=== PATIENT | male | born 1960 | race Caucasian/White ===

== ENCOUNTER 2023-11-14 13:41 | Emergency (ER) | payer OTHER, SELFPAY ==
[2023-11-14 13:45] VITALS: BP 178/88; PULSE 80; TEMP 36.8; O2SAT 97; BMI 38.7
--- NOTE | 2023-11-14 13:52 | CT_ITS ---
[address] [address] Patient Name: MIKEL CALDERON MRN: [id number] date: 1960 Sex: M Assigned Patient Location: ER Current Patient Location: Accession/Order Number: [id number] Exam Date: 11/14/2023 14:35 Report Date: 11/14/2023 15:04 At the request of: JACQUES JOHNSON Procedure: CT abdomen pelvis w con EXAMINATION: CT abdomen pelvis w con HISTORY: Abdominal pain , nausea and COMPARISON: No relevant comparison available. TECHNIQUE: Axial, Coronal, and Sagittal images were obtained without and/or with IV contrast as indicated by examination type. Dose reduction techniques were achieved by using automated exposure control and/or adjustment of mA and/or kV according to patient size and/or use of iterative reconstruction technique. FINDINGS: LUNG BASES: No visible pulmonary or pleural disease. LIVER: No enlargement, atrophy, suspicious density, or significant focal lesion. BILIARY: No dilatation or calcification. PANCREAS: No lesion, fluid collection, or abnormal duct dilatation. SPLEEN: No enlargement or focal lesion. ADRENALS: No mass or enlargement. KIDNEYS: Moderate right hydronephrosis secondary to an obstructing 9 x 7 x 5 mm stone within the mid ureter. Left kidney contains 2 nonobstructing stones, largest is 10 mm. BOWEL/MESENTERY: No visible mass, obstruction, or bowel wall thickening. AORTA/VASCULAR: No aneurysm or dissection. RETROPERITONEUM: No mass or adenopathy. LYMPH NODES: No adenopathy. URINARY BLADDER: No visible focal wall thickening, lesion, or calculus. PELVIC ORGANS: No visible mass. Pelvic organs appropriate for patient age. ABDOMINAL WALL: No mass or hernia. BONES: No bony lesion or fracture. OTHER: Negative. CT/CT abdomen pelvis w con IMPRESSION: 1. Moderate right hydronephrosis secondary to an obstructing 9 x 7 x 5 mm stone within the mid ureter. 2. Nonobstructing left nephrolithiasis. Electronically authenticated by: KATI CASTRO Date: 11/14/2023 15:04
--- NOTE | 2023-11-14 13:57 | ED.GENADUL1 ---
HPI HPI - General Adult General Chief complaint: Abdominal Pain Stated complaint: ABDOMINAL PAIN Time Seen by Provider: 11/14/23 13:42 Source: patient Mode of arrival: walk-in Limitations: no limitations History of Present Illness HPI narrative: Patient is a 63-year-old male who presents to the emergency department for the evaluation of right lower quadrant abdominal pain. Patient states 30 minutes ago he had a sudden onset of sharp right lower quadrant pain. He felt nauseous but has had no vomiting, he states he tried to make himself throw up but was unsuccessful. He has had no fevers. He had a hamburger and water 45 minutes prior to arrival. He denies any previous abdominal surgeries. He has had no urinary complaints or diarrhea. No medications taken prior to arrival. No flank or back pain. No other upper respiratory symptoms. Related Data Home Medications ?Medication ?Instructions ?Recorded ?Confirmed metformin 500 mg tablet 500 mg PO BID 11/14/23 11/14/23 Previous Rx's ?Medication ?Instructions ?Recorded cephalexin 500 mg capsule 500 mg PO Q8H 7 days #21 caps 11/14/23 ondansetron 4 mg disintegrating 4 mg PO Q6H PRN nausea and 11/14/23 tablet vomiting #12 tabs oxycodone-acetaminophen 5 mg-325 1 tab PO Q6H PRN pain 3 days #15 11/14/23 mg tablet (Percocet) tabs Allergies Allergy/AdvReac Type Severity Reaction Status Date / Time No Known Drug Allergies Allergy Verified 11/14/23 13:45 Opioid HPI Opioid Management Most Recent Opioid Data: Last Pain Scale 3 11/14/23 15:09 Last ED Pain Assessment 11/14/23 15:05 Last MAR Pain Assessment 11/14/23 14:16 Review of Systems ROS Constitutional Denies: fever or chills Ears, nose, mouth, and throat Denies: throat pain or nasal congestion Cardiovascular Denies: chest pain Respiratory Denies: shortness of breath or cough Gastrointestinal Reports: abdominal pain and nausea; Denies: vomiting or diarrhea Musculoskeletal Denies: back pain Integumentary/Breast Denies: rash Neurological Denies: headache Endocrine Denies: excessive urination Hematologic/Lymphatic Denies: easy bruising or easy bleeding Exam Narrative Exam Narrative: Gen.: Awake, alert, in no distress Head: Normocephalic, atraumatic ENT: Moist mucous membranes Respiratory: No respiratory distress Gastrointestinal: Abdomen is soft, nondistended and Tenderness to palpation in the right lower quadrant with no McBurney's point tenderness, no guarding or rebound Extremities: Moves extremities equally Psych: Normal mood and affect Neuro: No focal neuro deficit Skin: Warm, dry, intact Constitutional Vital Signs, click to edit/add: Last Vital Signs Temp 98.2 F 11/14/23 13:45 Pulse 85 11/14/23 15:04 Resp 16 11/14/23 15:04 BP 148/78 H 11/14/23 15:04 Pulse Ox 93 L 11/14/23 15:04 O2 Del Method Room Air 11/14/23 15:04 Course Vital Signs Vital signs: Vital Signs Temperature 98.2 F 11/14/23 13:45 Pulse Rate 80 11/14/23 13:45 Respiratory Rate 20 11/14/23 13:45 Blood Pressure 178/88 H 11/14/23 13:45 Pulse Oximetry 97 11/14/23 13:45 Oxygen Delivery Method Room Air 11/14/23 13:45 Temperature 98.2 F 11/14/23 13:45 Pulse Rate 85 11/14/23 15:04 Respiratory Rate 16 11/14/23 15:04 Blood Pressure 148/78 H 11/14/23 15:04 Pulse Oximetry 93 L 11/14/23 15:04 Oxygen Delivery Method Room Air 11/14/23 15:04 Medical Decision Making MDM Narrative Medical decision making narrative: Patient treated with IV fluids, Toradol, Zofran, Levsin. He is sitting comfortably on reevaluation by attending physician. He was able to walk to [place] with no difficulty. Lab studies show normal white blood cell count, normal creatinine of 1.2. Lactic acid is mildly elevated and lipase is also mildly elevated but not high enough to qualify for acute pancreatitis and CT shows a 9 x 7 x 5 mm stone At the right mid ureter. We do not have urology coverage at this facility for at least 2 days. Patient is diabetic with a large stone and hydro-. He is resting comfortably. Discussed with attending physician, patient should seek care at a tertiary care facility whether transfer directly from the ER or close follow-up. Patient is comfortable with any outside urology follow-up. Discussed with Dr. Leung For [facility]. He will see the patient tomorrow morning in the office, he has OR time so if a procedure is indicated the patient can be taken to the OR tomorrow. Patient will be n.p.o. after midnight. I stressed to the patient multiple times that he needs to not eat or drink anything after midnight. If he needs to take a pain pill he can take it with a tiny sip of water. He verbalized understanding. He is on no other home medications other than metformin and this will need to be held due to IV contrast from the CT. Follow-up tomorrow in the office at 9 AM, return to the ER if symptoms change or worsen. EKG requested for pre-op clearance Medical Records Medical records reviewed: Yes I reviewed the patient's medical records Lab Data Lab results reviewed: Yes I reviewed the patient's lab results Labs: Lab Results 11/14/23 Range/Units 14:00 WBC 7.2 (4.0-11.0) 10^3/uL RBC 4.65 L (4.70-6.10) 10^6/uL Hgb 14.7 (14.0-18.0) g/dL Hct 42.1 (42.0-54.0) % MCV 90.5 (80.0-94.0) fL MCH 31.6 (25.9-34.0) pg MCHC 34.9 (29.9-35.2) g/dL RDW 12.1 (11.0-15.0) % Plt Count 156 (150-450) 10^3/uL MPV 10.9 (9.5-13.5) fL Neut % (Auto) 57.4 (43.0-75.0) % Lymph % (Auto) 31.0 (20.5-60.0) % [place] % (Auto) 8.5 (1.7-12.0) % Eos % (Auto) 2.4 (0.9-7.0) % Baso % (Auto) 0.4 (0.2-2.0) % Neut # (Auto) 4.1 (1.4-6.5) 10^3/uL Lymph # (Auto) 2.2 (1.2-3.8) 10^3/uL [place] # (Auto) 0.6 (0.3-0.8) 10^3/uL Eos # (Auto) 0.2 (0.0-0.7) 10^3/uL Baso # (Auto) 0.0 (0.0-0.1) 10^3/uL Abs Immat Gran (auto) 0.02 (0.00-0.03) 10^3/uL Imm/Tot Granulo (auto) 0.3 (0.0-0.5) % Sodium 140 (136-145) mmol/L Potassium 4.0 (3.5-5.1) mmol/L Chloride 102 (98-107) mmol/L Carbon Dioxide 27.4 (21.0-32.0) mmol/L Anion Gap 14.6 BUN 15.0 (7.0-18.0) mg/dL Creatinine 1.21 (0.70-1.30) mg/dL Est GFR ( Amer) >60 (>=60) Est GFR (Non-Af Amer) >60 (>=60) BUN/Creatinine Ratio 12.4 Glucose 106 (74-106) mg/dL Lactate 2.3 H* (0.4-2.0) mmol/L Calcium 9.7 (8.5-10.1) mg/dL Total Bilirubin 0.5 (0.2-1.0) mg/dL AST 31 (15-37) U/L ALT 50 (16-63) U/L Alkaline Phosphatase 73 (46-116) U/L Total Protein 7.5 (6.4-8.2) g/dL Albumin 4.3 (3.4-5.0) g/dL Globulin 3.2 g/dL Albumin/Globulin Ratio 1.3 Lipase 159.0 H (16.0-77.0) U/L Imaging Data CT scan - abdomen: Attestation: I have reviewed the pertinent imaging results. Radiologist's impression: ITS Impressions Abdomen/Pelvis CT 11/14/23 13:52 IMPRESSION: 1. Moderate right hydronephrosis secondary to an obstructing 9 x 7 x 5 mm stone within the mid ureter. 2. Nonobstructing left nephrolithiasis. Electronically authenticated by: KATI CASTRO Date: 11/14/2023 15:04 Discharge Plan Discharge Stand Alone Forms: Portal Instructions Chief Complaint: Abdominal Pain Clinical Impression: Abdominal pain, Kidney stone on right side Patient Disposition: Home, Self-Care Time of Disposition Decision: 15:36 Condition: Good Prescriptions / Home Meds: New oxycodone-acetaminophen [Percocet] 5-325 mg tablet 1 tab PO Q6H PRN (Reason: pain) 3 Days Qty: 15 0RF Rx Instructions: DX: N20.0 cephalexin 500 mg capsule 500 mg PO Q8H 7 Days Qty: 21 0RF ondansetron 4 mg tablet,disintegrating 4 mg PO Q6H PRN (Reason: nausea and vomiting) Qty: 12 0RF No Action metformin 500 mg tablet 500 mg PO BID Print Language: Hungarian Instructions: Kidney Stones (ED) Additional Instructions: Please do not eat or drink anything after midnight tonight Please follow up tomorrow (Tuesday11/15/23) at 8:45am for your 9am appointment with [facility], please bring your discharge packet with all of your labs and information with CD of your images for the urology staff [facility] ? [facility] [address] [place] [address] [address] [place], [place] [address] tel:[phone] Referrals: Fish Nolasco MD [Primary Care Provider] - 1 week
[2023-11-14 14:11] LABS: Basophils Percent Auto 0.4 % (0.2-2.0); Eosinophils Absolute Auto 0.2 10^3/uL (0.0-0.7); Eosinophils Percent Auto 2.4 % (0.9-7.0); Hematocrit 42.1 % (42.0-54.0); Hemoglobin 14.7 g/dL (14.0-18.0); Immature Granulocytes Abs Auto 0.02 10^3/uL (0.00-0.03); Immature Granulocytes Pct Auto 0.3 % (0.0-0.5); Lymphocytes Absolute Auto 2.2 10^3/uL (1.2-3.8); Mean Corpuscular HGB Conc 34.9 g/dL (29.9-35.2); Mean Corpuscular Hemoglobin 31.6 pg (25.9-34.0); Mean Corpuscular Volume 90.5 fL (80.0-94.0); Mean Platelet Volume 10.9 fL (9.5-13.5); Monocytes Absolute Auto 0.6 10^3/uL (0.3-0.8); Monocytes Percent Auto 8.5 % (1.7-12.0); Neutrophils Absolute Auto 4.1 10^3/uL (1.4-6.5); Neutrophils Percent Auto 57.4 % (43.0-75.0); Platelet Count 156 10^3/uL (150-450); Red Blood Count 4.65 10^6/uL (4.70-6.10); Red Cell Distribution Width 12.1 % (11.0-15.0); White Blood Count 7.2 10^3/uL (4.0-11.0)
[2023-11-14] MEDS: KETOROLAC TROMETHAMINE 30 MG/ML VIAL 15 MG IVP (14:16)
[2023-11-14] MEDS: 0.9 % SODIUM CHLORIDE 1,000 ML 999 ML IV (14:17)
[2023-11-14] MEDS: HYOSCYAMINE SULFATE 0.125 MG TAB.SUBL SL (14:17)
[2023-11-14] MEDS: ONDANSETRON PF 4 MG/2 ML VIAL IV (14:21)
[2023-11-14 14:27] LABS: Alanine Aminotransferase 50 U/L (16-63); Albumin Globulin Ratio 1.3; Albumin Level 4.3 g/dL (3.4-5.0); Alkaline Phosphatase 73 U/L (46-116); Anion Gap 14.6; Aspartate Amino Transferase 31 U/L (15-37); BUN Creatinine Ratio 12.4; Bilirubin Total 0.5 mg/dL (0.2-1.0); Calcium 9.7 mg/dL (8.5-10.1); Carbon Dioxide 27.4 mmol/L (21.0-32.0); Chloride 102 mmol/L (98-107); Estimated GFR (African America >60 (>=60); Estimated GFR (Non-African Ame >60 (>=60); Globulin 3.2 g/dL; Glucose 106 mg/dL (74-106); Sodium 140 mmol/L (136-145); Total Protein 7.5 g/dL (6.4-8.2)
[2023-11-14 14:43] LABS: Lactate/Lactic Acid 2.3 mmol/L (0.4-2.0)
[2023-11-14 15:04] VITALS: BP 148/78; PULSE 85; O2SAT 93
--- NOTE | 2023-11-14 15:32 | ECG_ITS ---
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
[2023-11-14 16:36] LABS: Bilirubin Urine NEGATIVE (NEGATIVE); Blood Urine SMALL (NEGATIVE); Clarity Urine CLEAR (CLEAR); Color Urine DK. YELLOW (YELLOW); Glucose Urine UA NEGATIVE (NEGATIVE); Ketones Urine NEGATIVE (NEGATIVE); Leukocyte Esterase Urine NEGATIVE (NEGATIVE); Nitrite Urine NEGATIVE (NEGATIVE); Protein Urine NEGATIVE (NEG/TRACE); Urine Microscopic Indicated YES; Urobilinogen Urine 0.2 EU/dL (0.2-1.0)
[2023-11-14 16:43] LABS: Bacteria Urine NONE SEEN #/HPF (NONE SEEN); Cast Seen? NONE SEEN #/LPF (NONE SEEN); Crystals Seen? None Seen #/HPF (None Seen); Mucus Urine NONE SEEN (NONE SEEN); RBC Urine 0-2 #/HPF (0-2); Squamous Epithelial Cell Urine NONE SEEN #/LPF (NONE/RARE); WBC Urine NONE SEEN #/HPF (NONE SEEN)
== END 2023-11-14 16:10 | disposition home or self-care (01) ==
PROVIDERS: Physician Assistant; Emergency Provider Emergency Medicine; PCP Family Medicine
DX: R10.9 Unspecified abdominal pain (principal); N20.0 Calculus of kidney; Z79.84 Long term (current) use of oral hypoglycemic drugs
CPT/HCPCS: 36415; 74177; 80053; 81001; 83605; 83690; 85025; 93005; 96374; 96375; 99285; Q9967

== ENCOUNTER 2023-11-16 13:50 | Outpatient (REF) | payer OTHER, SELFPAY | END 2023-11-16 13:51 | disposition home or self-care (01) | LOC: LAB 13:50 | PROVIDERS: PCP Family Medicine; Visit Provider Surgery | DX: L98.9 Disorder of the skin and subcutaneous tissue, unspecified (principal); C44.41 Basal cell carcinoma of skin of scalp and neck | CPT/HCPCS: 88305 ==

== ENCOUNTER 2024-02-15 07:19 | Outpatient (OUT) | payer OTHER, SELFPAY ==
--- OUTSIDE RECORDS SUMMARY | 2024-02-15 07:23 | XMS_ITS | CCD ---
Author Organization [facility] Care Team Providers Care Analytical Clerk Name Role Phone FELIX, JAZMIN S Unavailable Unavailable FELIX JAZMIN S Unavailable Unavailable JOSE, BRO S Unavailable Unavailable HOBridgette DIALLO M Unavailable Unavailable ALBERT, REGI S Unavailable Unavailable AL-NSOUR, MOHAMMAD A Unavailable Unavailable FLANAGAN, SHAILI Unavailable Unavailable ADAPPA, MARY Unavailable Unavailable CHINEDU, GARY K Unavailable Unavailable CHINEDU, GARY K Unavailable Unavailable ADAPPA, MARY Unavailable Unavailable RAHEEM DIALLO M Unavailable Unavailable ALBERT, REGI S Unavailable Unavailable AL-NSOUR, MOHAMMAD A Unavailable Unavailable FLANAGAN, SHAILI Unavailable Unavailable MITCHEL NOLASCOLAS M Unavailable Unavailable Diallo Nolasco Primary Care Physician NILBlaise ., DR CARPIO Attending Unavailable NILL ., DR CARPIO Admitting Unavailable HOY ., DR LANDRUM Primary Care Unavailable HOY ., DR LANDRUM Consulting Unavailable HOY ., DR LANDRUM Attending Unavailable HOY ., DR LANDRUM Admitting Unavailable HOY ., DR LANDRUM Primary Care Unavailable MIGNON WILLETT Attending Unavailable MIGNON WILLETT Admitting Unavailable MIGNON WILLETT Consulting Unavailable DR DIALLO GRAHAM Primary Care Unavailable NILL ., DR CARPIO Admitting Unavailable NILL ., DR CARPIO Consulting Unavailable NILBlaise ., DR CARPIO Attending Unavailable RAHEEM Velasco, DR LANDRUM Primary Care Unavailable MD Shirin Conn Attending Provider MD Gary Varela Attending Provider [phone] Shirin Conn Admitting Unavailable Shirin Conn Attending Unavailable Gary Varela Admitting Unavailable Gary Varela Attending Unavailable MARKUS FARAH Referring Unavailable DIALLO NOLASCO Primary Care Unavailable MARKUS FARAH Referring Unavailable DIALLO NOLASCO Primary Care Unavailable SALVADOR AVILA Admitting Unavailable SALVADOR AVILA Attending Unavailable DIALLO NOLASCO Primary Care Unavailable MIGNON WILLETT Attending Unavailable MIGNON WILLETT Attending Unavailable Shirin CONN Attending Unavailable Diallo Nolasco Referring Unavailable Shirin CONN Attending Unavailable Allergies Allergy Classification Reported Allergen(s) Allergy Type Date of Onset Reaction(s) Facility (1 source) No Known Medication Allergies; Translations: [No Known Medication Allergies] Propensity to adverse reactions (disorder) [facility] Repository Medications Current Medications Medication Drug Class(es) Dates Sig (Normalized) Sig (Original) 3 ML semaglutide 2.68 MG/ML Pen Injector [Ozempic] (3 sources) Start: 09-13-2023 Ozempic 8 mg/3 mL (2 mg dose) subcutaneous solution Refills(s) 0 Start Date: 09/13/23 Status: Ordered aspirin 81 mg oral capsule (4 sources) Platelet Aggregation Inhibitor, Nonsteroidal Anti-inflammatory Drug Start: 09-01-2021 take 1 capsule by mouth once daily aspirin 81 mg oral capsule 81 mg = 1 cap(s), Oral, Daily, Refills(s) 0 Start Date: 09/01/21 Status: Ordered metFORMIN hydrochloride 500 mg oral tablet (6 sources) Biguanide Start: 11-08-2019 take 1 tablet by mouth twice daily metformin 500 mg oral tablet 500 mg = 1 tab(s), Oral, BID, Refills(s) 0 Start Date: 11/08/19 Status: Ordered Multi Vitamins oral tablet (6 sources) Start: 07-13-2022 take 1 tablet by mouth once daily Multi Vitamins oral tablet 1 tab(s), Oral, Daily, Refill(s) 0 Start Date: 07/13/22 Status: Ordered tadalafil (6 sources) Phosphodiesterase 5 Inhibitor Start: 09-13-2023 tadalafil 20 mg Tab See Instructions, Do not exceed 20mg within 48 hours. PRN for sexual intercourse., # 30 tab(s), Refills(s) 5, Pharmacy: [id number], 177, cm, 09/13/23 8:23:00 EST, Height/Length Dosing, 118, kg, 09/13/23 8:23:00 EST, Weight Dosing Start Date: 09/13/23 Status: Ordered Start: 09-08-2022 take 1 tablet by rick th every hour tadalafil 20 mg Tab See Instructions, Take 1 tab by mouth 1 hour prior to sexual activity., # 30 tab(s), Refills(s) 5, Pharmacy: [facility], 177, cm, 09/08/22 10:19:00 EST, Height/Length Dosing, 118, kg, 09/08/22 10:19:00 EST, Weight Dosing Start Date: 09/08/22 Status: Ordered Start: 03-23-2022 tadalafil 20 m g Tab 20 mg = 1 tab(s), Oral, As Directed, # 30 tab(s), Refills(s) 5, Pharmacy: [facility], 177, cm, 09/01/21 8:35:00 EST, Height/Length Dosing, 123.2, kg, 09/01/21 8:35:00 EST, Weight Dosing Start Date: 03/23/22 Status: Ordered Problems Problem Classification Problem Date Documented Da te Episodic/Chronic Acute cerebrovascular disease (4 sources) Nontraumatic subdural hemorrhage, unspecified; Translations: [Hematoma of subdural space of neuraxis] Onset: 7 06-29-2023 Chronic Allergic reactions (6 sources) Eczema 08-19-2021 Episodic Attention-deficit, conduct, and disruptive behavior disorders (6 sources) Attention deficit hyperactivity disorder 08-19-2021 Chronic Calculus of urinary tract (14 sources) History of calculus of kidney; Translations: [Personal history of urinary calculi] Onset: 3 04-30-2019 Episodic Coagulation and hemorrhagic disorders (3 sources) Heparin induced thrombocytopenia (HIT); Translations: [Thrombocytopenia, unspecified] Onset: 7 Chronic Conditions associated with dizziness or vertigo (6 sources) Benign paroxysmal positional vertigo 08-19-2021 Episodic Diabetes mellitus without complication (7 sources) Diabetes mellitus; Translations: [Type 2 diabetes mellitus without complications] Onset: 3 08-28-2019 Chronic Essential hypertension (6 sources) Diastolic hypertension 08-19-2021 Chronic Genitourinary symptoms and ill-defined conditions (7 sources) Nocturia; Translations: [Nocturia] Onset: 3 12-20-2019 Episodic Hyperplasia of prostate (13 sources) Benign prostatic hypertrophy with outflow obstruction; Translations: [Benign prostatic hyperplasia with lower urinary tract symptoms] Onset: 3 02-21-2020 Chronic Malaise and fatigue (1 source) Other fatigue; Translations: [OTHER FATIGUE] Onset: 2 Episodic Neoplasms of unspecified nature or uncertain behavior (8 sources) Neoplasm of uncertain behavior of skin of back; Translations: [Neoplasm of uncertain behavior of skin] Onset: 4 08-25-2021 Episodic Other and ill-defined heart disease (6 sources) Cardiomegaly 08-19-2021 Chronic Other circulatory disease (6 sources) History of subdural hematoma 08-19-2021 Episodic Other connective tissue disease (6 sources) Diastasis recti 08-19-2021 Episodic Other ear and sense organ disorders (6 sources) Hearing loss 08-19-2021 Chronic Other male genital disorders (6 sources) Impotence 02-21-2020 Chronic Other male genital disorders (2 sources) Male erectile dysfunction, unspecified; Translations: [Erectile dysfunction] Onset: 3 Chronic Other non-epithelial cancer of skin (20 sources) Basal cell carcinoma of back; Translations: [Basal cell carcinoma of lower extremity] Onset: 3 09-22-2021 Episodic Other nutritional; endocrine; and metabolic disorders (4 sources) Body mass index 40+ - severely obese 07-13-2022 Chronic Other nutritional; endocrine; and metabolic disorders (4 sources) Obesity 07-01-2022 Chronic Other nutritional; endocrine; and metabolic disorders (1 source) Obesity, unspecified; Translations: [OBESITY UNSPECIFIED] Onset: 3 Chronic Other nutritional; endocrine; and metabolic disorders (1 source) Body mass index (BMI) 40.0-44.9, adult; Translations: [BODY MASS INDEX BMI 40.0-44.9 ADULT] Onset: 3 Chronic Other nutritional; endocrine; and metabolic disorders (2 sources) Body mass index 30+ - obesity 11-16-2023 Chronic Other nutritional; endocrine; and metabolic disorders (2 sources) Obesity caused by energy imbalance 11-16-2023 Chronic Other screening for suspected conditions (not mental disorders or infectious disease) (8 sources) Ultrasonography of abdomen abnormal; Translations: [Encounter for screening for malignant neoplasm of prostate] Onset: 2 09-18-2019 Episodic Other skin disorders (1 source) Hypertrophic condition of skin; Translations: [Other hypertrophic disorders of the skin] Onset: 2 Episodic Other skin disorders (6 sources) Epidermoid cyst of skin 08-28-2019 Episodic Other skin disorders (6 sources) Skin tag 07-13-2022 Episodic Other skin disorders (6 sources) Trichilemmal cyst; Translations: [Pilar cyst] Onset: 3 Episodic Other skin disorders (3 sources) Other hypertrophic disorders of the skin; Translations: [OTHER HYPERTROPHIC DISORDERS SKIN] Onset: 3 Episodic Other skin disorders (1 source) Pilar cyst; Translations: [PILAR CYST] Onset: 3 Episodic Other upper respiratory disease (6 sources) Seasonal allergic rhinitis 08-19-2021 Chronic Moriah-; endo-; and myocarditis; cardiomyopathy (except that caused by tuberculosis or sexually transmitted disease) (12 sources) Cardiomyopathy; Translations: [Myocarditis] 08-19-2021 Chronic Phlebitis; thrombophlebitis and thromboembolism (7 sources) H/O: Deep vein thrombosis; Translations: [Personal history of other venous thrombosis and embolism] Onset: 3 08-19-2021 Episodic Residual codes; unclassified (6 sources) Obstructive sleep apnea syndrome 08-19-2021 Chronic Residual codes; unclassified (1 source) Obstructive sleep apnea (adult) (pediatric); Translations: [OBSTRUCTIVE SLEEP APNEA] Onset: 3 Chronic Unclassified (3 sources) Patient encounter status 09-13-2023 Results Test Name Value Interpretation Reference Range Facil ity Consultation Noteon 01-01-20 Consultation Note [id number]#1.00TIFF Normal [facility] Pathology Noteon 01-01-2024 Pathology Note [id number]#1.00TIFF Normal [facility] XR ABDOMEN (KUB) (SINGLE AP VIEW)on 12-28-2023 XR ABDOMEN (KUB) (SINGLE AP VIEW) EXAMINATION: ONE SUPINE XRAY VIEW(S) OF THE ABDOMEN 12/26/2023 1:22 pm COMPARISON: March 27, 2017 HISTORY: ORDERING SYSTEM PROVIDED HISTORY: Ureteral stone FINDINGS: Bowel gas pattern nonobstructed. Renal shadows partially obscured by bowel gas and fecal debris. 3 mm left nephrolithiasis. No definite right renal or ureteral stones. No acute osseous abnormality. IMPRESSION: Left nephrolithiasis. Interpreted by: Wali Horan DO Signed by: Wali Horan DO 12/28/23 Final result Normal [facility] 12-14-2023 L Specimen: [id number] Received: 12/15/23 Status: UYEN Hsu Num: [id number] Spec Type: Surgical Subm Dr: Gary Varela MD Tissues: A Skin-Other than Cyst, tag, debridement or plastic repair (SCALP) Procedures: HE/7, Gross/Micro L4 Age/ Patient Sex Location Account Attending Physician Mikel Samuels 63/M [place] [id number] Gray Varela MD SPEC NUM: [id number] RECD: 12/15/23 STATUS: UYEN HSU NUM: [id number] ASA: 12/14/[address]: Gary Varela MD ENTERED: 12/15/[address]: SPEC TYPE: Surgical DEPT: S ORDERED: HE/7, Gross/Micro L4 ORDERED: HE/7, Gross/Micro L4 Pathological Diagnosis Skin, scalp, reexcision: -Basal cell carcinoma of the large nodular to slightly infiltrative types (at least 1 cm tumor size) -The tumor thickness is up to 4 mm -No evidence of lymphovascular or perineural invasion -All margins are negative for malignancy Clinical Information Nonhealing lesion, reexcision biopsy. C44.41 Basal cell carcinoma. Gross Description Received in formalin labeled with the patient's name, date of and scalp is an oriented ovoid excision of monzon skin measuring 2.3 x 2.2 x 0.5 cm in depth. The specimen has been tagged with a staple by the surgeon designating the 12 o'clock position. The surface contains a 1.0 x 0.9 x 0.2 cm crusted and dome-shaped lesion coming to within 0.6 cm of 12:00 0.7 cm of 3:00 0.4 cm of 6:00 and 0.2 cm of 9:00. The specimen is inked as follows: 12-3 is orange, 3-6 is green, 6-9-12 is red and the deep margin is black. The specimen is serially sectioned from 12:00 to 6:00 revealing a 0.1 cm maximum depth of invasion. The specimen is sequentially submitted in A1-A6 as follows: A1: 9:00 tip Specimen: [id number] Received: 12/15/23 Status: UYEN Hsu Num: [id number] Spec Type: Surgical Subm Dr: Gary Varela MD Tissues: A Skin-Other than Cyst, tag, debridement or plastic repair (SCALP) Procedures: KELLY, Sukhwinder/Dorinda L4 Patient: Mikel Samuels [id number] (Continued) Specimen: [id number] Received: 12/15/23 (Continued) Gross Description (Continued) Signed (signature on file) Leonel Mendoza MD 12/20/23 1015 Specimen: [id number] Received: 12/15/23 Status: UYEN Aracelis Num: [id number] Spec Type: Surgical Subm Dr: Gary Varela MD Tissues: A Skin-Other than Cyst, tag, debridement or plastic repair (SCALP) Procedures: Sukhwinder Torrez/Micro L4 Patient: SamuelsMikel [id number] (Continued) Specimen: [id number] Received: 12/15/23 (Continued) Gross Description (Continued) A2: 3:00 tip A3-A6: 12:00 to 6:00 region CPT Codes 48697 Specimen: [id number] Received: 12/15/23 Status: UYEN Aracelis Num: [id number] Spec Type: Surgical Subm Dr: Gary Varela MD Tissues: A Skin-Other than Cyst, tag, debridement or plastic repair (SCALP) Procedures: Sukhwinder MENDOZA/Dorinda L4 Patient: Mikel Samuels [id number] (Continued) Signed (signature on file) Leonel Mendoza MD 12/20/23 1015 Normal [facility] Pathology Noteon 11-30-2023 Pathology Note [id number]#1.00TIFF Normal [facility] Ambulatory Visit Summaryon 0 11-23-2023 Ambulatory Visit Summary MIKEL SAMUELS :1960 Visit Date:11/23/2023 Ambulatory Visit Instructions Your Care Team Attending Physician - BETSY MORAN, Shirin Sanchez Primary Care Physician - Raheem MORAN, Diallo This Is Your Medications List metformin (metformin 500 mg oral tablet) multivitamin (Multi Vitamins oral tablet) semaglutide (Ozempic 8 mg/3 mL (2 mg dose) subcutaneous solution) tadalafil (tadalafil 20 mg Tab) Procedures Performed Incisional biopsy (11/22/2023), Bunionectomy (08/18/2020), Excision of malignant neoplasm (09/04/2019), Craniotomy (07/18/2016), Lithotripsy (07/18/2006), Cardiac catheterization (07/18/2004), Arthroplasty of knee, Colonoscopy, Cystoscopy, Excisional biopsy, Hernia repair, History of knee surgery, Insertion of gastrostomy tube, Lithotripsy, Neck procedure, Procedure on brain, Procedure on shoulder, Removal of gastrostomy tube, Rotator cuff repair, Vasectomy. What to do next Scheduled Follow-Up Appointments Tuesday. 2024 8:20 AM EST With: MIGNON WILLETT PA-C Where: [facility] General Surgery Office/Clini c Noteon 11-23-2023 General Surgery Office/Clinic Note Chief Complaint follow up in office incisional biopsy HPI Staff 8 day post in-office incisional biopsy scalp lesion. History of Present Illness 8 days s/p excisional biopsy changing lesion mid parietal scalp; no bleeding or pain; pathology pending. Review of Systems ROS - Provider Constitutional: no fever, no sweats, no weight loss. Eyes: no glasses, no blurred vision, no visual loss. ENMT: no dentures, no hoarseness, no swallowing difficulties, no hearing loss, no ear infection(s), no nose bleeds. Cardiovascular: normal blood pressure, no chest pain, regular heartbeat, no heart murmur. Respiratory: no shortness of breath, no cough, no asthma, no wheezing. Gastrointestinal: no nausea, no vomiting, no diarrhea, no constipation, no blood in stool, no change in bowel habits, no abdominal pain, no hepatitis. Genitourinary: no kidney stones, no urine infection, no dysuria. Musculoskeletal: no pain, no weakness. Skin: no changing moles, no rash, no skin lumps. Neurologic: no seizures, no epilepsy, no headache. Psychiatric: no emotional or psychiatric problem. Heme/Lymph: no bleeding problems, no anemia, no blood clots, no transfusions. Allergy/Immunologic: no swollen lymph nodes/glands, no IV drug abuse. Other: Additional ROS info: Except as noted in the above Review of Systems and in the History of Present Illness, all other systems have been reviewed and are negative or noncontributory. Physical Exam skin: biopsy site healing well, small scab, no hematoma or bleeding, no drainage. Assessment/Plan 1. Neoplasm of uncertain behavior of scalp (D48.5: Neoplasm of uncertain behavior of skin) sutures removed, doing well; will call patient with pathology results. Follow-up No qualifying data available Problem List/Past Medical History Ongoing Abnormal US (ultrasound) of abdomen ADHD Basal cell carcinoma of back Basal cell carcinoma of left lower leg Benign paroxysmal positional vertigo BMI 37.0-37.9, adult BPH with urinary obstruction Cardiomegaly Cardiomyopathy Diabetes Diastasis recti Diastolic hypertension Eczema Epidermal cyst Fibroepithelial polyp Hearing loss History of DVT (deep vein thrombosis) History of kidney stones History of subdural hematoma Impotence Myocarditis Neoplasm of uncertain behavior of scalp Neoplasm of uncertain behavior of skin of back Nocturia Obesity due to excess calories FREDDY (obstructive sleep apnea) Personal history of skin cancer Pilar cyst Prostate cancer screening Seasonal allergic rhinitis Historical No qualifying data Procedure/Surgical History Incisional biopsy (11/22/2023), Bunionectomy (08/18/2020), Excision of malignant neoplasm (09/04/2019), Craniotomy (07/18/2016), Lithotripsy (07/18/2006), Cardiac catheterization (07/18/2004), Arthroplasty of knee, Colonoscopy, Cystoscopy, Excisional biopsy, Hernia repair, History of knee surgery, Insertion of gastrostomy tube, Lithotripsy, Neck procedure, Procedure on brain, Procedure on shoulder, Removal of gastrostomy tube, Rotator cuff repair, Vasectomy. Medications metformin 500 mg oral tablet, 500 mg= 1 tab(s), Oral, BID Multi Vitamins oral tablet, 1 tab(s), Oral, Daily Ozempic 8 mg/3 mL (2 mg dose) subcutaneous solution tadalafil 20 mg Tab, See Instructions, 5 refills Allergies No Known Allergies No Known Medication Allergies Social History Alcohol Current, 1-2 times per month, 04/30/2019 Substance Abuse - Denies Substance Abuse, 08/25/2021 Tobacco Never (less than 100 in lifetime) Tobacco Use:. Never Smokeless Tobacco Use:. Household tobacco concerns: No. Yes, 11/16/2023 Family History Cardiac arrest: Father. Diverticulitis: Mother. Immunizations Vaccine Date Status Comments influenza virus vaccine, inactivated - Not Given Patient Refuses influenza virus vaccine, inactivated - Not Given Patient Refuses SARS-CoV-2 (COVID-19) mRNA BNT-162b2 vax 10/16/2020 Recorded SARS-CoV-2 (COVID-19) mRNA BNT-162b2 vax 09/25/2020 Recorded influenza virus vaccine, inactivated 07/08/2020 Recorded influenza virus vaccine, live, trivalent - Not Given Patient Refuses pneumococcal 13-valent vaccine 04/2005 Recorded Normal [facility] Comment on above: Result Comment: Elec tronically Signed By: BETSY MORAN, Shirin Sanchez\.br\Date and Time Signed: 11/23/23 15:20 EDT Ambulatory Visit Summaryon 0 11-16-2023 Ambulatory Visit Summary MIKEL SAMUELS :1960 Visit Date:11/16/2023 Ambulatory Visit Instructions Your Care Team Attending Physician - Shirin CONN MD Primary Care Physician - Diallo Nolasco MD Referring Physician - Diallo Nolasco MD This Is Your Medications List Contact prescribing physician if questions or concerns metformin (metformin 500 mg oral tablet) multivitamin (Multi Vitamins oral tablet) semaglutide (Ozempic 8 mg/3 mL (2 mg dose) subcutaneous solution) tadalafil (tadalafil 20 mg Tab) Procedures Performed Bunionectomy (08/18/2020), Excision of malignant neoplasm (09/04/2019), Craniotomy (07/18/2016), Lithotripsy (07/18/2006), Cardiac catheterization (07/18/2004), Arthroplasty of knee, Colonoscopy, Cystoscopy, Excisional biopsy, Hernia repair, History of knee surgery, Insertion of gastrostomy tube, Lithotripsy, Neck procedure, Procedure on brain, Procedure on shoulder, Removal of gastrostomy tube, Rotator cuff repair, Vasectomy. Discharge Vitals Heart Rate (Peripheral) 76 Respiratory Rate 16 Blood Pressure 138/90 Height 177 cm Height 70 in Weight 118 kg Weight 259.6 lb BMI 37.66 What to do next Scheduled Follow-Up Appointments Tuesday 3:00 PM EDT With: BETSY MORAN, Shirin Sanchez Where: [facility] Normal [address] [place] [address] [place] [address]- \.br\ Medications\.br\ What How Much When Instructions\.br \ Unchanged metformin (metformin 500 mg oral tablet) 1 Tablets By Mouth 2 times a day Contact prescribing physician if questions or concerns \.br\ Unchanged multivitamin (Multi Vitamins oral tablet) 1 Tablets By Mouth Every day Contact prescribing physician if questions or concerns \.br\ Unchanged semaglutide (Ozempic 8 mg/ 3 mL (2 mg dose) subcutaneous solution) Contact prescribing physician if questions or concerns \.br\ Unchanged tadalafil (tadalafil 20 mg Tab) See instructions Do not exceed 20mg within 48 hours. PRN for sexual intercourse. Contact prescribing physician if questions or concerns \.br\ Allergies\.br\ No Known Allergies\.br\ No Known Medication Allergies\.br\ Problems\.br\ Ongoing - Any problem that you are currently receiving treatment for.\.br\ Abnormal US (ultrasound) of abdomen\.br\ ADHD\.br\ Basal cell carcinoma of back\.br\ Basal cell carcinoma of left lower leg\.br\ Benign paroxysmal positional vertigo\.br\ BMI 37.0-37.9, adult\.br\ BPH with urinary obstruction\.br\ Cardiomegaly\.br \ Cardiomyopathy\. br\ Diabetes\.br\ Diastasis recti\.br\ Diastolic hypertension\.br \ Eczema\.br\ Epidermal cyst\.br\ Fibroepithelial polyp\.br\ Hearing loss\.br\ History of DVT (deep vein thrombosis)\.br\ History of kidney stones\.br\ History of subdural hematoma\.br\ Impotence\.br\ Myocarditis\.br\ Neoplasm of uncertain behavior of skin of back\.br\ Nocturia\.br\ Obesity due to excess calories\.br\ FREDDY (obstructive sleep apnea)\.br\ Personal history of skin cancer\.br\ Pilar cyst\.br\ Prostate cancer screening\.br\ Seasonal allergic rhinitis\.br\ Patient Survey\.br\ You may receive a survey via text or e-mail asking about your office visit. Please share your experience with us by completing your survey. We appreciate your feedback and thank you for choosing us for your care.\.br\ \.br\ [facility] Kiran 11-16-2023 L Specimen: [id number] Received: 11/17/23 Status: UYEN Littleq Num: [id number] Spec Type: Surgical Subm Dr: Shirin Conn MD FACS Tissues: A Skin-Other than Cyst, tag, debridement or plastic repair (POSTERIOR SCALP) Procedures: HE, Gross/Micro L4 Age/ Patient Sex Location Account Attending Physician Mikel Samuels 63/M [place] [id number] Shirin Conn MD FACS SPEC NUM: [id number] RECD: 11/17/23 STATUS: UYEN HSU NUM: [id number] ASA: 11/16/[address]: Shirin Conn MD FACS ENTERED: 11/17/[address] [facility] [address]: Fransico Charlton SPEC TYPE: Surgical DEPT: MELL [place]UM[place] ORDERED: HE, Gross/Micro L4 ORDERED: HE, Gross/Micro L4 Pathological Diagnosis Skin of posterior scalp, incisional biopsy: ? Basal cell carcinoma (nodular and infiltrative patterns) extending to multiple specimen margins. Gross Description Received in formalin, labeled with the patient's name, date of and posterior scalp is a 0.6 x 0.2 x 0.1 cm scaly pale-monzon fragment of skin. The fragment is inked green along its presumed resection margin, left intact and submitted entirely in A1. Clinical history: 6-week history of changing skin lesion TW CPT Codes 17166 Specimen: [id number] Received: 11/17/23 Status: UYEN Hsu Num: [id number] Spec Type: Surgical Subm Dr: Shirin Conn MD FACS Tissues: A Skin-Other than Cyst, tag, debridement or plastic repair (POSTERIOR SCALP) Procedures: Sukhwinder ANDERSON/Dorinda L4 Patient: SamuelsMikel [id number] (Continued) Signed (signature on file) Leonel Mendoza MD 11/28/23 1212 Normal [facility] FLUORO FOR SURGICAL PROCEDUR ESon 11-15-2023 FLUORO FOR SURGICAL PROCEDURES Radiology exam is complete. No Radiologist dictation. Please follow up with ordering provider. Final result Normal [facility] Physician Referralon 024 Physician Referral [id number]#[id number] Normal [facility] Physician Referralon 024 Physician Referral [id number]#1.00TIFF Normal [facility] Lab Reportson 09-15-2023 Lab Reports [id number]#[id number] Normal [facility] Screenson 09-15-2023 Screens [id number] Normal [facility] Screens [id number] Normal [facility] Patient Educationon 09-13-19 24 Patient Education Urology Benign Prostatic Hyperplasia Benign prostatic hyperplasia (BPH) is an enlarged prostate gland that is caused by the normal aging process. The prostate may get bigger as a man gets older. The condition is not caused by cancer. The prostate is a walnut-sized gland that is involved in the production of semen. It is located in front of the rectum and below the bladder. The bladder stores urine. The urethra carries stored urine out of the body. An enlarged prostate can press on the urethra. This can make it harder to pass urine. The buildup of urine in the bladder can cause infection. Back pressure and infection may progress to bladder damage and kidney (renal) failure. What are the causes? This condition is part of the normal aging process. However, not all men develop problems from this condition. If the prostate enlarges away from the urethra, urine flow will not be blocked. If it enlarges toward the urethra and compresses it, there will be problems passing urine. What increases the risk? This condition is more likely to develop in men older than 50 years. What are the signs or symptoms? Symptoms of this condition include: ? Getting up often during the night to urinate. ? Needing to urinate frequently during the day. ? Difficulty starting urine flow. ? Decrease in size and strength of your urine stream. ? Leaking (dribbling) after urinating. ? Inability to pass urine. This needs immediate treatment. ? Inability to completely empty your bladder. ? Pain when you pass urine. This is more common if there is also an infection. ? Urinary tract infection (UTI). How is this diagnosed? This condition is diagnosed based on your medical history, a physical exam, and your symptoms. Tests will also be done, such as: ? A post-void bladder scan. This measures any amount of urine that may remain in your bladder after you finish urinating. ? A digital rectal exam. In a rectal exam, your health care provider checks your prostate by putting a lubricated, gloved finger into your rectum to feel the back of your prostate gland. This exam detects the size of your gland and any abnormal lumps or growths. ? An exam of your urine (urinalysis). ? A prostate specific antigen (PSA) screening. This is a blood test used to screen for prostate cancer. ? An ultrasound. This test uses sound waves to electronically produce a picture of your prostate gland. Your health care provider may refer you to a specialist in kidney and prostate diseases (urologist). How is this treated? Once symptoms begin, your health care provider will monitor your condition (active surveillance or watchful waiting). Treatment for this condition will depend on the severity of your condition. Treatment may include: ? Observation and yearly exams. This may be the only treatment needed if your condition and symptoms are mild. ? Medicines to relieve your symptoms, including: ? Medicines to shrink the prostate. ? Medicines to relax the muscle of the prostate. ? Surgery in severe cases. Surgery may include: ? Prostatectomy. In this procedure, the prostate tissue is removed completely through an open incision or with a laparoscope or robotics. ? Transurethral resection of the prostate (TURP). In this procedure, a tool is inserted through the opening at the tip of the penis (urethra). It is used to cut away tissue of the inner core of the prostate. The pieces are removed through the same opening of the penis. This removes the blockage. ? Transurethral incision (TUIP). In this procedure, small cuts are made in the prostate. This lessens the prostate's pressure on the urethra. ? Transurethral microwave thermotherapy (TUMT). This procedure uses microwaves to create heat. The heat destroys and removes a small amount of prostate tissue. ? Transurethral needle ablation (TUNA). This procedure uses radio frequencies to destroy and remove a small amount of prostate tissue. ? Interstitial laser coagulation (ILC). This procedure uses a laser to destroy and remove a small amount of prostate tissue. ? Transurethral electrovaporization (TUVP). This procedure uses electrodes to destroy and remove a small amount of prostate tissue. ? Prostatic urethral lift. This procedure inserts an implant to push the lobes of the prostate away from the urethra. Follow these instructions at home: ? Take ythe-hix-hxumukg and prescription medicines only as told by your health care provider. ? Monitor your symptoms for any changes. Contact your health care provider with any changes. ? Avoid drinking large amounts of liquid before going to bed or out in public. ? Avoid or reduce how much caffeine or alcohol you drink. ? Give yourself time when you urinate. ? Keep all follow-up visits. This is important. Contact a health care provider if: ? You have unexplained back pain. ? Your symptoms do not get better with treatment. ? You develop side effects from the medicine (more content not included)... Normal [facility] Urology Office/Clinic Noteon 09-13-2023 Urology Office/Clinic Note Chief Complaint 1yr PSA HPI Staff Previous DLS pt 1yr DX: BPH, Hx of Kidney Stones & Impotence *Tadalafil 20 mg PRN PSA 07/14/23- 0.32 Denies pain/burning and visible blood in urine. Getting up 2x/night. Denies flank pain. History of Present Illness staff HPI reviewed and agree. Review of Systems PHQ Score Initial Depression Screen Score: 0 SCORE no fever, chills, malaise, myalgia. no rash/lesions. no chest pain, palpitations, or SOB. no abdominal pain, nausea, vomiting. no unilateral calf swelling, redness, pain Physical Exam Vitals & Measurements HR: 68(Peripheral) RR: 16 BP: 135/89 HT: 70 in HT: 177 cm WT: 118 kg WT: 259.6 lb BMI: 37.66 General: nontoxic, NAD Mouth: moist mucosa Lungs: normal respiratory effort Cardio: regular rate, good distal perfusion Abdomen: nondistended, no suprapubic distention or tenderness, no CVA tenderness Neurologic: Grossly normal Skin: No rashes or suspicious lesions Assessment/Plan Prior DLS pt 1. Impotence (N52.9: Male erectile dysfunction, unspecified) ELENA 21 (24) Taking Cialis 20mg prn. Denies SEs. Working well. Wishes to continue with no changes to dose or medication. Refill sent to [facility] in [place]. Ordered: E&M of Est. Patient Moderate 30-39 Min 01858 2. BPH with urinary obstruction (N40.1: Benign prostatic hyperplasia with lower urinary tract symptoms) IPSS 0, however placed a question stiven near the sleeping portion. Nocturia 2x - says this is intentional - see #2. UA today negative. Not taking any BPH meds. No indication for treatment at this time. Continue to monitor. Ordered: E&M of Est. Patient Moderate 30-39 Min 31061 PSA Total Urnls Dip Stick Auto w/o Microscopy POC 25022 3. History of kidney stones (Z87.442: Personal history of urinary calculi) Last stone episode was over 15 years ago. States he was told by a urologist at [facility] that he should drink leading up to bed, but do not void prior to going to bed. Pt shares he has not had a kidney stone since. No recent imaging. Pt does not wish to get any monitoring imaging at this time. Ordered: E&M of Est. Patient Moderate 30-39 Min 60331 4. Prostate cancer screening (Z12.5: Encounter for screening for malignant neoplasm of prostate) PSA: 08/28/21 - 0.5 09/06/22 - 0.35 07/14/23 - 0.32 PSA remains low and stable. Orders: tadalafil, See Instructions, Do not exceed 20mg within 48 hours. PRN for sexual intercourse., # 30 tab(s), Refills(s) 5, Pharmacy: [id number], 177, cm, 09/13/23 8:23:00 EST, Height/Length Dosing, 118, kg, 09/13/23 8:23:00 EST, Weight Dosing Follow-up With When Contact Information BRENNON CARRILLO, MIGNON Mcdonald, URL [address] [place] [address] Additional Instructions: 1 year with PSA Patient Education Benign Prostatic Hyperplasia Documentation recorded by the ike Dixon accurately reflects the services(s) I performed and decisions made by me. Authenticated by Mignon Willett PA-C on 09/13/2023 08:54:38. ILexy, personally scribed for Mignon Willett PA-C on 09/13/2023 08:47:46. . 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 Medications aspirin 81 mg oral capsule, 81 mg= 1 cap(s), Oral, Daily metformin 500 mg oral tablet, 500 mg= 1 tab(s), Oral, BID Multi Vitamins oral tablet, 1 tab(s), Oral, Daily Ozempic 8 mg/3 mL (2 mg dose) subcutaneous solution tadalafil 20 mg Tab, See Instructions, 5 refills Allergies No Known Allergies No Known Medication Allergies Social History Alcohol Current, 1-2 times per month, 04/30/2019 Substance Abuse - Denies Substance Abuse, 08/25/2021 Tobacco Never (less than 100 in lifetime) Tobacco Use:. Never Smokeless Tobacco Use:. Household tobacco concerns: No. Yes, 09/13/2023 Family History Cardiac arrest (more content not included)... Normal [facility] Comment on above: Result Comment: Elec tronically Signed By: BRENNON CARRILLO, MIGNON Moyerbr\Date and Time Signed: 09/13/23 08:54 EST\.br\Electronically Co-Signed By: Lexy Dixon\.br\Date and Time Co-Signed: 09/13/23 08:48 EST CBC AUTO DIFFon 06-18-2022 BASO # 0.0 103/ul Normal 0.0-0.1 [facility] Comment on above: Performed By: #### C BC #### [facility] [address] [place] [address] Dr. Mita Mendoza Basophils/100 WBC (Bld) 0.4 % Normal 0.2-2.0 [facility] Comment on above: Performed By: #### C BC #### [facility] [address] [place] [address] Dr. Mita Mendoza EO # 0.2 103/ul Normal 0.0-0.7 [facility] Comment on above: Performed By: #### C BC #### [facility] [address] [place] [address] Dr. Mita Mendoza Eosinophils/100 WBC (Bld) 3.9 % Normal 0.9-7.0 [facility] Comment on above: Performed By: #### C BC #### [facility] [address] [place] [address] Dr. Mita Mendoza Erythrocyte distribution width (RBC) [Ratio] 12.5 % Normal 11.0-15.0 [facility] Comment on above: Performed By: #### C BC #### [facility] [address] [place] [address] Dr. Mita Mendoza Hematocrit (Bld) [Volume fraction] 43.5 % Normal 42.0-54.0 [facility] Comment on above: Performed By: #### C BC #### [facility] [address] [place] [address] Dr. Mita Mendoza Hemoglobin (Bld) [Mass/Vol] 15.1 g/dL Normal 14.0-18.0 [facility] Comment on above: Performed By: #### C BC #### [facility] [address] [place] [address] Dr. Mita Mendoza IG # 0.01 10e3/ul Normal 0.00-0.03 [facility] Comment on above: Performed By: #### C BC #### [facility] [address] [place] [address] Dr. Mita Mendoza IG % 0.2 % Normal 0.0-0.5 [facility] Comment on above: Performed By: #### C BC #### [facility] [address] [place] [address] Dr. Mita Mendoza LYMPH # 1.5 103/ul Normal 1.2-3.8 [facility] Comment on above: Performed By: #### C BC #### [facility] [address] [place] [address] Dr. Mita Mendoza Lymphocytes/100 WBC (Bld) 27.0 % Normal 20.5-60.0 [facility] Comment on above: Performed By: #### C BC #### [facility] [address] [place] [address] Dr. Mita Mendoza MANUAL DIFF REQ NO Normal [facility] Comment on above: Performed By: #### C BC #### [facility] [address] [place] [address] Dr. Mita Mendoza MCH (RBC) [Entitic mass] 30.8 pg Normal 25.9-34.0 [facility] Comment on above: Performed By: #### C BC #### [facility] [address] [place] [address] Dr. Mita Mendoza MCHC (RBC) [Mass/Vol] 34.7 g/dL Normal 29.9-35.2 [facility] Comment on above: Performed By: #### C BC #### [facility] [address] [place] [address] Dr. Mita Mendoza MCV (RBC) [Entitic vol] 88.6 fL Normal 80.0-94.0 [facility] Comment on above: Performed By: #### C BC #### [facility] [address] [place] [address] Dr. Mita Mendoza MONO # 0.6 103/ul Normal 0.3-0.8 [facility] Comment on above: Performed By: #### C BC #### [facility] [address] [address] [address] Mita Mendoza Monocytes/100 WBC (Bld) 11.2 % Normal 1.7-12.0 [facility] Comment on above: Performed By: #### C BC #### [facility] [address] [place] [address] Dr. Mita Mendoza NEUT # 3.2 103/ul Normal 1.4-6.5 [facility] Comment on above: Performed By: #### C BC #### [facility] [address] [place] [address] Dr. Mita Mendoza Neutrophils/100 WBC (Bld) 57.3 % Normal 43.0-75.0 [facility] Comment on above: Performed By: #### C BC #### [facility] [address] [place] [address] Dr. Mita Mendoza Platelet mean volume (Bld) [Entitic vol] 11.1 fL Normal 9.5-13.5 [facility] Comment on above: Performed By: #### C BC #### [facility] [address] [place] [address] Dr. Mita Mendoza PLT 149 103/ul Critically low 150-450 [facility] Comment on above: Performed By: #### C BC #### [facility] [address] [place] [address] Dr. Mita Mendoza RBC 4.91 106/ul Normal 4.70-6.10 [facility] Comment on above: Performed By: #### C BC #### [facility] [address] [place] [address] Dr. Mita Mendoza WBC 5.6 103/ul Normal 4.0-11.0 [facility] Comment on above: Performed By: #### C BC #### [facility] [address] [place] [address] Dr. Mita Mendoza FREE T3on 06-18-2022 FREE T3 2.94 pg/mlL Normal 2.18-3.98 [facility] Comment on above: Performed By: #### F T3, CMP, TSH, T4, LIPID #### [facility] [address] [place] [address] Dr. Mita Mendoza GLYCOHEMOGLOBIN A1Con 2021 ADA RECOMMENDATION SEE BELOW Normal [facility] Comment on above: Result Comment: ADA RECOMMENDED LIMIT 4.0 - 6.0 ADA THERAPEUTIC TARGET < 7.0 ACTION SUGGESTED > 7.0 Performed By: #### A 1C #### [facility] [address] [place] [address] Dr. Mita Mendoza Glucose [Mass/Vol] 117 mg/dL Normal [facility] Comment on above: Performed By: #### A 1C #### [facility] [address] [place] [address] Dr. Mita Mendoza HbA1c (Bld) [Mass fraction] 5.7 % Normal 4.5-6.2 [facility] Comment on above: Performed By: #### A 1C #### [facility] [address] [place] [address] Dr. Mita Mendoza LIPID PROFILEon 06-18-2022 CHOL-HDL RATIO NORM SEE BELOW Normal [facility] Comment on above: Result Comment: 3.3 - 4.4 LOW RISK 4.4 - 7.1 AVERAGE RISK 7.1 - 11.0 MODERATE RISK >11.0 HIGH RISK Performed By: #### F T3, CMP, TSH, T4, LIPID #### [facility] [address] [place] [address] Dr. Mita Mendoza Cholesterol [Mass/Vol] 196 mg/dL Normal <=200 [facility] Comment on above: Performed By: #### F T3, CMP, TSH, T4, LIPID #### [facility] [address] [place] [address] Dr. Mita Mendoza Cholesterol in HDL [Mass/Vol] 54 mg/dL Normal 40-60 [facility] Comment on above: Performed By: #### F T3, CMP, TSH, T4, LIPID #### [facility] [address] [place] [address] Dr. Mita Mendoza Cholesterol in LDL [Mass/Vol] 121.0 mg/dL Normal [facility] Comment on above: Performed By: #### F T3, CMP, TSH, T4, LIPID #### [facility] [address] [address] [address] Mita Mendoza Cholesterol.total/ Cholesterol in HDL [Mass ratio] 3.6 {ratio} Normal [facility] Comment on above: Performed By: #### F T3, CMP, TSH, T4, LIPID #### [facility] [address] [address] [address] Mita Mendoza HDL NORMAL > or = 60 mg/dl - LO W CARDIOVASCULAR RISK <40 mg/dl - HIGH CARDIOVASCULAR RISK Normal [facility] Comment on above: Performed By: #### F T3, CMP, TSH, T4, LIPID #### [facility] [address] [address] [address] Mita Mendoza LDL CALC NORMAL SEE BELOW Normal [facility] Comment on above: Result Comment: <100 mg/dl OPTIMAL 100 - 129 mg/dl NEAR OR ABOVE OPTIMAL 130 - 159 mg/dl BORDERLINE HIGH 160 - 189 mg/dl HIGH >190 mg/dl VERY HIGH Performed By: #### F T3, CMP, TSH, T4, LIPID #### [facility] [address] [address] [address] Mita Mendoza Triglyceride [Mass/Vol] 105 mg/dL Normal <=150 [facility] Comment on above: Performed By: #### F T3, CMP, TSH, T4, LIPID #### [facility] [address] [address] [address] Mita Mendoza VLDL CALC 21.0 mg/dL Normal [facility] Comment on above: Performed By: #### F T3, CMP, TSH, T4, LIPID #### [facility] [address] [address] [address] Mita Mendoza PROF 14(COMP METB)on 022 Albumin [Mass/Vol] 4.2 g/dL Normal 3.4-5.0 [facility] Comment on above: Performed By: #### F T3, CMP, TSH, T4, LIPID #### [facility] [address] [address] [address] Mita Mendoza Albumin/Globulin [Mass ratio] 1.3 {ratio} Normal [facility] Comment on above: Performed By: #### F T3, CMP, TSH, T4, LIPID #### [facility] [address] [place] [address] Dr. Mita Mendoza ALP [Catalytic activity/Vol] 70 U/L Normal 46-116 [facility] Comment on above: Performed By: #### F T3, CMP, TSH, T4, LIPID #### [facility] [address] [place] [address] Dr. Mita Mendoza ALT [Catalytic activity/Vol] 39 U/L Normal 16-63 [facility] Comment on above: Performed By: #### F T3, CMP, TSH, T4, LIPID #### [facility] [address] [place] [address] Dr. Mita Mendoza Anion gap [Moles/Vol] 10.4 mmol/L Normal [facility] Comment on above: Performed By: #### F T3, CMP, TSH, T4, LIPID #### [facility] [address] [place] [address] Dr. Mita Mendoza AST [Catalytic activity/Vol] 23 U/L Normal 15-37 [facility] Comment on above: Performed By: #### F T3, CMP, TSH, T4, LIPID #### [facility] [address] [place] [address] Dr. Mita Mendoza Bilirubin [Mass/Vol] 0.7 mg/dL Normal 0.2-1.0 [facility] Comment on above: Performed By: #### F T3, CMP, TSH, T4, LIPID #### [facility] [address] [place] [address] Dr. Mita Mendoza Calcium [Mass/Vol] 9.3 mg/dL Normal 8.5-10.1 [facility] Comment on above: Performed By: #### F T3, CMP, TSH, T4, LIPID #### [facility] [address] [place] [address] Dr. Mita Mendoza Chloride [Moles/Vol] 104 mmol/L Normal 98-107 [facility] Comment on above: Performed By: #### F T3, CMP, TSH, T4, LIPID #### [facility] [address] [address] [address] Mita Mendoza CO2 [Moles/Vol] 33.1 mmol/L Critically high 21.0-32.0 [facility] Comment on above: Performed By: #### F T3, CMP, TSH, T4, LIPID #### [facility] [address] [place] [address] Dr. Mita Mendoza Creatinine [Mass/Vol] 0.96 mg/dL Normal 0.70-1.30 [facility] Comment on above: Performed By: #### F T3, CMP, TSH, T4, LIPID #### [facility] [address] [place] [address] Dr. Mita Mendoza EGFR-AF NIGERIAN >60 Normal >=60 [facility] Comment on above: Performed By: #### F T3, CMP, TSH, T4, LIPID #### [facility] [address] [place] [address] Dr. Mita Mendoza EGFR-NON AF NIGERIAN >60 Normal >=60 [facility] Comment on above: Performed By: #### F T3, CMP, TSH, T4, LIPID #### [facility] [address] [place] [address] Dr. Mita Mendoza Globulin (S) [Mass/Vol] 3.2 g/dL Normal [facility] Comment on above: Performed By: #### F T3, CMP, TSH, T4, LIPID #### [facility] [address] [place] [address] Dr. Mita Mendoza Glucose [Mass/Vol] 119 mg/dL Critically high 74-106 [facility] Comment on above: Performed By: #### F T3, CMP, TSH, T4, LIPID #### [facility] [address] [place] [address] Dr. Mita Mendoza Potassium [Moles/Vol] 4.5 mmol/L Normal 3.5-5.1 [facility] Comment on above: Performed By: #### F T3, CMP, TSH, T4, LIPID #### [facility] [address] [place] [address] Dr. Mita Mendoza Protein [Mass/Vol] 7.4 g/dL Normal 6.4-8.2 [facility] Comment on above: Performed By: #### F T3, CMP, TSH, T4, LIPID #### [facility] [address] [place] [address] Dr. Mita Mendoza Sodium [Moles/Vol] 143 mmol/L Normal 136-145 [facility] Comment on above: Performed By: #### F T3, CMP, TSH, T4, LIPID #### [facility] [address] [place] [address] Dr. Mita Mendoza Urea nitrogen [Mass/Vol] 10.0 mg/dL Normal 7.0-18.0 [facility] Comment on above: Performed By: #### F T3, CMP, TSH, T4, LIPID #### [facility] [address] [place] [address] Dr. Mita Mendoza Urea nitrogen/Creatinin e [Mass ratio] 10.4 mg/mg Normal [facility] Comment on above: Performed By: #### F T3, CMP, TSH, T4, LIPID #### [facility] [address] [place] [address] Dr. Mita Mendoza T4on 06-18-2022 T4 [Mass/Vol] 7.60 ug/dL Normal 4.50-12.10 [facility] Comment on above: Performed By: #### F T3, CMP, TSH, T4, LIPID #### [facility] [address] [place] [address] Dr. Mita Mendoza TSHon 06-18-2022 TSH 2.714 uIU/mL Normal 0.358-3.740 [facility] Comment on above: Performed By: #### F T3, CMP, TSH, T4, LIPID #### [facility] [address] [place] [address] Dr. Mita Mendoza PROGRESSon 02-25-2020 PROGRESS HNO ID: [id number] Author: Interface Note Service: ? Author Type: ? Type: Progress Notes Filed: 02/25/2020 10:56 AM Note Text: The surgical encounter documentation contains information performed by a different Dunia Faulkner than is indicated by the provider record. Clinical care was provided and documented by the correct provider. Normal [facility] APTTon 05-25-2018 aPTT Coag time (Bld) 23.1 s Normal 21.3-31.3 [facility] CBC with Diffon 05-25-2018 Abs. Basophil 0.00 k/uL Normal 0.0-0.2 [facility] [facility] Abs.Neutrophil (Seg) 3.80 k/uL Normal 1.8-7.7 [facility] Basophils/100 WBC Auto (Bld) 0 % Normal 0-2 [facility] Eosinophils Auto #/vol (Bld) 0.20 10*3/uL Normal 0.0-0.4 [facility] Eosinophils/100 WBC Auto (Bld) 3 % Normal 1-4 [facility] Erythrocyte distribution width Auto Ratio (RBC) 13.1 % Normal 12.5-15.4 [facility] Hematocrit Auto Volume Fraction (Bld) 46.5 % Normal 41-53 [facility] Hemoglobin mass conc (Bld) 15.7 g/dL Normal 13.5-17.5 [facility] Lymphocytes Auto #/vol (Bld) 2.40 10*3/uL Normal 1.0-4.8 [facility] Lymphocytes/100 WBC Auto (Bld) 34 % Normal 24-44 [facility] MCH Auto Entitic mass (RBC) 30.7 pg Normal 26-34 [facility] MCHC Auto mass conc (RBC) 33.8 g/dL Normal 31-37 [facility] MCV Auto Entitic volume (RBC) 90.7 fL Normal 80-100 [facility] Monocytes Auto #/vol (Bld) 0.70 10*3/uL Normal 0.1-1.2 [facility] Monocytes/100 WBC Auto (Bld) 9 % Normal 2-11 [facility] Neutrophil (Seg) 54 % Normal 36-66 [facility] Platelet mean volume Auto Entitic volume (Bld) 9.3 fL Normal 6.0-12.0 [facility] Platelets Auto #/vol (Bld) 168 10*3/uL Normal 140-450 [facility] RBC Auto #/vol (Bld) 5.12 10*6/uL Normal 4.5-5.9 [facility] WBC Auto #/vol (Bld) 7.1 10*3/uL Normal 3.5-11.0 [facility] Abs.Imm.Granulocyt e NOT REPORTED Normal 0.00-0.30 [facility] Auto Diff Performed NOT REPORTED Normal [facility] Immature granulocytes #/vol (Bld) NOT REPORTED Normal 0 [facility] NRBC Automated NOT REPORTED Normal [facility] Platelets Auto #/vol (Bld) NOT REPORTED Normal [facility] RBC morphology finding Nom (Bld) NOT REPORTED Normal [facility] WBC Morphology NOT REPORTED Normal [facility] PTon 05-25-2018 INR Coag RelTime (PPP) 1.0 {INR} Normal [facility] Comment on above: Result Comment: Ther apeutic Range: Moderate Anticoagulant Intensity: INR = 2.0-3.0 High Anticoagulant Intensity: INR = 2.5-3.5 Prothrombin time (PT) Coag time (PPP) 9.9 s Normal 9.4-12.6 [facility] APTTon 04-26-2017 aPTT 25.6 s Normal 23.0-31.0 [facility] Comment on above: Result Comment: IV H eparin Therapy Range: 64.3-87.8Performed at [facility] [address] [place] [address] Performed By: #### C BC ####[facility] [place] [address] CBCon 04-26-2017 Erythrocyte distribution width Auto Ratio (RBC) 14.8 % Normal 11.5-14.9 [facility] Comment on above: Performed By: #### C BC, BMP ####[facility] [facility] [place] [address] Erythrocytes (RBC) 3.99 10*6/uL Low 4.5-5.9 [facility] Comment on above: Performed By: #### C BC, BMP ####[facility] [place] [address].[place] [address] Hematocrit (HCT) 35.8 % Low 41-53 [facility] Comment on above: Performed By: #### C BC, BMP ####[facility] [place] [address] Hemoglobin mass conc (Bld) 11.7 g/dL Low 13.5-17.5 [facility] Comment on above: Performed By: #### C BC, BMP ####[facility] [place] [address] MCH 29.2 pg Normal 26-34 [facility] Comment on above: Performed By: #### C BC, BMP ####[facility] [place] [address] MCHC mass conc (RBC) 32.6 g/dL Normal 31-37 [facility] Comment on above: Performed By: #### C BC, BMP ####[facility] [place] [address] MCV 89.6 fL Normal 80-100 [facility] Comment on above: Performed By: #### C BC, BMP ####[address] [address] Platelet mean volume (PMV) 8.5 fL Normal 6.0-12.0 [facility] Comment on above: Result Comment: Perf ormed at [facility] [address] [place] [address] Performed By: #### C BC, BMP ####[facility] [facility] [place] [address] Platelets 170 10*3/uL Normal 150-450 [facility] Comment on above: Performed By: #### C BC, BMP ####[facility] [place] [address]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 Start: 08-17-2022 End: 08-17-2022 Patient encounter procedure Shirin CONN [facility] Start: 08-04-2022 End: 08-04-[address] SHIRIN CONN . Facility: Start: 07-31-[address] SHIRIN NILL . Facil ity:[facility] Start: 07-13-2022 End: 07-13-2022 Patient encounter procedure Shirin CONN [facility] Start: 06-24-2022 Encounter for genera l adult medical examination without abnormal findings DR DIALLO NOLASCO . [facility] Start: 06-18-2022 End: 06-19-[address] DIALLO NOLASCO . Facility:[facility] Start: 06-18-2022 End: 06-19-2022 Encounter for general adult medical examination without abnormal findings DR DIALLO NOLASCO . Facility:[facility] Start: 05-25-2018 End: 05-26-2018 [facility] Start: 04-22-2017 End: 04-26-2017 Ambulatory GARY Yan CHINEDU [facility] Start: 04-13-2017 End: 04-22-2017 Evaluation and management of inpatient JAZMIN FELIX [facility] Procedures Date Procedure Procedure Detail Performing Clinician Start: 11-22-2023 Incisional biopsy Isauro CONN Comment on above: scalp Start: 09-06-[address] JORGE CONN . Comment on above: Performed By: #### P SAD #### [facility] [address] [place] [address] Dr. Mita Mendoza Start: 06-18-[address] JORGE CONN . Comment on above: Performed By: #### P SASC #### [facility] [address] [place] [address] Dr. Mita Mendoza Start: 08-18-2020 Excision of bunion Esvin CONN Start: 09-04-2019 Excision of malignan t neoplasm Shirin CONN Start: 05-25-2018 PTT SHAILI LESLIE AI Start: 05-25-2018 Blood count complete auto&auto difrntl wbc SHAILI FLANAGAN Start: 05-25-2018 Prothrombin time SHAILI FLANAGAN Start: 05-25-2018 Thromboplastin time partial plasma/whole blood IMANI FLANAGAN Start: 04-26-2017 INCENTIVE SPIROMETRY RT JAZMINROOSEVELT FELIX Start: 04-26-2017 INCENTIVE SPIROMETRY RT JAZMIN ELVIRA Start: 04-26-2017 DISCHARGE PATIENT LAURA FELIX Start: 04-26-2017 POCT GLUCOSE JAZMIN Ward Start: 04-26-2017 INCENTIVE SPIROMETRY RT JAZMIN FELIX Start: 04-26-2017 POC GLUCOSE FINGERSBARBARAK JAZMIN FELIX Start: 04-26-2017 INCENTIVE SPIROMETRY RT JAZMIN ELVIRA Start: 04-26-2017 POCT GLUCOSE JAZMIN SMITH Ward Start: 04-26-2017 INCENTIVE SPIROMETRY RT JAZMIN ELVIRA Start: 04-26-2017 INITIATE OXYGEN THER APY PROTOCOL JAZMIN FELIX Start: 04-26-2017 TRACH PLUGGING JAZMNI HULLEd Start: 04-26-2017 POC GLUCOSE FINGERSBARBARAYuriy BRYANTJAZMINROOSEVELT FELIX Start: 04-26-2017 APTT JAZMIN SMITH H Start: 04-26-2017 CBC JAZMINROOSEVELT Ward Start: 04-26-2017 PROTIME-INR JAZMIN SMITH Ed Start: 04-26-2017 INCENTIVE SPIROMETRY RT JAZMIN ELVIRA Start: 04-26-2017 POCT GLUCOSE JAZMIN Ward Start: 04-26-2017 INCENTIVE SPIROMETRY RT JAZMINROOSEVELT FELIX Start: 04-26-2017 INCENTIVE SPIROMETRY RT JAZMINROOSEVELT FELIX Start: 04-26-2017 INCENTIVE SPIROMETRY RT JAZMIN FELIX Start: 04-26-2017 INCENTIVE SPIROMETRY RT JAZMIN FELIX Start: 04-25-2017 POC GLUCOSE FINGERSRADHA FELIX Start: 04-25-2017 POCT GLUCOSE JAZMIN SMITH H Start: 04-25-2017 INCENTIVE SPIROMETRY RT JAZMIN FELIX Start: 04-25-2017 APTT JAZMINBridgette Ward Start: 04-25-2017 INCENTIVE SPIROMETRY RT JAZMIN ELVIRA Start: 04-25-2017 INCENTIVE SPIROMETRY RT JAZMINROOSEVELT FELIX Start: 04-25-2017 INCENTIVE SPIROMETRY RT JAZMINROOSEVELT FELIX Start: 04-25-2017 POCT GLUCOSE JAZMIN Ward Start: 04-25-2017 INCENTIVE SPIROMETRY RT JAZMIN ELVIRA Start: 04-25-2017 POC GLUCOSE FINGERSBARBARAYuriy WU ELVIRA Start: 04-25-2017 INCENTIVE SPIROMETRY RT JAZMIN FELIX Start: 04-25-2017 POCT GLUCOSE JAZMIN SMITH Ed Start: 04-25-2017 INCENTIVE SPIROMETRY RT JAZMIN FELIX Start: 04-25-2017 INITIATE OXYGEN THER APY PROTOCOL JAZMIN FELIX Start: 04-25-2017 TRACH PLUGGING JAZMIN S JANIA Start: 04-25-2017 APTT JAZMIN SMITH H Start: 04-25-2017 BASIC METABOLIC PANEL S JAYNE FELIX Start: 04-25-2017 CBC JAZMIN Ward Start: 04-25-2017 PROTIME-INR JAZMINROOSEVELT MTZ H Start: 04-25-2017 POC GLUCOSE FINGERSTICK JAZMIN FELIX Start: 04-25-2017 INCENTIVE SPIROMETRY RT JAZMIN FELIX Start: 04-25-2017 POCT GLUCOSE JAZMIN Ward Start: 04-25-2017 INCENTIVE SPIROMETRY RT JAZMIN FELIX Start: 04-25-2017 INCENTIVE SPIROMETRY RT JAZMIN FELIX Start: 04-25-2017 INCENTIVE SPIROMETRY RT JAZMIN FLEIX Start: 04-25-2017 APTT JAZMIN Ward Start: 04-25-2017 INCENTIVE SPIROMETRY RT JAZMIN FELIX Start: 04-24-2017 POCT GLUCOSE JAZMIN Ward Start: 04-24-2017 INCENTIVE SPIROMETRY RT JAZMIN FELIX Start: 04-24-2017 APTT JAZMIN Ward Start: 04-24-2017 INCENTIVE SPIROMETRY RT JAZMIN FELIX Start: 04-24-2017 INCENTIVE SPIROMETRY RT JAZMIN FELIX Start: 04-24-2017 INCENTIVE SPIROMETRY RT JAZMIN FELIX Start: 04-24-2017 APTT JAZMIN Ward Start: 04-24-2017 POCT GLUCOSE JAZMIN MTZ H Start: 04-24-2017 INCENTIVE SPIROMETRY RT JAZMIN FELIX Start: 04-24-2017 INCENTIVE SPIROMETRY RT JAZMIN FELIX Start: 04-24-2017 APTT JAZMIN MTZ H Start: 04-24-2017 CBC JAZMIN Ward Start: 04-24-2017 POCT GLUCOSE JAZMIN MTZ H Start: 04-24-2017 INCENTIVE SPIROMETRY RT JAZMIN FELIX Start: 04-24-2017 INITIATE OXYGEN THER APY PROTOCOL JAZMIN FELIX Start: 04-24-2017 TRACH PLUGGING JAZMIN S JANIA Start: 04-24-2017 POC GLUCOSE FINGERSRADHA BRYANTJAY FELIX Start: 04-24-2017 INCENTIVE SPIROMETRY RT JAZMIN FELIX Start: 04-24-2017 APTT JAZMIN MTZ H Start: 04-24-2017 PROTIME-INR JAZMIN MTZ H Start: 04-24-2017 POCT GLUCOSE JAZMINBridgette Ward Start: 04-24-2017 INCENTIVE SPIROMETRY RT JAZMIN FELIX Start: 04-24-2017 INCENTIVE SPIROMETRY RT JAZMIN FELIX Start: 04-24-2017 INCENTIVE SPIROMETRY RT JAZMIN FELIX Start: 04-24-2017 INCENTIVE SPIROMETRY RT JAZMIN ELVIRA Start: 04-23-2017 POC GLUCOSE FINGERSBARBARAK JAZMIN FELIX Start: 04-23-2017 POCT GLUCOSE JAZMINBridgette Ward Start: 04-23-2017 INCENTIVE SPIROMETRY RT JAZMINROOSEVELT FELIX Start: 04-23-2017 INCENTIVE SPIROMETRY RT JAZMIN FELIX Start: 04-23-2017 PROTIME-INR JAZMINROOSEVELT MTZ Ed Start: 04-23-2017 POC GLUCOSE FINGERSTICK JAZMIN FELIX Start: 04-23-2017 IP CONSULT TO HEM/ONC S JAYNE FELIX Start: 04-23-2017 IP CONSULT TO PULMONOLOGY JAZMIN FELIX Start: 04-23-2017 INCENTIVE SPIROMETRY RT JAZMIN FELIX Start: 04-23-2017 PHARMACY TO DOSE WARFARIN JAZMIN FELIX Start: 04-23-2017 INCENTIVE SPIROMETRY RT JAZMIN FELIX Start: 04-23-2017 POCT GLUCOSE JAZMINBridgette Ward Start: 04-23-2017 INCENTIVE SPIROMETRY RT JAZMIN ELVIRA Start: 04-23-2017 POC GLUCOSE FINGERSTICK JAZMIN FELIX Start: 04-23-2017 INCENTIVE SPIROMETRY RT JAZMINROOSEVELT FELIX Start: 04-23-2017 PATIENT STATUS (DIRECT) JAZMIN FELIX Start: 04-23-2017 POCT GLUCOSE JAZMINBridgette Ward Start: 04-23-2017 INCENTIVE SPIROMETRY RT JAZMIN FELIX Start: 04-23-2017 INITIATE OXYGEN THER APY PROTOCOL JAZMIN FELIX Start: 04-23-2017 TRACH PLUGGING JAZMIN Calderon HAH Start: 04-23-2017 POC GLUCOSE FINGERSTICK JAZMIN FELIX Start: 04-23-2017 ALT JAZMIN MTZ H Start: 04-23-2017 AST JAZMIN SMITH H Start: 04-23-2017 BASIC METABOLIC PANEL S JAYNE FELIX Start: 04-23-2017 CBC JAZMIN MTZ H Start: 04-23-2017 INCENTIVE SPIROMETRY RT JAZMIN FELIX Start: 04-23-2017 POCT GLUCOSE JAZMIN MTZ Ed Start: 04-23-2017 INCENTIVE SPIROMETRY RT JAZMIN FELIX Start: 04-23-2017 INCENTIVE SPIROMETRY RT JAZMIN FELIX Start: 04-23-2017 APTT JAZMIN Ward Start: 04-23-2017 INCENTIVE SPIROMETRY RT JAZMIN FELIX Start: 04-23-2017 INCENTIVE SPIROMETRY RT JAZMIN FELIX Start: 04-22-2017 APTT JAZMIN Ward Start: 04-22-2017 POCT GLUCOSE JAZMIN Ward Start: 04-22-2017 ASPIRATION PRECAUTIONS JAZMIN FELIX Start: 04-22-2017 BLADDER SCAN JAZMIN Ward Start: 04-22-2017 CONTACT ISOLATION LAURA FELIX Start: 04-22-2017 DIET GENERAL JAZMIN Ward Start: 04-22-2017 ELEVATE HOB JAZMIN Ward Start: 04-22-2017 FULL CODE JAZMIN Ward Start: 04-22-2017 INCENTIVE SPIROMETRY RT JAZMIN FELIX Start: 04-22-2017 IP CONSULT TO OTOLARYNGOLOGY JAZMIN FELIX Start: 04-22-2017 IP CONSULT TO SOCIAL WORK JAZMIN FELIX Start: 04-22-2017 MEASURE WEIGHT JAZMIN Calderon DELLAEd Start: 04-22-2017 MISCELLANEOUS NURSIN G CARE ORDER (SPECIFY) JAZMIN FELIX Start: 04-22-2017 NOTIFY PHYSICIAN (SPECIFY) JAZMIN FELIX Start: 04-22-2017 PATIENT MAY SHOWER NATHEN FELIX Start: 04-22-2017 PLACE INTERMITTENT P NEUMATIC COMPRESSION DEVICE JAZMIN FELIX Start: 04-22-2017 REMOVE AND REPLACE T ED HOSE DAILY JAZMIN FELIX Start: 04-22-2017 TELEHEALTH NURSE EVAL AND TREAT NATHEN FELIX Start: 04-22-2017 TRACH CARE JAZMIN MTZ Ed Start: 04-22-2017 TRACH PLUGGING JAZMIN DYKES Start: 04-22-2017 TUBE MAINTENANCE JAZMIN FELIX Start: 04-22-2017 ELEVATE HEELS OFF OF BED JAZMIN FELIX Start: 04-22-2017 ENCOURAGE DEEP BREAT ROSIE AND COUGHING JAZMIN FELIX Start: 04-22-2017 FALL PRECAUTIONS JAZMIN FELIX Start: 04-22-2017 HEAD OF BED 60 DEGRE ES OR LESS JAZMIN FELIX Start: 04-22-2017 INITIATE OXYGEN THER APY PROTOCOL JAZMIN FELIX Start: 04-22-2017 NURSING COMMUNICATION S JAYNE FELIX Start: 04-22-2017 TURN PATIENT JAZMIN Ward Start: 04-22-2017 VITAL SIGNS JAZMINROOSEVELT MTZ H Start: 04-22-2017 ALT JAZMIN MTZ H Start: 04-22-2017 AST JAZMIN MTZ H Start: 04-22-2017 BASIC METABOLIC PANEL S JAYNE ELVIRA Start: 04-22-2017 CBC JAZMIN MTZ H Start: 04-22-2017 INCENTIVE SPIROMETRY RT JAZMINROOSEVELT FELIX Start: 04-22-2017 APTT JAZMIN SMITH H Start: 04-22-2017 APTT JAZMINROOSEVELT MTZ H Start: 04-22-2017 INCENTIVE SPIROMETRY RT JAZMIN FELIX Start: 04-22-2017 PULSE OXIMETRY, CONTINUOUS JAZMIN FELIX Start: 04-22-2017 TRACH COLLAR OXYGEN ANNETTE FELIX Start: 04-22-2017 POC GLUCOSE FINGERSTICK JAZMIN FELIX Start: 04-22-2017 IP CONSULT TO OTOLARYNGOLOGY JAZMIN FELIX Start: 04-22-2017 INCENTIVE SPIROMETRY RT JAZMIN FELIX Start: 04-22-2017 APTT JAZMIN MTZ H Start: 04-22-2017 Dup-scan xtr veins c omplete bilateral study JAZMIN FELIX Start: 04-22-2017 POCT GLUCOSE JAZMIN MTZ H Start: 04-22-2017 INCENTIVE SPIROMETRY RT JAZMIN FELIX Start: 04-22-2017 PULSE OXIMETRY, CONTINUOUS JAZMIN FELIX Start: 04-22-2017 TRACH COLLAR OXYGEN ANNETTE FELIX Start: 04-22-2017 POC GLUCOSE FINGERSTICK JAZMIN FELIX Start: 04-22-2017 INCENTIVE SPIROMETRY RT JAZMIN FELIX Start: 04-22-2017 APTT JAZMINROOSEVELT MTZ H Start: 04-22-2017 POCT GLUCOSE JAZMIN MTZ H Start: 04-22-2017 INCENTIVE SPIROMETRY RT JAZMIN FELIX Start: 04-22-2017 INITIATE OXYGEN THER APY PROTOCOL JAZMIN FELIX Start: 04-22-2017 PULSE OXIMETRY, CONTINUOUS JAZMIN FELIX Start: 04-22-2017 SPEAKING VALVE JAZMIN S JANIA Start: 04-22-2017 TRACH COLLAR OXYGEN ANNETTE FELIX Start: 04-22-2017 TRACH PLUGGING JAZMIN S HAH Start: 04-22-2017 APTT JAZMINROOSEVELT MTZ H Start: 04-22-2017 CBC JAZMINROOSEVELT MTZ H Start: 04-22-2017 POC GLUCOSE FINGERSTICK JAZMIN FELIX Start: 04-22-2017 INCENTIVE SPIROMETRY RT JAZMIN FELIX Start: 04-22-2017 POCT GLUCOSE JAZMIN Ward Start: 04-22-2017 INCENTIVE SPIROMETRY RT JAZMIN FELIX Start: 04-22-2017 PULSE OXIMETRY, CONTINUOUS JAZMIN FELIX Start: 04-22-2017 TRACH COLLAR OXYGEN ANNETTE FELIX Start: 04-22-2017 INCENTIVE SPIROMETRY RT JAZMIN FELIX Start: 04-22-2017 APTT JAZMIN MTZ H Start: 04-22-2017 INCENTIVE SPIROMETRY RT JAZMIN FELIX Start: 04-22-2017 PULSE OXIMETRY, CONTINUOUS JAZMIN FELIX Start: 04-22-2017 TRACH COLLAR OXYGEN ANNETTE FELIX Start: 04-22-2017 APTT JAZMIN MTZ H Start: 04-22-2017 INCENTIVE SPIROMETRY RT JAZMIN FELIX Start: 04-21-2017 POC GLUCOSE FINGERSTICK JAZMIN FELIX Start: 04-21-2017 POCT GLUCOSE JAZMIN Ward Start: 04-21-2017 INCENTIVE SPIROMETRY RT JAZMIN FELIX Start: 04-21-2017 PULSE OXIMETRY, CONTINUOUS JAZMIN FELIX Start: 04-21-2017 TRACH COLLAR OXYGEN ANNETTE FELIX Start: 04-21-2017 APTT JAZMIN Ward Start: 04-21-2017 INCENTIVE SPIROMETRY RT JAZMIN FELIX Start: 04-21-2017 INCENTIVE SPIROMETRY RT JAZMIN FELIX Start: 04-21-2017 PULSE OXIMETRY, CONTINUOUS JAZMIN FELIX Start: 04-21-2017 TRACH COLLAR OXYGEN ANNETTE FELIX Start: 04-21-2017 MISCELLANEOUS NURSIN G CARE ORDER (SPECIFY) JAZMIN FELIX Start: 04-21-2017 Dup-scan xtr veins c omplete bilateral study JAZMIN FELIX Start: 04-21-2017 APTT JAZMIN Ward Start: 04-21-2017 HEPATIC FUNCTION PANEL JAZMIN FELIX Start: 04-21-2017 SEROTONIN REL ASSAY ANNETTE FELIX Start: 04-21-2017 INCENTIVE SPIROMETRY RT JAZMIN FELIX Start: 04-21-2017 IP CONSULT TO HEM/ONC S JAYNE FELIX Start: 04-21-2017 POCT GLUCOSE JAZMIN Ward Start: 04-21-2017 INCENTIVE SPIROMETRY RT JAZMIN FELIX Start: 04-21-2017 PULSE OXIMETRY, CONTINUOUS JAZMIN FELIX Start: 04-21-2017 TRACH COLLAR OXYGEN ANNETTE FELIX Start: 04-21-2017 POC GLUCOSE FINGERSTICK JAZMIN FELIX Start: 04-21-2017 INCENTIVE SPIROMETRY RT JAZMIN FELIX Start: 04-21-2017 POCT GLUCOSE JAZMIN Ward Start: 04-21-2017 INCENTIVE SPIROMETRY RT JAZMIN FELIX Start: 04-21-2017 INITIATE OXYGEN THER APY PROTOCOL JAZMIN FELIX Start: 04-21-2017 PULSE OXIMETRY, CONTINUOUS JAZMIN FELIX Start: 04-21-2017 SPEAKING VALVE JAZMIN Calderon [facility] Start: 04-21-2017 TRACH COLLAR OXYGEN ANNETTE FELIX Start: 04-21-2017 TRACH PLUGGING JAZMIN S HA Start: 04-21-2017 BASIC METABOLIC PANEL S BRISSABridgette FELIX Start: 04-21-2017 CBC JAZMIN Ward Start: 04-21-2017 POC GLUCOSE FINGERSTICK JAZMIN FELIX Start: 04-21-2017 INCENTIVE SPIROMETRY RT JAZMIN FELIX Start: 04-21-2017 POCT GLUCOSE JAZMIN Ward Start: 04-21-2017 INCENTIVE SPIROMETRY RT JAZMIN FELIX Start: 04-21-2017 PULSE OXIMETRY, JESÚS FELIX Start: 04-21-2017 TRACH COLLAR OXYGEN ANNETTE FELIX Start: 04-21-2017 INCENTIVE SPIROMETRY RT JAZMIN FELIX Start: 04-21-2017 INCENTIVE SPIROMETRY RT JAZMIN FELIX Start: 04-21-2017 PULSE OXIMETRY, CONTINUOUS JAZMIN FELIX Start: 04-21-2017 TRACH COLLAR OXYGEN ANNETTE FELIX Start: 04-21-2017 INCENTIVE SPIROMETRY RT JAZMIN FELIX Start: 04-20-2017 POCT GLUCOSE JAZMIN Ward Start: 04-20-2017 INCENTIVE SPIROMETRY RT JAZMIN FELIX Start: 04-20-2017 PULSE OXIMETRY, JESÚS FELIX Start: 04-20-2017 TRACH COLLAR OXYGEN ANNETTE FELIX Start: 04-20-2017 POC GLUCOSE FINGERSTICK JAZMIN FELIX Start: 04-20-2017 INCENTIVE SPIROMETRY RT JAZMIN FELIX Start: 04-20-2017 TRACH CARE JAZMIN Ward Start: 04-20-2017 DIET GENERAL JAZMIN Ward Start: 04-20-2017 POC GLUCOSE FINGERSTICK JAZMIN FELIX Start: 04-20-2017 INCENTIVE SPIROMETRY RT JAZMIN FELIX Start: 04-20-2017 PULSE OXIMETRY, JESÚS FELIX Start: 04-20-2017 TRACH COLLAR OXYGEN ANNETTE FELIX Start: 04-20-2017 Swallowing funcj w/cineradiograpy/vidradiog JAZMIN FELIX Start: 04-20-2017 INCENTIVE SPIROMETRY RT JAZMIN FELIX Start: 04-20-2017 HEPARIN-INDUCED PLAT ELET ANTIBODY JAZMIN FELIX Start: 04-20-2017 POCT GLUCOSE JAZMIN Ward Start: 04-20-2017 INCENTIVE SPIROMETRY RT JAZMIN FELIX Start: 04-20-2017 PULSE OXIMETRY, CONTINUOUS JAZMIN FELIX Start: 04-20-2017 TRACH COLLAR OXYGEN ANNETTE FELIX Start: 04-20-2017 NURSING COMMUNICATION S JAYNE FELIX Start: 04-20-2017 DISCHARGE PATIENT LAURA FELIX Start: 04-20-2017 INCENTIVE SPIROMETRY RT JAZMIN FELIX Start: 04-20-2017 POCT GLUCOSE JAZMIN Ward Start: 04-20-2017 INCENTIVE SPIROMETRY RT JAZMIN FELIX Start: 04-20-2017 INITIATE OXYGEN THER APY PROTOCOL JAZMIN FELIX Start: 04-20-2017 PULSE OXIMETRY, CONTINUOUS JAZMIN FELIX Start: 04-20-2017 SPEAKING VALVE JAZMIN S JANIA Start: 04-20-2017 TRACH COLLAR OXYGEN ANNETTE FELIX Start: 04-20-2017 TRACH PLUGGING JAZMIN S HAH Start: 04-20-2017 POC GLUCOSE FINGERSTICK JAZMIN FELIX Start: 04-20-2017 INCENTIVE SPIROMETRY RT JAZMIN FELIX Start: 04-20-2017 POCT GLUCOSE JAZMIN Ward Start: 04-20-2017 INCENTIVE SPIROMETRY RT JAZMIN FELIX Start: 04-20-2017 PULSE OXIMETRY, CONTINUOUS JAZMIN FELIX Start: 04-20-2017 TRACH COLLAR OXYGEN ANNETTE FELIX Start: 04-20-2017 INCENTIVE SPIROMETRY RT JAZMIN FELIX Start: 04-20-2017 INCENTIVE SPIROMETRY RT JAZMIN FELIX Start: 04-20-2017 PULSE OXIMETRY, CONTINUOUS JAZMIN FELIX Start: 04-20-2017 TRACH COLLAR OXYGEN ANNETTE FELIX Start: 04-20-2017 INCENTIVE SPIROMETRY RT JAZMIN FELIX Start: 04-19-2017 POCT GLUCOSE JAZMIN Ward Start: 04-19-2017 INCENTIVE SPIROMETRY RT JAZMIN FELIX Start: 04-19-2017 PULSE OXIMETRY, CONTINUOUS JAZMIN FELIX Start: 04-19-2017 TRACH COLLAR OXYGEN ANNETTE FELIX Start: 04-19-2017 INCENTIVE SPIROMETRY RT JAZMIN FELIX Start: 04-19-2017 INCENTIVE SPIROMETRY RT JAZMIN FELIX Start: 04-19-2017 PULSE OXIMETRY, CONTINUOUS JAZMIN FELIX Start: 04-19-2017 TRACH COLLAR OXYGEN ANNETTE FELIX Start: 04-19-2017 TUBE MAINTENANCE JAZMIN FELIX Start: 04-19-2017 INCENTIVE SPIROMETRY RT JAZMIN FELIX Start: 04-19-2017 POCT GLUCOSE JAZMIN MTZ H Start: 04-19-2017 INCENTIVE SPIROMETRY RT JAZMIN FELIX Start: 04-19-2017 PULSE OXIMETRY, CONTINUOUS JAZMIN FELIX Start: 04-19-2017 TRACH COLLAR OXYGEN ANNETTE FELIX Start: 04-19-2017 Ct head/brain w/o co ntrast material JAZMIN FELIX Start: 04-19-2017 INCENTIVE SPIROMETRY RT JAZMIN FELIX Start: 04-19-2017 POCT GLUCOSE JAZMIN Ward Start: 04-19-2017 INCENTIVE SPIROMETRY RT JAZMIN FELIX Start: 04-19-2017 INITIATE OXYGEN THER APY PROTOCOL JAZMIN FELIX Start: 04-19-2017 PULSE OXIMETRY, CONTINUOUS JAZMIN FELIX Start: 04-19-2017 SPEAKING VALVE JAZMIN DYKES Start: 04-19-2017 TRACH COLLAR OXYGEN ANNETTE FELIX Start: 04-19-2017 TRACH PLUGGING JAZMIN S HAH Start: 04-19-2017 CBC JAZMIN MTZ H Start: 04-19-2017 INCENTIVE SPIROMETRY RT JAZMIN FELIX Start: 04-19-2017 POC GLUCOSE FINGERSTICK JAZMIN FELIX Start: 04-19-2017 POCT GLUCOSE JAZMIN MTZ H Start: 04-19-2017 INCENTIVE SPIROMETRY RT JAZMIN FELIX Start: 04-19-2017 PULSE OXIMETRY, JESÚS FELIX Start: 04-19-2017 TRACH COLLAR OXYGEN ANNETTE FELIX Start: 04-19-2017 INCENTIVE SPIROMETRY RT JAZMIN FELIX Start: 04-19-2017 INCENTIVE SPIROMETRY RT JAZMIN FELIX Start: 04-19-2017 PULSE OXIMETRY, CONTINUOUS JAZMIN FELIX Start: 04-19-2017 TRACH COLLAR OXYGEN ANNETTE FELIX Start: 04-19-2017 INCENTIVE SPIROMETRY RT JAZMIN FELIX Start: 04-18-2017 POC GLUCOSE FINGERSTICK JAZMIN FELIX Start: 04-18-2017 POCT GLUCOSE JAZMIN MTZ H Start: 04-18-2017 INCENTIVE SPIROMETRY RT JAZMIN FELIX Start: 04-18-2017 PULSE OXIMETRY, CONTINUOUS JAZMIN FELIX Start: 04-18-2017 TRACH COLLAR OXYGEN ANNETTE FELIX Start: 04-18-2017 INCENTIVE SPIROMETRY RT JAZMIN FELIX Start: 04-18-2017 POC GLUCOSE FINGERSTICK JAZMIN FELIX Start: 04-18-2017 INCENTIVE SPIROMETRY RT JAZMIN FELIX Start: 04-18-2017 PULSE OXIMETRY, CONTINUOUS JAZMIN FELIX Start: 04-18-2017 TRACH COLLAR OXYGEN ANNETTE FELIX Start: 04-18-2017 INCENTIVE SPIROMETRY RT JAZMIN FELIX Start: 04-18-2017 POCT GLUCOSE JAZMIN Ward Start: 04-18-2017 INCENTIVE SPIROMETRY RT JAZMIN FELIX Start: 04-18-2017 PULSE OXIMETRY, CONTINUOUS JAZMIN FELIX Start: 04-18-2017 TRACH COLLAR OXYGEN ANNETTE FELIX Start: 04-18-2017 NURSING COMMUNICATION S JAYNE FELIX Start: 04-18-2017 POC GLUCOSE FINGERSTICK JAZMIN FELIX Start: 04-18-2017 INCENTIVE SPIROMETRY RT JAZMIN FELIX Start: 04-18-2017 POCT GLUCOSE JAZMIN Ward Start: 04-18-2017 INCENTIVE SPIROMETRY RT JAZMIN FELIX Start: 04-18-2017 INITIATE OXYGEN THER APY PROTOCOL JAZMIN FELIX Start: 04-18-2017 PULSE OXIMETRY, CONTINUOUS JAZMIN FELIX Start: 04-18-2017 SPEAKING VALVE JAZMIN S JANIA Start: 04-18-2017 TRACH COLLAR OXYGEN ANNETTE FELIX Start: 04-18-2017 TRACH PLUGGING JAZMIN S JANIA Start: 04-18-2017 POC GLUCOSE FINGERSTICK JAZMIN FELIX Start: 04-18-2017 BASIC METABOLIC PANEL Yumiko JAYNE FELIX Start: 04-18-2017 CBC JAZMIN Ward Start: 04-18-2017 INCENTIVE SPIROMETRY RT JAZMIN FELIX Start: 04-18-2017 POCT GLUCOSE JAZMIN Ward Start: 04-18-2017 INCENTIVE SPIROMETRY RT JAZMIN FELIX Start: 04-18-2017 PULSE OXIMETRY, CONTINUOUS JAZMIN FELIX Start: 04-18-2017 TRACH COLLAR OXYGEN ANNETTE FELIX Start: 04-18-2017 INCENTIVE SPIROMETRY RT JAZMIN FELIX Start: 04-18-2017 INCENTIVE SPIROMETRY RT JAZMIN FELIX Start: 04-18-2017 PULSE OXIMETRY, JESÚS FELIX Start: 04-18-2017 TRACH COLLAR OXYGEN ANNETTE FELIX Start: 04-18-2017 INCENTIVE SPIROMETRY RT JAZMIN FELIX Start: 04-17-2017 POC GLUCOSE FINGERSTICK JAZMIN FELIX Start: 04-17-2017 POCT GLUCOSE JAZMIN Ward Start: 04-17-2017 INCENTIVE SPIROMETRY RT JAZMIN FELIX Start: 04-17-2017 PULSE OXIMETRY, JESÚS FELIX Start: 04-17-2017 TRACH COLLAR OXYGEN ANNETTE FELIX Start: 04-17-2017 INCENTIVE SPIROMETRY RT JAZMIN FELIX Start: 04-17-2017 INCENTIVE SPIROMETRY RT JAZMIN FELIX Start: 04-17-2017 PULSE OXIMETRY, JESÚS FELIX Start: 04-17-2017 TRACH COLLAR OXYGEN ANNETTE FELIX Start: 04-17-2017 POC GLUCOSE FINGERSTICK JAZMIN FELIX Start: 04-17-2017 INCENTIVE SPIROMETRY RT JAZMIN FELIX Start: 04-17-2017 POCT GLUCOSE JAZMIN Ward Start: 04-17-2017 INCENTIVE SPIROMETRY RT JAZMIN FELIX Start: 04-17-2017 PULSE OXIMETRY, JESÚS FELIX Start: 04-17-2017 TRACH COLLAR OXYGEN ANNETTE FELIX Start: 04-17-2017 NURSING COMMUNICATION S JAYNE FELIX Start: 04-17-2017 POC GLUCOSE FINGERSTICK JAZMIN FELIX Start: 04-17-2017 INCENTIVE SPIROMETRY RT JAZMIN FELIX Start: 04-17-2017 POCT GLUCOSE JAZMIN Ward Start: 04-17-2017 INCENTIVE SPIROMETRY RT JAZMIN FELIX Start: 04-17-2017 INITIATE OXYGEN THER APY PROTOCOL JAZMIN FELIX Start: 04-17-2017 PULSE OXIMETRY, JESÚS FELIX Start: 04-17-2017 SPEAKING VALVE JAZMIN S JANIA Start: 04-17-2017 TRACH COLLAR OXYGEN ANNETTE FELIX Start: 04-17-2017 TRACH PLUGGING JAZMIN S JANIA Start: 04-17-2017 POC GLUCOSE FINGERSTICK JAZMIN FELIX Start: 04-17-2017 INCENTIVE SPIROMETRY RT JAZMIN FELIX Start: 04-17-2017 POCT GLUCOSE JAZMIN Ward Start: 04-17-2017 INCENTIVE SPIROMETRY RT JAZMIN FELIX Start: 04-17-2017 TRACH COLLAR OXYGEN ANNETTE FELIX Start: 04-17-2017 PULSE OXIMETRY, JESÚS FELIX Start: 04-17-2017 INCENTIVE SPIROMETRY RT JAZMIN FLEIX Start: 04-17-2017 INCENTIVE SPIROMETRY RT JAZMIN FELIX Start: 04-17-2017 PULSE OXIMETRY, CONTINUOUS JAZMIN FELIX Start: 04-17-2017 TRACH COLLAR OXYGEN BRYANT ROOSEVELT FELIX Start: 04-17-2017 INCENTIVE SPIROMETRY RT JAZMIN FELIX Start: 04-16-2017 POC GLUCOSE FINGERSTICK JAZMNI FELIX Start: 04-16-2017 POCT GLUCOSE JAZMIN Ward Start: 04-16-2017 INCENTIVE SPIROMETRY RT JAZMIN FELIX Start: 04-16-2017 PULSE OXIMETRYJESÚS Start: 04-16-2017 TRACH COLLAR OXYGEN ANNETTE FELIX Start: 04-16-2017 INCENTIVE SPIROMETRY RT JAZMIN FELIX Start: 04-16-2017 POC GLUCOSE FINGERSBARBARAK JAZMIN FELIX Start: 04-16-2017 INCENTIVE SPIROMETRY RT JAZMIN FELIX Start: 04-16-2017 PULSE OXIMETRY, CONTINUOUS JAZMIN FELIX Start: 04-16-2017 TRACH COLLAR OXYGEN ANNETTE FELIX Start: 04-16-2017 INCENTIVE SPIROMETRY RT JAZMIN FELIX Start: 04-16-2017 POCT GLUCOSE JAZMIN Ward Start: 04-16-2017 INCENTIVE SPIROMETRY RT JAZMIN FELIX Start: 04-16-2017 PULSE OXIMETRY, JESÚS FELIX Start: 04-16-2017 TRACH COLLAR OXYGEN ANNETTE FELIX Start: 04-16-2017 POC GLUCOSE FINGERSTICK JAZMIN FELIX Start: 04-16-2017 INCENTIVE SPIROMETRY RT JAZMIN FELIX Start: 04-16-2017 POCT GLUCOSE JAZMIN Ward Start: 04-16-2017 INCENTIVE SPIROMETRY RT JAZMIN FELIX Start: 04-16-2017 INITIATE OXYGEN THER APY PROTOCOL JAZMIN FELIX Start: 04-16-2017 PULSE OXIMETRY, JESÚS FELIX Start: 04-16-2017 SPEAKING VALVE JAZMIN S JANIA Start: 04-16-2017 TRACH COLLAR OXYGEN ANNETTE FELIX Start: 04-16-2017 TRACH PLUGGING JAZMIN S JANIA Start: 04-16-2017 POC GLUCOSE FINGERSBARBARAK JAZMIN FELIX Start: 04-16-2017 INCENTIVE SPIROMETRY RT JAZMIN FELIX Start: 04-16-2017 POCT GLUCOSE JAZMIN Ward Start: 04-16-2017 INCENTIVE SPIROMETRY RT JAZMIN FELIX Start: 04-16-2017 PULSE OXIMETRY, JESÚS FELIX Start: 04-16-2017 TRACH COLLAR OXYGEN ANNETTE FELIX Start: 04-16-2017 INCENTIVE SPIROMETRY RT JAZMIN FELIX Start: 04-16-2017 INCENTIVE SPIROMETRY RT JAZMIN FELIX Start: 04-16-2017 PULSE OXIMETRY, CONTINUOUS JAZMIN FELIX Start: 04-16-2017 TRACH COLLAR OXYGEN ANNETTE FELIX Start: 04-16-2017 INCENTIVE SPIROMETRY RT JAZMIN FELIX Start: 04-15-2017 POC GLUCOSE FINGERSTICK JAZMIN FELIX Start: 04-15-2017 POCT GLUCOSE JAZMIN MTZ H Start: 04-15-2017 INCENTIVE SPIROMETRY RT JAZMIN FELIX Start: 04-15-2017 PULSE OXIMETRY, JESÚS FELIX Start: 04-15-2017 TRACH COLLAR OXYGEN ANNETTE FELIX Start: 04-15-2017 INCENTIVE SPIROMETRY RT JAZMIN FELIX Start: 04-15-2017 INCENTIVE SPIROMETRY RT JAZMIN FELIX Start: 04-15-2017 PULSE OXIMETRY, CONTINUOUS JAZMIN FELIX Start: 04-15-2017 TRACH COLLAR OXYGEN ANNETTE FELIX Start: 04-15-2017 INCENTIVE SPIROMETRY RT JAZMIN FELIX Start: 04-15-2017 POCT GLUCOSE JAZMIN Ward Start: 04-15-2017 INCENTIVE SPIROMETRY RT JAZMIN FELIX Start: 04-15-2017 PULSE OXIMETRY, JESÚS FELIX Start: 04-15-2017 TRACH COLLAR OXYGEN ANNETTE FELIX Start: 04-15-2017 POC GLUCOSE FINGERSTICK JAZMIN FELIX Start: 04-15-2017 INCENTIVE SPIROMETRY RT JAZMIN FELIX Start: 04-15-2017 POCT GLUCOSE JAZMIN Ward Start: 04-15-2017 INCENTIVE SPIROMETRY RT JAZMIN FELIX Start: 04-15-2017 INITIATE OXYGEN THER APY PROTOCOL JAZMIN FELIX Start: 04-15-2017 PULSE OXIMETRY, JESÚS FELIX Start: 04-15-2017 SPEAKING VALVE JAZMIN S HAEd Start: 04-15-2017 TRACH COLLAR OXYGEN ANNETTE FELIX Start: 04-15-2017 TRACH PLUGGING JAZMIN S HAEd Start: 04-15-2017 POC GLUCOSE FINGERSTICK JAZMIN FELIX Start: 04-15-2017 INCENTIVE SPIROMETRY RT JAZMIN FELIX Start: 04-15-2017 POCT GLUCOSE JAZMIN Ward Start: 04-15-2017 INCENTIVE SPIROMETRY RT JAZMIN FELIX Start: 04-15-2017 PULSE OXIMETRY, JESÚS FELIX Start: 04-15-2017 TRACH COLLAR OXYGEN ANNETTE FELIX Start: 04-15-2017 INCENTIVE SPIROMETRY RT JAZMIN FELIX Start: 04-15-2017 INCENTIVE SPIROMETRY RT JAZMIN FELIX Start: 04-15-2017 PULSE OXIMETRY, JESÚS FELIX Start: 04-15-2017 TRACH COLLAR OXYGEN ANNETTE FELIX Start: 04-15-2017 INCENTIVE SPIROMETRY RT JAZMIN FELIX Start: 04-14-2017 POCT GLUCOSE JAZMIN Ward Start: 04-14-2017 INCENTIVE SPIROMETRY RT JAZMIN FELIX Start: 04-14-2017 PULSE OXIMETRY, JESÚS FELIX Start: 04-14-2017 TRACH COLLAR OXYGEN ANNETTE FELIX Start: 04-14-2017 POC GLUCOSE FINGERSTICK JAZMIN FELIX Start: 04-14-2017 INCENTIVE SPIROMETRY RT JAZMIN FELIX Start: 04-14-2017 BLADDER SCAN JAZMIN Ward Start: 04-14-2017 ASPIRATION PRECAUTIONS JAZMIN FELIX Start: 04-14-2017 FALL PRECAUTIONS JAZMIN FELIX Start: 04-14-2017 IP CONSULT TO PULMONOLOGY JAZMIN FELIX Start: 04-14-2017 POC GLUCOSE FINGERSTICK JAZMIN FELIX Start: 04-14-2017 INCENTIVE SPIROMETRY RT JAZMIN FELIX Start: 04-14-2017 PULSE OXIMETRY, JESÚS FELIX Start: 04-14-2017 TRACH COLLAR OXYGEN ANNETTE FELIX Start: 04-14-2017 INCENTIVE SPIROMETRY RT JAZMIN FELIX Start: 04-14-2017 POCT GLUCOSE JAZMIN Ward Start: 04-14-2017 INCENTIVE SPIROMETRY RT JAZMIN FELIX Start: 04-14-2017 PULSE OXIMETRY, JESÚS FELIX Start: 04-14-2017 TRACH COLLAR OXYGEN ANNETTE FELIX Start: 04-14-2017 POC GLUCOSE FINGERSTICK JAZMIN FELIX Start: 04-14-2017 INCENTIVE SPIROMETRY RT JAZMIN FELIX Start: 04-14-2017 POCT GLUCOSE JAZMIN Wadr Start: 04-14-2017 INCENTIVE SPIROMETRY RT JAZMIN FELIX Start: 04-14-2017 INITIATE OXYGEN THER APY PROTOCOL JAZMIN FELIX Start: 04-14-2017 PULSE OXIMETRY, CONTINUOUS JAZMIN FELIX Start: 04-14-2017 SPEAKING VALVE JAZMIN S JANIA Start: 04-14-2017 TRACH COLLAR OXYGEN ANNETTE FELIX Start: 04-14-2017 TRACH PLUGGING JAZMIN S HAH Start: 04-14-2017 POC GLUCOSE FINGERSTICK JAZMIN FELIX Start: 04-14-2017 BASIC METABOLIC PANEL S JAYNE FELIX Start: 04-14-2017 CBC JAZMIN MTZ H Start: 04-14-2017 INCENTIVE SPIROMETRY RT JAZMIN FELIX Start: 04-14-2017 POCT GLUCOSE JAZMIN Ward Start: 04-14-2017 INCENTIVE SPIROMETRY RT JAZMIN FELIX Start: 04-14-2017 PULSE OXIMETRY, CONTINUOUS JAZMIN FELIX Start: 04-14-2017 TRACH COLLAR OXYGEN ANNETTE FELIX Start: 04-14-2017 INCENTIVE SPIROMETRY RT JAZMIN FELIX Start: 04-14-2017 INCENTIVE SPIROMETRY RT JAZMIN FELIX Start: 04-14-2017 PULSE OXIMETRY, CONTINUOUS JAZMIN FELIX Start: 04-14-2017 TRACH COLLAR OXYGEN ANNETTE FELIX Start: 04-14-2017 INCENTIVE SPIROMETRY RT JAZMIN FELIX Start: 04-13-2017 POC GLUCOSE FINGERSTICK JAZMIN FELIX Start: 04-13-2017 POCT GLUCOSE JAZMIN Ward Start: 04-13-2017 INCENTIVE SPIROMETRY RT JAZMIN FELIX Start: 04-13-2017 PULSE OXIMETRY, CONTINUOUS JAZMIN FELIX Start: 04-13-2017 TRACH COLLAR OXYGEN ANNETTE FELIX Start: 04-13-2017 INCENTIVE SPIROMETRY RT JAZMIN FELIX Start: 04-13-2017 POC GLUCOSE FINGERSTICK JAZMIN FELIX Start: 04-13-2017 INCENTIVE SPIROMETRY RT JAZMIN FELIX Start: 04-13-2017 PULSE OXIMETRY, CONTINUOUS JAZMIN FELIX Start: 04-13-2017 TRACH COLLAR OXYGEN ANNETTE FELIX Start: 04-13-2017 HEAD OF BED 60 DEGRE ES OR LESS JAZMIN FELIX Start: 04-13-2017 ELEVATE HEELS OFF OF BED JAZMIN FELIX Start: 04-13-2017 NURSING COMMUNICATION S JAYNE FELIX Start: 04-13-2017 TURN PATIENT JAZMIN Ward Start: 04-13-2017 FOLLOW UP JAZMIN Ward Start: 04-13-2017 PATIENT MAY SHOWER NATHEN FELIX Start: 04-13-2017 IP CONSULT TO DIETITIAN JAZMIN FELIX Start: 04-13-2017 IP CONSULT TO RECREA TION THERAPY JAZMIN FELIX Start: 04-13-2017 IP CONSULT TO SOCIAL WORK JAZMIN FELIX Start: 04-13-2017 OT EVAL AND TREAT LAURA FELIX Start: 04-13-2017 PLACE INTERMITTENT P NEUMATIC COMPRESSION DEVICE JAZMIN FELIX Start: 04-13-2017 PT EVAL AND TREAT LAURA FELIX Start: 04-13-2017 REASON FOR NO CHEMIC AL VTE PROPHYLAXIS JAZMIN FELIX Start: 04-13-2017 TELEHEALTH NURSE EVAL AND TREAT NATHEN FELIX Start: 04-13-2017 ENCOURAGE DEEP BREAT ROSIE AND COUGHING JAZMIN FELIX Start: 04-13-2017 IP CONSULT TO THRESHING OPERATOR AL MEDICINE JAZMIN FELIX Start: 04-13-2017 FALL PRECAUTIONS JAZMIN FELIX Start: 04-13-2017 FULL CODE JAZMIN Ward Start: 04-13-2017 INCENTIVE SPIROMETRY RT JAZMIN FELIX Start: 04-13-2017 MEASURE WEIGHT JAZMIN Yumiko DYKES Start: 04-13-2017 NOTIFY PHYSICIAN (SPECIFY) JAZMIN FELIX Start: 04-13-2017 PATIENT STATUS (DIRECT) JAZMNI FELIX Start: 04-13-2017 REMOVE AND REPLACE T ED HOSE DAILY JAZMIN FELIX Start: 04-13-2017 POCT GLUCOSE JAZMIN Ward Start: 04-13-2017 SPEAKING VALVE JAZMIN DYKES Start: 04-13-2017 TRACH CARE JAZMIN Ward Start: 04-13-2017 TRACH COLLAR OXYGEN ANNETTE FELIX Start: 04-13-2017 TRACH PLUGGING JAZMIN DYKES Start: 04-13-2017 TUBE MAINTENANCE JAZMIN FELIX Start: 04-13-2017 CHANGE TRACHEOSTOMY ANNETTE FELIX Start: 04-13-2017 CONTACT ISOLATION LAURA FELIX Start: 04-13-2017 ELEVATE HEELS OFF OF BED JAZMIN FELIX Start: 04-13-2017 ELEVATE HOB JAZMIN Ward Start: 04-13-2017 HEAD OF BED 60 DEGRE ES OR LESS JAZMIN FELIX Start: 04-13-2017 HEIGHT AND WEIGHT LAURA FELIX Start: 04-13-2017 INITIATE OXYGEN THER APY PROTOCOL JAZMIN FELIX Start: 04-13-2017 NURSING COMMUNICATION S JAYNE FELIX Start: 04-13-2017 PULSE OXIMETRY, CONTINUOUS JAZMIN FELIX Start: 04-13-2017 TURN PATIENT JAZMIN Ward Start: 04-13-2017 VITAL SIGNS JAZMIN Ward Start: 07-18-2016 Craniotomy Shirin PEREZ Start: 07-18-2006 Lithotripsy Shirin PEREZ Start: 07-18-2004 Cardiac catheterization Shirin CONN Arthroplasty of knee Shirin NILL Arthroplasty of knee Shirin NILL Colonoscopy Shirin NILL Cystoscopy Shirin NILL Comment on above: w/ multiple litho/ s tone extractions- Excisional biopsy Shirin NI LL Comment on above: back Hernia repair Shirin NILL History of operative procedure on knee Shirin NILL Insertion of gastros ruddy tube Shirin NILL Lithotripsy Shirin NILL Procedure on brain Shirin N ILL Procedure on neck Shirin NI LL Procedure on shoulder Michae l NILL Removal of gastrostomy tube Shirin NILL Repair of musculoten dinous cuff of shoulder Shirin NILL Vasectomy Shirin NILL Plan of Treatment Date Care Activity Detail Author Start: 09-18-2024 ambulatory Ambulatory Facility:[facility] (Former[facility]) Immunizations Immunization Date Immunization Notes Care Provider Fa [facility] 10-16-2020 SARS-CoV-2 (COVID-19 ) mRNA BNT-162b2 vax Shirin NILL [facility] [place] [facility] 09-25-2020 SARS-CoV-2 (COVID-19 ) mRNA BNT-162b2 vax Shirin NILL [facility] [place] 07-08-2020 influenza virus vaccine, unspecified formulation MIGNON WILLETT [facility] 04-17-2005 pneumococcal conjuga te vaccine, 13 valent Shirin NILL [facility] [place] NEGATED: Highlighted row has not occurred!07-13-2022 influenza virus vaccine, unspecified formulation Shirin CONN [facility] [place] NEGATED: Highlighted row has not occurred!08-25-2021 influenza virus vaccine, unspecified formulation Shirin CONN [facility] [place] NEGATED: Highlighted row has not occurred!08-28-2019 influenza virus vaccine, live, attenuated, for intranasal use Shirin CONN [facility]aid Giacomo Payers Date Payer Category Payer Self-pay [id number] 2016 Unknown [id number] 1960 Unknown [id number] 1962 Unknown [id number] 2.16.840.1.285675.3.579.2.593 1962 Unknown [id number] 2.16.840.1.933871.3.579.2.593 1962 Unknown [id number] 2.16.840.1.718035.3.579.2.593 1962 Unknown [id number] 2.16.840.1.665149.3.579.2.593 1962 Unknown [id number] 2.16.840.1.986431.3.579.2.173 1962 Unknown [id number] 2.16.840.1.927185.3.579.2.173 1962 Unknown [id number] 2.16.840.1.529281.3.579.2.173 1962 Unknown [id number] 2.16.840.1.725356.3.579.2.727 1962 Unknown [id number] 2.16.840.1.162919.3.579.2.727 1962 Unknown [id number] 2.16.840.1.122562.3.579.2.727 1962 Unknown [id number] 2.16.840.1.997756.3.579.2.727 1959 Unknown [id number] Private Health Insurance [employer] [id number] Unknown [facility] [id number] Unknown [id number] 2.16.840.1.790822.3.579.2.531 Unknown [id number] 2.16.840.1.789661.3.579.2.531 Social History Date Type Detail Facility Start: 07-13-2022 End: 11-16-2023 Tobacco smoking status Never smoked tobacco (finding) [facility] [place] Tobacco smoking status Never [facility] [place] Sex Assigned At Male [facility] Start: 1960 Sex Assigned At Male [place] Functional Status Date Assessment Result Facility 11-16-2023 Functional Status N/A [facility] [place] 09-13-2023 Functional Status N/A [facility] 09-08-2022 Functional Status N/A [facility] 07-13-2022 Functional Status N/A [facility] Clinical Notes 08-04-2022 to 11-19-2023 Note Date & Type Note Facility 11-19-2023 Note Chief Complaint consultation for skin lesion HPI Staff 63 year old male presents on consultation from Clotilde Nolasco for posterior scalp lesion. 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 Reports lesion has significantly increased in size since first noted. Reports minimal soreness. Denies bleeding or drainage. History of Present Illness 63 yo male with h/o TBI, DMII, DVT, ADHD, FREDDY referred for enlarging scalp lesion; noticed by [facility]ers 6 weeks ago, no bleeding or pain, increasing in size; h/o basal cell carcinomas; no asa or NSAID use. no tobacco use. Review of Systems PHQ Score Initial Depression Screen Score: 0 SCORE ROS - Provider Constitutional: no fever, no sweats, no weight loss. Eyes: no glasses, no blurred vision, no visual loss. ENMT: no dentures, no hoarseness, no swallowing difficulties, no hearing loss, no ear infection(s), no nose bleeds. Cardiovascular: normal blood pressure, no chest pain, regular heartbeat, no heart murmur. Respiratory: no shortness of breath, no cough, no asthma, no wheezing. Gastrointestinal: no nausea, no vomiting, no diarrhea, no constipation, no blood in stool, no change in bowel habits, no abdominal pain, no hepatitis. Genitourinary: no kidney stones, no urine infection, no dysuria. Musculoskeletal: no pain, no weakness. Skin: no changing moles, no rash, no skin lumps. Neurologic: no seizures, no epilepsy, no headache. Psychiatric: no emotional or psychiatric problem. Heme/Lymph: no bleeding problems, no anemia, no blood clots, no transfusions. Allergy/Immunologic: no swollen lymph nodes/glands, no IV drug abuse. Other: Additional ROS info: Except as noted in the above Review of Systems and in the History of Present Illness, all other systems have been reviewed and are negative or noncontributory. Physical Exam Vitals & Measurements HR: 76(Peripheral) RR: 16 BP: 138/90 HT: 70 in HT: 177 cm WT: 118 kg WT: 259.6 lb BMI: 37.66 HEENT: normal conjunctiva, sclera clear, no scleral icterus, EOM intact, PERRLA, oral mucosa moist without lesions. Neck: trachea midline, no mass, symmetric, no thyromegaly or nodules, no adenopathy Respiratory: lungs CTA, respirations non labored. Cardiovascular: regular rate and rhythm, no murmur, no pedal edema or varicosities. Musculoskeletal: normal gait, digits and nails without infection, nodes, cyanosis, clubbing. Skin: no rashes, no lesions, no ulcers, central parietal scalp with 2 cm raised, smooth, red nodule, no ulceration or bleeding Psychiatric/Neuro: oriented to time, place, person, judgement normal, affect appropriate for age, insight intact, no focal deficits. Tests: review of old records completed , Discussed surgical options, risks, and possible complications with patient. Assessment/Plan 1. Neoplasm of uncertain behavior of scalp (D48.5: Neoplasm of uncertain behavior of skin) small incisional biopsy of lesion obtained under local anesthesia for tissue diagnosis; informed consent obtained. closed with interrupted 4-0 nylon sutures; tolerated well, minimal bleeding; keep incision clean and dry; follow up next week for suture removal and pathology results; call sooner if problems/questions. Follow-up No qualifying data available Problem List/Past Medical History Ongoing Abnormal US (ultrasound) of abdomen ADHD Basal cell carcinoma of back Basal cell carcinoma of left lower leg Benign paroxysmal positional vertigo BMI 37.0-37.9, adult BPH with urinary obstruction Cardiomegaly Cardiomyopathy Diabetes Diastasis recti Diastolic hypertension Eczema Epidermal cyst Fibroepithelial polyp Hearing loss History of DVT (deep vein thrombosis) History of kidney stones History of subdural hematoma Impotence Myocarditis Neoplasm of uncertain behavior of scalp Neoplasm of uncertain behavior of skin of back Nocturia Obesity due to excess calories FREDDY (obstructive sleep apnea) Personal history of skin cancer Pilar cyst Prostate cancer screening Seasonal allergic rhinitis Historical No qualifying data Procedure/Surgical History Bunionectomy (08/18/2020), Excision of malignant neoplasm (09/04/2019), Craniotomy (07/18/2016), Lithotripsy (07/18/2006), Cardiac catheterization (07/18/2004), Arthroplasty of knee, Colonoscopy, Cystoscopy, Excisional biopsy, Hernia repair, History of knee surgery, Insertion of gastrostomy tube, Lithotripsy, Neck procedure, Procedure on brain, Procedure on shoulder, Removal of gastrostomy tube, Rotator cuff repair, Vasectomy. Medications metformin 500 mg oral tablet, 500 mg= 1 tab(s), Oral, BID Multi Vitamins oral tablet, 1 tab(s), Oral, Daily Ozempic 8 mg/3 mL (2 mg dose) subcutaneous solution tadalafil 20 mg Tab, See Instructions, 5 refills Allergies No Known Allergies No Known Medication Allergies Social History Alcohol Current, 1-2 times per month, 04/30/2019 Substance Abuse - Denies Substance Abuse, 08/25/2021 Tobacco Never (more content not included)... [facility] Comment on above: Result Comment: Elec tronically Signed By: BETSY MORAN, Shirin [place]en[place]\Date and Time Signed: 11/19/23 09:58 EDT 02-27-2024 Hospital Discharge instructions Patient Education 09/13/2023 08:40:59 Benign Prostatic Hyperplasia Benign Prostatic Hyperplasia Benign prostatic hyperplasia (BPH) is an enlarged prostate gland that is caused by the normal aging process. The prostate may get bigger as a man gets older. The condition is not caused by cancer. The prostate is a walnut-sized gland that is involved in the production of semen. It is located in front of the rectum and below the bladder. The bladder stores urine. The urethra carries stored urine out of the body. An enlarged prostate can press on the urethra. This can make it harder to pass urine. The buildup of urine in the bladder can cause infection. Back pressure and infection may progress to bladder damage and kidney (renal) failure. What are the causes? This condition is part of the normal aging process. However, not all men develop problems from this condition. If the prostate enlarges away from the urethra, urine flow will not be blocked. If it enlarges toward the urethra and compresses it, there will be problems passing urine. What increases the risk? This condition is more likely to develop in men older than 50 years. What are the signs or symptoms? Symptoms of this condition include: Getting up often during the night to urinate. Needing to urinate frequently during the day. Difficulty starting urine flow. Decrease in size and strength of your urine stream. Leaking (dribbling) after urinating. Inability to pass urine. This needs immediate treatment. Inability to completely empty your bladder. Pain when you pass urine. This is more common if there is also an infection. Urinary tract infection (UTI). How is this diagnosed? This condition is diagnosed based on your medical history, a physical exam, and your symptoms. Tests will also be done, such as: A post-void bladder scan. This measures any amount of urine that may remain in your bladder after you finish urinating. A digital rectal exam. In a rectal exam, your health care provider checks your prostate by putting a lubricated, gloved finger into your rectum to feel the back of your prostate gland. This exam detects the size of your gland and any abnormal lumps or growths. An exam of your urine (urinalysis). A prostate specific antigen (PSA) screening. This is a blood test used to screen for prostate cancer. An ultrasound. This test uses sound waves to electronically produce a picture of your prostate gland. Your health care provider may refer you to a specialist in kidney and prostate diseases (urologist). How is this treated? Once symptoms begin, your health care provider will monitor your condition (active surveillance or watchful waiting). Treatment for this condition will depend on the severity of your condition. Treatment may include: Observation and yearly exams. This may be the only treatment needed if your condition and symptoms are mild. Medicines to relieve your symptoms, including: ?Medicines to shrink the prostate. ?Medicines to relax the muscle of the prostate. Surgery in severe cases. Surgery may include: ?Prostatectomy. In this procedure, the prostate tissue is removed completely through an open incision or with a laparoscope or robotics. ?Transurethral resection of the prostate (TURP). In this procedure, a tool is inserted through the opening at the tip of the penis (urethra). It is used to cut away tissue of the inner core of the prostate. The pieces are removed through the same opening of the penis. This removes the blockage. ?Transurethral incision (TUIP). In this procedure, small cuts are made in the prostate. This lessens the prostate's pressure on the urethra. ?Transurethral microwave thermotherapy (TUMT). This procedure uses microwaves to create heat. The heat destroys and removes a small amount of prostate tissue. ?Transurethral needle ablation (TUNA). This procedure uses radio frequencies to destroy and remove a small amount of prostate tissue. ?Interstitial laser coagulation (ILC). This procedure uses a laser to destroy and remove a small amount of prostate tissue. ?Transurethral electrovaporization (TUVP). This procedure uses electrodes to destroy and remove a small amount of prostate tissue. ?Prostatic urethral lift. This procedure inserts an implant to push the lobes of the prostate away from the urethra. Follow these instructions at home: Take duax-tzy-huovmsg and prescription medicines only as told by your health care provider. Monitor your symptoms for any changes. Contact your health care provider with any changes. Avoid drinking large amounts of liquid before going to bed or out in public. Avoid or reduce how much caffeine or alcohol you drink. Give yourself time when you urinate. Keep all follow-up visits. This is important. Contact a health care provider if: You have unexplained back pain. Your symptoms do not get better with treatment. You develop side effects from the medicine you are taking. Your urine becomes very dark or has a bad smell. Your lower abdomen becomes distended and you have trouble passing urine. Get help right away if: You have a fever or chills. You suddenly cannot urinate. You feel light-headed or very dizzy, or you faint. There are large amounts of blood or clots in your urine. Your urinary problems become hard to manage. You develop moderate to severe low back or flank pain. The flank is the side of your body between the ribs and the hip. These symptoms may be an emergency. Get help right away. Call 911. Do not wait to see if the symptoms will go away. Do not drive yourself to the hospital. Summary Benign prostatic hyperplasia (BPH) is an enlarged prostate that is caused by the normal aging process. It is not caused by cancer. An enlarged prostate can press on the urethra. This can make it hard to pass urine. This condition is more likely to develop in men older than 50 years. Get help right away if you suddenly cannot urinate. This information is not intended to replace advice given to you by your health care provider. Make sure you discuss any questions you have with your health care provider. Document Revised: 01/20/2022 Document Reviewed: 01/20/2022 [employer] Patient Education 2022 [employer]. Follow Up Care 09/08/2022 10:50:32 With:MIGNON WILLETT PA-C, URL Address: [address] [place] [address] [place] [address] When: Unknown [facility] 09-08-2022 Hospital Discharge instructions Patient Education 09/08/2022 10:25:19 Benign Prostatic Hyperplasia Benign Prostatic Hyperplasia Benign prostatic hyperplasia (BPH) is an enlarged prostate gland that is caused by the normal aging process and not by cancer. The prostate is a walnut-sized gland that is involved in the production of semen. It is located in front of the rectum and below the bladder. The bladder stores urine and the urethra is the tube that carries the urine out of the body. The prostate may get bigger as a man gets older. An enlarged prostate can press on the urethra. This can make it harder to pass urine. The build-up of urine in the bladder can cause infection. Back pressure and infection may progress to bladder damage and kidney (renal) failure. What are the causes? This condition is part of a normal aging process. However, not all men develop problems from this condition. If the prostate enlarges away from the urethra, urine flow will not be blocked. If it enlarges toward the urethra and compresses it, there will be problems passing urine. What increases the risk? This condition is more likely to develop in men over the age of 50 years. What are the signs or symptoms? Symptoms of this condition include: Getting up often during the night to urinate. Needing to urinate frequently during the day. Difficulty starting urine flow. Decrease in size and strength of your urine stream. Leaking (dribbling) after urinating. Inability to pass urine. This needs immediate treatment. Inability to completely empty your bladder. Pain when you pass urine. This is more common if there is also an infection. Urinary tract infection (UTI). How is this diagnosed? This condition is diagnosed based on your medical history, a physical exam, and your symptoms. Tests will also be done, such as: A post-void bladder scan. This measures any amount of urine that may remain in your bladder after you finish urinating. A digital rectal exam. In a rectal exam, your health care provider checks your prostate by putting a lubricated, gloved finger into your rectum to feel the back of your prostate gland. This exam detects the size of your gland and any abnormal lumps or growths. An exam of your urine (urinalysis). A prostate specific antigen (PSA) screening. This is a blood test used to screen for prostate cancer. An ultrasound. This test uses sound waves to electronically produce a picture of your prostate gland. Your health care provider may refer you to a specialist in kidney and prostate diseases (urologist). How is this treated? Once symptoms begin, your health care provider will monitor your condition (active surveillance or watchful waiting). Treatment for this condition will depend on the severity of your condition. Treatment may include: Observation and yearly exams. This may be the only treatment needed if your condition and symptoms are mild. Medicines to relieve your symptoms, including: ?Medicines to shrink the prostate. ?Medicines to relax the muscle of the prostate. Surgery in severe cases. Surgery may include: ?Prostatectomy. In this procedure, the prostate tissue is removed completely through an open incision or with a laparoscope or robotics. ?Transurethral resection of the prostate (TURP). In this procedure, a tool is inserted through the opening at the tip of the penis (urethra). It is used to cut away tissue of the inner core of the prostate. The pieces are removed through the same opening of the penis. This removes the blockage. ?Transurethral incision (TUIP). In this procedure, small cuts are made in the prostate. This lessens the prostate's pressure on the urethra. ?Transurethral microwave thermotherapy (TUMT). This procedure uses microwaves to create heat. The heat destroys and removes a small amount of prostate tissue. ?Transurethral needle ablation (TUNA). This procedure uses radio frequencies to destroy and remove a small amount of prostate tissue. ?Interstitial laser coagulation (ILC). This procedure uses a laser to destroy and remove a small amount of prostate tissue. ?Transurethral electrovaporization (TUVP). This procedure uses electrodes to destroy and remove a small amount of prostate tissue. ?Prostatic urethral lift. This procedure inserts an implant to push the lobes of the prostate away from the urethra. Follow these instructions at home: Take qxgq-mer-gczqwqn and prescription medicines only as told by your health care provider. Monitor your symptoms for any changes. Contact your health care provider with any changes. Avoid drinking large amounts of liquid before going to bed or out in public. Avoid or reduce how much caffeine or alcohol you drink. Give yourself time when you urinate. Keep all follow-up visits as told by your health care provider. This is important. Contact a health care provider if: You have unexplained back pain. Your symptoms do not get better with treatment. You develop side effects from the medicine you are taking. Your urine becomes very dark or has a bad smell. Your lower abdomen becomes distended and you have trouble passing your urine. Get help right away if: You have a fever or chills. You suddenly cannot urinate. You feel lightheaded, or very dizzy, or you faint. There are large amounts of blood or clots in the urine. Your urinary problems become hard to manage. You develop moderate to severe low back or flank pain. The flank is the side of your body between the ribs and the hip. These symptoms may represent a serious problem that is an emergency. Do not wait to see if the symptoms will go away. Get medical help right away. Call your local emergency services (911 in the [place] Do not drive yourself to the hospital. Summary Benign prostatic hyperplasia (BPH) is an enlarged prostate that is caused by the normal aging process and not by cancer. An enlarged prostate can press on the urethra. This can make it hard to pass urine. This condition is part of a normal aging process and is more likely to develop in men over the age of 50 years. Get help right away if you suddenly cannot urinate. This information is not intended to replace advice given to you by your health care provider. Make sure you discuss any questions you have with your health care provider. Document Released: 07/04/2006 Document Revised: 05/29/2019 Document Reviewed: 08/08/2017 [employer] Patient Education 2020 [employer]. 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 POSTOPERATIVE DIAGNOSIS: Enlarging irritated fibroepithelial polyp right upper medial thigh. PROCEDURE: Excisional biopsy of right thigh fibroepithelial polyp. SURGEON: Shirin Conn M.D. ANESTHESIA: Local with 0.5% Marcaine plain. ESTIMATED BLOOD LOSS: Less than 3 mL. INDICATIONS AND CONSENT: Patient is a 62-year-old male with a history of enlarging, irritated fibroepithelial polyp of the right upper medial thigh. Indications, risks, benefits, alternatives of proceeding with excisional biopsy under local anesthesia were explained extensively to the patient, including the risks of bleeding, infection, scarring, pain, recurrence or need for further surgery. All of his questions were answered. Informed consent was obtained. PROCEDURE: Patient brought to the operating room and placed in the right lateral decubitus position. The area was prepped and draped in the usual sterile fashion. It was anesthetized with 0.5% Marcaine plain. It was then excised in elliptical fashion down to subcutaneous fat. The specimen was sent off to pathology. Hemostasis was achieved with handheld cautery. Subcutaneous tissues were re-approximated with interrupted 4-0 Monocryl suture. The skin was then closed with a running 4-0 subcuticular Monocryl sutures and skin glue. Sterile pressure dressing was applied. Sponge and needle counts were correct x2 per nursing personnel. Patient tolerated procedure well, was discharged home in good condition, is to follow up in 7-10 days for wound check. Total length of the excision was 2.5 cm. CC: Diallo Nolasco M.D. [facility] Evaluation + Plan note Future Appointments Appointment Date:09/07/2022 08:00:00 AM Scheduled Provider:Levi Samuels Jr., MD Location:[facility] Appointment Type:URO Office Visit [facility] Evaluation + Plan note Future Appointments Appointment Date:09/13/2023 08:30:00 AM Scheduled Provider:MIGNON WILLETT PA-C Location:[facility] Appointment Type:URO Office Visit Diagnostic Tests PendingPSA Total 09/08/22 [facility] Evaluation + Plan note Future Appointments Appointment Date:09/18/2024 08:20:00 AM Scheduled Provider:MIGNON WILLETT PA-C Location:[facility] Appointment Type:URO Office Visit Diagnostic Tests PendingPSA Total 05/18/24 [facility] Evaluation + Plan note Future Appointments Appointment Date:11/23/2023 03:00:00 PM Scheduled Provider:Shirin CONN MD Location:[facility] Appointment Type:GS Established 15 Appointment Date:09/18/2024 08:20:00 AM Scheduled Provider:MIGNON WILLETT PA-C Location:[facility] Appointment Type:URO Office Visit [facility] Evaluation + Plan note Future Appointments Appointment Date:09/18/2024 08:20:00 AM Scheduled Provider:MIGNON WILLETT PA-C Location:[facility] [place] Appointment Type:URO Office Visit [facility] Evaluation note No assessment inform ation available [facility] Work Phone: Hospital course Narrative No data available for this section [facility] [place] [facility] Discharge instructions No data available for this section [facility] [place] note No data available for this section [facility] [place] Summary Purpose Family History No Family History Records FoundNo Family History Records FoundNo Family History Records FoundNo Family History Records Found No data available for this section No data available for this section No data available for this section No Family History Records FoundNo Family History Records FoundNo Family History Records Found Advance Directives No Advanced Directives Records Found Advance Directive Response Recorded Date/ Time Advance Directives No March 2:56pm Additional Source Comments (unrecognized sect ion and content) No Status Records FoundNo Status Records FoundNo Status Records FoundNo Status Records FoundNo Status Records FoundNo Status Records FoundNo Status Records Found INFORMATION SOURCE (unrecogn ized section and content) DATE CREATED AUTHOR 01/10/2018 [facility] DATE CREATED AUTHOR AUTHOR'S ORGANIZ ATION 06/25/2018 [facility] DATE CREATED AUTHOR AUTHOR'S ORGANIZ ATION 02/25/2020 [facility] DATE CREATED AUTHOR AUTHOR'S ORGANIZ ATION 09/10/2022 [facility] DATE CREATED AUTHOR AUTHOR'S ORGANIZ ATION 12/28/2023 [facility] DATE CREATED AUTHOR AUTHOR'S ORGANIZ ATION 12/30/2023 [facility] DATE CREATED AUTHOR AUTHOR'S ORGANIZ ATION 01/01/2024 [facility] Patient Care team informatio n (unrecognized section and content) Team Status: Inactive Member Role Status Dates Shirin Conn MD [facility] Attending Provider Active Start: November 16, 2023 End: November 16, 2023 Team Status: Inactive Member Role Status Dates Gary Varela MD Attending Provider Active Start: December 14, 2023 End: December 14, 2023 Goals (unrecognized section and content) Goals may be documented in a n alternate section FOR RECORDS PERTAINING TO PATIENTS WHO ARE OR HAVE BEEN ENROLLED IN A CHEMICAL DEPENDENCY/SUBSTANCEABUSE PROGRAM, SOME INFORMATION MAY BE OMITTED. This clinical summary was aggregated from multiple sources. Caution should be exercised in using it in the provision of clinical care. This summary normalizes information from multiple sources, and as a consequence, information in this document may materially change the coding, format and clinical context of patient data. In addition, data may be omitted in some cases. CLINICAL DECISIONS SHOULD BE BASED ON THE PRIMARY CLINICAL RECORDS. [facility] [employer] [facility]. provides no warranty or guarantee of the accuracy or completeness of information in this document.
--- NOTE | 2024-02-15 07:36 | MR_ITS ---
The [address] [address] Patient Name: MIKEL CALDERON MRN: [id number] date: 1960 Sex: M Assigned Patient Location: MRI Current Patient Location: MRI Accession/Order Number: [id number] Exam Date: 02/15/2024 07:40 Report Date: 02/15/2024 08:57 At the request of: DIALLO MACIEL Procedure: MR head/brain wo con MR head/brain wo con, 02/15/2024 7:40 AM EDT INDICATION: Migraine G43.909 COMPARISON: There is no appropriate prior study for comparison. TECHNIQUE: Multiplanar, multisequential MRI images of brain were obtained without injection of contrast. FINDINGS: The cerebral sulci as well as ventricular system are appropriate for age. There is no restricted diffusion. 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 There is no intracranial mass, mass effect, midline shift, intra or extra-axial fluid collection or large hemorrhage. Postoperative changes in the right temporal parietal lobes are noted. Normal flow-void in the intracranial vessels is noted. The visualized portions of orbits, mastoid air cells as well as paranasal sinuses are unremarkable. MR/MR head/brain wo con IMPRESSION: No acute intracranial process is noted. No definite radiological finding to explain patient's symptoms. Electronically authenticated by: GIRISH BANDA Date: 02/15/2024 08:57
== END 2024-02-15 07:20 | disposition home or self-care (01) ==
LOC: MRI 07:20
PROVIDERS: PCP Family Medicine; Visit Provider Family Medicine
DX: G43.909 Migraine, unspecified, not intractable, without status migrainosus (principal)
CPT/HCPCS: 70551

== ENCOUNTER 2024-08-02 09:29 | Outpatient (OUT) | payer OTHER, SELFPAY ==
--- NOTE | 2024-08-02 09:32 | US_ITS ---
The [address] [address] Patient Name: MIKEL CALDERON MRN: [id number] date: 1960 Sex: M Assigned Patient Location: [facility] Current Patient Location: OR Accession/Order Number: [id number] Exam Date: 08/02/2024 09:35 Report Date: 08/02/2024 10:24 At the request of: DIALLO MACIEL Procedure: US right upper quadrant EXAM: US right upper quadrant HISTORY: . Right Upper Quadrant Abdominal Pain . COMPARISON: None. TECHNIQUE: Person scale and color imaging was performed FINDINGS: The head and body of the pancreas appears normal. The tail was obscured due to overlying bowel gas. The liver measures 19 cm. There is diffuse increased echogenicity of liver consistent with fatty infiltration of liver. Color-flow is noted. The gallbladder appears normal with no stones or sludge identified. Common bile duct measures 6 mm. Right kidney measures 11.1 x 6.4 x 5.8 cm. Color-flow is noted. No solid renal cortical masses or hydronephrosis is noted. US/US right upper quadrant IMPRESSION: 1. The liver is prominent in size. There is increased echogenicity of liver consistent with fatty infiltration of the liver. 2. The head and body of pancreas appears normal. The tail was obscured due to overlying bowel gas. 3. The remainder the right upper quadrant is unremarkable. Electronically authenticated by: SALENA RAJAN Date: 08/02/2024 10:24
--- OUTSIDE RECORDS SUMMARY | 2024-08-02 09:51 | XMS_ITS | CCD ---
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 electrodesiccation Outcome: patient tolerated procedure well with no complications Post-procedure details: wound care instructions given Post-procedure details comment: Post-procedure instructions were given verbally and in writing. The office will be contacted if the lesion fails to resolve despite treatment, or if a side effect develops such as abnormal crusting, scabbing, reddness, discharge, or tenderness. 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 Site was marked. Photo was taken and shown to patient, patient verified this is the correct site. Procedure prep: Patient was prepped and draped in usual sterile fashion Prep type: Chlorhexidine Anesthesia: the lesion was anesthetized in a standard fashion Anesthetic: 1% lidocaine w/ epinephrine 1-100,000 buffered w/ 8.4% NaHCO3 Curettage performed in three different directions: Yes Electrodesiccation performed over the curetted area: Yes Curettage cycles: 3 Lesion length (cm): 1.2 Lesion width (cm): 1 Margin per side (cm): 0 Final wound size (cm): 1.2 Hemostasis achieved with: electrodesiccation Outcome: patient tolerated procedure well with no complications Post-procedure details: wound care instructions given Post-procedure details comment: Post-procedure instructions were given verbally and in writing. The office will be contacted if the lesion fails to resolve despite treatment, or if a side effect develops such as abnormal crusting, scabbing, reddness, discharge, or tenderness. Additional details: Amount of lidocaine used: 2.0 cc Previous accession number: [id number] [facility] Basic Metabolic Profon 02-24 Anion gap [Moles/Vol] 9 mmol/L Normal 9-17 [facility] Comment on above: Performed By: #### C MARCEL, BMP #### [facility] [address] [place] [address] Seo Analyst: Abelardo Gunter MD BUN/CRE Ratio 14 Normal 9-20 [facility] Comment on above: Performed By: #### C DP, BMP #### [facility] [address] [place] [address] Seo Analyst: Abelardo Gunter MD Calcium [Mass/Vol] 9.4 mg/dL Normal 8.6-10.4 [facility] Comment on above: Performed By: #### C DP, BMP #### [facility] [address] [place] [address] Seo Analyst: Abelardo Gunter MD Chloride [Moles/Vol] 102 mmol/L Normal 98-107 [facility] Comment on above: Performed By: #### C DP, BMP #### [facility] [address] [place] [address] Seo Analyst: Abelardo Gunter MD CO2 [Moles/Vol] 28 mmol/L Normal 20-31 [facility] Comment on above: Performed By: #### C DP, BMP #### [facility] [address] [place] [address] Seo Analyst: Abelardo Gunter MD Creatinine [Mass/Vol] 1.0 mg/dL Normal 0.7-1.2 [facility] Comment on above: Performed By: #### C DP, BMP #### [facility] [address] [place] [address] Seo Analyst: Abelardo Gunter MD GFR/1.73 sq M.predicted among non-blacks MDRD (S/P/Bld) [Vol rate/Area] 86 mL/min/{1.73_m2} Normal >60 [facility] Comment on above: Result Comment: These results are not intended for use in patients <18 years of age. eGFR results are calculated without a race factor using the 2020 CKD-EPI equation. Careful clinical correlation is recommended, particularly when comparing to results calculated using previous equations. The CKD-EPI equation is less accurate in patients with extremes of muscle mass, extra-renal metabolism of creatine, excessive creatine ingestion, or following therapy that affects renal tubular secretion. Performed By: #### C DP, BMP #### [facility] [address] [place] [address] Seo Analyst: Abelardo Gunter MD Glucose [Mass/Vol] 106 mg/dL High 70-99 [facility] Comment on above: Performed By: #### C DP, BMP #### [facility] [address] [place] [address] Seo Analyst: Abelardo Gunter MD Potassium [Moles/Vol] 4.4 mmol/L Normal 3.7-5.3 [facility] Comment on above: Performed By: #### C DP, BMP #### [facility] [address] [place], [place] [address] Seo Analyst: Abelardo Gunter MD Sodium [Moles/Vol] 139 mmol/L Normal 135-144 [facility] Comment on above: Performed By: #### C DP, BMP #### [facility] [address] [place], [facility] Seo Analyst: Abelardo Gunter MD Urea nitrogen [Mass/Vol] 14 mg/dL Normal 8-23 [facility] Comment on above: Performed By: #### C DP, BMP #### [address] [place] [address] Seo Analyst: Abelardo Gunter MD CBC with Diffon 02-25-2024 Abs. Basophil 0.03 k/uL Normal 0.00-0.20 [facility] Comment on above: Performed By: #### C DP, BMP #### [address] [place], [facility] Seo Analyst: Abelardo Gunter MD Abs.Imm.Granulocyt e 0.03 k/uL Normal 0.00-0.30 [facility] Comment on above: Performed By: #### C DP, BMP #### [address] [place], [place] [address] Seo Analyst: Abelardo Gunter MD Abs.Neutrophil (Seg) 3.96 k/uL Normal 1.50-8.10 [facility] Comment on above: Performed By: #### C DP, BMP #### [address] [place], [place] [id number] Seo Analyst: Abelardo Gunter MD Basophils/100 WBC (Bld) 0 % Normal 0-2 [facility] Comment on above: Performed By: #### C DP, BMP #### [address] [place], [place] [address] Seo Analyst: Abelardo Gunter MD Eosinophils (Bld) [#/Vol] 0.17 10*3/uL Normal 0.00-0.44 [facility] Comment on above: Performed By: #### C DP, BMP #### [facility] [address] [place] [address] Seo Analyst: Abelardo Gunter MD Eosinophils/100 WBC (Bld) 3 % Normal 1-4 [facility] Comment on above: Performed By: #### C DP, BMP #### [facility] [address] [place] [address] Seo Analyst: Abelardo Gunter MD Erythrocyte distribution width (RBC) [Ratio] 12.5 % Normal 11.8-14.4 [facility] Comment on above: Performed By: #### C DP, BMP #### [address] [place] [address] Seo Analyst: Abelardo Gunter MD Hematocrit (Bld) [Volume fraction] 43.1 % Normal 40.7-50.3 [facility] Comment on above: Performed By: #### C DP, BMP #### [address] [place], [facility] Seo Analyst: Abelardo Gunter MD Hemoglobin (Bld) [Mass/Vol] 15.1 g/dL Normal 13.0-17.0 [facility] Comment on above: Performed By: #### C DP, BMP #### [address] [place], [facility] Seo Analyst: Abelardo Gunter MD Immature granulocytes/100 WBC (Bld) 0 % Normal 0 [facility] Comment on above: Performed By: #### C DP, BMP #### [facility] [address] [place] [address] Seo Analyst: Abelardo Gunter MD Lymphocytes (Bld) [#/Vol] 1.96 10*3/uL Normal 1.10-3.70 [facility] Comment on above: Performed By: #### C DP, BMP #### [address] [place], [place] [address] Seo Analyst: Abelardo Gunter MD Lymphocytes/100 WBC (Bld) 29 % Normal 24-43 [facility] Comment on above: Performed By: #### C DP, BMP #### [address] [place], [place] [address] Seo Analyst: Abelardo Gunter MD MCH (RBC) [Entitic mass] 32.2 pg Normal 25.2-33.5 [facility] Comment on above: Performed By: #### C DP, BMP #### [address] [place], [place] [address] Seo Analyst: Abelardo Gunter MD MCHC (RBC) [Mass/Vol] 35.0 g/dL High 28.4-34.8 [facility] Comment on above: Performed By: #### C DP, BMP #### [address] [place], [place] [address] Seo Analyst: Abelardo Gunter MD MCV (RBC) [Entitic vol] 91.9 fL Normal 82.6-102.9 [facility] Comment on above: Performed By: #### C DP, BMP #### [address] [place], [place] [address] Seo Analyst: Abelardo Gunter MD Monocytes (Bld) [#/Vol] 0.63 10*3/uL Normal 0.10-1.20 [facility] Comment on above: Performed By: #### C DP, BMP #### [address] [place] [address] Seo Analyst: Abelardo Gunter MD Monocytes/100 WBC (Bld) 9 % Normal 3-12 [facility] Comment on above: Performed By: #### C DP, BMP #### [facility] [address] [place], [place] [address] Seo Analyst: Abelardo Gunter MD Neutrophil (Seg) 59 % Normal 36-65 [facility] Comment on above: Performed By: #### C DP, BMP #### [facility] [address] [place], [place] [address] Seo Analyst: Abelardo Gunter MD NRBC Automated 0.0 per 100 WBC Normal 0.0 [facility] Comment on above: Performed By: #### C DP, BMP #### [facility] [address] [place], [place] [address] Seo Analyst: Abelardo Gunter MD Platelet mean volume (Bld) [Entitic vol] 11.0 fL Normal 8.1-13.5 [facility] Comment on above: Performed By: #### C DP, BMP #### [address] [place], [place] [address] Seo Analyst: Abelardo Gunter MD Platelets (Bld) [#/Vol] 164 10*3/uL Normal 138-453 [facility] Comment on above: Performed By: #### C DP, BMP #### [address] [place], [place] [address] Seo Analyst: Abelardo Gunter MD RBC (Bld) [#/Vol] 4.69 10*6/uL Normal 4.21-5.77 [facility] Comment on above: Performed By: #### C DP, BMP #### [facility] [address] [place] [address] Seo Analyst: Abelardo Gunter MD WBC (Bld) [#/Vol] 6.8 10*3/uL Normal 3.5-11.3 [facility] Comment on above: Performed By: #### C DP, BMP #### [facility] [address] [place] [address] Seo Analyst: Abelardo Gunter MD Consultation Noteon 01-01-20 Consultation Note [id number]#1.00TIFF Normal [facility] Pathology Noteon 01-01-2024 Pathology Note [id number]#1.00TIFF Normal [facility] XR ABDOMEN (KUB) (SINGLE AP VIEW)on 12-28-2023 [...] Wali Horan DO 12/28/23 Final result Normal [facility] Kiran 12-14-2023 L Specimen: [id number] Received: 12/15/23 Status: UYEN Hernandes Num: [id number] Spec Type: Surgical Subm Dr: Gary Varela MD Tissues: A Skin-Other than Cyst, tag, debridement or plastic repair (SCALP) Procedures: HE/7, Gross/Micro L4 Age/ Patient Sex Location Account Attending Physician Mikel Samuels 63/M [place] [id number] Gary Varela MD SPEC NUM: [id number] RECD: 12/15/23 STATUS: UYEN HERNANDES NUM: [id number] ASA: 12/14/[address]: Gary Varela MD ENTERED: 12/15/[address] [facility] [address]: SPEC TYPE: Surgical DEPT: S ORDERED: [...] A1-A6 as follows: A1: 9:00 tip Specimen: [id number] Received: 12/15/23 Status: UYEN Hernandes Num: [id number] Spec Type: Surgical Subm Dr: Gary Varela MD Tissues: A Skin-Other than Cyst, tag, debridement or plastic repair (SCALP) Procedures: JUSTIN/Lore, Gross/Micro L4 Patient: ArvindMikel [id number] (Continued) Specimen: [id number] Received: 12/15/23 (Continued) Gross Description (Continued) Signed (signature on file) Leonel Mendoza MD 12/20/23 1015 Specimen: [id number] Received: 12/15/23 Status: UYEN Hernandes Num: [id number] Spec Type: Surgical Subm Dr: Gary Varela MD Tissues: A Skin-Other than Cyst, tag, debridement or plastic repair (SCALP) Procedures: Sukhwinder MENDOZA/Dorinda Boggs Patient: SamuelsMikel [id number] (Continued) Specimen: [id number] Received: 12/15/23 (Continued) Gross Description (Continued) A2: 3:00 tip A3-A6: 12:00 to 6:00 region CPT Codes 07225 Specimen: [id number] Received: 12/15/23 Status: UYEN Hernandes Num: [id number] Spec Type: Surgical Subm Dr: Gary Varela MD Tissues: A Skin-Other than Cyst, tag, debridement or plastic repair (SCALP) Procedures: Sukhwinder MENDOZA/Dorinda L4 Patient: Mikel Samuels [id number] (Continued) Signed (signature on file) Leonel Mendoza MD 12/20/23 1015 Normal [facility] Pathology Noteon 11-30-2023 Pathology Note [id number]#1.00TIFF Normal [facility] Ambulatory Visit Summaryon 0 11-23-2023 Ambulatory Visit Summary MIKEL SAMUELS :1960 Visit Date:11/23/2023 Ambulatory Visit Instructions Your Care Team Attending Physician - BETSY MORAN, Shirin Sanchez Primary Care Physician - Raheem MORAN, Fish This Is Your Medications List metformin (metformin [...] to do next Scheduled Follow-Up Appointments Tuesday 8:20 AM EST With: MIGNON MCCANN PA-C Where: [facility] General Surgery Office/Clini c Noteon 11-23-2023 General [...] Refuses pneumococcal 13-valent vaccine 04/2005 Recorded Normal [facility] Comment on above: Result Comment: Elec tronically Signed By: Shirin MEYER MD\.br\Date and Time Signed: 11/23/23 15:20 EDT Ambulatory Visit Summaryon 0 11-16-2023 Ambulatory Visit Summary MIKEL SAMUELS :1960 Visit Date:11/16/2023 Ambulatory Visit Instructions Your Care Team Attending Physician - Shirin MEYER MD Primary Care Physician - Fish Maciel MD Referring Physician - Fish Maciel MD This Is Your Medications List Contact [...] EDT With: BETSY MORAN, Shirin Sanchez Where: [facility] [place] Normal [address] [place] [address]- \.br\ Medications\.br\ What How Much When Instructions\.br [...] for choosing us for your care.\.br\ \.br\ [facility] Kiran 11-16-2023 L Specimen: [id number] Received: 11/17/23 Status: UYEN Hernandes Num: [id number] Spec Type: Surgical Subm Dr: Shirin Meyer MD FACS Tissues: A Skin-Other than Cyst, tag, debridement or plastic repair (POSTERIOR SCALP) Procedures: HE, Gross/Micro L4 Age/ Patient Sex Location Account Attending Physician Mikel Samuels 63/M [place] [id number] Shirin Meyer MD FACS SPEC NUM: [id number] RECD: 11/17/23 STATUS: [facility] NUM: [id number] ASA: 11/16/[address]: Shirin Meyer MD FACS ENTERED: 11/17/[address]: Fransico Wiley SPEC TYPE: Surgical DEPT: [place] [place] ORDERED: [...] of changing skin lesion TW CPT Codes 25340 Specimen: [id number] Received: 11/17/23 Status: UYEN Hernandes Num: [id number] Spec Type: Surgical Subm Dr: Shirin Meyer MD FACS Tissues: A Skin-Other than Cyst, tag, debridement or plastic repair (POSTERIOR SCALP) Procedures: Sukhwinder ANDERSON/Dorinda L4 Patient: Mikel Samuels [id number] (Continued) Signed (signature on file) Leonel Mendoza MD 11/28/23 1212 Normal [facility] FLUORO FOR SURGICAL PROCEDUR ESon 11-15-2023 FLUORO FOR SURGICAL PROCEDURES Radiology exam is complete. No Radiologist dictation. Please follow up with ordering provider. Final result Normal [facility] Physician Referralon 024 Physician Referral [id number]#1.00TIFF Normal [facility] Physician Referralon 024 Physician Referral [id number]#1.00TIFF Normal [facility] Lab Reportson 09-15-2023 Lab Reports [id number]#1.00TIFF Normal [facility] Screenson 09-15-2023 Screens [id number]#1.00TIFF Normal [facility] Screens [id number]#1.00TIFF Normal [facility] Patient Educationon 09-13-19 Patient Education Urology Benign Prostatic Hyperplasia Benign [...] Follow these instructions at home: ? Take tftu-rjd-fytgzgs and prescription medicines only as told by [...] the medicine (more content not included)... Normal [facility] Urology Office/Clinic Noteon 09-13-2023 Urology Office/Clinic Note [...] to dose or medication. Refill sent to [facility] in [place]. Ordered: E&M of Est. Patient Moderate 30-39 Min 51824 2. BPH with urinary obstruction (N40.1: Benign prostatic hyperplasia with lower urinary tract symptoms) IPSS 0, however placed a question stiven near the sleeping portion. Nocturia 2x - says this is intentional - see #2. UA today negative. Not taking any BPH meds. No indication for treatment at this time. Continue to monitor. Ordered: E&M of Est. Patient Moderate 30-39 Min 18508 PSA Total Urnls Dip Stick Auto w/o Microscopy POC 99045 3. History of kidney stones (Z87.442: Personal history of urinary calculi) Last stone episode was over 15 years ago. States he was told by a urologist at [facility] that he should drink leading up to bed, but do not void prior to going to bed. Pt shares he has not had a kidney stone since. No recent imaging. Pt does not wish to get any monitoring imaging at this time. Ordered: E&M of Est. Patient Moderate 30-39 Min 75308 4. Prostate cancer screening (Z12.5: Encounter for screening for malignant neoplasm of prostate) PSA: 08/28/21 - 0.5 09/06/22 - 0.35 07/14/23 - 0.32 PSA remains low and stable. Orders: tadalafil, See Instructions, Do not exceed 20mg within 48 hours. PRN for sexual intercourse., # 30 tab(s), Refills(s) 5, Pharmacy: [id number], 177, cm, 09/13/23 8:23:00 EST, Height/Length Dosing, 118, kg, 09/13/23 8:23:00 EST, Weight Dosing Follow-up With When Contact Information BRENNON CARRILLO, MIGNON Mcdonald, URL [address] [place] [address] Additional Instructions: 1 year with PSA Patient Education Benign Prostatic Hyperplasia Documentation recorded by the scribkenneth Dixon accurately reflects the services(s) I performed and decisions made by me. Authenticated by Mignon Mccann PA-C on 09/13/2023 08:54:38. I, Lexy Dixon, personally scribed for Mignon Mccann PA-C on 09/13/2023 08:47:46. . Problem List/Past [...] Cardiac arrest (more content not included)... Normal [facility] Comment on above: Result Comment: Elec tronically Signed By: MIGNON MCCANN PA-C\.br\Date and Time Signed: 09/13/23 08:54 EST\.br\Electronically Co-Signed By: Lexy Dixon\.br\Date and Time Co-Signed: 09/13/23 08:48 EST CBC AUTO DIFFon 06-18-2022 BASO # 0.0 103/ul Normal 0.0-0.1 [facility] Comment on above: Performed By: #### C BC #### [facility] [address] [place] [address] Dr. Mita Mendoza Basophils/100 WBC (Bld) 0.4 % Normal 0.2-2.0 [facility] Comment on above: Performed By: #### C BC #### [facility] [address] [place] [address] Dr. Mita Mendoza EO # 0.2 103/ul Normal 0.0-0.7 [facility] Comment on above: Performed By: #### C BC #### [facility] [address] [place] [address] Dr. Mita Mendoza Eosinophils/100 WBC (Bld) 3.9 % Normal 0.9-7.0 [facility] Comment on above: Performed By: #### C BC #### [facility] [address] [place] [address] Dr. Mita Mendoza Erythrocyte distribution width (RBC) [Ratio] 12.5 % Normal 11.0-15.0 [facility] Comment on above: Performed By: #### C BC #### [facility] [address] [place] [address] Dr. Mita Mendoza Hematocrit (Bld) [Volume fraction] 43.5 % Normal 42.0-54.0 [facility] Comment on above: Performed By: #### C BC #### [facility] [address] [place] [address] Dr. Mita Mendoza Hemoglobin (Bld) [Mass/Vol] 15.1 g/dL Normal 14.0-18.0 [facility] Comment on above: Performed By: #### C BC #### [facility] [address] [place] [address] Dr. Mita Mendoza IG # 0.01 10e3/ul Normal 0.00-0.03 [facility] Comment on above: Performed By: #### C BC #### [facility] [address] [place] [address] Dr. Mita Mendoza IG % 0.2 % Normal 0.0-0.5 [facility] Comment on above: Performed By: #### C BC #### [facility] [address] [place] [address] Dr. Mita Mendoza LYMPH # 1.5 103/ul Normal 1.2-3.8 [facility] Comment on above: Performed By: #### C BC #### [facility] [address] [place] [address] Dr. Mita Mendoza Lymphocytes/100 WBC (Bld) 27.0 % Normal 20.5-60.0 [facility] Comment on above: Performed By: #### C BC #### [facility] [address] [place] [address] Dr. Mita Mendoza MANUAL DIFF REQ NO Normal [facility] Comment on above: Performed By: #### C BC #### [facility] [address] [place] [address] Dr. Mita Mendoza MCH (RBC) [Entitic mass] 30.8 pg Normal 25.9-34.0 [facility] Comment on above: Performed By: #### C BC #### [facility] [address] [place] [address] Dr. Mita Mendoza MCHC (RBC) [Mass/Vol] 34.7 g/dL Normal 29.9-35.2 [facility] Comment on above: Performed By: #### C BC #### [facility] [address] [address] [address] Mita Mendoza MCV (RBC) [Entitic vol] 88.6 fL Normal 80.0-94.0 [facility] Comment on above: Performed By: #### C BC #### [facility] [address] [address] [address] Mita Mendoza MONO # 0.6 103/ul Normal 0.3-0.8 [facility] Comment on above: Performed By: #### C BC #### [facility] [address] [address] [address] Mita Mendoza Monocytes/100 WBC (Bld) 11.2 % Normal 1.7-12.0 [facility] Comment on above: Performed By: #### C BC #### [facility] [address] [place] [address] Dr. Mita Mendoza NEUT # 3.2 103/ul Normal 1.4-6.5 [facility] Comment on above: Performed By: #### C BC #### [facility] [address] [place] [address] Dr. Mita Mendoza Neutrophils/100 WBC (Bld) 57.3 % Normal 43.0-75.0 [facility] Comment on above: Performed By: #### C BC #### [facility] Laboratory [address] [address] [address] Mita Mendoza Platelet mean volume (Bld) [Entitic vol] 11.1 fL Normal 9.5-13.5 [facility] Comment on above: Performed By: #### C BC #### [facility] Laboratory [address] [address] [address] Mita Mendoza PLT 149 103/ul Critically low 150-450 [facility] Comment on above: Performed By: #### C BC #### [facility] Laboratory [address] [address] [address] Mita Mendoza RBC 4.91 106/ul Normal 4.70-6.10 [facility] Comment on above: Performed By: #### C BC #### [facility] Laboratory [address] [place] [address] Dr. Mita Mendoza WBC 5.6 103/ul Normal 4.0-11.0 [facility] Comment on above: Performed By: #### C BC #### [facility] Laboratory [address] [place] [address] Dr. Mita Mendoza FREE T3on 06-18-2022 FREE T3 2.94 pg/mlL Normal 2.18-3.98 [facility] Comment on above: Performed By: #### F T3, CMP, TSH, T4, LIPID #### [facility] Laboratory [address] [place] [address] Dr. Mita Mendoza GLYCOHEMOGLOBIN A1Con 2021 ADA RECOMMENDATION SEE BELOW Normal [facility] Comment on above: Result Comment: ADA RECOMMENDED LIMIT 4.0 - 6.0 ADA THERAPEUTIC TARGET < 7.0 ACTION SUGGESTED > 7.0 Performed By: #### A 1C #### [facility] Laboratory [address] [place] [address] Dr. Mita Mendoza Glucose [Mass/Vol] 117 mg/dL Normal [facility] Comment on above: Performed By: #### A 1C #### [facility] Laboratory [address] [place] [address] Dr. Mita Mendoza HbA1c (Bld) [Mass fraction] 5.7 % Normal 4.5-6.2 [facility] Comment on above: Performed By: #### A 1C #### [facility] Laboratory [address] [place] [address] Dr. Mita Mendoza LIPID PROFILEon 06-18-2022 CHOL-HDL RATIO NORM SEE BELOW Normal [facility] Comment on above: Result Comment: 3.3 - 4.4 LOW RISK 4.4 - 7.1 AVERAGE RISK 7.1 - 11.0 MODERATE RISK >11.0 HIGH RISK Performed By: #### F T3, CMP, TSH, T4, LIPID #### [facility] Laboratory [address] [place] [address] Dr. Mita Mendoza Cholesterol [Mass/Vol] 196 mg/dL Normal <=200 [facility] Comment on above: Performed By: #### F T3, CMP, TSH, T4, LIPID #### [facility] Laboratory [address] [address] [address] Mita Mendoza Cholesterol in HDL [Mass/Vol] 54 mg/dL Normal 40-60 [facility] Comment on above: Performed By: #### F T3, CMP, TSH, T4, LIPID #### [facility] Laboratory [address] [address] [address] Mita Mendoza Cholesterol in LDL [Mass/Vol] 121.0 mg/dL Normal [facility] Comment on above: Performed By: #### F T3, CMP, TSH, T4, LIPID #### [facility] Laboratory [address] [address] [address] Mita Mendoza Cholesterol.total/ Cholesterol in HDL [Mass ratio] 3.6 {ratio} Normal [facility] Comment on above: Performed By: #### F T3, CMP, TSH, T4, LIPID #### [facility] Laboratory [address] [address] [address] Mita Mendoza HDL NORMAL > or = 60 mg/dl - LO W CARDIOVASCULAR RISK <40 mg/dl - HIGH CARDIOVASCULAR RISK Normal [facility] Comment on above: Performed By: #### F T3, CMP, TSH, T4, LIPID #### [facility] Laboratory [address] [address] [address] Mita Mendoza LDL CALC NORMAL SEE BELOW Normal [facility] Comment on above: Result Comment: <100 mg/dl OPTIMAL 100 - 129 mg/dl NEAR OR ABOVE OPTIMAL 130 - 159 mg/dl BORDERLINE HIGH 160 - 189 mg/dl HIGH >190 mg/dl VERY HIGH Performed By: #### F T3, CMP, TSH, T4, LIPID #### [facility] Laboratory [address] [address] [address] Mita Mendoza Triglyceride [Mass/Vol] 105 mg/dL Normal <=150 [facility] Comment on above: Performed By: #### F T3, CMP, TSH, T4, LIPID #### [facility] Laboratory [address] [address] [address] Mita Mendoza VLDL CALC 21.0 mg/dL Normal [facility] Comment on above: Performed By: #### F T3, CMP, TSH, T4, LIPID #### [facility] Laboratory [address] [place] [address] Dr. Mita Mendoza PROF 14(COMP METB)on 022 Albumin [Mass/Vol] 4.2 g/dL Normal 3.4-5.0 [facility] Comment on above: Performed By: #### F T3, CMP, TSH, T4, LIPID #### [facility] [address] [place] [address] Dr. Mita Mendoza Albumin/Globulin [Mass ratio] 1.3 {ratio} Normal [facility] Comment on above: Performed By: #### F T3, CMP, TSH, T4, LIPID #### [facility] Laboratory [address] [place] [address] Dr. Mita Mendoza ALP [Catalytic activity/Vol] 70 U/L Normal 46-116 [facility] Comment on above: Performed By: #### F T3, CMP, TSH, T4, LIPID #### [facility] Laboratory [address] [place] [address] Dr. Mita Mendoza ALT [Catalytic activity/Vol] 39 U/L Normal 16-63 [facility] Comment on above: Performed By: #### F T3, CMP, TSH, T4, LIPID #### [facility] Laboratory [address] [place] [address] Dr. Mita Mendoza Anion gap [Moles/Vol] 10.4 mmol/L Normal [facility] Comment on above: Performed By: #### F T3, CMP, TSH, T4, LIPID #### [facility] Laboratory [address] [place] [address] Dr. Mita Mendoza AST [Catalytic activity/Vol] 23 U/L Normal 15-37 [facility] Comment on above: Performed By: #### F T3, CMP, TSH, T4, LIPID #### [facility] [address] [place] [address] Dr. Mita Mendoza Bilirubin [Mass/Vol] 0.7 mg/dL Normal 0.2-1.0 [facility] Comment on above: Performed By: #### F T3, CMP, TSH, T4, LIPID #### [facility] Laboratory [address] [address] [address] Mita Mendoza Calcium [Mass/Vol] 9.3 mg/dL Normal 8.5-10.1 [facility] Comment on above: Performed By: #### F T3, CMP, TSH, T4, LIPID #### [facility] Laboratory [address] [place] [address] Dr. Mita Mendoza Chloride [Moles/Vol] 104 mmol/L Normal 98-107 [facility] Comment on above: Performed By: #### F T3, CMP, TSH, T4, LIPID #### [facility] Laboratory [address] [place] [address] Dr. Mita Mendoza CO2 [Moles/Vol] 33.1 mmol/L Critically high 21.0-32.0 [facility] Comment on above: Performed By: #### F T3, CMP, TSH, T4, LIPID #### [facility] Laboratory [address] [place] [address] Dr. Mita Mendoza Creatinine [Mass/Vol] 0.96 mg/dL Normal 0.70-1.30 [facility] Comment on above: Performed By: #### F T3, CMP, TSH, T4, LIPID #### [facility] [address] [place] [address] Dr. Mita Mendoza EGFR-AF SRI LANKAN >60 Normal >=60 [facility] Comment on above: Performed By: #### F T3, CMP, TSH, T4, LIPID #### [facility] Laboratory [address] [place] [address] Dr. Mita Mendoza EGFR-NON AF SRI LANKAN >60 Normal >=60 [facility] Comment on above: Performed By: #### F T3, CMP, TSH, T4, LIPID #### [facility] [address] [place] [address] Dr. Mita Mendoza Globulin (S) [Mass/Vol] 3.2 g/dL Normal [facility] Comment on above: Performed By: #### F T3, CMP, TSH, T4, LIPID #### [facility] Laboratory [address] [place] [address] Dr. Mita Mendoza Glucose [Mass/Vol] 119 mg/dL Critically high 74-106 T [facility] Comment on above: Performed By: #### F T3, CMP, TSH, T4, LIPID #### [facility] Laboratory [address] [place] [address] Dr. Mita Mendoza Potassium [Moles/Vol] 4.5 mmol/L Normal 3.5-5.1 [facility] Comment on above: Performed By: #### F T3, CMP, TSH, T4, LIPID #### [facility] Laboratory [address] [place] [address] Dr. Mita Mendoza Protein [Mass/Vol] 7.4 g/dL Normal 6.4-8.2 [facility] Comment on above: Performed By: #### F T3, CMP, TSH, T4, LIPID #### [facility] Laboratory [address] [place] [address] Dr. Mita Mendoza Sodium [Moles/Vol] 143 mmol/L Normal 136-145 [facility] Comment on above: Performed By: #### F T3, CMP, TSH, T4, LIPID #### [facility] Laboratory [address] [place] [address] Dr. Mita Mendoza Urea nitrogen [Mass/Vol] 10.0 mg/dL Normal 7.0-18.0 [facility] Comment on above: Performed By: #### F T3, CMP, TSH, T4, LIPID #### [facility] Laboratory [address] [place] [address] Dr. Mita Mendoza Urea nitrogen/Creatinin e [Mass ratio] 10.4 mg/mg Normal [facility] Comment on above: Performed By: #### F T3, CMP, TSH, T4, LIPID #### [facility] Laboratory [address] [place] [address] Dr. Mita Mendoza T4on 06-18-2022 T4 [Mass/Vol] 7.60 ug/dL Normal 4.50-12.10 [facility] Comment on above: Performed By: #### F T3, CMP, TSH, T4, LIPID #### [facility] Laboratory [address] [place] [address] Dr. Mita Mendoza TSHon 06-18-2022 TSH 2.714 uIU/mL Normal 0.358-3.740 [facility] Comment on above: Performed By: #### F T3, CMP, TSH, T4, LIPID #### [facility] [address], [place] [address] Dr. Mita Mendoza PROGRESSon 02-25-2020 PROGRESS HNO ID: [id number] Author: Interface Note Service: ? Author Type: ? Type: Progress Notes Filed: 02/25/2020 10:56 AM Note Text: The surgical encounter documentation contains information performed by a different Dunia Faulkner than is indicated by the provider record. Clinical care was provided and documented by the correct provider. Normal [facility] APTTon 05-25-2018 aPTT Coag time (Bld) 23.1 s Normal 21.3-31.3 [facility] CBC with Diffon 05-25-2018 Abs. Basophil 0.00 k/uL Normal 0.0-0.2 [facility] Abs.Neutrophil (Seg) 3.80 k/uL Normal 1.8-7.7 [facility] Basophils/100 WBC Auto (Bld) 0 % Normal 0-2 [facility] Eosinophils Auto #/vol (Bld) 0.20 10*3/uL Normal 0.0-0.4 [facility] Eosinophils/100 WBC Auto (Bld) 3 % Normal 1-4 [facility] Erythrocyte distribution width Auto Ratio (RBC) 13.1 % Normal 12.5-15.4 [facility] Hematocrit Auto Volume Fraction (Bld) 46.5 % Normal 41-53 [facility] Hemoglobin mass conc (Bld) 15.7 g/dL Normal 13.5-17.5 [facility] Lymphocytes Auto #/vol (Bld) 2.40 10*3/uL Normal 1.0-4.8 [facility] Lymphocytes/100 WBC Auto (Bld) 34 % Normal 24-44 [facility] MCH Auto Entitic mass (RBC) 30.7 pg Normal 26-34 [facility] MCHC Auto mass conc (RBC) 33.8 g/dL Normal 31-37 [facility] MCV Auto Entitic volume (RBC) 90.7 fL Normal 80-100 [facility] Monocytes Auto #/vol (Bld) 0.70 10*3/uL Normal 0.1-1.2 [facility] Monocytes/100 WBC Auto (Bld) 9 % Normal 2-11 [facility] Neutrophil (Seg) 54 % Normal 36-66 [facility] Platelet mean volume Auto Entitic volume (Bld) 9.3 fL Normal 6.0-12.0 [facility] Platelets Auto #/vol (Bld) 168 10*3/uL Normal 140-450 [facility] RBC Auto #/vol (Bld) 5.12 10*6/uL Normal 4.5-5.9 [facility] WBC Auto #/vol (Bld) 7.1 10*3/uL Normal 3.5-11.0 [facility] Abs.Imm.Granulocyt e NOT REPORTED Normal 0.00-0.30 [facility] Auto Diff Performed NOT REPORTED Normal [facility] Immature granulocytes #/vol (Bld) NOT REPORTED Normal 0 [facility] NRBC Automated NOT REPORTED Normal [facility] Platelets Auto #/vol (Bld) NOT REPORTED Normal [facility] RBC morphology finding Nom (Bld) NOT REPORTED Normal [facility] WBC Morphology NOT REPORTED Normal [facility] PTon 05-25-2018 INR Coag RelTime (PPP) 1.0 {INR} Normal [facility] Comment on above: Result Comment: Ther apeutic Range: Moderate Anticoagulant Intensity: INR = 2.0-3.0 High Anticoagulant Intensity: INR = 2.5-3.5 Prothrombin time (PT) Coag time (PPP) 9.9 s Normal 9.4-12.6 [facility] APTTon 04-26-2017 aPTT 25.6 s Normal 23.0-31.0 [facility] Comment on above: Result Comment: IV H eparin Therapy Range: 64.3-87.8Performed at [facility] [address] [place] [address] Performed By: #### C BC ####[address] [address] CBCon 04-26-2017 Erythrocyte distribution width Auto Ratio (RBC) 14.8 % Normal 11.5-14.9 [facility] Comment on above: Performed By: #### C BC, BMP ####[address] [address] Erythrocytes (RBC) 3.99 10*6/uL Low 4.5-5.9 [facility] Comment on above: Performed By: #### C BC, BMP ####[address] [address] Hematocrit (HCT) 35.8 % Low 41-53 [facility] Comment on above: Performed By: #### C BC, BMP ####[address] [address] Hemoglobin mass conc (Bld) 11.7 g/dL Low 13.5-17.5 [facility] Comment on above: Performed By: #### C BC, BMP ####[address] [address] MCH 29.2 pg Normal 26-34 [facility] Comment on above: Performed By: #### C BC, BMP ####[address] [address] MCHC mass conc (RBC) 32.6 g/dL Normal 31-37 [facility] Comment on above: Performed By: #### C BC, BMP ####[address] [address] MCV 89.6 fL Normal 80-100 [facility] Comment on above: Performed By: #### C BC, BMP ####[facility] [facility] [place] [address] Platelet mean volume (PMV) 8.5 fL Normal 6.0-12.0 [facility] Comment on above: Result Comment: Perf ormed at [facility] [address] [facility] [place] [address] Performed By: #### C BC, BMP ####[facility] [place] [address].[place] [address] Platelets 170 10*3/uL Normal 150-450 [facility] Comment on above: Performed By: #### C BC, BMP ####[facility] [facility] [place] [address] WBC (Leukocytes) 6.0 10*3/uL Normal 3.5-11.0 [facility] Comment on above: Performed By: #### C BC, BMP ####[facility] [facility] [place] [address] PTon 04-26-2017 INR Coag RelTime (PPP) 1.1 {INR} Normal [facility] Comment on above: Result Comment: Non- therapeutic Range: INR = 0.9- 1.2Therapeutic Range: Moderate Anticoagulant Intensity: INR = 2.0-3.0 High Anticoagulant Intensity: INR = 2.5-3.5Performed at [facility] [address] [facility] [place] [address] Performed By: #### C BC ####[facility] [facility] [place] [address] Prothrombin time (PT) Coag time (PPP) 12.0 s Normal 9.7-12.0 [facility] Comment on above: Performed By: #### C BC ####[facility] [facility] [place] [address] APTTon 04-25-2017 aPTT 46.0 s High 23.0-31.0 [facility] Comment on above: Result Comment: IV H eparin Therapy Range: 64.3-87.8Performed at [address] [address] Performed By: #### C BC, BMP ####[address] [address] aPTT 59.6 s High 23.0-31.0 [facility] Comment on above: Result Comment: IV H eparin Therapy Range: 64.3-87.8Performed at [address] [address] Performed By: #### C BC, BMP ####[address] [place] [address] aPTT 65.3 s High 23.0-31.0 [facility] Comment on above: Result Comment: IV H eparin Therapy Range: 64.3-87.8Performed at [address] [address] Performed By: #### C BC, BMP ####[address] [address] Basic Metabolic Profon 04-25 (cont.) Normal [facility] Comment on above: Result Comment: Aver age GFR for 50-59 years old: 93 mL/min/1.73sq mChronic Kidney Disease: <60 mL/min/1.73sq mKidney failure: <15 mL/min/1.73sq meGFR calculated using average adult body mass. Additional eGFR calculator available at:[email or web address] at [address] [place] [address] Performed By: #### C BC, BMP ####[facility] [place] [address] Anion gap 13 mmol/L Normal 9-17 [facility] Comment on above: Performed By: #### C BC, BMP ####[facility] [place] [address] Calcium 8.9 mg/dL Normal 8.6-10.4 [facility] Comment on above: Performed By: #### C BC, BMP ####[address] [address] Chloride 103 mmol/L Normal 98-107 [facility] Comment on above: Performed By: #### C BC, BMP ####[address] [address] CO2 23 mmol/L Normal 20-31 [facility] Comment on above: Performed By: #### C BC, BMP ####[address] [address] Creatinine 0.76 mg/dL Normal 0.70-1.20 [facility] Comment on above: Performed By: #### C BC, BMP ####[address] [address] eGFR (non-black) mL/min/{1.73_m2} Normal >60 [facility] Comment on above: Performed By: #### C BC, BMP ####[address] [address] Glucose mass conc 135 mg/dL High 70-99 [facility] Comment on above: Performed By: #### C BC, BMP ####[address] [address] Potassium molar conc 4.0 mmol/L Normal 3.7-5.3 [facility] Comment on above: Performed By: #### C BC, BMP ####[facility] [place] [address] Sodium 139 mmol/L Normal 135-144 [facility] Comment on above: Performed By: #### C BC, BMP ####[facility] [place] [address] Urea nitrogen 6 mg/dL Normal 6-20 [facility] Comment on above: Performed By: #### C BC, BMP ####[facility] [place] [address] BUN/CRE Ratio NOT REPORTED Normal 9-20 [facility] Comment on above: Performed By: #### C DELGADO, BMP ####[facility] [place] [address] Staging: NOT REPORTED Normal [facility] Comment on above: Performed By: #### C BC, BMP ####[address] [address] CBCon 04-25-2017 Erythrocyte distribution width Auto Ratio (RBC) 14.3 % Normal 11.5-14.9 [facility] Comment on above: Performed By: #### C BC, BMP ####[address] [address] Erythrocytes (RBC) 3.77 10*6/uL Low 4.5-5.9 [facility] Comment on above: Performed By: #### C BC, BMP ####[facility] [place] [address] Hematocrit (HCT) 33.6 % Low 41-53 [facility] Comment on above: Performed By: #### C BC, BMP ####[facility] [place] [address] Hemoglobin mass conc (Bld) 11.1 g/dL Low 13.5-17.5 [facility] Comment on above: Performed By: #### C BC, BMP ####[facility] [place] [address] MCH 29.3 pg Normal 26-34 [facility] Comment on above: Performed By: #### C BC, BMP ####[facility] [place] [address] MCHC mass conc (RBC) 32.9 g/dL Normal 31-37 [facility] Comment on above: Performed By: #### C BC, BMP ####[address] [address] MCV 89.1 fL Normal 80-100 [facility] Comment on above: Performed By: #### C BC, BMP ####[facility] [place] [address] Platelet mean volume (PMV) 8.3 fL Normal 6.0-12.0 [facility] Comment on above: Result Comment: Perf ormed at [facility] [address] [place] [address] Performed By: #### C BC, BMP ####[facility] [place] [address] Platelets 160 10*3/uL Normal 150-450 [facility] Comment on above: Performed By: #### C BC, BMP ####[facility] [place] [address] WBC (Leukocytes) 5.7 10*3/uL Normal 3.5-11.0 [facility] Comment on above: Performed By: #### C DELGADO, BMP ####[facility] [facility] [place] [address] PTon 04-25-2017 INR Coag RelTime (PPP) 3.8 {INR} Normal [facility] Comment on above: Result Comment: Non- therapeutic Range: INR = 0.9- 1.2Therapeutic Range: Moderate Anticoagulant Intensity: INR = 2.0-3.0 High Anticoagulant Intensity: INR = 2.5-3.5Performed at [facility] [address] [place] [address] Performed By: #### C DELGADO, BMP ####[address] [address] Prothrombin time (PT) Coag time (PPP) 44.7 s High 9.7-12.0 [facility] Comment on above: Performed By: #### C DELGADO, BMP ####[address] [place] [address] Serotonin Rel Assayon 2016 DESTIN Heparin Plt Ab Negative Normal Negative [facility] Comment on above: Performed By: #### C DELGADO, BMP ####[address] [place] [address] DESTIN Porc High Dose 0 % Normal [facility] Comment on above: Performed By: #### C DELGADO, BMP ####[address] [address] DESTIN Porc Interp See Note Normal [facility] Comment on above: Result Comment: (NOT E)This [...] Additionalinformation regarding diagnosis of HIT is available [employer].INTERPRETIVE INFORMATION: DESTIN, Unfractionated HeparinTest developed and characteristics determined by [facility]. See Compliance Statement B: [employer]/CSPerformed by [facility],[address] [place] [address],[place] [address] rcg.[employer], Robert Euceda MD, Lab. DirectorPerformed at [address] [address] Performed By: #### C BC, BMP ####[address] [address] DESTIN Porc Low Dose 0 % Normal [facility] Comment on above: Performed By: #### C BC, BMP ####[address] [address] APTTon 04-24-2017 aPTT 54.1 s High 23.0-31.0 [facility] Comment on above: Result Comment: IV H eparin Therapy Range: 64.3-87.8Performed at [address] [address] Performed By: #### C BC, BMP ####[address] [address] aPTT 57.9 s High 23.0-31.0 [facility] Comment on above: Result Comment: IV H eparin Therapy Range: 64.3-87.8Performed at [address] [address] Performed By: #### C BC, BMP ####[address] [address] aPTT 50.6 s High 23.0-31.0 [facility] Comment on above: Result Comment: IV H eparin Therapy Range: 64.3-87.8Performed at [facility] [address] [place] [address] Performed By: #### C BC, BMP ####[facility] [place] [address] aPTT 54.9 s High 23.0-31.0 [facility] Comment on above: Result Comment: IV H eparin Therapy Range: 64.3-87.8Performed at [facility] [address] [place] [address] Performed By: #### C BC, BMP ####[address] [address] CBCon 04-24-2017 Erythrocyte distribution width Auto Ratio (RBC) 14.7 % Normal 11.5-14.9 [facility] Comment on above: Performed By: #### C BC, BMP ####[facility] [place] [address] Erythrocytes (RBC) 3.89 10*6/uL Low 4.5-5.9 [facility] Comment on above: Performed By: #### C BC, BMP ####[facility] [place] [address] Hematocrit (HCT) 34.7 % Low 41-53 [facility] Comment on above: Performed By: #### C BC, BMP ####[address] [address] Hemoglobin mass conc (Bld) 11.4 g/dL Low 13.5-17.5 [facility] Comment on above: Performed By: #### C BC, BMP ####[address] [address] MCH 29.3 pg Normal 26-34 [facility] Comment on above: Performed By: #### C BC, BMP ####[facility] [place] [address] MCHC mass conc (RBC) 32.9 g/dL Normal 31-37 [facility] Comment on above: Performed By: #### C BC, BMP ####[facility] [place] [address] MCV 89.2 fL Normal 80-100 [facility] Comment on above: Performed By: #### C BC, BMP ####[facility] [place] [address] Platelet mean volume (PMV) 8.8 fL Normal 6.0-12.0 [facility] Comment on above: Result Comment: Perf ormed at [facility] [address] [place] [address] Performed By: #### C BC, BMP ####[facility] [place] [address] Platelets 168 10*3/uL Normal 150-450 [facility] Comment on above: Performed By: #### C BC, BMP ####[facility] [place] [address] WBC (Leukocytes) 6.7 10*3/uL Normal 3.5-11.0 [facility] Comment on above: Performed By: #### C BC, BMP ####[facility] [place] [address] PTon 04-24-2017 INR Coag RelTime (PPP) 2.5 {INR} Normal [facility] Comment on above: Result Comment: Non- therapeutic Range: INR = 0.9- 1.2Therapeutic Range: Moderate Anticoagulant Intensity: INR = 2.0-3.0 High Anticoagulant Intensity: INR = 2.5-3.5Performed at [facility] [address] [place] [address] Performed By: #### C BC, BMP ####[facility] [place] [address] Prothrombin time (PT) Coag time (PPP) 28.9 s High 9.7-12.0 [facility] Comment on above: Performed By: #### C BC, BMP ####[facility] [place] [address] Alka 04-23-2017 Alanine aminotransferase (ALT) 64 U/L High 5-41 [facility] Comment on above: Result Comment: Perf ormed at [place] [address] [place] [address] Performed By: #### C BC, ALT, AST, BMP ####[facility] [place] [address] APTTon 04-23-2017 aPTT 61.5 s High 23.0-31.0 [facility] Comment on above: Result Comment: IV H eparin Therapy Range: 64.3-87.8Performed at [address] [place] [address] Performed By: #### C BC, BMP ####[facility] [place] [address] aPTT 54.1 s High 23.0-31.0 [facility] Comment on above: Result Comment: IV H eparin Therapy Range: 64.3-87.8Performed at [place] [address] [place] [address] Performed By: #### C BC, BMP ####[place] [address] [facility] [address] aPTT 29.0 s Normal 23.0-31.0 [facility] Comment on above: Result Comment: IV H eparin Therapy Range: 64.3-87.8Specimen ClottedDISREGARD RESULTS. SPECIMEN CLOTTED.Performed at [facility] [address] [place] [address] Performed By: #### P TT ####[facility] [place] [address] aPTT 54.8 s High 23.0-31.0 [facility] Comment on above: Result Comment: IV H eparin Therapy Range: 64.3-87.8Performed at [facility] [address] [facility] [place] [address] Performed By: #### C BC, BMP ####[facility] [place] [address] aPTT 55.3 s High 23.0-31.0 [facility] Comment on above: Result Comment: IV H eparin Therapy Range: 64.3-87.8Performed at [facility] [address] [facility] [place] [address] Performed By: #### P TT ####[facility] [place] [address] aPTT 57.5 s High 23.0-31.0 [facility] Comment on above: Result Comment: IV H eparin Therapy Range: 64.3-87.8Performed at [facility] [address] [facility] [place] [address] Performed By: #### P TT ####[facility] [place] [address] Taz 04-23-2017 Aspartate aminotransferase (AST) 22 U/L Normal <40 [facility] Comment on above: Result Comment: Perf ormed at [facility] [address] [facility] [place] [address] Performed By: #### C BC, ALT, AST, BMP ####[facility] [place] [address] Basic Metabolic Profon 04-23 (cont.) Normal [facility] Comment on above: Result Comment: Aver age GFR for 50-59 years old: 93 mL/min/1.73sq mChronic Kidney Disease: <60 mL/min/1.73sq mKidney failure: <15 mL/min/1.73sq meGFR calculated using average adult body mass. Additional eGFR calculator available at:http://www.[employer]/multiple_crcl_2012.htmPerformed at [facility] [address] [facility] [place] [address] Performed By: #### C BC, ALT, AST, BMP ####[facility] [place] [address].[place] [address] Anion gap 14 mmol/L Normal 9-17 [facility] Comment on above: Performed By: #### C BC, ALT, AST, BMP ####[facility] [facility] [place] [address] Calcium 8.8 mg/dL Normal 8.6-10.4 [facility] Comment on above: Performed By: #### C BC, ALT, AST, BMP ####[facility] [facility] [place] [address] Chloride 101 mmol/L Normal 98-107 [facility] Comment on above: Performed By: #### C BC, ALT, AST, BMP ####[address] [place] [address] CO2 25 mmol/L Normal 20-31 [facility] Comment on above: Performed By: #### C BC, ALT, AST, BMP ####[facility] [facility] [place] [address] Creatinine 0.73 mg/dL Normal 0.70-1.20 [facility] Comment on above: Performed By: #### C BC, ALT, AST, BMP ####[facility] [place] [address] eGFR (non-black) mL/min/{1.73_m2} Normal >60 [facility] Comment on above: Performed By: #### C BC, ALT, AST, BMP ####[address] [address] Glucose mass conc 143 mg/dL High 70-99 [facility] Comment on above: Performed By: #### C BC, ALT, AST, BMP ####[facility] [place] [address] Potassium molar conc 4.3 mmol/L Normal 3.7-5.3 [facility] Comment on above: Performed By: #### C BC, ALT, AST, BMP ####[facility] [place] [address] Sodium 140 mmol/L Normal 135-144 [facility] Comment on above: Performed By: #### C BC, ALT, AST, BMP ####[facility] [place] [address] Urea nitrogen 5 mg/dL Low 6-20 [facility] Comment on above: Performed By: #### C BC, ALT, AST, BMP ####[address] [address] BUN/CRE Ratio NOT REPORTED Normal 9-20 [facility] Comment on above: Performed By: #### C BC, ALT, AST, BMP ####[facility] [place] [address].[place] [address] Staging: NOT REPORTED Normal [facility] Comment on above: Performed By: #### C BC, ALT, AST, BMP ####[address] [address] CBCon 04-23-2017 Erythrocyte distribution width Auto Ratio (RBC) 14.5 % Normal 11.5-14.9 [facility] Comment on above: Performed By: #### C BC, ALT, AST, BMP ####[address] [address] Erythrocytes (RBC) 3.65 10*6/uL Low 4.5-5.9 [facility] Comment on above: Performed By: #### C BC, ALT, AST, BMP ####[address] [address] Hematocrit (HCT) 32.4 % Low 41-53 [facility] Comment on above: Performed By: #### C BC, ALT, AST, BMP ####[address] [address] Hemoglobin mass conc (Bld) 10.6 g/dL Low 13.5-17.5 [facility] Comment on above: Performed By: #### C BC, ALT, AST, BMP ####[address] [address] MCH 29.1 pg Normal 26-34 [facility] Comment on above: Performed By: #### C BC, ALT, AST, BMP ####[address] [address] MCHC mass conc (RBC) 32.9 g/dL Normal 31-37 [facility] Comment on above: Performed By: #### C BC, ALT, AST, BMP ####[address] [address] MCV 88.6 fL Normal 80-100 [facility] Comment on above: Performed By: #### C BC, ALT, AST, BMP ####[address] [address] Platelet mean volume (PMV) 8.1 fL Normal 6.0-12.0 [facility] Comment on above: Result Comment: Perf ormed at [address] [address] Performed By: #### C BC, ALT, AST, BMP ####[address] [address] Platelets 160 10*3/uL Normal 150-450 [facility] Comment on above: Performed By: #### C BC, ALT, AST, BMP ####[address] [address] WBC (Leukocytes) 6.9 10*3/uL Normal 3.5-11.0 [facility] Comment on above: Performed By: #### C BC, ALT, AST, BMP ####[address] [address] CONSULTATIONon 04-23-[address] [address] CONSULTATIONPATIENT NAME: MIKEL SAMUELS : 1960MED REC NO: [id number] ROOM: 2058ACCOUNT NO: [id number] ADMISSION DATE:04/22/2017PROVIDER: Lala MitchellCONSULT DATE: 04/23/2017BED: #1.HISTORY [...] questions regarding the above.LALA NICOLASMAND: 04/23/2017 11:16:27 GC/V_OPSKU_TJob#: [id number] Doc#: [id number] Normal [facility] OPERATIVE REPORTon OPERATIVE REPORT [place] [id number] OPERATIVE REPORTPATIENT NAME: MIKEL SAMUELS : 1960MED REC NO: [id number] ROOM: [address] [place], [place] [address]OUNT NO: [id number] ADMISSION DATE:04/22/2017PROVIDER: Lala OlivaATE OF PROCEDURE: 04/23/2017BED: [...] remains in his hospital blood in stablecondition.LALA NICOLASMAND: 04/23/2017 11:20:29 MILAD/Tino_[id number]_TJob#: [id number] Doc#: [id number] Normal [facility] PTon 04-23-2017 INR Coag RelTime (PPP) 2.5 {INR} Normal [facility] Comment on above: Result Comment: Non- therapeutic Range: INR = 0.9- 1.2Therapeutic Range: Moderate Anticoagulant Intensity: INR = 2.0-3.0 High Anticoagulant Intensity: INR = 2.5-3.5Performed at [facility] [address] [place], [place] [id number] ([phone] Performed By: #### C BC, BMP ####[facility] [place] [address] Prothrombin time (PT) Coag time (PPP) 28.5 s High 9.7-12.0 [facility] Comment on above: Performed By: #### C BC, BMP ####[address] [place] [address] APTTon 04-22-2017 aPTT 55.5 s High 23.0-31.0 [facility] Comment on above: Result Comment: IV H eparin Therapy Range: 64.3-87.8Performed at [facility] [address] [facility] [address] Performed By: #### P TT ####[facility] [place] [address].[facility] [place] [address] aPTT 55.7 s High 23.0-31.0 [facility] Comment on above: Result Comment: IV H eparin Therapy Range: 64.3-87.8Performed at [address] [place] [address] Performed By: #### P TT ####[facility] [place] [address] aPTT 48.8 s High 23.0-31.0 [facility] Comment on above: Result Comment: IV H eparin Therapy Range: 64.3-87.8Performed at [facility] [address] [place] [address] Performed By: #### P TT ####[facility] [place] [address] aPTT 48.9 s High 23.0-31.0 [facility] Comment on above: Result Comment: IV H eparin Therapy Range: 64.3-87.8Performed at [facility] [address] [place] [address] [place] [address] Performed By: #### C BC, BMP ####[facility] [place] [address] aPTT 51.0 s High 23.0-31.0 [facility] Comment on above: Result Comment: IV H eparin Therapy Range: 64.3-87.8Performed at [facility] [address] [facility] [place] [address] Performed By: #### C BC, BMP ####[facility] [place] [address] aPTT 41.8 s High 23.0-31.0 [facility] Comment on above: Result Comment: IV H eparin Therapy Range: 64.3-87.8Performed at [facility] [address] [facility] [place] [address] Performed By: #### C BC, BMP ####[facility] [place] [address] aPTT 47.1 s High 23.0-31.0 [facility] Comment on above: Result Comment: IV H eparin Therapy Range: 64.3-87.8Performed at [facility] [address] [place] [place] [address] Performed By: #### C BC, BMP ####[facility] [place] [address] aPTT 48.0 s High 23.0-31.0 [facility] Comment on above: Result Comment: IV H eparin Therapy Range: 64.3-87.8Performed at [facility] [address] [place] [address] Performed By: #### C BC, BMP ####[facility] [place] [address] CBCon 04-22-2017 Erythrocyte distribution width Auto Ratio (RBC) 14.5 % Normal 11.5-14.9 [facility] Comment on above: Performed By: #### C BC, BMP ####[facility] [place] [address] Erythrocytes (RBC) 3.63 10*6/uL Low 4.5-5.9 [facility] Comment on above: Performed By: #### C BC, BMP ####[address] [address] Hematocrit (HCT) 32.2 % Low 41-53 [facility] Comment on above: Performed By: #### C BC, BMP ####[address] [address] Hemoglobin mass conc (Bld) 10.7 g/dL Low 13.5-17.5 [facility] Comment on above: Performed By: #### C BC, BMP ####[address] [address] MCH 29.5 pg Normal 26-34 [facility] Comment on above: Performed By: #### C BC, BMP ####[address] [address] MCHC mass conc (RBC) 33.2 g/dL Normal 31-37 [facility] Comment on above: Performed By: #### C BC, BMP ####[address] [address] MCV 88.7 fL Normal 80-100 [facility] Comment on above: Performed By: #### C BC, BMP ####[address] [address] Platelet mean volume (PMV) 8.5 fL Normal 6.0-12.0 [facility] Comment on above: Result Comment: Perf ormed at [facility] [address] [place] [address] Performed By: #### C BC, BMP ####[address] [address] Platelets 158 10*3/uL Normal 150-450 [facility] Comment on above: Performed By: #### C BC, BMP ####[address] [address] WBC (Leukocytes) 7.1 10*3/uL Normal 3.5-11.0 [facility] Comment on above: Performed By: #### C BC, BMP ####[address] [address] APTTon 04-21-2017 aPTT 44.6 s High 23.0-31.0 [facility] Comment on above: Result Comment: IV H eparin Therapy Range: 64.3-87.8Performed at [address] [address] Performed By: #### C BC, BMP ####[address] [address] aPTT 24.9 s Normal 23.0-31.0 [facility] Comment on above: Result Comment: IV H eparin Therapy Range: 64.3-87.8Performed at [address] [address] Performed By: #### C BC, BMP ####[address] [address] Basic Metabolic Profon 04-21 (cont.) Normal [facility] Comment on above: Result Comment: Aver age GFR for 50-59 years old: 93 mL/min/1.73sq mChronic Kidney Disease: <60 mL/min/1.73sq mKidney failure: <15 mL/min/1.73sq meGFR calculated using average adult body mass. Additional eGFR calculator available at:http://www.[employer]/multiple_crcl_2012.htmPerformed at [address] [address] Performed By: #### C BC, BMP ####[facility] [place] [address] Anion gap 15 mmol/L Normal 9-17 [facility] Comment on above: Performed By: #### C BC, BMP ####[facility] [place] [address] Calcium 9.0 mg/dL Normal 8.6-10.4 [facility] Comment on above: Performed By: #### C BC, BMP ####[address] [address] Chloride 97 mmol/L Low 98-107 [facility] Comment on above: Performed By: #### C BC, BMP ####[address] [address] CO2 25 mmol/L Normal 20-31 [facility] Comment on above: Performed By: #### C BC, BMP ####[address] [address] Creatinine 0.71 mg/dL Normal 0.70-1.20 [facility] Comment on above: Performed By: #### C BC, BMP ####[address] [address] eGFR (non-black) mL/min/{1.73_m2} Normal >60 [facility] Comment on above: Performed By: #### C BC, BMP ####[address] [address] Glucose mass conc 152 mg/dL High 70-99 [facility] Comment on above: Performed By: #### C BC, BMP ####[address] [address] Potassium molar conc 3.6 mmol/L Low 3.7-5.3 [facility] Comment on above: Performed By: #### C BC, BMP ####[facility] [place] [address] Sodium 137 mmol/L Normal 135-144 [facility] Comment on above: Performed By: #### C BC, BMP ####[facility] [place], [place] [address]k[place] [address] Urea nitrogen 7 mg/dL Normal 6-20 [facility] Comment on above: Performed By: #### C DELGADO, BMP ####[facility] [place], [place] [address] [address] BUN/CRE Ratio NOT REPORTED Normal 9-20 [facility] Comment on above: Performed By: #### C BC, BMP ####[facility] [place] [address] Staging: NOT REPORTED Normal [facility] Comment on above: Performed By: #### C DELGADO, BMP ####[facility] [place] [address] CBCon 04-21-2017 Erythrocyte distribution width Auto Ratio (RBC) 14.3 % Normal 11.5-14.9 [facility] Comment on above: Performed By: #### C BC, BMP ####[address] [address] Erythrocytes (RBC) 3.76 10*6/uL Low 4.5-5.9 [facility] Comment on above: Performed By: #### C BC, BMP ####[facility] [place] [address] Hematocrit (HCT) 32.9 % Low 41-53 [facility] Comment on above: Performed By: #### C BC, BMP ####[facility] [place] [address] Hemoglobin mass conc (Bld) 11.2 g/dL Low 13.5-17.5 [facility] Comment on above: Performed By: #### C BC, BMP ####[facility] [place] [address] MCH 29.7 pg Normal 26-34 [facility] Comment on above: Performed By: #### C BC, BMP ####[facility] [place] [address] MCHC mass conc (RBC) 33.9 g/dL Normal 31-37 [facility] Comment on above: Performed By: #### C BC, BMP ####[facility] [place] [address] MCV 87.6 fL Normal 80-100 [facility] Comment on above: Performed By: #### C BC, BMP ####[facility] [place] [address] Platelet mean volume (PMV) 8.8 fL Normal 6.0-12.0 [facility] Comment on above: Result Comment: Perf ormed at [facility] [address] [place] [address] Performed By: #### C BC, BMP ####[facility] [place] [address] Platelets 164 10*3/uL Normal 150-450 [facility] Comment on above: Performed By: #### C BC, BMP ####[facility] [place] [address] WBC (Leukocytes) 6.8 10*3/uL Normal 3.5-11.0 [facility] Comment on above: Performed By: #### C BC, BMP ####[facility] [facility] [place] [address] Heparin Platelet Abon 2016 Heparin Platelet Ab 1.393 O.D. High 0.000-0.400 [facility] Comment on above: Result Comment: O.D. Interpretation: <=0.400 Negative > 0.400 PositivePerformed at [place] [id number] [place] [address] Performed By: #### C BC, BMP ####[facility] [place] [address] Liver Profileon 04-21-2017 Alanine aminotransferase (ALT) 106 U/L High 5-41 [facility] Comment on above: Performed By: #### C BC, BMP ####[address] [place] [address] Albumin 3.8 g/dL Normal 3.5-5.2 [facility] Comment on above: Performed By: #### C BC, BMP ####[facility] [place] [address] Alkaline Phos 155 U/L High 40-129 [facility] Comment on above: Performed By: #### C BC, BMP ####[facility] [facility] [place] [address] Aspartate aminotransferase (AST) 35 U/L Normal <40 [facility] Comment on above: Performed By: #### C BC, BMP ####[facility] [facility] [place] [address] Bilirubin (direct) 0.15 mg/dL Normal <0.31 [facility] Comment on above: Performed By: #### C BC, BMP ####[facility] [facility] [place] [address] Bilirubin Ql (U) 0.43 mg/dL Normal 0.3-1.2 [facility] Comment on above: Performed By: #### C BC, BMP ####[address] [address] Bilirubin, Indirect 0.28 mg/dL Normal 0.00-1.00 [facility] Comment on above: Performed By: #### C BC, BMP ####[address] [address] Protein 7.0 g/dL Normal 6.4-8.3 [facility] Comment on above: Result Comment: Perf ormed at [facility] [address] [place] [address] Performed By: #### C DELGADO, BMP ####[address] [address] Albumin/Globulin Ratio NOT REPORTED Normal 1.0-2.5 [facility] Comment on above: Performed By: #### C DELGADO, BMP ####[address] [address] Globulin NOT REPORTED Normal 1.5-3.8 [facility] Comment on above: Performed By: #### C DELGADO, BMP ####[address] [address] Serotonin Rel Assayon 2016 Heparin Type Porcine Heparin Normal [facility] Comment on above: Performed By: #### C DELGADO, BMP ####[address] [address] [place] MODIFIED BARIUM SWALLOW W VIDEOon 04-20-2017 [...] findingsand recommendations.Interpret ed by:AMITA Del Angeligned by:Yvon Ricks MD04/20/17Final result Normal [facility] CBCon 04-19-2017 Erythrocyte distribution width Auto Ratio (RBC) 13.8 % Normal 11.5-14.9 [facility] Comment on above: Performed By: #### C BC ####[place] [address] [facility] [place] [address] Erythrocytes (RBC) 3.74 10*6/uL Low 4.5-5.9 [facility] Comment on above: Performed By: #### C BC ####[facility] [facility] [place] [address] Hematocrit (HCT) 33.0 % Low 41-53 [facility] Comment on above: Performed By: #### C BC ####[address] [place] [address] Hemoglobin mass conc (Bld) 11.0 g/dL Low 13.5-17.5 [facility] Comment on above: Performed By: #### C BC ####[facility] [facility] [place] [address] MCH 29.3 pg Normal 26-34 [facility] Comment on above: Performed By: #### C BC ####[facility] [place] [address] MCHC mass conc (RBC) 33.3 g/dL Normal 31-37 [facility] Comment on above: Performed By: #### C BC ####[facility] [place] [address] MCV 88.0 fL Normal 80-100 [facility] Comment on above: Performed By: #### C BC ####[facility] [place] [address] Platelet mean volume (PMV) 9.1 fL Normal 6.0-12.0 [facility] Comment on above: Result Comment: Perf ormed at [facility] [address] [place] [address] Performed By: #### C BC ####[address] [address] Platelets 182 10*3/uL Normal 150-450 [facility] Comment on above: Performed By: #### C BC ####[address] [address] WBC (Leukocytes) 6.3 10*3/uL Normal 3.5-11.0 [facility] Comment on above: Performed By: #### C BC ####[address] [address] [address] HEAD WO CONTRASTon 2016 CT HEAD [...] by:AMITA Chappelligned by:Edison Scott MD04/19/17Final result Normal [facility] Basic Metabolic Profon 04-18 (cont.) Normal [facility] Comment on above: Result Comment: Aver age GFR for 50-59 years old: 93 mL/min/1.73sq mChronic Kidney Disease: <60 mL/min/1.73sq mKidney failure: <15 mL/min/1.73sq meGFR calculated using average adult body mass. Additional eGFR calculator available at:http://www.[employer]/multiple_crcl_2012.htmPerformed at [facility] [address] [place] [address] Performed By: #### C BC, BMP ####[facility] [place] [address] Anion gap 14 mmol/L Normal 9-17 [facility] Comment on above: Performed By: #### C BC, BMP ####[facility] [facility] [place] [address] Calcium 9.2 mg/dL Normal 8.6-10.4 [facility] Comment on above: Performed By: #### C BC, BMP ####[facility] [place] [address].[place] [address] Chloride 97 mmol/L Low 98-107 [facility] Comment on above: Performed By: #### C BC, BMP ####[facility] [facility] [place] [address] CO2 26 mmol/L Normal 20-31 [facility] Comment on above: Performed By: #### C BC, BMP ####[facility] [facility] [place] [address] Creatinine 0.76 mg/dL Normal 0.70-1.20 [facility] Comment on above: Performed By: #### C BC, BMP ####[facility] [facility] [place] [address] eGFR (non-black) mL/min/{1.73_m2} Normal >60 [facility] Comment on above: Performed By: #### C BC, BMP ####[facility] [facility] [place] [address] Glucose mass conc 119 mg/dL High 70-99 [facility] Comment on above: Performed By: #### C BC, BMP ####[facility] [place] [address] Potassium molar conc 4.2 mmol/L Normal 3.7-5.3 [facility] Comment on above: Performed By: #### C BC, BMP ####[facility] [place] [address] Sodium 137 mmol/L Normal 135-144 [facility] Comment on above: Performed By: #### C BC, BMP ####[address] [address] Urea nitrogen 8 mg/dL Normal 6-20 [facility] Comment on above: Performed By: #### C BC, BMP ####[address] [address] BUN/CRE Ratio NOT REPORTED Normal 9-20 [facility] Comment on above: Performed By: #### C BC, BMP ####[address] [address] Staging: NOT REPORTED Normal [facility] Comment on above: Performed By: #### C BC, BMP ####[address] [address] CBCon 04-18-2017 Erythrocyte distribution width Auto Ratio (RBC) 13.8 % Normal 11.5-14.9 [facility] Comment on above: Performed By: #### C BC, BMP ####[address] [address] Erythrocytes (RBC) 3.59 10*6/uL Low 4.5-5.9 [facility] Comment on above: Performed By: #### C BC, BMP ####[address] [place] [address] Hematocrit (HCT) 31.8 % Low 41-53 [facility] Comment on above: Performed By: #### C BC, BMP ####[address] [address] Hemoglobin mass conc (Bld) 10.6 g/dL Low 13.5-17.5 [facility] Comment on above: Performed By: #### C BC, BMP ####[address] [address] MCH 29.6 pg Normal 26-34 [facility] Comment on above: Performed By: #### C BC, BMP ####[address] [address] MCHC mass conc (RBC) 33.3 g/dL Normal 31-37 [facility] Comment on above: Performed By: #### C BC, BMP ####[facility] [place] [address] MCV 88.8 fL Normal 80-100 [facility] Comment on above: Performed By: #### C BC, BMP ####[address] [address] Platelet mean volume (PMV) 9.4 fL Normal 6.0-12.0 [facility] Comment on above: Result Comment: Perf ormed at [facility] [address] [place] [address] Performed By: #### C BC, BMP ####[address] [address] Platelets 172 10*3/uL Normal 150-450 [facility] Comment on above: Performed By: #### C BC, BMP ####[address] [place] [address] WBC (Leukocytes) 6.8 10*3/uL Normal 3.5-11.0 [facility] Comment on above: Performed By: #### C BC, BMP ####[facility] [place] [address] CONSULTATIONon 04-15-2017 CONSULTATION [facility] [address] [place] [address] CONSULTATIONPATIENT NAME: MIKEL SAMUELS : 1960[facility] [id number] ROOM: [address] [place] [address] NO: [id number] ADMISSION DATE:04/13/2017PROVIDER: Regi JeronimoprincessCONSULT DATE: 04/15/2017CHIEF COMPLAINT: Respiratory failure, history of [...] then hopefully down the road decannulate it.REGI ALBERTD: 04/15/2017 12:35:15 EFREN/[id number]#: [id number] Doc#: [id number] Normal [facility] Basic Metabolic Profon 04-14 (cont.) Normal [facility] Comment on above: Result Comment: Aver age GFR for 50-59 years old: 93 mL/min/1.73sq mChronic Kidney Disease: <60 mL/min/1.73sq mKidney failure: <15 mL/min/1.73sq meGFR calculated using average adult body mass. Additional eGFR calculator available at:[email or web address] at [facility] [address] [place] [address] Performed By: #### C BC, BMP ####[address] [address] Anion gap 13 mmol/L Normal 9-17 [facility] Comment on above: Performed By: #### C DELGADO, BMP ####[address] [address] Calcium 9.2 mg/dL Normal 8.6-10.4 [facility] Comment on above: Performed By: #### C BC, BMP ####[address] [address] Chloride 96 mmol/L Low 98-107 [facility] Comment on above: Performed By: #### C BC, BMP ####[address] [address] CO2 27 mmol/L Normal 20-31 [facility] Comment on above: Performed By: #### C BC, BMP ####[address] [address] Creatinine 0.86 mg/dL Normal 0.70-1.20 [facility] Comment on above: Performed By: #### C BC, BMP ####[address] [address] eGFR (non-black) mL/min/{1.73_m2} Normal >60 [facility] Comment on above: Performed By: #### C BC, BMP ####[place] [address] [place] [address] Glucose mass conc 148 mg/dL High 70-99 [facility] Comment on above: Performed By: #### C BC, BMP ####[facility] [place] [address] Potassium molar conc 4.5 mmol/L Normal 3.7-5.3 [facility] Comment on above: Performed By: #### C BC, BMP ####[facility] [facility] [place] [address] Sodium 136 mmol/L Normal 135-144 [facility] Comment on above: Performed By: #### C BC, BMP ####[facility] [facility] [place] [address] Urea nitrogen 9 mg/dL Normal 6-20 [facility] Comment on above: Performed By: #### C BC, BMP ####[facility] [facility] [place] [address] BUN/CRE Ratio NOT REPORTED Normal -20 [facility] Comment on above: Performed By: #### C BC, BMP ####[facility] [facility] [place] [address] Staging: NOT REPORTED Normal [facility] Comment on above: Performed By: #### C BC, BMP ####[facility] [place] [address] CBCon 04-14-2017 Erythrocyte distribution width Auto Ratio (RBC) 13.3 % Normal 11.5-14.9 [facility] Comment on above: Performed By: #### C BC, BMP ####[facility] [place] [address] Erythrocytes (RBC) 3.82 10*6/uL Low 4.5-5.9 [facility] Comment on above: Performed By: #### C BC, BMP ####[facility] [place] [address] Hematocrit (HCT) 34.1 % Low 41-53 [facility] Comment on above: Performed By: #### C BC, BMP ####[address] [address] Hemoglobin mass conc (Bld) 11.6 g/dL Low 13.5-17.5 [facility] Comment on above: Performed By: #### C BC, BMP ####[address] [address] MCH 30.4 pg Normal 26-34 [facility] Comment on above: Performed By: #### C BC, BMP ####[address] [address] MCHC mass conc (RBC) 34.0 g/dL Normal 31-37 [facility] Comment on above: Performed By: #### C BC, BMP ####[address] [address] MCV 89.4 fL Normal 80-100 [facility] Comment on above: Performed By: #### C BC, BMP ####[address] [address] Platelet mean volume (PMV) 8.1 fL Normal 6.0-12.0 [facility] Comment on above: Result Comment: Perf ormed at [facility] [address] [place] [address] Performed By: #### C BC, BMP ####[address] [address] Platelets 234 10*3/uL Normal 150-450 [facility] Comment on above: Performed By: #### C BC, BMP ####[facility] [facility] [place] [address] WBC (Leukocytes) 8.7 10*3/uL Normal 3.5-11.0 [facility] Comment on above: Performed By: #### C BC, BMP ####[facility] [facility] [place] [address] Vital Signs Date Time Vital Sign Value Performing Clinician [facility] 11-16-2023 15:14-0400 Blood Pressure Location Shirin NILL [facility] 11-16-2023 15:14-0400 Diastolic blood pressure 90 mm[Hg] Shirin NILL [facility] 11-16-2023 15:14-0400 Heart rate 76 /min Shirin NILL [facility] 11-16-2023 15:14-0400 Respiratory rate 16 /min Shirin NILL [facility] 11-16-2023 15:14-0400 Systolic blood pressure 138 mm[Hg] Shirin NILL [facility] 09-13-2023 08:22-0500 Blood Pressure Location MIGNON MCKEONRY [facility] 09-13-2023 08:22-0500 Diastolic blood pressure 89 mm[Hg] MIGNON BRENNON [facility] 09-13-2023 08:22-0500 Heart rate 68 /min MIGNON BRENNON [facility] 09-13-2023 08:22-0500 Respiratory rate 16 /min MIGNON BRENNON [facility] 09-13-2023 08:22-0500 Systolic blood pressure 135 mm[Hg] MIGNON BRENNON [facility] 09-08-2022 10:11-0500 Blood Pressure Location MIGNON BRENNON [facility] 09-08-2022 10:11-0500 Diastolic blood pressure 77 mm[Hg] MIGNON BRENNON [facility] 09-08-2022 10:11-0500 Heart rate 80 /min MIGNON BRENNON [facility] 09-08-2022 10:11-0500 Respiratory rate 16 /min MIGNON BRENNON [facility] 09-08-2022 10:11-0500 Systolic blood pressure 133 mm[Hg] MIGNON BRENNON [facility] 07-13-2022 15:40-0500 Blood Pressure Location Shirin NILL [facility] 07-13-2022 15:40-0500 Diastolic blood pressure 84 mm[Hg] Shirin NILL [facility] 07-13-2022 15:40-0500 Heart rate 80 /min Shirin NILL [facility] 07-13-2022 15:40-0500 Respiratory rate 16 /min Shirin NILL [facility] [place] 07-13-2022 15:40-0500 Systolic blood pressure 128 mm[Hg] Shirin NILL [facility] [place] Encounters Encounter Date Encounter Type Care Provider Facility Start: 07-02-2024 End: 07-02-2024 Patient encounter procedure Santiago Phan MD Work Phone: [facility] Comment on above: Neoplasm of unspecif ied behavior of bone, soft tissue, and skin (Primary Dx); Other specified erythematous conditions; Common wart; Actinic keratosis Start: 07-02-2024 End: 07-02-2024 ambulatory SANTIAGO PHAN Not Available Start: 07-02-2024 End: 07-02-2024 Bamboo flowsheet Santiago Phan MD Work Phone: [facility] Start: 07-02-2024 End: 07-02-2024 Bamboo flowsheet Santiago Phan MD Work Phone: [facility] Start: 05-31-2024 End: 05-31-2024 [facility] Start: 05-31-2024 End: 05-31-2024 Subsequent hospital visit by physician Fish Maciel MD Work Phone: [facility] Comment on above: Renal calculus Start: 05-21-2024 End: 05-23-2024 ambulatory [facility] Start: 05-21-2024 End: 05-23-2024 Subsequent hospital visit by physician Michael Seay Dr Room 2 [facility] Comment on above: Renal calculus Start: 03-13-2024 End: 03-13-2024 ambulatory [facility] Start: 03-08-2024 End: 03-10-2024 ambulatory [facility] Start: 03-07-2024 End: 03-07-2024 Patient encounter procedure Santiago Phan MD Work Phone: [facility] Comment on above: Basal cell carcinoma (BCC) of skin of right upper extremity including shoulder (Primary Dx); Basal cell carcinoma (BCC) of skin of left upper extremity including shoulder Start: 03-07-2024 End: 03-07-2024 ambulatory SANTIAGO PHAN Not Available Start: 02-25-2024 End: 02-25-2024 [facility]ulatory [facility] Start: 02-15-2024 End: 02-15-2024 ambulatory SANTIAGO A PETITTI Not Available Start: 01-24-2024 End: 01-24-2024 ambulatory SANTIAGO A PETITTI Not Available Start: 12-26-2023 End: 12-28-2023 ambulatory MARKUS [facility] Start: 12-14-2023 End: 12-14-2023 ambulatory Gary [facility] Work Phone: Start: 12-14-2023 End: 12-14-2023 Departed Referred MD Shirin Meyer Work Phone: [facility] [place] Work Phone: Start: 11-23-2023 End: 11-23-2023 ambulatory [facility] Start: 11-23-2023 End: 11-23-2023 Patient encounter procedure Shirin MEYER [facility] Start: 11-16-2023 End: 11-16-2023 Patient encounter procedure Shirin MEYER [facility] Start: 11-16-2023 End: 11-16-2023 ambulatory Shirin Meyer [facility] Work Phone: Start: 11-16-2023 End: 11-16-2023 Departed Referred MD Shirin Meyer Work Phone: [facility] [place] [facility] Start: 11-15-2023 End: 11-15-2023 ambulatory FISH [facility] Start: 09-13-2023 End: 09-13-2023 ambulatory LORENA MCCANN Facility: [place] Start: 09-13-2023 End: 09-13-2023 Patient encounter procedure MIGNON MCCANN [facility] Start: 09-08-2022 End: 09-08-2022 Patient encounter procedure MIGNON MCCANN [facility] Start: 09-06-2022 End: 09-07-2022 ambulatory MIGNON MCCANN Facility:[facility] Start: 08-17-2022 End: 08-17-2022 Patient encounter procedure Shirin MEYER [facility] [place] Start: 08-04-2022 End: 08-04-[address] SHIRIN MEYER . Facility:[facility] Start: 07-31-[address] SHIRIN MEYER . Facil ity:[facility] Start: 07-13-2022 End: 07-13-2022 Patient encounter procedure Shirin MEYER [facility] [place] Start: 06-24-2022 Encounter for genera l adult medical examination without abnormal findings DR FISH MACIEL . [facility] Start: 06-18-2022 End: 06-19-[address] FIHS MACIEL . Facility:[facility] Start: 06-18-2022 End: 06-19-2022 Encounter for general adult medical examination without abnormal findings DR FISH MACIEL . Facility:[facility] Start: 05-25-2018 End: 05-26-2018 Patient encounter procedure IMANI FLANAGAN [facility] Start: 04-22-2017 End: 04-26-2017 Ambulatory GARY CHE [facility] Start: 04-13-2017 End: 04-22-2017 Evaluation and management of inpatient JAZMIN FELIX [facility] Procedures Date Procedure Procedure Detail Performing Clinician Start: 07-02-2024 End: 07-02-2024 CRYOTHERAPY SKIN LESION Santiago Phan MD Work Phone: Start: 07-02-2024 End: 07-02-2024 SKIN / NAIL BIOPSY Santiago Phan MD Work Phone: Start: 05-31-2024 Comprehensive metabo lic panel Markus Farah [employer] Work Phone: Start: 03-07-2024 End: 03-07-2024 DESTRUCTION OF LESION Santiago Phan MD Work Phone: Start: 11-22-2023 Incisional biopsy Isauro bansal BETSY Comment on above: scalp Start: 09-06-[address] JORGE MEYER . Comment on above: Performed By: #### P SAD #### [facility] [address] [place] [address] Dr. Mita Mendoza Start: 06-18-[address] JORGE MEYER . Comment on above: Performed By: #### P SASC #### [facility] [address] [place] [address] Dr. Mita Mendoza Start: 08-18-2020 Excision of bunion Esvin peter BETSY Start: 09-04-2019 Excision of malignan t neoplasm Shirin BETSY Start: 05-25-2018 PTT SHAILI LESLIE AI Start: 05-25-2018 Blood count complete auto&auto dif[facility]ntl w[facility] Start: 05-25-2018 Prothrombin time SHAILI FLANAGAN Start: 05-25-2018 Thromboplastin time partial plasma/whole blood [facility] Start: 04-26-2017 INCENTIVE SPIROMETRY RT JAZMIN ELVIRA Start: 04-26-2017 INCENTIVE SPIROMETRY RT JAZMINROOSEVELT FELIX Start: 04-26-2017 DISCHARGE PATIENT LAURA FELIX Start: 04-26-2017 POCT GLUCOSE JAZMIN [facility] Start: 04-26-2017 INCENTIVE SPIROMETRY RT JAZMIN FELIX Start: 04-26-2017 POC GLUCOSE FINGERSTICK JAZMIN FELIX Start: 04-26-2017 INCENTIVE SPIROMETRY RT JAZMIN FELIX Start: 04-26-2017 POCT GLUCOSE JAZMIN SHA H Start: 04-26-2017 INCENTIVE SPIROMETRY RT JAZMIN FELIX Start: 04-26-2017 INITIATE OXYGEN THER APY PROTOCOL JAZMIN FELIX Start: 04-26-2017 TRACH PLUGGING JAZMIN S HAH Start: 04-26-2017 POC GLUCOSE FINGERSBARBARAK JAZMIN FELIX Start: 04-26-2017 APTT JAZMIN MTZ H Start: 04-26-2017 CBC JAZMIN MTZ H Start: 04-26-2017 PROTIME-INR JAZMIN MTZ H Start: 04-26-2017 INCENTIVE SPIROMETRY RT JAZMIN FELIX Start: 04-26-2017 POCT GLUCOSE JAZMIN SHA Ed Start: 04-26-2017 INCENTIVE SPIROMETRY RT JAZMINROOSEVELT FELIX Start: 04-26-2017 INCENTIVE SPIROMETRY RT JAZMIN FELIX Start: 04-26-2017 INCENTIVE SPIROMETRY RT JAZMIN FLEIX Start: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 Post-procedure instructions: Instructions were given orally and in writing. The office will be contacted if the lesion fails to resolve despite treatment, or if a side effect develops such as abnormal crusting, scabbing, redness or tenderness Cryotherapy, skin lesion - Left Lower Leg - Anterior Next Visit: pending biopsy results, as scheduled for skin check documented in this encounter [facility] 03-07-2024 History of Present illness Narrative Images from the original note were not included. Subjective Mikel Samuels is a 63 y.o. male who presents for the following: Follow-up. Location: right shoulder posterior, left upper arm anterior Date of biopsy: 01/24/2024 Diagnosis: Superficial basal cell carcinoma All pertinent medical history, medications, and allergies were reviewed. General Exam: alert , oriented to person, place, and time , normal affect, well appearing Unaccompanied A focused exam completed based on patient reported problems, see below: 1. Basal cell carcinoma (BCC) of skin of right upper extremity including shoulder Right Shoulder - Posterior Clearmont macule at biopsy site Destr of lesion Complexity: simple Destruction method: electrodesiccation and curettage Informed consent: discussed and consent obtained Informed consent comment: The risks of the procedure were discussed, including, but not limited to risks of scarring, darker or buffing and sueding machine operator pigmentary changes, recurrence, infection, and incomplete removal Timeout: patient name, date of , surgical site, and procedure verified Timeout comment: Patient and provider identified site. Site was marked. Photo was taken and shown to patient, patient verified this is the correct site. Procedure prep: Patient was prepped and draped in usual sterile fashion Prep type: Chlorhexidine Anesthesia: the lesion was anesthetized in a standard fashion Anesthetic: 1% lidocaine w/ epinephrine 1-100,000 buffered w/ 8.4% NaHCO3 Curettage performed in three different directions: Yes Electrodesiccation performed over the curetted area: Yes Curettage cycles: 3 Lesion length (cm): 1.2 Lesion width (cm): 1 Margin per side (cm): 0 Final wound size (cm): 1.2 Hemostasis achieved with: electrodesiccation Outcome: patient tolerated procedure well with no complications Post-procedure details: wound care instructions given Post-procedure details comment: Post-procedure instructions were given verbally and in writing. The office will be contacted if the lesion fails to resolve despite treatment, or if a side effect develops such as abnormal crusting, scabbing, reddness, discharge, or tenderness. Additional details: Amount of lidocaine used: 2.0 cc Previous accession number: [id number] Emphasized to return to clinic for any signs of recurrence prior to next visit. 2. Basal cell carcinoma (BCC) of skin of left upper extremity including shoulder Left Upper Arm - Anterior Clearmont macule at biopsy site Destr of lesion Complexity: simple Destruction method: electrodesiccation and curettage Informed consent: discussed and consent obtained Informed consent comment: The risks of the procedure were discussed, including, but not limited to risks of scarring, darker or buffing and sueding machine operator pigmentary changes, recurrence, infection, and incomplete removal Timeout: patient name, date of , surgical site, and procedure verified Timeout comment: Patient and provider identified site. Site was marked. Photo was taken and shown to patient, patient verified this is the correct site. Procedure prep: Patient was prepped and draped in usual sterile fashion Prep type: Chlorhexidine Anesthesia: the lesion was anesthetized in a standard fashion Anesthetic: 1% lidocaine w/ epinephrine 1-100,000 buffered w/ 8.4% NaHCO3 Curettage performed in three different directions: Yes Electrodesiccation performed over the curetted area: Yes Curettage cycles: 3 Lesion length (cm): 1.4 Lesion width (cm): 1.2 Margin per side (cm): 0 Final wound size (cm): 1.4 Hemostasis achieved with: electrodesiccation Outcome: patient tolerated procedure well with no complications Post-procedure details: wound care instructions given Post-procedure details comment: Post-procedure instructions were given verbally and in writing. The office will be contacted if the lesion fails to resolve despite treatment, or if a side effect develops such as abnormal crusting, scabbing, reddness, discharge, or tenderness. Additional details: Amount of lidocaine used: 2.0 cc Previous accession number: [id number] Emphasized to return to clinic for any signs of recurrence prior to next visit. Next Visit: 6 months documented in this encounter [facility] 11-19-2023 Note Chief Complaint consultation for skin lesion HPI Staff 63 year old male presents on consultation from Clotilde Maciel for posterior scalp lesion. 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 [...] 08/25/2021 Tobacco Never (more content not included)... [facility] Comment on above: Result Comment: Elec tronically Signed By: BETSY MORAN, Shirin Monten[place]ro\Date and Time Signed: 11/19/23 09:58 EDT 09-13-2023 Hospital Discharge instructions Patient Education 09/13/2023 08:40:59 [...] urethra. Follow these instructions at home: Take ifzx-iuz-yokgrpx and prescription medicines only as told by [...] provider. Document Revised: 01/20/2022 Document Reviewed: 01/20/2022 [employer] Patient Education 2022 [employer] Follow Up Care 09/08/2022 10:50:32 With:MIGNON MCCANN PA-C, URL Address: [address] [place] [place] [address] When: Unknown [facility] 09-08-2022 Hospital Discharge instructions Patient Education [...] urethra. Follow these instructions at home: Take irwa-xyy-oiohaef and prescription medicines only as told by [...] 07/04/2006 Document Revised: 05/29/2019 Document Reviewed: 08/08/2017 [employer] Patient Education 2020 [employer] Follow Up Care 09/01/2021 08:53:17 With:Arvind Linda MD, Levi Weslh, URO Address: [facility] [address], [place] [address]- When: Unknown [facility] 08-04-2022 Note OPERATIVE NOTE OPERATION DATE: 08/04/2022 PREOPERATIVE DIAGNOSIS: Enlarging irritated fibroepithelial polyp right upper medial thigh. POSTOPERATIVE DIAGNOSIS: Enlarging irritated fibroepithelial polyp right upper medial thigh. PROCEDURE: Excisional biopsy of right thigh fibroepithelial polyp. SURGEON: Shirin Meyer M.D. ANESTHESIA: Local with 0.5% Marcaine plain. [...] of the excision was 2.5 cm. CC: Fish Maciel M.D. [facility] Evaluation + Plan note Future Appointments Appointment Date:09/07/2022 08:00:00 AM Scheduled Provider:Levi Samuels Jr., MD Location:[facility] Appointment Type:URO Office Visit General Surgery [place] Evaluation + Plan note Future Appointments Appointment Date:09/13/2023 08:30:00 AM Scheduled Provider:MIGNON MCCANN PA-C Location:[facility] Appointment Type:URO Office Visit Diagnostic Tests PendingPSA Total 09/08/22 [facility] Evaluation + Plan note Future Appointments Appointment Date:09/18/2024 08:20:00 AM Scheduled Provider:MIGNON MCCANN PA-C Location:[facility] Appointment Type:URO Office Visit Diagnostic Tests PendingPSA Total 05/18/24 [facility] Evaluation + Plan note Future Appointments Appointment Date:11/23/2023 03:00:00 PM Scheduled Provider:Shirin MEYER MD Location:[facility] Appointment Type:GS Established 15 Appointment Date:09/18/2024 08:20:00 AM Scheduled Provider:MIGNON MCCANN PA-C Location:[facility] Appointment Type:URO Office Visit [facility] Evaluation + Plan note Future Appointments Appointment Date:09/18/2024 08:20:00 AM Scheduled Provider:MIGNON MCCANN PA-C Location:[facility] Appointment Type:URO Office Visit [facility] Evaluation note No assessment inform ation available [facility] Work Phone: Evaluation note Diagnosis Renal calculus Calculus of kidney documented in this encounter [facility] HealthEvaluation note* Diagnosis Neoplasm of unspecified behavior of bone, soft tissue, and skin- Primary Other specified erythematous conditions Common wart Other specified viral warts Actinic keratosis documented in this encounter [facility] HealthcareEvaluation note* Diagnosis Basal cell carcinoma (BCC) of skin of right upper extremity including shoulder- Primary Basal cell carcinoma (BCC) of skin of left upper extremity including shoulder documented in this encounter [facility] HealthcareHospital course Narrative No data available for this section General Surgery [place] [facility] Discharge instructions No data available for this section General Surgery [place] Progress note No data available for this section General Surgery [place] Summary Purpose Family History No Family History Records FoundNo Family History Records FoundNo Family History Records FoundNo Family History Records Found No data available for this section No data available for this section No data available for this section No Family History Records FoundNo Family History Records FoundNo Family History Records FoundNo Family History Records Found Advance Directives Advance Directive Response Recorded Date/ Time Advance Directives No March 2:56pm Date Activated Date Inactivated Comments 03/13/2024 10:56 AM 03/13/2024 4:59 PM Date Activated Date Inactivated Comments 11/15/2023 2:55 PM 11/15/2023 9:17 PM Date Activated Date Inactivated Comments 04/22/2017 7:14 PM 04/26/2017 7:46 PM Cont code s tatus as per acute but confirm with patient/family Date Activated Date Inactivated Comments 04/13/2017 1:37 PM 04/22/2017 7:[address] atus as per acute but confirm with patient/family Date Activated Date Inactivated Comments 04/13/2017 1:26 PM 04/13/2017 1:37 PM Additional Source Comments (unrecognized sect ion and content) No Status Records FoundNo Status Records FoundNo Status Records FoundNo Status Records FoundNo Status Records FoundNo Status Records FoundNo Status Records FoundNo Status Records Found INFORMATION SOURCE (unrecogn ized section and content) DATE CREATED AUTHOR 01/10/2018 [facility] DATE CREATED AUTHOR AUTHOR'S ORGANIZ ATION 06/25/2018 [facility] DATE CREATED AUTHOR AUTHOR'S ORGANIZ ATION 02/25/2020 [facility] DATE CREATED AUTHOR AUTHOR'S ORGANIZ ATION 09/10/2022 [facility] DATE CREATED AUTHOR AUTHOR'S ORGANIZ ATION 12/28/2023 [facility] DATE CREATED AUTHOR AUTHOR'S ORGANIZ ATION 06/02/2024 [facility] DATE CREATED AUTHOR AUTHOR'S ORGANIZ ATION 06/08/2024 [facility] DATE CREATED AUTHOR AUTHOR'S ORGANIZ ATION 07/04/2024 [facility] Patient Care team informatio n (unrecognized section and content) Team Status: Inactive Member Role Status Dates Shirin Meyer MD [facility] Attending Provider Active Start: November 16, 2023 End: November 16, 2023 Team Status: Inactive Member Role Status Dates Gary Varela MD Attending Provider Active Start: December 14, 2023 End: December 14, 2023 [employer] Relationship Specialty Start Date End Date Fish Maciel MD [address] [place] [address] PCP - General Family Medicine 03/23/17 [employer] Relationship Specialty Start Date End Date Fish Maciel MD [address] [place] [address] PCP - General Family Medicine 03/23/17 Goals (unrecognized section and content) Goals may be documented in a n alternate section Reason for Visit (unrecogniz ed section and content) Reason Comments Follow-up FOR RECORDS PERTAINING TO PATIENTS WHO ARE [...] BE BASED ON THE PRIMARY CLINICAL RECORDS. [facility]. provides no warranty or guarantee of the accuracy or completeness of information in this document.
== END 2024-08-02 09:30 | disposition home or self-care (01) ==
LOC: NM 09:29
PROVIDERS: PCP Family Medicine; Visit Provider Family Medicine
DX: R10.11 Right upper quadrant pain (principal)
CPT/HCPCS: 76705

== ENCOUNTER 2024-08-27 08:43 | Outpatient (OUT) | payer OTHER, SELFPAY ==
--- OUTSIDE RECORDS SUMMARY | 2024-08-27 08:50 | XMS_ITS | CCD ---
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 FT4on 2023 Thyroid Stim. Horm. 2.24 uIU/mL Normal 0.27-4.20 [facility] Comment on above: Performed By: #### T SHX #### [facility] [address] [place] [address] Consumer Affairs Manager: Abelardo Gunter MD TSH with Reflexon 05-31-2024 TSH Qn 2.24 m[IU]/L [facility] XR ABDOMEN (KUB) (SINGLE AP [...] Wali Horan DO 05/24/24 Final result Normal [facility] FLUORO FOR SURGICAL PROCEDUR ESon 03-13-2024 FLUORO FOR SURGICAL PROCEDURES Radiology exam is complete. No Radiologist dictation. Please follow up with ordering provider. Final result Normal [facility] Guidance-- during surgeryon 03-13-2024 Radiology exam is complete. No Radiologist dictation. Please follow up with ordering provider. MHPN RIS CONSOLIDATED CT ABDOMEN PELVIS WO CONTRAS Ton 03-08-2024 [...] pelvic masses or fluid collections are seen. Peritoneum/Retroperitone um: The abdominal aorta is not aneurysmal. There [...] Oswaldo Cai MD 03/08/24 Final result Normal [facility] Destr of lesionon 03-07-2024 Complexity: simple Destruction method: electrodesiccation and curettage Informed consent: discussed and consent obtained Informed consent comment: The risks of the procedure were discussed, including, but not limited to risks of scarring, darker or coin machine service repairer pigmentary changes, recurrence, infection, and incomplete removal [...] lidocaine used: 2.0 cc Previous accession number: [id number] [facility] Complexity: simple Destruction method: electrodesiccation and curettage Informed consent: discussed and consent obtained Informed consent comment: The risks of the procedure were discussed, including, but not limited to risks of scarring, darker or coin machine service repairer pigmentary changes, recurrence, infection, and incomplete removal [...] lidocaine used: 2.0 cc Previous accession number: [id number] [facility] Basic Metabolic Profon 02-24 Anion gap [Moles/Vol] 9 mmol/L Normal 9-17 [facility] Comment on above: Performed By: #### C DP, BMP #### [facility] [address] [place] [address] Consumer Affairs Manager: Abelardo Gunter MD BUN/CRE Ratio 14 Normal 9-[address] [facility] Comment on above: Performed By: #### C DP, BMP #### [facility] [address] [place], [place] 1675483 Consumer Affairs Manager: Abelardo Gunter MD Calcium [Mass/Vol] 9.4 mg/dL Normal 8.6-10.4 [facility] Comment on above: Performed By: #### C DP, BMP #### [facility] [address] [place], [place] [phone] Consumer Affairs Manager: Abelardo Gunter MD Chloride [Moles/Vol] 102 mmol/L Normal 98-107 [facility] Comment on above: Performed By: #### C DP, BMP #### [address] [place], [place] [phone] Consumer Affairs Manager: Abelardo Gunter MD CO2 [Moles/Vol] 28 mmol/L Normal 20-31 [facility] Comment on above: Performed By: #### C DP, BMP #### [facility] [address] [place], [place] 1203483 Consumer Affairs Manager: Abelardo Gunter MD Creatinine [Mass/Vol] 1.0 mg/dL Normal 0.7-1.2 [facility] Comment on above: Performed By: #### C DP, BMP #### [facility] [address] [place] [address] Consumer Affairs Manager: Abelardo Gunter MD GFR/1.73 sq M.predicted among non-blacks MDRD (S/P/Bld) [Vol rate/Area] 86 mL/min/{1.73_m2} Normal >60 [facility] Comment on above: Result Comment: These [...] Performed By: #### C DP, BMP #### [facility] [address] [place] [address] [place] [address] Consumer Affairs Manager: Abelardo Gunter MD Glucose [Mass/Vol] 106 mg/dL High 70-99 [facility] Comment on above: Performed By: #### C MARCEL, BMP #### [facility] [address] [place] [address] [place]. [place], [place] [phone] Consumer Affairs Manager: Abelardo Gunter MD Potassium [Moles/Vol] 4.4 mmol/L Normal 3.7-5.3 [facility] Comment on above: Performed By: #### C DP, BMP #### [address] [place], [place] [address]3 Consumer Affairs Manager: Abelardo Gunter MD Sodium [Moles/Vol] 139 mmol/L Normal 135-144 [facility] Comment on above: Performed By: #### C DP, BMP #### [facility] [address] [place] [address] [place] [address] Consumer Affairs Manager: Abelardo Gunter MD Urea nitrogen [Mass/Vol] 14 mg/dL Normal 8-23 [facility] Comment on above: Performed By: #### C DP, BMP #### [facility] [address] [place] [address] Dr. [place], [place] 0105783 Consumer Affairs Manager: Abelardo Gunter MD CBC with Diffon 02-25-2024 Abs. Basophil 0.03 k/uL Normal 0.00-0.[address] [facility] Comment on above: Performed By: #### C DP, BMP #### [address] [place], [place] [address] Consumer Affairs Manager: Abelardo Gunter MD Abs.Imm.Granulocy te 0.03 k/uL Normal 0.00-0.30 [facility] Comment on above: Performed By: #### C DP, BMP #### [address] [place] [address] Consumer Affairs Manager: Abealrdo Gunter MD Abs.Neutrophil (Seg) 3.96 k/uL Normal 1.50-8.10 [facility] Comment on above: Performed By: #### C DP, BMP #### [address] [place] [id number] Consumer Affairs Manager: Abelardo Gunter MD Basophils/100 WBC (Bld) 0 % Normal 0-2 [facility] Comment on above: Performed By: #### C DP, BMP #### [address] [place] [address] Consumer Affairs Manager: Abelardo Gunter MD Eosinophils (Bld) [#/Vol] 0.17 10*3/uL Normal 0.00-0.44 [facility] Comment on above: Performed By: #### C DP, BMP #### [address] [place], [place] [address] Consumer Affairs Manager: Abelardo Gunter MD Eosinophils/100 WBC (Bld) 3 % Normal 1-4 [facility] Comment on above: Performed By: #### C DP, BMP #### [address] [place] [address] Consumer Affairs Manager: Abelardo Gunter MD Erythrocyte distribution width (RBC) [Ratio] 12.5 % Normal 11.8-14.4 [facility] Comment on above: Performed By: #### C DP, BMP #### [facility] [address] [place], [place] 7488583 Consumer Affairs Manager: Abelardo Gunter MD Hematocrit (Bld) [Volume fraction] 43.1 % Normal 40.7-50.3 [facility] Comment on above: Performed By: #### C DP, BMP #### [facility] [address] [place], [facility] Consumer Affairs Manager: Abelardo Gunter MD Hemoglobin (Bld) [Mass/Vol] 15.1 g/dL Normal 13.0-17.0 [facility] Comment on above: Performed By: #### C DP, BMP #### [address] [place] [phone] Consumer Affairs Manager: Abelardo Gunter MD Immature granulocytes/100 WBC (Bld) 0 % Normal 0 [facility] Comment on above: Performed By: #### C DP, BMP #### [address] [place], [facility] Consumer Affairs Manager: Abelardo Gunter MD Lymphocytes (Bld) [#/Vol] 1.96 10*3/uL Normal 1.10-3.70 [facility] Comment on above: Performed By: #### C DP, BMP #### [address] [place], [facility] Consumer Affairs Manager: Abelardo Gunter MD Lymphocytes/100 WBC (Bld) 29 % Normal 24-43 [facility] Comment on above: Performed By: #### C DP, BMP #### [address] [place], [facility] Consumer Affairs Manager: Abelardo Gunter MD MCH (RBC) [Entitic mass] 32.2 pg Normal 25.2-33.5 [facility] Comment on above: Performed By: #### C DP, BMP #### [address] [place] [phone] Consumer Affairs Manager: Abelardo Gunter MD MCHC (RBC) [Mass/Vol] 35.0 g/dL High 28.4-34.8 [facility] Comment on above: Performed By: #### C DP, BMP #### [facility] [address] [place], [place] 2795183 Consumer Affairs Manager: Abelardo Gunter MD MCV (RBC) [Entitic vol] 91.9 fL Normal 82.6-102.9 [facility] Comment on above: Performed By: #### C DP, BMP #### [address] [place] [phone] Consumer Affairs Manager: Abelardo Gunter MD Monocytes (Bld) [#/Vol] 0.63 10*3/uL Normal 0.10-1.20 [facility] Comment on above: Performed By: #### C DP, BMP #### [address] [place], [facility] Consumer Affairs Manager: Abelardo Gunter MD Monocytes/100 WBC (Bld) 9 % Normal 3-12 [facility] Comment on above: Performed By: #### C DP, BMP #### [address] [place] [address] Consumer Affairs Manager: Abelardo Gunter MD Neutrophil (Seg) 59 % Normal 36-65 [facility] Comment on above: Performed By: #### C DP, BMP #### [facility] [address] [place] [address] [place]. [place], [place] [address] Consumer Affairs Manager: Abelardo Gunter MD NRBC Automated 0.0 per 100 WBC Normal 0.0 [facility] Comment on above: Performed By: #### C DP, BMP #### [address] [place], [place] 1129283 Consumer Affairs Manager: Abelardo Gunter MD Platelet mean volume (Bld) [Entitic vol] 11.0 fL Normal 8.1-13.5 [facility] Comment on above: Performed By: #### C DP, BMP #### [facility] [address] [place], [place] 8267583 Consumer Affairs Manager: Abelardo Gunter MD Platelets (Bld) [#/Vol] 164 10*3/uL Normal 138-453 [facility] Comment on above: Performed By: #### C DP, BMP #### [facility] [address] [place], [place] 1376083 Consumer Affairs Manager: Abelardo Gunter MD RBC (Bld) [#/Vol] 4.69 10*6/uL Normal 4.21-5.77 [facility] Comment on above: Performed By: #### C DP, BMP #### [facility] [address] [place], [place] 9470683 Consumer Affairs Manager: Abelardo Gunter MD WBC (Bld) [#/Vol] 6.8 10*3/uL Normal 3.5-11.3 [facility] Comment on above: Performed By: #### C DP, BMP #### [facility] [address] [place], [place] 5067883 Consumer Affairs Manager: Abelardo Gunter MD Consultation Noteon 01-01-20 Consultation Note [id number]#1.00TIFF Normal [facility] Pathology Noteon 01-01-2024 Pathology Note [id number]#1.00TIF F Normal [facility] XR ABDOMEN (KUB) (SINGLE AP [...] Wali Horan DO 12/28/23 Final result Normal [facility] 12-14-2023 L Specimen: [id number] Received: 12/15/23 Status: UYEN [place] Num: [id number] Spec Type: Surgical Subm Dr: Gary Varela MD Tissues: A Skin-Other than Cyst, tag, debridement or plastic repair (SCALP) Procedures: HE/7, Gross/Micro L4 Age/ Patient Sex Location Account Attending Physician Mikel Samuels 63/M [place] [id number] Gary Varela MD SPEC NUM: [id number] RECD: 12/15/23 STATUS: UYEN HERNANDES NUM: [id number] ASA: 12/14/[address]: Gary Varela MD ENTERED: 12/15/23 [facility] DR: SPEC TYPE: Surgical DEPT: S ORDERED: [...] A1-A6 as follows: A1: 9:00 tip Specimen: [id number] Received: 12/15/23 Status: UYEN Hernandes Num: [id number] Spec Type: Surgical Subm Dr: Gary Varela MD Tissues: A Skin-Other than Cyst, tag, debridement or plastic repair (SCALP) Procedures: Lore, Gross/Micro L4 Patient: Mikel Samuels [id number] (Continued) Specimen: [id number] Received: 12/15/23 (Continued) Gross Description (Continued) Signed (signature on file) Leonel Mendoza MD 12/20/23 1015 Specimen: [id number] Received: 12/15/23 Status: UYEN Hernandes Num: [id number] Spec Type: Surgical Subm Dr: Gary Varela MD Tissues: A Skin-Other than Cyst, tag, debridement or plastic repair (SCALP) Procedures: , Gross/Micro L4 Patient: ArvindMikel [id number] (Continued) Specimen: [id number] Received: 12/15/23 (Continued) Gross Description (Continued) A2: 3:00 tip A3-A6: 12:00 to 6:00 region CPT Codes 28179 Specimen: [id number] Received: 12/15/23 Status: UYEN Hernandes Num: [id number] Spec Type: Surgical Subm Dr: Gary Varela MD Tissues: A Skin-Other than Cyst, tag, debridement or plastic repair (SCALP) Procedures: /Lore, Gross/Micro L4 Patient: Mikel Samuels [id number] (Continued) Signed (signature on file) Leonel Mendoza MD 12/20/23 1015 Normal [facility] Pathology Noteon 11-30-2023 Pathology Note [id number]#1.00TIF F Normal [facility] Ambulatory Visit Summaryon 0 11-23-2023 [...] Tuesday. 2024 8:20 AM EST With: MIGNON MCCANN PA-C Where: [facility] General Surgery Office/Clini c Noteon 11-23-2023 General [...] Refuses pneumococcal 13-valent vaccine 04/2005 Recorded Normal [facility] Comment on above: Result Comment: Elec tronically Signed By: BETSY MORAN, Shirin Sanchez\.br\Date and Time Signed: 11/23/23 15:20 EDT Ambulatory Visit Summaryon 0 11-16-2023 Ambulatory Visit Summary MIKEL SAMUELS :1960 Visit Date:11/16/2023 Ambulatory Visit Instructions Your Care Team Attending Physician - Shirin MEYER MD Primary Care Physician - Diallo Maciel MD Referring Physician - Diallo Maciel MD This Is Your Medications List [...] What to do next Scheduled Follow-Up Appointments Wednesday May. 2023 3:00 PM EDT With: BETSY MORAN, Shirin Sanchez Where: [facility] Normal [address] [place] [address] [place] [address]- \.br\ Medications\.br\ What How Much When Instructions\.br [...] choosing us for your care.\.br\ \.br\ [facility] Kiran 11-16-2023 L Specimen: [id number] Received: 11/17/23 Status: UYEN Hernandes Num: [id number] Spec Type: Surgical Subm Dr: Shirin Meyer MD FACS Tissues: A Skin-Other than Cyst, tag, debridement or plastic repair (POSTERIOR SCALP) Procedures: HE, Gross/Micro L4 Age/ Patient Sex Location Account Attending Physician Mikel Samuels 63/M [place] [id number] Shirin Meyer MD FACS SPEC NUM: [id number] RECD: 11/17/23 STATUS: UYEN HERNANDES NUM: [id number] ASA: 11/16/[address]: Shirin Meyer MD FACS ENTERED: 11/17/[address]: Fransico Wiley SPEC TYPE: Surgical DEPT: SHANNEN BRUMFIELD ORDERED: HE, Gross/Micro L4 ORDERED: HE, [...] of changing skin lesion TW CPT Codes 92003 Specimen: [id number] Received: 11/17/23 Status: UYEN Hernandes Num: [id number] Spec Type: Surgical Subm Dr: Shirin Meyer MD FACS Tissues: A Skin-Other than Cyst, tag, debridement or plastic repair (POSTERIOR SCALP) Procedures: Sukhwinder ANDERSON/Dorinda L4 Patient: Mikel Samuels [id number] (Continued) Signed (signature on file) Leonel Mendoza MD 11/28/23 1212 Normal [facility] FLUORO FOR SURGICAL PROCEDUR ESon 11-15-2023 FLUORO FOR SURGICAL PROCEDURES Radiology exam is complete. No Radiologist dictation. Please follow up with ordering provider. Final result Normal [facility] Physician Referralon 024 Physician Referral [id number]#1.00TIF F Normal [facility] Physician Referralon 024 Physician Referral [id number]#1.00TIF F Normal [facility] Lab Reportson 09-15-2023 Lab Reports [id number]#1.00TI FF Normal [facility] Screenson 09-15-2023 Screens [id number]#1.00TI FF Normal [facility] Screens [id number]#1.00TI FF Normal [facility] Patient Educationon 09-13-19 Patient Education [...] Follow these instructions at home: ? Take zblf-[id number]-[id number] and prescription medicines only as told by [...] the medicine (more content not included)... Normal [facility] Urology Office/Clinic Noteon 09-13-2023 Urology [...] to dose or medication. Refill sent to [facility] in [place]. Ordered: E&M of Est. Patient Moderate 30-39 Min 95316 2. BPH with urinary obstruction (N40.1: Benign prostatic hyperplasia with lower urinary tract symptoms) IPSS 0, however placed a question stiven near the sleeping portion. Nocturia 2x - says this is intentional - see #2. UA today negative. Not taking any BPH meds. No indication for treatment at this time. Continue to monitor. Ordered: E&M of Est. Patient Moderate 30-39 Min 65237 PSA Total Urnls Dip Stick Auto w/o Microscopy POC 44954 3. History of kidney stones (Z87.442: Personal history of urinary calculi) Last stone episode was over 15 years ago. States he was told by a urologist at [facility] that he should drink leading up to bed, but do not void prior to going to bed. Pt shares he has not had a kidney stone since. No recent imaging. Pt does not wish to get any monitoring imaging at this time. Ordered: E&M of Est. Patient Moderate 30-39 Min 39964 4. Prostate cancer screening (Z12.5: Encounter for screening for malignant neoplasm of prostate) PSA: 08/28/21 - 0.5 09/06/22 - 0.35 07/14/23 - 0.32 PSA remains low and stable. Orders: tadalafil, See Instructions, Do not exceed 20mg within 48 hours. PRN for sexual intercourse., # 30 tab(s), Refills(s) 5, Pharmacy: [id number], 177, cm, 09/13/23 8:23:00 EST, Height/Length Dosing, 118, kg, 09/13/23 8:23:00 EST, Weight Dosing Follow-up With When Contact Information BRENNON CARRILLO, MIGNON Mcdonald, URL [address] [place] [address] Additional Instructions: 1 year with PSA Patient Education Benign Prostatic Hyperplasia Documentation recorded by the ike Dixon accurately reflects the services(s) I performed and decisions made by me. Authenticated by Mignon Mccann PA-C on 09/13/2023 08:54:38. Lexy Flowers, personally scribed for Mignon Mccann PA-C on [...] Cardiac arrest (more content not included)... Normal [facility] Comment on above: Result Comment: Elec tronically Signed By: MIGNON MCCANN PA-C\.br\Date and Time Signed: 09/13/23 08:54 EST\.br\Electronically Co-Signed By: Lexy Dixon.br\Date and Time Co-Signed: 09/13/23 08:48 EST CBC AUTO DIFFon 06-18-2022 BASO # 0.0 103/ul Normal 0.0-0.1 [facility] Comment on above: Performed By: #### C BC #### [facility] [address] [place] [address] Dr. Mita Mendoza Basophils/100 WBC (Bld) 0.4 % Normal 0.2-2.0 [facility] Comment on above: Performed By: #### C BC #### [facility] [address] [place] [address] Dr. Mita Mendoza EO # 0.2 103/ul Normal 0.0-0.7 [facility] Comment on above: Performed By: #### C BC #### [facility] [address] [place] [address] Dr. Mita Mendoza Eosinophils/100 WBC (Bld) 3.9 % Normal 0.9-7.0 [facility] Comment on above: Performed By: #### C BC #### [facility] [address] [place] [address] Dr. Mita Mendoza Erythrocyte distribution width (RBC) [Ratio] 12.5 % Normal 11.0-15.0 [facility] Comment on above: Performed By: #### C BC #### [facility] [address] [place] [address] Dr. Mita Mendoza Hematocrit (Bld) [Volume fraction] 43.5 % Normal 42.0-54.0 [facility] Comment on above: Performed By: #### C BC #### [facility] [address] [place] [address] Dr. Mita Mendoza Hemoglobin (Bld) [Mass/Vol] 15.1 g/dL Normal 14.0-18.0 [facility] Comment on above: Performed By: #### C BC #### [facility] [address] [place] [address] Dr. Mita Mendoza IG # 0.01 10e3/ul Normal 0.00-0.03 [facility] Comment on above: Performed By: #### C BC #### [facility] [address] [place] [address] Dr. Mita Mendoza IG % 0.2 % Normal 0.0-0.5 [facility] Comment on above: Performed By: #### C BC #### [facility] [address] [place] [address] Dr. Mita Mendoza LYMPH # 1.5 103/ul Normal 1.2-3.8 [facility] Comment on above: Performed By: #### C BC #### [facility] [address] [place] [address] Dr. Mita Mendoza Lymphocytes/100 WBC (Bld) 27.0 % Normal 20.5-60.0 [facility] Comment on above: Performed By: #### C BC #### [facility] [address] [place] [address] Dr. Mita Mendoza MANUAL DIFF REQ NO Normal [facility] Comment on above: Performed By: #### C BC #### [facility] [address] [place] [address] Dr. Mita Mendoza MCH (RBC) [Entitic mass] 30.8 pg Normal 25.9-34.0 [facility] Comment on above: Performed By: #### C BC #### [facility] [address] [place] [address] Dr. Mita Mendoza MCHC (RBC) [Mass/Vol] 34.7 g/dL Normal 29.9-35.2 [facility] Comment on above: Performed By: #### C BC #### [facility] [address] [place] [address] Dr. Mita Mendoza MCV (RBC) [Entitic vol] 88.6 fL Normal 80.0-94.0 [facility] Comment on above: Performed By: #### C BC #### [facility] [address] [place] [address] Dr. Mita Mendoza MONO # 0.6 103/ul Normal 0.3-0.8 [facility] Comment on above: Performed By: #### C BC #### [facility] [address] [place] [address] Dr. Mita Mendoza Monocytes/100 WBC (Bld) 11.2 % Normal 1.7-12.0 [facility] Comment on above: Performed By: #### C BC #### [facility] [address] [place] [address] [address] Mita Mendoza NEUT # 3.2 103/ul Normal 1.4-6.5 [facility] Comment on above: Performed By: #### C BC #### [facility] [address] [place] [address] [address] Mita Mendoza Neutrophils/100 WBC (Bld) 57.3 % Normal 43.0-75.0 [facility] Comment on above: Performed By: #### C BC #### [facility] [address] [place] [address] [address] Mita Mendoza Platelet mean volume (Bld) [Entitic vol] 11.1 fL Normal 9.5-13.5 The [facility] Comment on above: Performed By: #### C BC #### [facility] [address] [address] [address] Mita Mendoza PLT 149 103/ul Critically low 150-450 [facility] Comment on above: Performed By: #### C BC #### [facility] [address] [place] [address] Dr. Mita Mendoza RBC 4.91 106/ul Normal 4.70-6.10 [facility] Comment on above: Performed By: #### C BC #### [facility] [address] [address] [address] Mita Mendoza WBC 5.6 103/ul Normal 4.0-11.0 [facility] Comment on above: Performed By: #### C BC #### [facility] [address] [place] [address] Dr. Mita Mendoza FREE T3on 06-18-2022 FREE T3 2.94 pg/mlL Normal 2.18-3.98 [facility] Comment on above: Performed By: #### F T3, CMP, TSH, T4, LIPID #### [facility] [address] [place] [address] Dr. Mita Mendoza GLYCOHEMOGLOBIN A1Con 2021 ADA RECOMMENDATION SEE BELOW Normal [facility] Comment on above: Result Comment: ADA RECOMMENDED LIMIT 4.0 - 6.0 ADA THERAPEUTIC TARGET < 7.0 ACTION SUGGESTED > 7.0 Performed By: #### A 1C #### [facility] [address] [address] [address] Mita Mendoza Glucose [Mass/Vol] 117 mg/dL Normal [facility] Comment on above: Performed By: #### A 1C #### [facility] [address] [place] [address] Dr. Mita Mendoza HbA1c (Bld) [Mass fraction] 5.7 % Normal 4.5-6.2 [facility] Comment on above: Performed By: #### A 1C #### [facility] [address] [place] [address] Dr. Mita Mendoza LIPID PROFILEon 06-18-2022 CHOL-HDL RATIO NORM SEE BELOW Normal [facility] Comment on above: Result Comment: 3.3 - 4.4 LOW RISK 4.4 - 7.1 AVERAGE RISK 7.1 - 11.0 MODERATE RISK >11.0 HIGH RISK Performed By: #### F T3, CMP, TSH, T4, LIPID #### [facility] [address] [place] [address] Dr. Mita Mendoza Cholesterol [Mass/Vol] 196 mg/dL Normal <=200 [facility] Comment on above: Performed By: #### F T3, CMP, TSH, T4, LIPID #### [facility] [address] [place] [address] Dr. Mita Mendoza Cholesterol in HDL [Mass/Vol] 54 mg/dL Normal 40-60 [facility] Comment on above: Performed By: #### F T3, CMP, TSH, T4, LIPID #### [facility] [address] [place] [address] Dr. Mita Mendoza Cholesterol in LDL [Mass/Vol] 121.0 mg/dL Normal [facility] Comment on above: Performed By: #### F T3, CMP, TSH, T4, LIPID #### [facility] [address] [place] [address] Dr. Mita Mendoza Cholesterol.total /Cholesterol in HDL [Mass ratio] 3.6 {ratio} Normal [facility] Comment on above: Performed By: #### F T3, CMP, TSH, T4, LIPID #### [facility] [address] [address] [address] Mita Mendoza HDL NORMAL > or = 60 mg/dl - LO W CARDIOVASCULAR RISK <40 mg/dl - HIGH CARDIOVASCULAR RISK Normal [facility] Comment on above: Performed By: #### F T3, CMP, TSH, T4, LIPID #### [facility] [address] [address] [address] Mita Mendoza LDL CALC NORMAL SEE BELOW Normal [facility] Comment on above: Result Comment: <100 mg/dl OPTIMAL 100 - 129 mg/dl NEAR OR ABOVE OPTIMAL 130 - 159 mg/dl BORDERLINE HIGH 160 - 189 mg/dl HIGH >190 mg/dl VERY HIGH Performed By: #### F T3, CMP, TSH, T4, LIPID #### [facility] [address] [address] [address] Mita Mendoza Triglyceride [Mass/Vol] 105 mg/dL Normal <=150 [facility] Comment on above: Performed By: #### F T3, CMP, TSH, T4, LIPID #### [facility] [address] [place] [address] Dr. Mita Mendoza VLDL CALC 21.0 mg/dL Normal [facility] Comment on above: Performed By: #### F T3, CMP, TSH, T4, LIPID #### [facility] [address] [place] [address] Dr. Mita Mendoza PROF 14(COMP METB)on 022 Albumin [Mass/Vol] 4.2 g/dL Normal 3.4-5.0 [facility] Comment on above: Performed By: #### F T3, CMP, TSH, T4, LIPID #### [facility] [address] [address] [address] Mita Mendoza Albumin/Globulin [Mass ratio] 1.3 {ratio} Normal [facility] Comment on above: Performed By: #### F T3, CMP, TSH, T4, LIPID #### [facility] [address] [address] [address] Mita Mendoza ALP [Catalytic activity/Vol] 70 U/L Normal 46-116 [facility] Comment on above: Performed By: #### F T3, CMP, TSH, T4, LIPID #### [facility] [address] [address] [address] Mita Mendoza ALT [Catalytic activity/Vol] 39 U/L Normal 16-63 [facility] Comment on above: Performed By: #### F T3, CMP, TSH, T4, LIPID #### [facility] [address] [address] [address] Mita Mendoza Anion gap [Moles/Vol] 10.4 mmol/L Normal [facility] Comment on above: Performed By: #### F T3, CMP, TSH, T4, LIPID #### [facility] [address] [address] [address] Mita Mendoza AST [Catalytic activity/Vol] 23 U/L Normal 15-37 [facility] Comment on above: Performed By: #### F T3, CMP, TSH, T4, LIPID #### [facility] [address] [place] [address] Dr. Mita Mendoza Bilirubin [Mass/Vol] 0.7 mg/dL Normal 0.2-1.0 [facility] Comment on above: Performed By: #### F T3, CMP, TSH, T4, LIPID #### [facility] [address] [place] [address] Dr. Mita Mendoza Calcium [Mass/Vol] 9.3 mg/dL Normal 8.5-10.1 [facility] Comment on above: Performed By: #### F T3, CMP, TSH, T4, LIPID #### [facility] [address] [place] [address] Dr. Mita Mendoza Chloride [Moles/Vol] 104 mmol/L Normal 98-107 [facility] Comment on above: Performed By: #### F T3, CMP, TSH, T4, LIPID #### [facility] [address] [place] [address] Dr. Mita Mendoza CO2 [Moles/Vol] 33.1 mmol/L Critically high 21.0-32.0 [facility] Comment on above: Performed By: #### F T3, CMP, TSH, T4, LIPID #### [facility] [address] [address] [address] Mita Mendoza Creatinine [Mass/Vol] 0.96 mg/dL Normal 0.70-1.30 [facility] Comment on above: Performed By: #### F T3, CMP, TSH, T4, LIPID #### [facility] [address] [address] [address] Mita Mendoza EGFR-AF [place]UGUESE >60 Normal >=60 [facility] Comment on above: Performed By: #### F T3, CMP, TSH, T4, LIPID #### [facility] [address] [address] [address] Mita Mendoza EGFR-NON AF [place] >60 Normal >=60 [facility] Comment on above: Performed By: #### F T3, CMP, TSH, T4, LIPID #### [facility] [address] [address] [address] Mita Mendoza Globulin (S) [Mass/Vol] 3.2 g/dL Normal [facility] Comment on above: Performed By: #### F T3, CMP, TSH, T4, LIPID #### [facility] [address] [address] [address] Mita Mendoza Glucose [Mass/Vol] 119 mg/dL Critically high 74-106 [facility] Comment on above: Performed By: #### F T3, CMP, TSH, T4, LIPID #### [facility] [address] [address] [address] Mita Mendoza Potassium [Moles/Vol] 4.5 mmol/L Normal 3.5-5.1 [facility] Comment on above: Performed By: #### F T3, CMP, TSH, T4, LIPID #### [facility] [address] [address] [address] Mita Mendoza Protein [Mass/Vol] 7.4 g/dL Normal 6.4-8.2 [facility] Comment on above: Performed By: #### F T3, CMP, TSH, T4, LIPID #### [facility] [address] [address] [address] Mita Mendoza Sodium [Moles/Vol] 143 mmol/L Normal 136-145 [facility] Comment on above: Performed By: #### F T3, CMP, TSH, T4, LIPID #### [facility] [address] [address] [address] Mita Mendoza Urea nitrogen [Mass/Vol] 10.0 mg/dL Normal 7.0-18.0 [facility] Comment on above: Performed By: #### F T3, CMP, TSH, T4, LIPID #### [facility] [address] [address] [address] Mita Mendoza Urea nitrogen/Creatini ne [Mass ratio] 10.4 mg/mg Normal [facility] Comment on above: Performed By: #### F T3, CMP, TSH, T4, LIPID #### [facility] [address] [place] [address] Dr. Mita Mendoza T4on 06-18-2022 T4 [Mass/Vol] 7.60 ug/dL Normal 4.50-12.10 [facility] Comment on above: Performed By: #### F T3, CMP, TSH, T4, LIPID #### [facility] [address] [address] [address] Mita Mendoza TSHon 06-18-2022 TSH 2.714 uIU/mL Normal 0.358-3.740 [facility] Comment on above: Performed By: #### F T3, CMP, TSH, T4, LIPID #### [facility] [address] [place] [address] Dr. Mita Mendoza PROGRESSon 02-25-2020 PROGRESS HNO ID: [id number] Author: Interface Note Service: ? Author Type: ? Type: Progress Notes Filed: 02/25/2020 10:56 AM Note Text: The surgical encounter documentation contains information performed by a different Dunia Faulkner than is indicated by the provider record. Clinical care was provided and documented by the correct provider. Normal [facility] APTTon 05-25-2018 aPTT Coag time (Bld) 23.1 s Normal 21.3-31.3 [facility] CBC with Diffon 05-25-2018 Abs. Basophil 0.00 k/uL Normal 0.0-0.2 [facility] Abs.Neutrophil (Seg) 3.80 k/uL Normal 1.8-7.7 [facility] Basophils/100 WBC Auto (Bld) 0 % Normal 0-2 [facility] Eosinophils Auto #/vol (Bld) 0.20 10*3/uL Normal 0.0-0.4 [facility] Eosinophils/100 WBC Auto (Bld) 3 % Normal 1-4 [facility] Erythrocyte distribution width Auto Ratio (RBC) 13.1 % Normal 12.5-15.4 [facility] Hematocrit Auto Volume Fraction (Bld) 46.5 % Normal 41-53 [facility] Hemoglobin mass conc (Bld) 15.7 g/dL Normal 13.5-17.5 [facility] Lymphocytes Auto #/vol (Bld) 2.40 10*3/uL Normal 1.0-4.8 [facility] Lymphocytes/100 WBC Auto (Bld) 34 % Normal 24-44 [facility] MCH Auto Entitic mass (RBC) 30.7 pg Normal 26-34 [facility] MCHC Auto mass conc (RBC) 33.8 g/dL Normal 31-37 [facility] MCV Auto Entitic volume (RBC) 90.7 fL Normal 80-100 [facility] Monocytes Auto #/vol (Bld) 0.70 10*3/uL Normal 0.1-1.2 [facility] Monocytes/100 WBC Auto (Bld) 9 % Normal 2-11 [facility] Neutrophil (Seg) 54 % Normal 36-66 [facility] Platelet mean volume Auto Entitic volume (Bld) 9.3 fL Normal 6.0-12.0 [facility] Platelets Auto #/vol (Bld) 168 10*3/uL Normal 140-450 [facility] RBC Auto #/vol (Bld) 5.12 10*6/uL Normal 4.5-5.9 [facility] WBC Auto #/vol (Bld) 7.1 10*3/uL Normal 3.5-11.0 [facility] Abs.Imm.Granulocy te NOT REPORTED Normal 0.00-0.30 [facility] Auto Diff Performed NOT REPORTED Normal [facility] Immature granulocytes #/vol (Bld) NOT REPORTED Normal 0 [facility] NRBC Automated NOT REPORTED Normal [facility] Platelets Auto #/vol (Bld) NOT REPORTED Normal [facility] RBC morphology finding Nom (Bld) NOT REPORTED Normal [facility] WBC Morphology NOT REPORTED Normal [facility] PTon 05-25-2018 INR Coag RelTime (PPP) 1.0 {INR} Normal [facility] Comment on above: Result Comment: Ther apeutic Range: Moderate Anticoagulant Intensity: INR = 2.0-3.0 High Anticoagulant Intensity: INR = 2.5-3.5 Prothrombin time (PT) Coag time (PPP) 9.9 s Normal 9.4-12.6 [facility] APTTon 04-26-2017 aPTT 25.6 s Normal 23.0-31.0 [facility] Comment on above: Result Comment: IV H eparin Therapy Range: 64.3-87.8Performed at [facility] [address] [place] [address] Performed By: #### C BC ####[address] [address] CBCon 04-26-2017 Erythrocyte distribution width Auto Ratio (RBC) 14.8 % Normal 11.5-14.9 [facility] Comment on above: Performed By: #### C BC, BMP ####[address] [address] Erythrocytes (RBC) 3.99 10*6/uL Low 4.5-5.9 [facility] Comment on above: Performed By: #### C BC, BMP ####[address] [place] [address] Hematocrit (HCT) 35.8 % Low 41-53 [facility] Comment on above: Performed By: #### C BC, BMP ####[address] [address] Hemoglobin mass conc (Bld) 11.7 g/dL Low 13.5-17.5 [facility] Comment on above: Performed By: #### C BC, BMP ####[address] [address] MCH 29.2 pg Normal 26-34 [facility] Comment on above: Performed By: #### C BC, BMP ####[address] [address] MCHC mass conc (RBC) 32.6 g/dL Normal 31-37 [facility] Comment on above: Performed By: #### C BC, BMP ####[facility] [place] [address] MCV 89.6 fL Normal 80-100 [facility] Comment on above: Performed By: #### C BC, BMP ####[address] [address] Platelet mean volume (PMV) 8.5 fL Normal 6.0-12.0 [facility] Comment on above: Result Comment: Perf ormed at [facility] [address] [place] [address] Performed By: #### C BC, BMP ####[address] [address] Platelets 170 10*3/uL Normal 150-450 [facility] Comment on above: Performed By: #### C BC, BMP ####[address] [place] [address] WBC (Leukocytes) 6.0 10*3/uL Normal 3.5-11.0 [facility] Comment on above: Performed By: #### C BC, BMP ####[facility] [place] [address] PTon 04-26-2017 INR Coag RelTime (PPP) 1.1 {INR} Normal [facility] Comment on above: Result Comment: Non- therapeutic Range: INR = 0.9- 1.2Therapeutic Range: Moderate Anticoagulant Intensity: INR = 2.0-3.0 High Anticoagulant Intensity: INR = 2.5-3.5Performed at [address] [address] Performed By: #### C BC ####[address] [address] Prothrombin time (PT) Coag time (PPP) 12.0 s Normal 9.7-12.0 [facility] Comment on above: Performed By: #### C BC ####[address] [address] APTTon 04-25-2017 aPTT 46.0 s High 23.0-31.0 [facility] Comment on above: Result Comment: IV H eparin Therapy Range: 64.3-87.8Performed at [address] [address] Performed By: #### C BC, BMP ####[address] [address] aPTT 59.6 s High 23.0-31.0 [facility] Comment on above: Result Comment: IV H eparin Therapy Range: 64.3-87.8Performed at [address] [address] Performed By: #### C BC, BMP ####[address] [address] aPTT 65.3 s High 23.0-31.0 [facility] Comment on above: Result Comment: IV H eparin Therapy Range: 64.3-87.8Performed at [address] [address] Performed By: #### C BC, BMP ####[address] [address] Basic Metabolic Profon 04-25 (cont.) Normal [facility] Comment on above: Result Comment: Aver age GFR for 50-59 years old: 93 mL/min/1.73sq mChronic Kidney Disease: <60 mL/min/1.73sq mKidney failure: <15 mL/min/1.73sq meGFR calculated using average adult body mass. Additional eGFR calculator available at:http://www.[employer]/multiple_crcl_2012.htmPerformed at [address] [address] Performed By: #### C BC, BMP ####[address] [address] Anion gap 13 mmol/L Normal 9-17 [facility] Comment on above: Performed By: #### C BC, BMP ####[address] [address] Calcium 8.9 mg/dL Normal 8.6-10.4 [facility] Comment on above: Performed By: #### C BC, BMP ####[address] [address] Chloride 103 mmol/L Normal 98-107 [facility] Comment on above: Performed By: #### C BC, BMP ####[facility] [facility] [place] [address] CO2 23 mmol/L Normal 20-31 [facility] Comment on above: Performed By: #### C BC, BMP ####[facility] [place] [address] Creatinine 0.76 mg/dL Normal 0.70-1.20 [facility] Comment on above: Performed By: #### C BC, BMP ####[facility] [place] [address] eGFR (non-black) mL/min/{1.73_m2} Normal >60 [facility] Comment on above: Performed By: #### C BC, BMP ####[facility] [place] [address] Glucose mass conc 135 mg/dL High 70-99 [facility] Comment on above: Performed By: #### C BC, BMP ####[facility] [place] [address] Potassium molar conc 4.0 mmol/L Normal 3.7-5.3 [facility] Comment on above: Performed By: #### C BC, BMP ####[facility] [place] [address].[place] [address] Sodium 139 mmol/L Normal 135-144 [facility] Comment on above: Performed By: #### C BC, BMP ####[facility] [facility] [place] [address] Urea nitrogen 6 mg/dL Normal 6-20 [facility] Comment on above: Performed By: #### C BC, BMP ####[facility] [place] [address].[place] [address] BUN/CRE Ratio NOT REPORTED Normal 9-20 [facility] Comment on above: Performed By: #### C BC, BMP ####[address] [address] Staging: NOT REPORTED Normal [facility] Comment on above: Performed By: #### C BC, BMP ####[address] [address] CBCon 04-25-2017 Erythrocyte distribution width Auto Ratio (RBC) 14.3 % Normal 11.5-14.9 [facility] Comment on above: Performed By: #### C BC, BMP ####[address] [address] Erythrocytes (RBC) 3.77 10*6/uL Low 4.5-5.9 [facility] Comment on above: Performed By: #### C BC, BMP ####[address] [address] Hematocrit (HCT) 33.6 % Low 41-53 [facility] Comment on above: Performed By: #### C BC, BMP ####[address] [address] Hemoglobin mass conc (Bld) 11.1 g/dL Low 13.5-17.5 [facility] Comment on above: Performed By: #### C BC, BMP ####[address] [address] MCH 29.3 pg Normal 26-34 [facility] Comment on above: Performed By: #### C BC, BMP ####[address] [address] MCHC mass conc (RBC) 32.9 g/dL Normal 31-37 [facility] Comment on above: Performed By: #### C BC, BMP ####[facility] [place] [address] MCV 89.1 fL Normal 80-100 [facility] Comment on above: Performed By: #### C BC, BMP ####[facility] [place] [address] Platelet mean volume (PMV) 8.3 fL Normal 6.0-12.0 [facility] Comment on above: Result Comment: Perf ormed at [facility] [address] [place] [address] Performed By: #### C DELGADO, BMP ####[facility] [place] [address] Platelets 160 10*3/uL Normal 150-450 [facility] Comment on above: Performed By: #### C DELGADO, BMP ####[facility] [place] [address] WBC (Leukocytes) 5.7 10*3/uL Normal 3.5-11.0 [facility] Comment on above: Performed By: #### C DELGADO, BMP ####[facility] [place] [address] PTon 04-25-2017 INR Coag RelTime (PPP) 3.8 {INR} Normal [facility] Comment on above: Result Comment: Non- therapeutic Range: INR = 0.9- 1.2Therapeutic Range: Moderate Anticoagulant Intensity: INR = 2.0-3.0 High Anticoagulant Intensity: INR = 2.5-3.5Performed at [facility] [address] [place] [address] Performed By: #### C BC, BMP ####[facility] [place] [address] Prothrombin time (PT) Coag time (PPP) 44.7 s High 9.7-12.0 [facility] Comment on above: Performed By: #### C BC, BMP ####[facility] [facility] [place] [address] Serotonin Rel Assayon 2016 DESTIN Heparin Plt Ab Negative Normal Negative [facility] Comment on above: Performed By: #### C BC, BMP ####[address] [address] DESTIN Porc High Dose 0 % Normal [facility] Comment on above: Performed By: #### C BC, BMP ####[address] [address] DESTIN Porc Interp See Note Normal [facility] Comment on above: Result Comment: (NOT [...] Additionalinformation regarding diagnosis of HIT is available [email or web address].INTERPRETIVE INFORMATION: DESTIN, Unfractionated HeparinTest developed and characteristics determined by [facility]. See Compliance Statement B: [employer]/CSPerformed by [employer],[address] [place] [address] tlb.[employer], Robert Euceda MD, Lab. DirectorPerformed at [facility] [address] [place] [address] Performed By: #### C BC, BMP ####[address] [address] DESTIN Porc Low Dose 0 % Normal [facility] Comment on above: Performed By: #### C BC, BMP ####[facility] [place] [address] APTTon 04-24-2017 aPTT 54.1 s High 23.0-31.0 [facility] Comment on above: Result Comment: IV H eparin Therapy Range: 64.3-87.8Performed at [facility] [address] [facility] [place] [address] Performed By: #### C BC, BMP ####[facility] [place] [address] aPTT 57.9 s High 23.0-31.0 [facility] Comment on above: Result Comment: IV H eparin Therapy Range: 64.3-87.8Performed at [address] [facility] [place] [address] Performed By: #### C BC, BMP ####[facility] [place] [address] aPTT 50.6 s High 23.0-31.0 [facility] Comment on above: Result Comment: IV H eparin Therapy Range: 64.3-87.8Performed at [address] [facility] [place] [address] Performed By: #### C BC, BMP ####[facility] [place] [address] aPTT 54.9 s High 23.0-31.0 [facility] Comment on above: Result Comment: IV H eparin Therapy Range: 64.3-87.8Performed at [place] [address] [facility] [place] [address] Performed By: #### C BC, BMP ####[facility] [place] [address] CBCon 04-24-2017 Erythrocyte distribution width Auto Ratio (RBC) 14.7 % Normal 11.5-14.9 [facility] Comment on above: Performed By: #### C BC, BMP ####[facility] [place] [address] Erythrocytes (RBC) 3.89 10*6/uL Low 4.5-5.9 [facility] Comment on above: Performed By: #### C BC, BMP ####[facility] [place] [address] Hematocrit (HCT) 34.7 % Low 41-53 [facility] Comment on above: Performed By: #### C BC, BMP ####[facility] [place] [address] Hemoglobin mass conc (Bld) 11.4 g/dL Low 13.5-17.5 [facility] Comment on above: Performed By: #### C BC, BMP ####[facility] [place], [place] [address]e [facility] [place] [address] MCH 29.3 pg Normal 26-34 [facility] Comment on above: Performed By: #### C BC, BMP ####[facility] [facility] [place] [address] MCHC mass conc (RBC) 32.9 g/dL Normal 31-37 [facility] Comment on above: Performed By: #### C BC, BMP ####[facility] [place] [address] MCV 89.2 fL Normal 80-100 [facility] Comment on above: Performed By: #### C BC, BMP ####[facility] [place] [address] Platelet mean volume (PMV) 8.8 fL Normal 6.0-12.0 [facility] Comment on above: Result Comment: Perf ormed at [address] [address] Performed By: #### C BC, BMP ####[address] [address] Platelets 168 10*3/uL Normal 150-450 [facility] Comment on above: Performed By: #### C BC, BMP ####[address] [address] WBC (Leukocytes) 6.7 10*3/uL Normal 3.5-11.0 [facility] Comment on above: Performed By: #### C BC, BMP ####[address] [address] PTon 04-24-2017 INR Coag RelTime (PPP) 2.5 {INR} Normal [facility] Comment on above: Result Comment: Non- therapeutic Range: INR = 0.9- 1.2Therapeutic Range: Moderate Anticoagulant Intensity: INR = 2.0-3.0 High Anticoagulant Intensity: INR = 2.5-3.5Performed at [address] [address] Performed By: #### C BC, BMP ####[address] [address] Prothrombin time (PT) Coag time (PPP) 28.9 s High 9.7-12.0 [facility] Comment on above: Performed By: #### C BC, BMP ####[address] [address] [place] 04-23-2017 Alanine aminotransferase (ALT) 64 U/L High 5-41 [facility] Comment on above: Result Comment: Perf ormed at [address] [place] [address] Performed By: #### C BC, ALT, AST, BMP ####[address] [address] APTTon 04-23-2017 aPTT 61.5 s High 23.0-31.0 [facility] Comment on above: Result Comment: IV H eparin Therapy Range: 64.3-87.8Performed at [address] [address] Performed By: #### C BC, BMP ####[address] [place] [address] aPTT 54.1 s High 23.0-31.0 [facility] Comment on above: Result Comment: IV H eparin Therapy Range: 64.3-87.8Performed at [address] [address] Performed By: #### C BC, BMP ####[address] [place] [address] aPTT 29.0 s Normal 23.0-31.0 [facility] Comment on above: Result Comment: IV H eparin Therapy Range: 64.3-87.8Specimen ClottedDISREGARD RESULTS. SPECIMEN CLOTTED.Performed at [address] [address] Performed By: #### P TT ####[address] [address] aPTT 54.8 s High 23.0-31.0 [facility] Comment on above: Result Comment: IV H eparin Therapy Range: 64.3-87.8Performed at [address] [address] Performed By: #### C BC, BMP ####[address] [address] aPTT 55.3 s High 23.0-31.0 [facility] Comment on above: Result Comment: IV H eparin Therapy Range: 64.3-87.8Performed at [address] [address] Performed By: #### P TT ####[address] [address] aPTT 57.5 s High 23.0-31.0 [facility] Comment on above: Result Comment: IV H eparin Therapy Range: 64.3-87.8Performed at [address] [address] Performed By: #### P TT ####[address] [address] T[place] 04-23-2017 Aspartate aminotransferase (AST) 22 U/L Normal <40 [facility] Comment on above: Result Comment: Perf ormed at [address] [address] Performed By: #### C BC, ALT, AST, BMP ####[address] [address] Basic Metabolic Profon 04-23 (cont.) Normal [facility] Comment on above: Result Comment: Aver age GFR for 50-59 years old: 93 mL/min/1.73sq mChronic Kidney Disease: <60 mL/min/1.73sq mKidney failure: <15 mL/min/1.73sq meGFR calculated using average adult body mass. Additional eGFR calculator available at:http://www.[employer]/multiple_crcl_2012.htmPerformed at [address] [address] Performed By: #### C BC, ALT, AST, BMP ####[address] [address] Anion gap 14 mmol/L Normal 9-17 [facility] Comment on above: Performed By: #### C BC, ALT, AST, BMP ####[address] [address] Calcium 8.8 mg/dL Normal 8.6-10.4 [facility] Comment on above: Performed By: #### C BC, ALT, AST, BMP ####[address] [address] Chloride 101 mmol/L Normal 98-107 [facility] Comment on above: Performed By: #### C BC, ALT, AST, BMP ####[address] [address] CO2 25 mmol/L Normal 20-31 [facility] Comment on above: Performed By: #### C BC, ALT, AST, BMP ####[address] [address] Creatinine 0.73 mg/dL Normal 0.70-1.20 [facility] Comment on above: Performed By: #### C BC, ALT, AST, BMP ####[address] [address] eGFR (non-black) mL/min/{1.73_m2} Normal >60 [facility] Comment on above: Performed By: #### C BC, ALT, AST, BMP ####[address] [address] Glucose mass conc 143 mg/dL High 70-99 [facility] Comment on above: Performed By: #### C BC, ALT, AST, BMP ####[address] [address] Potassium molar conc 4.3 mmol/L Normal 3.7-5.3 [facility] Comment on above: Performed By: #### C BC, ALT, AST, BMP ####[address] [address] Sodium 140 mmol/L Normal 135-144 [facility] Comment on above: Performed By: #### C BC, ALT, AST, BMP ####[address] [address] Urea nitrogen 5 mg/dL Low 6-20 [facility] Comment on above: Performed By: #### C BC, ALT, AST, BMP ####[address] [address] BUN/CRE Ratio NOT REPORTED Normal 9-20 [facility] Comment on above: Performed By: #### C BC, ALT, AST, BMP ####[address] [address] Staging: NOT REPORTED Normal [facility] Comment on above: Performed By: #### C BC, ALT, AST, BMP ####[address] [address] CBCon 04-23-2017 Erythrocyte distribution width Auto Ratio (RBC) 14.5 % Normal 11.5-14.9 [facility] Comment on above: Performed By: #### C BC, ALT, AST, BMP ####[address] [address] Erythrocytes (RBC) 3.65 10*6/uL Low 4.5-5.9 [facility] Comment on above: Performed By: #### C BC, ALT, AST, BMP ####[facility] [facility] [place] [address] Hematocrit (HCT) 32.4 % Low 41-53 [facility] Comment on above: Performed By: #### C BC, ALT, AST, BMP ####[address] [address] Hemoglobin mass conc (Bld) 10.6 g/dL Low 13.5-17.5 [facility] Comment on above: Performed By: #### C BC, ALT, AST, BMP ####[address] [address] MCH 29.1 pg Normal 26-34 [facility] Comment on above: Performed By: #### C BC, ALT, AST, BMP ####[address] [address] MCHC mass conc (RBC) 32.9 g/dL Normal 31-37 [facility] Comment on above: Performed By: #### C BC, ALT, AST, BMP ####[address] [address] MCV 88.6 fL Normal 80-100 [facility] Comment on above: Performed By: #### C BC, ALT, AST, BMP ####[address] [address] Platelet mean volume (PMV) 8.1 fL Normal 6.0-12.0 [facility] Comment on above: Result Comment: Perf ormed at [facility] [address] [place] [address] Performed By: #### C BC, ALT, AST, BMP ####[address] [address] Platelets 160 10*3/uL Normal 150-450 [facility] Comment on above: Performed By: #### C BC, ALT, AST, BMP ####[facility] [facility], [place] [address] WBC (Leukocytes) 6.9 10*3/uL Normal 3.5-11.0 [facility] Comment on above: Performed By: #### C BC, ALT, AST, BMP ####[facility] [facility] [place] [address] CONSULTATIONon 04-23-2017 CONSULTATION [facility] [address] [place] [id number] CONSULTATIONPATIENT NAME: MIKEL SAMUELS : 1960MED REC NO: [id number] [id number] ADMISSION DATE:04/22/2017PROVIDER: Lala MitchellCONSULT DATE: 04/23/2017BED: #1.HISTORY [...] regarding the above.LALA NICOLASMAND: 04/23/2017 11:16:27 GC/Tino_OPSKU_TJob#: [id number] Doc#: [id number] Normal [facility] OPERATIVE REPORTon 7 OPERATIVE REPORT [facility] [address] [place] [id number] OPERATIVE REPORTPATIENT NAME: MIKEL SAMUELS : 1960MED REC NO: [id number] [id number] ADMISSION DATE:04/22/2017PROVIDER: Lala Munoz OF PROCEDURE: 04/23/2017BED: #1PREOPERATIVE DIAGNOSES:1. Stridor.2. Indwelling [...] to assess the airway prior to decannulation consideration.FINDINGS:1 . A cuffed, fenestrated standard size 4 Shiley [...] blood in stablecondition.LALA NICOLASMAND: 04/23/2017 11:20:29 MILAD/Tino_OPSKU_TJob#: [id number] Doc#: [id number] Normal [facility] PTon 04-23-2017 INR Coag RelTime (PPP) 2.5 {INR} Normal [facility] Comment on above: Result Comment: Non- therapeutic Range: INR = 0.9- 1.2Therapeutic Range: Moderate Anticoagulant Intensity: INR = 2.0-3.0 High Anticoagulant Intensity: INR = 2.5-3.5Performed at [address] [address] Performed By: #### C BC, BMP ####[address] [address] Prothrombin time (PT) Coag time (PPP) 28.5 s High 9.7-12.0 [facility] Comment on above: Performed By: #### C BC, BMP ####[address] [address] APTTon 04-22-2017 aPTT 55.5 s High 23.0-31.0 [facility] Comment on above: Result Comment: IV H eparin Therapy Range: 64.3-87.8Performed at [address] [address] Performed By: #### P TT ####[address] [place] [address] aPTT 55.7 s High 23.0-31.0 [facility] Comment on above: Result Comment: IV H eparin Therapy Range: 64.3-87.8Performed at [address] [address] Performed By: #### P TT ####[address] [address] [facility] [place] [address] aPTT 48.8 s High 23.0-31.0 [facility] Comment on above: Result Comment: IV H eparin Therapy Range: 64.3-87.8Performed at [facility] [address] [facility] [place] [address] Performed By: #### P TT ####[facility] [facility] [place] [address] aPTT 48.9 s High 23.0-31.0 [facility] Comment on above: Result Comment: IV H eparin Therapy Range: 64.3-87.8Performed at [facility] [address] [place] [address] Performed By: #### C BC, BMP ####[facility] [place] [address] aPTT 51.0 s High 23.0-31.0 [facility] Comment on above: Result Comment: IV H eparin Therapy Range: 64.3-87.8Performed at [facility] [address] [place] [address] [place] [address] Performed By: #### C BC, BMP ####[facility] [place] [address] aPTT 41.8 s High 23.0-31.0 [facility] Comment on above: Result Comment: IV H eparin Therapy Range: 64.3-87.8Performed at [address] [place] [address] Performed By: #### C BC, BMP ####[facility] [place] [address] aPTT 47.1 s High 23.0-31.0 [facility] Comment on above: Result Comment: IV H eparin Therapy Range: 64.3-87.8Performed at [facility] [address] [facility] [place] [address] Performed By: #### C BC, BMP ####[facility] [place] [address] aPTT 48.0 s High 23.0-31.0 [facility] Comment on above: Result Comment: IV H eparin Therapy Range: 64.3-87.8Performed at [facility] [address] [facility] [place] [address] Performed By: #### C BC, BMP ####[facility] [place] [address] CBCon 04-22-2017 Erythrocyte distribution width Auto Ratio (RBC) 14.5 % Normal 11.5-14.9 [facility] Comment on above: Performed By: #### C BC, BMP ####[facility] [place] [address].[place] [address] Erythrocytes (RBC) 3.63 10*6/uL Low 4.5-5.9 [facility] Comment on above: Performed By: #### C BC, BMP ####[facility] [facility] [place] [address] Hematocrit (HCT) 32.2 % Low 41-53 [facility] Comment on above: Performed By: #### C BC, BMP ####[facility] [facility] [place] [address] Hemoglobin mass conc (Bld) 10.7 g/dL Low 13.5-17.5 [facility] Comment on above: Performed By: #### C BC, BMP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 3. Do not drink alcoholic beverages for 24 hours. 4. Do not smoke tobacco products for 24 hours. 5. Eat light foods (Jell-O, soups, etc....) and drink plenty of fluids (water, Sprite, etc...) up to 8 glasses per day, as you can tolerate. 6. Limit your activities for 24 hours. Do not engage in heavy work until your surgeon gives you permission. 7. Patient should not be left alone for 12-24 hours following surgical procedure. 8. Wash hands before and after incision care. It is important to practice good personal hygiene during the post op period. 9. Call your surgeon for any questions regarding your surgery. CYSTOSCOPY DISCHARGE INSTRUCTIONS Possible burning during urination and/or blood tinged urine. Drink 6-8 glasses of water for the next day or so. (This helps to flush the urinary tract.) Call Dr. Leung ([phone]) if you develop: Fever over 100 degrees Prolonged soreness/pain Unusual bleeding/bruising Unable to urinate or if urine is bloody You cannot pass urine 8 hours after the test. You have pain in your belly or your back just below your rib cage. (This is called flank pain.) You have frequent urge to urinate but can pass only small amounts of urine. Call Dr. Leung office for follow-up appointment ([phone]). documented in this encounter [facility] 03-07-2024 History of Present illness Narrative Images [...] extremity including shoulder Right Shoulder - Posterior [place] macule at biopsy site Destr of lesion Complexity: simple Destruction method: electrodesiccation and curettage Informed consent: discussed and consent obtained Informed consent comment: The risks of the procedure were discussed, including, but not limited to risks of scarring, darker or coin machine service repairer pigmentary changes, recurrence, infection, and incomplete removal [...] lidocaine used: 2.0 cc Previous accession number: [id number] Emphasized to return to clinic for any signs of recurrence prior to next visit. 2. Basal cell carcinoma (BCC) of skin of left upper extremity including shoulder Left Upper Arm - Anterior [place] macule at biopsy site Destr of lesion Complexity: simple Destruction method: electrodesiccation and curettage Informed consent: discussed and consent obtained Informed consent comment: The risks of the procedure were discussed, including, but not limited to risks of scarring, darker or coin machine service repairer pigmentary changes, recurrence, infection, and incomplete removal [...] lidocaine used: 2.0 cc Previous accession number: [id number] Emphasized to return to clinic for any signs of recurrence prior to next visit. Next Visit: 6 months documented in this encounter [facility] 11-19-2023 Note Chief Complaint consultation for skin lesion HPI Staff 63 year old male presents on consultation from Clotilde Maciel for posterior scalp lesion. Verbalized department chair noted lesion approximately 6 weeks ago. Reports lesion has significantly increased in size since first noted. Reports minimal soreness. Denies bleeding or drainage. History of Present Illness 63 yo male with h/o TBI, DMII, DVT, ADHD, FREDDY referred for enlarging scalp lesion; noticed by Oswald 6 weeks ago, no bleeding or pain, [...] 08/25/2021 Tobacco Never (more content not included)... [facility] Comment on above: Result Comment: Elec tronically Signed By: Shirin MEYER MD\Date and Time Signed: 11/19/23 09:58 EDT 09-13-2023 [...] urethra. Follow these instructions at home: Take hjxr-asp-bmkimwn and prescription medicines only as told by [...] provider. Document Revised: 01/20/2022 Document Reviewed: 01/20/2022 [employer] Patient Education 2022 [employer]. Follow Up Care 09/08/2022 10:50:32 With:MIGNON MCCANN PA-C, URL Address: [address] [place], [place] [address] [address] When: Unknown [facility] 09-08-2022 Hospital Discharge instructions Patient Education [...] urethra. Follow these instructions at home: Take rzla-atw-vmtgbka and prescription medicines only as told by [...] 07/04/2006 Document Revised: 05/29/2019 Document Reviewed: 08/08/2017 [employer] Patient Education 2020 [employer]. Follow Up Care 09/01/2021 08:53:17 With:Arvind Linda MD, Levi Welsh, URO Address: [facility] [address] , [place] [address]- When: Unknown [facility] 08-04-2022 Note OPERATIVE NOTE OPERATION DATE: [...] the excision was 2.5 cm. CC: Diallo Maciel M.D. [facility] Evaluation + Plan note Future Appointments Appointment Date:09/07/2022 08:00:00 AM Scheduled Provider:Levi Samuels Jr., MD Location:[facility] Appointment Type:URO Office Visit [facility] Evaluation + Plan note Future Appointments Appointment Date:09/13/2023 08:30:00 AM Scheduled Provider:MIGNON MCCANN PA-C Location:[facility] Appointment Type:URO Office Visit Diagnostic Tests PendingPSA Total 09/08/22 [facility] Evaluation + Plan note Future Appointments Appointment Date:09/18/2024 08:20:00 AM Scheduled Provider:MIGNON MCCANN PA-C Location:[facility] Appointment Type:URO Office Visit Diagnostic Tests PendingPSA Total 05/18/24 [facility] Evaluation + Plan note Future Appointments Appointment Date:11/23/2023 03:00:00 PM Scheduled Provider:Shirin MEYER MD Location:[facility] Appointment Type: Established 15 Appointment Date:09/18/2024 08:20:00 AM Scheduled Provider:MIGNON MCCANN PA-C Location:[facility] Appointment Type:URO Office Visit [facility] Evaluation + Plan note Future Appointments Appointment Date:09/18/2024 08:20:00 AM Scheduled Provider:MIGNON MCCANN PA-C Location:[facility] Appointment Type:URO Office Visit [facility] Evaluation note No assessment inform ation available [facility] Work Phone: Evaluation note Diagnosis Renal calculus Calculus of kidney documented in this encounter [facility] HealthEvaluation note* Diagnosis Neoplasm of unspecified behavior of bone, soft tissue, and skin- Primary Other specified erythematous conditions Common wart Other specified viral warts Actinic keratosis documented in this encounter [facility] HealthcareEvaluation note* Diagnosis Basal cell carcinoma (BCC) of skin of right upper extremity including shoulder- Primary Basal cell carcinoma (BCC) of skin of left upper extremity including shoulder documented in this encounter [facility] HealthcareEvaluation note* Diagnosis Ureteral calculus- Primary Calculus of ureter documented in this encounter [facility] Diagnosis RUQ abdominal pain Abdominal pain, right upper quadrant documented in this encounter [facility] Narrative No data available for this section [facility] Discharge instructions No data available for this section General Surgery [facility] Progress note No data available for this section General Surgery [facility] Summary Purpose Family History No Family History [...] Comments 04/13/2017 1:26 PM 04/13/2017 1:37 PM Date Activated Date Inactivated Comments 03/13/2024 10:56 AM Date Activated Date Inactivated Comments 11/15/2023 2:55 [...] Comments 04/13/2017 1:26 PM 04/13/2017 1:37 PM Date Activated Date Inactivated Comments 03/13/2024 10:56 AM 03/13/2024 4:59 PM Reason for Referral Specialty Diagnoses / Procedures Referred By Contac t Referred To Contact Radiology Diagnoses RUQ abdominal pain Procedures NM HEPATOBILIARY SCAN W EJECTION FRACTION Diallo Maciel MD [address] [place] [address] Referral ID Status Reason Start Date Expiration Date Visits Re quested Visits Authorized [id number] Closed 08/06/2024 08/06/2025 1 1 Additional Source Comments (unrecognized sect ion and content) No Status Records FoundNo Status Records FoundNo Status Records FoundNo Status Records FoundNo Status Records FoundNo Status Records FoundNo Status Records FoundNo Status Records Found INFORMATION SOURCE (unrecogn ized section and content) DATE CREATED AUTHOR 01/10/2018 [facility] DATE CREATED AUTHOR AUTHOR'S ORGANIZ ATION 06/25/2018 [facility] DATE CREATED AUTHOR AUTHOR'S ORGANIZ ATION 02/25/2020 [facility] DATE CREATED AUTHOR AUTHOR'S ORGANIZ ATION 09/10/2022 [facility] DATE CREATED AUTHOR AUTHOR'S ORGANIZ ATION 12/28/2023 [facility] DATE CREATED AUTHOR AUTHOR'S ORGANIZ ATION 06/08/2024 [facility] DATE CREATED AUTHOR AUTHOR'S ORGANIZ ATION 07/04/2024 [facility] EPIC DATE CREATED AUTHOR AUTHOR'S ORGANIZ ATION 08/13/2024 [facility] Patient Care team informatio n (unrecognized section and content) Team Status: Inactive Member Role Status Dates Shirin Meyer MD [facility] Attending Provider Active Start: November 16, 2023 End: November 16, 2023 Team Status: Inactive Member Role Status Dates Gary Varela MD Attending Provider Active Start: December 14, 2023 End: December 14, 2023 Senior Structural Engineer Relationship Specialty Start Date End Date Diallo Maciel MD [address] [place] [address] PCP - General Family Medicine 03/23/17 Senior Structural Engineer Relationship Specialty Start Date End Date Diallo Maciel MD [address] [place] [address] PCP - General Family Medicine 03/23/17 Senior Structural Engineer Relationship Specialty Start Date End Date Diallo Maciel MD [address] [id number] PCP - General Family Medicine 03/23/17 Senior Structural Engineer Relationship Specialty Start Date End Date Diallo Maciel MD [address] [place] [address] PCP - General Family Medicine 03/23/17 Goals (unrecognized section and content) Goals may be documented in a n alternate section Reason for Visit (unrecogniz ed section and content) Reason Comments Follow-up Specialty Diagnoses / Procedures Referred By Beth t Referred To Contact Diagnoses Ureteral calculus Ureteral calculus [N20.1] Procedures DE LITHOTRIPSY XTRCORP SHOCK WAVE EXTRACORPOREAL SHOCK WAVE LITHOTRIPSY Salvador Leung MD [address], [address] [place] [address] [facility] [address] [place] [address] Referral ID Status Reason Start Date Expiration Date Visits Re quested Visits Authorized [id number] 1 1 Specialty Diagnoses / Procedures Referred By Beth haynes Referred To Contact Radiology Diagnoses RUQ abdominal pain Procedures NM HEPATOBILIARY SCAN W EJECTION FRACTION Diallo Maciel MD [address] [place] [address] Referral ID Status Reason Start Date Expiration Date Visits Re quested Visits Authorized [id number] Closed 08/06/2024 08/06/2025 1 1 Scheduled Active and Recently Administ ered Medications (unrecognized section and content) Medication Order 03/11/2024 03/12/2024 03/13/2024 acetaminophen (TYLENOL) tablet 650 mg (COMPLETED) 650 mg, Oral, ONCE, 1 dose, On Tue03/13/24 at 1115, Maximum dose of acetaminophen is 4000 mg from all sources in 24 hours., Pre-op (day of surgery) 1128 (Given - Provid er: Linda Moreau RN) ceFAZolin (ANCEF) 3000 mg in sodium chloride 0.9% 100 mL IVPB (COMPLETED) 3,000 mg, IntraVENous, BATH MIXER TO O.R., 1 dose, On Tue03/13/24 at 1115, Antimicrobial Indications: Surgical Prophylaxis, Administer within 1 hour prior to incision. Repeat in 2 hours after initial dose if still intra-op., Pre-op (day of surgery) 1252 (New Bag - Prov ider: Britt Chavez RN)1322 (Due: Stopped - Provider: Britt Chavez RN) dimenhyDRINATE (DRAMAMINE) tablet 50 mg (COMPLETED) 50 mg, Oral, ONCE, 1 dose, On Tue03/13/24 at 1115, Pre-op (day of surgery) 1129 (Given - Provid er: Linda Moreau RN) sodium chloride flush 0.9 % injection 5-40 mL 5-40 mL, IntraVENous, EVERY 12 HOURS SCHEDULED (2 times per day), First dose on Tue03/13/24 at 2100, Until Discontinued, For Line Patency: Peripheral IV = 5 mL; Midline or Central Line = 10 mL/lumen. If following IV push medication, administer flush at same rate as the IV push. Flush volume is determined by type of infusion therapy being given. For non-viscous solutions use: Peripheral IV = 5 mL Midline or Central Line = 10 mL/lumen For viscous solutions (i.e. blood components, parenteral nutrition, contrast media, or after obtaining blood sample) use: Peripheral IV = 10 mL Midline or Central Line = 20 mL/lumen, PACU only 2100 (Due) Continuous Medication Order 03/11/2024 03/12/2024 03/13/2024 lactated ringers IV soln infusion IntraVENous, at 100 mL/hr, CONTINUOUS, Starting on Tue03/13/24 at 1115, Pre-op (day of surgery) 1130 (New Bag - Prov ider: Linda Moreau RN)1254 (NoRateChange - Provider: MARTY Cook IMAGING ASSISTANT)1331 (Stopped - Provider: MARTY Cook IMAGING ASSISTANT)1440 (Stopped - Provider: Ekta Yadav RN) PRN Medication Order 03/11/2024 03/12/2024 03/13/2024 0.9 % sodium chloride infusion IntraVENous, at 5-250 mL/hr, PRN, if patient receiving piggyback infusions and maintenance fluids are not ordered OR KVO fluids to protect IV site / prevent frequent line interruptions/ long duration, Starting on Tue03/13/24 at 1403, For piggyback infusion, administer at same rate as piggyback for a total of 25 mL. Enter 25 mL into dose field and piggyback rate into rate field of order. If piggyback is infusing at a rate less than 100 mL/hr, enter 25 mL into dose field and 100 mL/hr into rate field of order. For KVO fluids, enter rate of 20 mL/hr or less into rate field of order., PACU only fentaNYL (SUBLIMAZE) injection 50 mcg 50 mcg, IntraVENous, EVERY 5 MIN PRN, 2 doses, Starting on Tue03/13/24 at 1403, Until Discontinued, Pain Severe (7-10), Pain Moderate (4-6), For Phase I. If Phase II oral narcotics have been administered in the last 60 minutes, do not administer IV narcotics unless specifically approved by provider., PACU only HYDROcodone-acetaminophen (NORCO) 5-325 MG per tablet 1 tablet 1 tablet, Oral, EVERY 6 HOURS PRN, Starting on Tue03/13/24 at 1403, Until Discontinued, Pain Moderate (4-6), Pain Severe (7-10), Maximum dose of acetaminophen is 4000 mg from all sources in 24 hours., PACU & Post-op lidocaine (XYLOCAINE) 2 % uro-jet (CANCELED) PRN, Starting on Tue03/13/24 at 1308, Intra-op 1308 (Given - Provid er: Salvador Leung MD) naloxone 0.4 mg in 10 mL sodium chloride syringe IntraVENous, PRN, Opioid Reversal, Starting on Tue03/13/24 at 1403, PRN if respiratory rate is less than 6/min and patient is difficult to arouse then notify physician STAT. Mix 9 mL of sodium chloride 0.9% with 0.4 mg (1 mL) of naloxone (NARCAN) in 10 mL syringe. (Note: dilution is 0.04 mg/mL) Give 0.08 mg (2 mL of special dilution), slow IV push, repeat up to 0.4 mg (10 mL) or until patient is responsive to physical stimulation and respiratory rate is equal to or greater than 6 breaths/min. Continue to observe, if no response within 3 minutes of administration of 0.4 mg (10 mL) total, repeat dose (0.4 mg as administered previously). Concentration 0.04 mg/mL, PACU only sodium chloride flush 0.9 % injection 5-40 mL 5-40 mL, IntraVENous, PRN, Starting on Tue03/13/24 at 1403, Until Discontinued, Line Care, After every IV line use, For Line Patency: Peripheral IV = 5 mL; Midline or Central Line = 10 mL/lumen. If following IV push medication, administer flush at same rate as the IV push. Flush volume is determined by type of infusion therapy being given. For non-viscous solutions use: Peripheral IV = 5 mL Midline or Central Line = 10 mL/lumen For viscous solutions (i.e. blood components, parenteral nutrition, contrast media, or after obtaining blood sample) use: Peripheral IV = 10 mL Midline or Central Line = 20 mL/lumen, PACU only FOR RECORDS PERTAINING TO PATIENTS WHO ARE [...] BE BASED ON THE PRIMARY CLINICAL RECORDS. [facility]. provides no warranty or guarantee of the accuracy or completeness of information in this document.
[2024-08-27 09:14] LABS: Estimated GFR (African America >60 (>=60 mL/min/1.73m^2); Estimated GFR (Non-African Ame >60 (>=60 mL/min/1.73m^2)
--- NOTE | 2024-08-27 10:05 | CT_ITS ---
[address] [address] Patient Name: MIKEL CALDERON MRN: [id number] date: 1960 Sex: M Assigned Patient Location: LAB Current Patient Location: Accession/Order Number: [id number] Exam Date: 08/27/2024 09:55 Report Date: 08/28/2024 05:56 At the request of: DIALLO MACIEL Procedure: CT abdomen pelvis w con EXAMINATION: CT abdomen pelvis w con HISTORY: Right Upper Quadrant Pain COMPARISON: CT abdomen pelvis 11/14/2023 TECHNIQUE: Axial, Coronal, and Sagittal images were obtained without and/or with IV contrast as indicated by examination type. Dose reduction techniques were achieved by using automated exposure control and/or adjustment of mA and/or kV according to patient size and/or use of iterative reconstruction technique. FINDINGS: LUNG BASES: No visible pulmonary or pleural disease. LIVER: Mild fatty infiltration. No enlargement, atrophy, suspicious density, or significant focal lesion. BILIARY: No dilatation or calcification. PANCREAS: No lesion, fluid collection, or abnormal duct dilatation. SPLEEN: No enlargement or focal lesion. ADRENALS: No mass or enlargement. KIDNEYS: Several small nonobstructing stones within kidneys bilaterally up to 5 mm in size. 2 mm stone within distal ureter at the ureterovesical junction versus just into the urinary bladder. No abnormal dilation of the ureter. BOWEL/MESENTERY: No visible mass, obstruction, or bowel wall thickening. Normal appendix. AORTA/VASCULAR: No aneurysm or dissection. RETROPERITONEUM: No mass or adenopathy. LYMPH NODES: No adenopathy. URINARY BLADDER: No visible focal wall thickening, lesion, or calculus. PELVIC ORGANS: No visible mass. Pelvic organs appropriate for patient age. ABDOMINAL WALL: No mass or hernia. BONES: No bony lesion or fracture. OTHER: Negative. CT/CT abdomen pelvis w con IMPRESSION: 1. Bilateral nonobstructing nephrolithiasis. 2. There is a 2 mm stone suspected be within the distal right ureter protruding into the urinary bladder. Electronically authenticated by: KATI CASTRO Date: 08/28/2024 05:56
== END 2024-08-27 08:44 | disposition home or self-care (01) ==
LOC: LAB 08:43
PROVIDERS: PCP Family Medicine; Visit Provider Family Medicine
DX: Z01.812 Encounter for preprocedural laboratory examination (principal); R10.11 Right upper quadrant pain; N20.0 Calculus of kidney; N20.1 Calculus of ureter
CPT/HCPCS: 36415; 74177; 82565; Q9967

== ENCOUNTER 2024-12-20 10:06 | Outpatient (OUT) | payer OTHER, SELFPAY ==
--- OUTSIDE RECORDS SUMMARY | 2024-12-20 10:29 | XMS_ITS | CCD ---
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 Gary Varela MD ENTERED: 10/03/24 [facility] DR: NICO TYPE: Surgical DEPT: S ENTERED BY: [id number] RECV BY: [id number] ORDERED: HE/5, Gross/Micro L4 ORDERED: HE/5, Gross/Micro L4 Pathological Diagnosis Skin, left preauricular area, reexcision: -Large postbiopsy scar with 1 small residual focus of basal cell carcinoma of the nodular type -The surrounding skin showing patchy mild actinic effect with patchy minute foci of mild actinic keratosis with minor extension to the bilateral tips as well -All margins are otherwise also negative for malignancy or any high-grade atypia Clinical Information C44.219 Basal cell carcinoma left ear, nonhealing lesion, re-excisional biopsy Gross Description Part A is received in formalin labeled with the patients name, date of , and left preauricular is a riley-monzon, wrinkled, hairbearing, unoriented ellipse of skin, 2.9 x 1.6 cm, excised to depth of 0.4 cm. Eccentrically located on the skin is a riley-pink, ill- defined smooth scar, 1 x 0.9 cm that is outlined by a circumferential rim of blue dye and situated 0.2 cm from the closest margin. One half of the specimen is inked black with the opposing half inked green. Serial sections reveal yellow-monzon, glistening, and uniform cut surfaces with a deep margin situated 0.4 cm from the scar. The specimen is entirely submitted progressing from the pole large tip closest to the scar to the polar tip furthest from the scar in A1?A5, respectively. Cassettes: Specimen: [id number] Received: 10/03/24 Status: JAZMINEMagdi Hernandes Num: [id number] Spec Type: Surgical Subm Dr: Gary Varela MD Tissues: A Skin-Other than Cyst, tag, debridement or plastic repair (LEFT PREAURIC) Procedures: HE/Tona, Sukhwinder/Dorinda L4 Patient: Mikel Samuels [id number] (Continued) Specimen: [id number] Received: 10/03/24 (Continued) Gross Description (Continued) Signed (signature on file) Leonel Mendoza MD 10/04/24 1409 Specimen: [id number] Received: 10/03/24 Status: UYEN Littlecyn Num: [id number] Spec Type: Surgical Subm Dr: Gary Varela MD Tissues: A Skin-Other than Cyst, tag, debridement or plastic repair (LEFT PREAURIC) Procedures: HE/5, Gross/Micro L4 Patient: Mikel Samuels [id number] (Continued) Specimen: [id number] Received: 10/03/24 (Continued) Gross Description (Continued) A1 Bisected polar tip closest to scar A2 2 full-thickness cross-sections A3 1 full-thickness cross-section A4 2 full-thickness cross-sections A5 Bisected polar tip furthest from scar (5, ns, [id number] A)DANIEL Microscopic Description Microscopic examination is performed CPT Codes 10564 Specimen: [id number] Received: 10/03/24 Status: UYEN Hernandes Num: [id number] Spec Type: Surgical Subm Dr: Gary Varela MD Tissues: A Skin-Other than Cyst, tag, debridement or plastic repair (LEFT PREAURIC) Procedures: /Tona, Gross/Micro L4 Patient: Mikel Samuels [id number] (Continued) Signed (signature on file) Leonel Mendoza MD 10/04/24 1287 Normal [facility] Pathology study report docum entOrdered By: Leonel Mendoza on 09-20-2024 Pathology study [facility] Other Kiran 09-19-2024 L ----- Specimen: [id number] Received: 09/19/24 Status: UYEN Hernandes Num: [id number] Spec Type: Surgical Subm Dr: Gary Varela MD Tissues: A Skin-Other than Cyst, tag, debridement or plastic repair (RIGHT PREAURICULAR Procedures: HE/2 Gross/Dorinda L4 Age/ Patient Sex Location Account Attending Physician Mikel Samuels/[place] [id number] Gary Varela MD SPEC NUM: [id number] RECD: 09/19/24 STATUS: UYEN HERNANDES NUM: [id number] ASA: 03/05/25-[address]: Gary Varela MD ENTERED: 09/19/[address] [facility] DR: SPEC TYPE: Surgical DEPT: S ENTERED BY: [id number] RECV BY: [id number] ORDERED: HE/2, Gross/Micro L4 ORDERED: HE/2, Gross/Micro L4 Pathological Diagnosis Skin, right preauricular, reexcision: -Postbiopsy scar without residual malignancy -All margins are also negative for malignancy, squamous atypia, or scar portion -Incidental mild actinic effect of the surrounding epidermis in tips Clinical Information C44.319 Basal cell carcinoma of right ear, nonhealing lesion re-excisional biopsy Gross Description Part A is received in formalin labeled with the patients name, date of , and right preauricular is a riley-monzon, wrinkled, unoriented ellipse of skin, 1 x 2 cm, excised to depth of 0.5 cm. Eccentrically located on the skin is a pale pink smooth scar, 0.4 x 0.3 cm that is situated 0.3 cm from the closest margin and outlined by 2 circumferential rims of blue dye. Serial sections reveal yellow-monzon, glistening and uniform cut surfaces with deep margin situated 0.5 cm from the scar. The bisected polar tips are submitted in A1 with the trisected center the specimen submitted in A2. (2, ns, [id number] A)DANIEL Specimen: [id number] Received: 09/19/24 Status: UYEN Greta Num: [id number] Spec Type: Surgical Subm Dr: Gary Varela MD Tissues: A Skin-Other than Cyst, tag, debridement or plastic repair (RIGHT PREAURICULAR Procedures: HE/2, Gross/Micro L4 Patient: Mikel Samuels [id number] (Continued) Specimen: [id number] Received: 09/19/24 (Continued) Signed (signature on file) Leonel Mendoza MD 09/20/24 1714 Specimen: [id number] Received: 09/19/24 Status: UYEN Hernandes Num: [id number] Spec Type: Surgical Subm Dr: Gary Varela MD Tissues: A Skin-Other than Cyst, tag, debridement or plastic repair (RIGHT PREAURICULAR Procedures: JUSTIN/2, Sukhwinder/Dorinda L4 Patient: Mikel Samuels [id number] (Continued) Specimen: [id number] Received: 09/19/24 (Continued) Microscopic Description Microscopic examinations are performed supporting the above interpretation CPT Codes 84238 Specimen: [id number] Received: 09/19/24 Status: UYEN Hernandes Num: [id number] Spec Type: Surgical Subm Dr: Gary Varela MD Tissues: A Skin-Other than Cyst, tag, debridement or plastic repair (RIGHT PREAURICULAR Procedures: HE/Elmer Gross/Micro L4 Patient: Mikel Samuels [id number] (Continued) Signed (signature on file) Leonel Mendoza MD 09/20/24 1714 Normal [facility] Urology Office/Clinic Noteon 09-18-2024 Urology Office/Clinic Note Urology Office/Clinic Note Chief Complaint 1 yr w/ PSA HPI Staff 1 year f/u with PSA. Could not find a recent PSA on [employer]. PSA have been low and stable. PSA: 08/28/21 - 0.5 09/06/22 - 0.35 07/14/23 - 0.32 Tadalafil 20 PRN, pt needs refill on this pt did have kidney stones, and was treated in [facility] pt denies any urinary issues at this time, all kidney stones are removed Review of Systems PHQ Score Initial Depression Screen Score: 0 SCORE no fever, chills, malaise, myalgia. no rash/lesions. no chest pain, palpitations, or SOB. no abdominal pain, nausea, vomiting. Physical Exam Vitals & Measurements T: 37 ???C(Oral) HR: 92(Peripheral) RR: 18 BP: 156/92 HT: 70 in HT: 177 cm WT: 118 kg WT: 260.145 lb BMI: 37.66 General: nontoxic, NAD Mouth: moist mucosa Lungs: normal respiratory effort Cardio: regular rate, good distal perfusion Abdomen: nondistended Neurologic: Grossly normal Skin: No rashes or suspicious lesions Assessment/Plan UA completed in office today shows no microhematuria or signs of infection. 1. Impotence (N52.9: Male erectile dysfunction, unspecified) Pt has been taking Cialis 20 mg PRN. This is effective and pt is satisfied with results. ELENA 15 Pt reports no intolerable side effects. Pt has had no new cardiac events since last f/u. Pt does not take Nitro and knows not to start. Discussed options: decrease dose, dc & switch to alternative medication, dc completely. Pt wishes to: continue current dosing with no changes. Pt does need refills at this time. Ordered: E&M of Est. Patient Moderate 30-39 Min 82795 2. BPH without urinary obstruction (N40.0: Benign prostatic hyperplasia without lower urinary tract symptoms) IPSS 2 QOL 1 Pt is currently taking no bladder/prostate medication and is highly satisfied with overall symptom control. No indication for treatment at this time. Continue to monitor. Ordered: E&M of Est. Patient Moderate 30-39 Min 48504 3. History of kidney stones (Z87.442: Personal history of urinary calculi) [facility] ER 11/14/[address] showed 1p9d8pm stone R mid ureter. No EU coverage so ended up being seen & treated in [place] by Dr David. Reports lithotripsy x2. CT with con [facility] 08/27/24 - several small nonobstructing stones w/i kidneys bilat up to 5mm, 2mm stone in distal R ureter vs just entering bladder. No hydro mentioned. Pt states he passed this stone. Request records from [facility]. Recommended KUB in 1 yr to monitor remaining stones. Pt declines. Ordered: E&M of Est. Patient Moderate 30-39 Min 89518 Urnls Dip Stick Auto w/o Microscopy POC 91023 4. Prostate cancer screening (Z12.5: Encounter for screening for malignant neoplasm of prostate) PSA: 08/28/21 - 0.5 09/06/22 - 0.35 07/14/23 - 0.32 Pt says they checked PSA last year at [facility]. Will request results. Check PSA prior to f/u next year. Ordered: E&M of Est. Patient Moderate 30-39 Min 13311 Orders: tadalafil, See Instructions, Do not exceed 20mg within 48 hours. PRN for sexual intercourse., # 30 tab(s), Refills(s) 5, Pharmacy: [facility]/pharmacy #[id number], 177, cm, 09/18/24 8:48:00 EST, Height/Length Dosing, 118, kg, 09/18/24 8:48:00 EST, Weight Dosing Follow-up With When Contact Information BRENNON CARRILLO, ELLY Mcdonald, URL In 1 year [address] [place] [address] Additional Instructions: Patient Education Erectile Dysfunction Problem List/Past Medical History Ongoing Abnormal US (ultrasound) of abdomen ADHD Basal cell carcinoma of back Basal cell carcinoma of left lower leg Basal cell carcinoma of parietal region of scalp Benign paroxysmal positional vertigo BMI 37.0-37.9, adult BPH without urinary obstruction Cardiomegaly Cardiomyopathy Diabetes Diastasis recti [...] Vitamins oral tablet, 1 tab(s), Oral, Daily tadalafil 20 mg Tab, See Instru (more content not included)... Normal [facility] Comment on above: Result Comment: Elec tronically Signed By: ELLY WILLETT PA-C.[email or web address]\Date and Time Signed: 09/18/24 12:59 EST No Panel Informationon 08-30 Type of biopsy: tangential Informed consent: discussed [...] taken Amount of lidocaine used: 1.0 cc [facility] Gallbladder Views W satnam cystokinin and W radionuclide Peggy 08-10-2024 1. No convincing scintigraphic evidence of acute cholecystitis. 2. Normal gallbladder ejection fraction of 71%. No evidence of gallbladder dyskinesis or dysfunction is noted. [facility] EXAMINATION: NUCLEAR MEDICINE HEPATOBILIARY SCINTIGRAPHY (HIDA SCAN). [...] sequence. Gallbladder ejection fraction is 71%, normal. [facility] Laura Renee MD - 08/10/2024 EXAMINATION: NUCLEAR MEDICINE HEPATOBILIARY [...] of gallbladder dyskinesis or dysfunction is noted. [facility] Radiology Study observation (narrative) [facility] NM Gallbladder Views W satnam cystokinin and W radionuclide IVOrdered By: Laura Renee on 08-10-2024 [facility] Work Phone: [place] HEPATOBILIARY SCAN W PHAR [...] Laura Renee MD 08/10/24 Final result Normal [facility] Cryotherapy, skin lesionon 1 09-02-2023 [facility] Lesion biopsyon 07-02-2024 Type of biopsy: tangential [...] taken Amount of lidocaine used: 1.0 cc [employer] Type of biopsy: tangential Informed consent: discussed [...] taken Amount of lidoc[facility] used: 1.0 [facility] Met[facility] Profon 2023 Albumin [Mass/Vol] 4.8 g/dL Normal 3.5-5.2 [facility] Comment on above: Performed By: #### C P #### [facility] [address] [place] [address] Progress Developer: Abelardo Gunter MD Albumin/Glob Ratio 1.9 Normal 1.0-2.5 [facility] Comment on above: Performed By: #### C P #### [facility] [address] [place], [place] [id number] Progress Developer: Abelardo Gunter MD Alkaline Phos 70 U/L Normal 40-129 [facility] Comment on above: Performed By: #### C P #### [facility] [address] [place], [place] [id number] Progress Developer: Abelardo Gunter MD ALT [Catalytic activity/Vol] 48 U/L Normal 10-50 [facility] Comment on above: Performed By: #### C P #### [facility] [address] [place], [place] [phone] Progress Developer: Abelardo Gunter MD Anion gap [Moles/Vol] 11 mmol/L Normal 9-16 [facility] Comment on above: Performed By: #### C P #### [facility] [address] [place], [place] [phone] Progress Developer: Abelardo Gunter MD AST [Catalytic activity/Vol] 32 U/L Normal 10-50 [facility] Comment on above: Performed By: #### C P #### [facility] [address] [place], [place] [address] Progress Developer: Abelardo Gunter MD Bilirubin [Mass/Vol] 0.4 mg/dL Normal 0.00-1.20 [facility] Comment on above: Performed By: #### C P #### [facility] [address] [place], [place] [phone] Progress Developer: Abelardo Gunter MD BUN/CRE Ratio 10 Normal 9-20 [facility] Comment on above: Performed By: #### C P #### [facility] [address] [place] [address] Progress Developer: Abelardo Gunter MD Calcium [Mass/Vol] 9.7 mg/dL Normal 8.6-10.4 [facility] Comment on above: Performed By: #### C P #### [facility] [address] [place] [address] Progress Developer: Abelardo Gunter MD Chloride [Moles/Vol] 107 mmol/L Normal 98-107 [facility] Comment on above: Performed By: #### C P #### [facility] [address] [place] [address] Progress Developer: Abelardo Gunter MD CO2 [Moles/Vol] 24 mmol/L Normal 20-31 [facility] Comment on above: Performed By: #### C P #### [facility] [address] [place] [address] Progress Developer: Abelardo Gunter MD Creatinine [Mass/Vol] 1.1 mg/dL Normal 0.70-1.20 [facility] Comment on above: Performed By: #### C P #### [facility] [address] [place] [address] Progress Developer: Abelardo Gunter MD GFR/1.73 sq M.predicted among non-blacks MDRD (S/P/Bld) [Vol rate/Area] 77 mL/min/{1.73_m2} Normal >60 [facility] Comment on above: Result Comment: [...] secretion. Performed By: #### C P #### [facility] [address] [place] [address] Progress Developer: Abelardo Gunter MD Glucose [Mass/Vol] 75 mg/dL Normal 74-99 [facility] Comment on above: Performed By: #### C P #### [facility] [address] [place] [address] Progress Developer: Abelardo Gunter MD Potassium [Moles/Vol] 4.2 mmol/L Normal 3.7-5.3 [facility] Comment on above: Performed By: #### C P #### [facility] [address] [place], [place] [phone] Progress Developer: Abelardo Gunter MD Protein [Mass/Vol] 7.2 g/dL Normal 6.6-8.7 [facility] Comment on above: Performed By: #### C P #### [facility] [address] [place], [place] [address] Progress Developer: Abelardo Gunter MD Sodium [Moles/Vol] 142 mmol/L Normal 136-145 [facility] Comment on above: Performed By: #### C P #### [facility] [address] [place], [place] [phone] Progress Developer: Abelardo Gunter MD Urea nitrogen [Mass/Vol] 11 mg/dL Normal 8-23 [facility] Comment on above: Performed By: #### C P #### [facility] [address] [place] [address] Progress Developer: Abelardo Gunter MD [facility] Metabolic [facility] 05-31-2024 Albumin [Mass/Vol] 4.8 g/dL 3.5 - 5.2 g/dL [facility] Albumin/Globulin [Mass ratio] 1.9 {ratio} 1.0 - 2.5 [facility] ALP [Catalytic activity/Vol] 70 U/L 40 - 129 U/L [facility] ALT [Catalytic activity/Vol] 48 U/L 10 - 50 U/L [facility] Anion gap [Moles/Vol] 11 mmol/L 9 - 16 mmol/L [facility] AST [Catalytic activity/Vol] 32 U/L 10 - 50 U/L [facility] Bilirubin [Mass/Vol] 0.4 mg/dL 0.00 - 1.20 mg/dL [facility] Calcium [Mass/Vol] 9.7 mg/dL 8.6 - 10. 4 mg/dL [facility] Chloride [Moles/Vol] 107 mmol/L 98 - 107 mmol/L [facility] CO2 [Moles/Vol] 24 mmol/L 20 - 31 mmol/L [facility] Creatinine [Mass/Vol] 1.1 mg/dL 0.70 - 1.20 mg/dL [facility] Est, Glom Filt Rate 77 - PINF [facility] Comment on above: These results are [...] [Mass/Vol] 75 mg/dL 74 - 99 mg/dL [facility] Potassium [Moles/Vol] 4.2 mmol/L 3.7 - 5.3 mmol/L [facility] Protein [Mass/Vol] 7.2 g/dL 6.6 - 8.7 g/dL [facility] Sodium [Moles/Vol] 142 mmol/L 136 - 145 mmol/L [facility] Urea nitrogen [Mass/Vol] 11 mg/dL 8 - 23 mg/dL [facility] Urea nitrogen/Creatinine [Mass ratio] 10 mg/mg 9 - 20 [facility] TSH w/reflex to FT4on 2023 Thyroid Stim. Horm. 2.24 uIU/mL Normal 0.27-4.20 [facility] Comment on above: Performed By: #### T SHX #### [facility] [address] [place] [address] Progress Developer: Abelardo Gunter MD TSH with Reflexon 05-31-2024 TSH Qn 2.24 m[IU]/L [facility] XR ABDOMEN (KUB) (SINGLE AP VIEW)on [...] Wali Horan DO 05/24/24 Final result Normal [facility] FLUORO FOR SURGICAL PROCEDUR ESon 03-13-2024 FLUORO FOR SURGICAL PROCEDURES Radiology exam is complete. No Radiologist dictation. Please follow up with ordering provider. Final result Normal [facility] Guidance-- during surgeryon 03-13-2024 Radiology exam [...] Interpreted by: Oswaldo Cai MD Signed by: sOwaldo Cai MD 03/08/24 Final result Normal [facility] Destr of lesionon 03-07-2024 Complexity: simple Destruction method: electrodesiccation and curettage Informed consent: discussed and consent obtained Informed consent comment: The risks of the procedure were discussed, including, but not limited to risks of scarring, darker or creative recruiter pigmentary changes, recurrence, infection, and incomplete removal [...] lidocaine used: 2.0 cc Previous accession number: [id number] [facility] Complexity: simple Destruction method: electrodesiccation and curettage Informed consent: discussed and consent obtained Informed consent comment: The risks of the procedure were discussed, including, but not limited to risks of scarring, darker or creative recruiter pigmentary changes, recurrence, infection, and incomplete removal [...] lidocaine used: 2.0 cc Previous accession number: [id number] [facility] Basic Metabolic Profon 02-24 Anion gap [Moles/Vol] 9 mmol/L Normal 9-17 [facility] Comment on above: Performed By: #### C MARCEL, BMP #### [facility] [address] [place] [address] Progress Developer: Abelardo Gunter MD BUN/CRE Ratio 14 Normal 9-20 [facility] Comment on above: Performed By: #### C MARCEL, BMP #### [facility] [address] [place] [address] Progress Developer: Abelardo Gunter MD Calcium [Mass/Vol] 9.4 mg/dL Normal 8.6-10.4 [facility] Comment on above: Performed By: #### C DP, BMP #### [facility] [address] [place] [address] Progress Developer: Abelardo Gunter MD Chloride [Moles/Vol] 102 mmol/L Normal 98-107 [facility] Comment on above: Performed By: #### C DP, BMP #### [facility] [address] [place], [place] [phone] Progress Developer: Abelardo Gunter MD CO2 [Moles/Vol] 28 mmol/L Normal 20-31 [facility] Comment on above: Performed By: #### C DP, BMP #### [facility] [address] [place] [address] Progress Developer: Abelardo Gunter MD Creatinine [Mass/Vol] 1.0 mg/dL Normal 0.7-1.2 [facility] Comment on above: Performed By: #### C DP, BMP #### [facility] [address] [place] [address] Progress Developer: Abelardo Gunter MD GFR/1.73 sq M.predicted among non-blacks MDRD (S/P/Bld) [Vol rate/Area] 86 mL/min/{1.73_m2} Normal >60 [facility] Comment on above: Result Comment: [...] Performed By: #### C DP, BMP #### [facility] [address] [place] [address] Progress Developer: Abelardo Gunter MD Glucose [Mass/Vol] 106 mg/dL High 70-99 [facility] Comment on above: Performed By: #### C DP, BMP #### [facility] [address] [place], [place] [address] Progress Developer: Abelardo Gunter MD Potassium [Moles/Vol] 4.4 mmol/L Normal 3.7-5.3 [facility] Comment on above: Performed By: #### C DP, BMP #### [facility] [address] [place] [address] Dr[address] [place], [place] [phone] Progress Developer: Abelardo Gunter MD Sodium [Moles/Vol] 139 mmol/L Normal 135-144 [facility] Comment on above: Performed By: #### C DP, BMP #### [facility] [address] [place] [address] [place] [place], [place] [phone] Progress Developer: Abelardo Gunter MD Urea nitrogen [Mass/Vol] 14 mg/dL Normal 8-23 [facility] Comment on above: Performed By: #### C DP, BMP #### [address] [place], [place] [phone] Progress Developer: Abelardo Gunter MD CBC with Diffon 02-25-2024 Abs. Basophil 0.03 k/uL Normal 0.00-0.20 [facility] Comment on above: Performed By: #### C DP, BMP #### [address] [place], [place] [phone] Progress Developer: Abelardo Gunter MD Abs.Imm.Granulocyte 0.03 k/uL Normal 0.00-0.30 [facility] Comment on above: Performed By: #### C DP, BMP #### [facility] [address] [place] [address] Dr[address] [place], [place] [phone] Progress Developer: Abelardo Gunter MD Abs.Neutrophil (Seg) 3.96 k/uL Normal 1.50-8.10 [facility] Comment on above: Performed By: #### C DP, BMP #### [address] [place], [place] [address] Progress Developer: Abelardo Gunter MD Basophils/100 WBC (Bld) 0 % Normal 0-2 [facility] Comment on above: Performed By: #### C DP, BMP #### [facility] [address] [place], [place] [address] Progress Developer: Abelardo Gunter MD Eosinophils (Bld) [#/Vol] 0.17 10*3/uL Normal 0.00-0.44 [facility] Comment on above: Performed By: #### C DP, BMP #### [facility] [address] [place] [address] Progress Developer: Abelardo Gunter MD Eosinophils/100 WBC (Bld) 3 % Normal 1-4 [facility] Comment on above: Performed By: #### C DP, BMP #### [address] [place] [address] Progress Developer: Abelardo Gunter MD Erythrocyte distribution width (RBC) [Ratio] 12.5 % Normal 11.8-14.4 [facility] Comment on above: Performed By: #### C DP, BMP #### [address] [place], [place] [address] Progress Developer: Abelardo Gunter MD Hematocrit (Bld) [Volume fraction] 43.1 % Normal 40.7-50.3 [facility] Comment on above: Performed By: #### C DP, BMP #### [address] [place], [facility] Progress Developer: Abelardo Gunter MD Hemoglobin (Bld) [Mass/Vol] 15.1 g/dL Normal 13.0-17.0 [facility] Comment on above: Performed By: #### C DP, BMP #### [address] [place] [id number] Progress Developer: Abelardo Gunter MD Immature granulocytes/100 WBC (Bld) 0 % Normal 0 [facility] Comment on above: Performed By: #### C DP, BMP #### [facility] [address] [place] [address] Progress Developer: Abelardo Gunter MD Lymphocytes (Bld) [#/Vol] 1.96 10*3/uL Normal 1.10-3.70 [facility] Comment on above: Performed By: #### C DP, BMP #### [facility] [address] [place] [address] Progress Developer: Abelardo Gunter MD Lymphocytes/100 WBC (Bld) 29 % Normal 24-43 [facility] Comment on above: Performed By: #### C DP, BMP #### [address] [place] [address] Progress Developer: Abelardo Gunter MD MCH (RBC) [Entitic mass] 32.2 pg Normal 25.2-33.5 [facility] Comment on above: Performed By: #### C DP, BMP #### [address] [place], [facility] Progress Developer: Abelardo Gunter MD MCHC (RBC) [Mass/Vol] 35.0 g/dL High 28.4-34.8 [facility] Comment on above: Performed By: #### C DP, BMP #### [address] [place] [address] Progress Developer: Abelardo Gunter MD MCV (RBC) [Entitic vol] 91.9 fL Normal 82.6-102.9 [facility] Comment on above: Performed By: #### C DP, BMP #### [address] [place] [address] Progress Developer: Abelardo Gunter MD Monocytes (Bld) [#/Vol] 0.63 10*3/uL Normal 0.10-1.20 [facility] Comment on above: Performed By: #### C DP, BMP #### [address] [place], [facility]83 Progress Developer: Abelardo Gunter MD Monocytes/100 WBC (Bld) 9 % Normal 3-12 [facility] Comment on above: Performed By: #### C DP, BMP #### [facility] [address] [place], [place] [id number] Progress Developer: Abelardo Gunter MD Neutrophil (Seg) 59 % Normal 36-65 [facility] Comment on above: Performed By: #### C DP, BMP #### [facility] [address] [place], [place] [id number] Progress Developer: Abelardo Gunter MD NRBC Automated 0.0 per 100 WBC Normal 0.0 [facility] Comment on above: Performed By: #### C DP, BMP #### [facility] [address] [place] [address] Progress Developer: Abelardo Gunter MD Platelet mean volume (Bld) [Entitic vol] 11.0 fL Normal 8.1-13.5 [facility] Comment on above: Performed By: #### C DP, BMP #### [address] [place], [place] [id number] Progress Developer: Abelardo Gunter MD Platelets (Bld) [#/Vol] 164 10*3/uL Normal 138-453 [facility] Comment on above: Performed By: #### C DP, BMP #### [facility] [address] [place], [place] [id number] Progress Developer: Abelardo Gunter MD RBC (Bld) [#/Vol] 4.69 10*6/uL Normal 4.21-5.77 [facility] Comment on above: Performed By: #### C DP, BMP #### [facility] [address] [place] [address] Progress Developer: Abelardo Gunter MD WBC (Bld) [#/Vol] 6.8 10*3/uL Normal 3.5-11.3 [facility] Comment on above: Performed By: #### C DP, [facility] #### [facility] [address] [place] [address] Progress Developer: Abelardo Gunter MD Consultation Noteon 01-01-20 Consultation Note [id number] Normal [facility] Pathology Noteon 01-01-2024 Pathology Note [id number]#1.00TIFF Normal [facility] XR ABDOMEN (KUB) (SINGLE AP VIEW)on [...] Wali Horan DO 12/28/23 Final result Normal [facility] Kiran 12-14-2023 L Specimen: [id number] Received: 12/15/23 Status: UYEN Hernandes Num: [id number] Spec Type: Surgical Subm Dr: Gary Varela MD Tissues: A Skin-Other than Cyst, tag, debridement or plastic repair (SCALP) Procedures: HE/7, Gross/Micro L4 Age/ Patient Sex Location Account Attending Physician Mikel Samuels/Jayson SIMMS [id number] Gary Varela MD SPEC NUM: [id number] RECD: 12/15/23 [facility] NUM: [id number] ASA: 12/14/[address]: Gary Varela MD ENTERED: 12/15/[address] [facility] DR: SPEC TYPE: Surgical DEPT: S ORDERED: HE/7, Gross/Micro L4 ORDERED: , Gross/Micro L4 Pathological Diagnosis Skin, scalp, reexcision: [...] A1-A6 as follows: A1: 9:00 tip Specimen: [id number] Received: 12/15/23 Status: UYEN Greta Num: [id number] Spec Type: Surgical Subm Dr: Gary Varela MD Tissues: A Skin-Other than Cyst, tag, debridement or plastic repair (SCALP) Procedures: , Gross/Micro L4 Patient: Mikel Samuels [id number] (Continued) Specimen: [id number] Received: 12/15/23 (Continued) Gross Description (Continued) Signed (signature on file) Leonel Mendoza MD 12/20/23 1015 Specimen: [id number] Received: 12/15/23 Status: UYEN Hernandes Num: [id number] Spec Type: Surgical Subm Dr: Gary Varela MD Tissues: A Skin-Other than Cyst, tag, debridement or plastic repair (SCALP) Procedures: JUSTIN/Sukhwinder Torrez/Dorinda L4 Patient: Mikel Samuels [id number] (Continued) Specimen: [id number] Received: 12/15/23 (Continued) Gross Description (Continued) A2: 3:00 tip A3-A6: 12:00 to 6:00 region TW CPT Codes 29382 Specimen: [id number] Received: 12/15/23 Status: UYEN Hernandes Num: [id number] Spec Type: Surgical Subm Dr: Gary Varela MD Tissues: A Skin-Other than Cyst, tag, debridement or plastic repair (SCALP) Procedures: JUSTIN/Lore, Gross/Micro L4 Patient: Mikel Samuels [id number] (Continued) Signed (signature on file) Leonel Mendoza MD 12/20/23 1015 Normal [facility] Kiran 11-16-2023 L Specimen: [id number] Received: 11/17/23 Status: UYEN Hernandes Num: [id number] Spec Type: Surgical Subm Dr: Shirin Meyer MD FACS Tissues: A Skin-Other than Cyst, tag, debridement or plastic repair (POSTERIOR SCALP) Procedures: HE, Gross/Micro L4 Age/ Patient Sex Location Account Attending Physician Mikel Samuels 63/M LABELL [id number] Shirin Meyer MD FACS SPEC NUM: [id number] RECD: 11/17/23 STATUS: UYEN HERNANDES NUM: [id number] ASA: 11/16/[address]: Shirin Meyer MD FACS ENTERED: 11/17/23 [facility] DR: Fransico Wiley SPEC TYPE: Surgical DEPT: [...] of changing skin lesion TW CPT Codes 02176 Specimen: [id number] Received: 11/17/23 Status: UYEN Hernandes Num: [id number] Spec Type: Surgical Subm Dr: Shirin Meyer MD FACS Tissues: A Skin-Other than Cyst, tag, debridement or plastic repair (POSTERIOR SCALP) Procedures: uSkhwinder ANDERSON/Dorinda L4 Patient: ArvindMikel [id number] (Continued) Signed (signature on file) Leonel Mendoza MD 11/28/23 1212 Normal [facility] FLUORO FOR SURGICAL PROCEDUR ESon 11-15-2023 FLUORO FOR SURGICAL PROCEDURES Radiology exam is complete. No Radiologist dictation. Please follow up with ordering provider. Final result Normal [facility] CBC AUTO DIFFon 12-02-2022 BASO # 0.0 103/ul Normal 0.0-0.1 [facility] Comment on above: Performed By: #### C BC #### [facility] [address] [place] [address] Dr. Mita Mendoza Basophils/100 WBC (Bld) 0.4 % Normal 0.2-2.0 [facility] Comment on above: Performed By: #### C BC #### [facility] [address] [place] [address] Dr. Mita Mendoza EO # 0.2 103/ul Normal 0.0-0.7 [facility] Comment on above: Performed By: #### C BC #### [facility] [address] [place] [address] Dr. Mita Mendoza Eosinophils/100 WBC (Bld) 3.9 % Normal 0.9-7.0 [facility] Comment on above: Performed By: #### C BC #### [facility] [address] [place] [address] Dr. Mita Mendoza Erythrocyte distribution width (RBC) [Ratio] 12.5 % Normal 11.0-15.0 [facility] Comment on above: Performed By: #### C BC #### [facility] [address] [place] [address] Dr. Mita Mendoza Hematocrit (Bld) [Volume fraction] 43.5 % Normal 42.0-54.0 [facility] Comment on above: Performed By: #### C BC #### [facility] [address] [place] [address] Dr. Mita Mendoza Hemoglobin (Bld) [Mass/Vol] 15.1 g/dL Normal 14.0-18.0 [facility] Comment on above: Performed By: #### C BC #### [facility] [address] [place] [address] Dr. Mita Mendoza IG # 0.01 10e3/ul Normal 0.00-0.03 [facility] Comment on above: Performed By: #### C BC #### [facility] [address] [place] [address] Dr. Mita Mendoza IG % 0.2 % Normal 0.0-0.5 [facility] Comment on above: Performed By: #### C BC #### [facility] [address] [place] [address] Dr. Mita Mendoza LYMPH # 1.5 103/ul Normal 1.2-3.8 [facility] Comment on above: Performed By: #### C BC #### [facility] [address] [place] [address] Dr. Mita Mendoza Lymphocytes/100 WBC (Bld) 27.0 % Normal 20.5-60.0 [facility] Comment on above: Performed By: #### C BC #### [facility] [address] [place] [address] Dr. Mita Mendoza MANUAL DIFF REQ NO Normal [facility] Comment on above: Performed By: #### C BC #### [facility] [address] [place] [address] Dr. Mita Mendoza MCH (RBC) [Entitic mass] 30.8 pg Normal 25.9-34.0 [facility] Comment on above: Performed By: #### C BC #### [facility] [address] [place] [address] Dr. Mita Mendoza MCHC (RBC) [Mass/Vol] 34.7 g/dL Normal 29.9-35.2 [facility] Comment on above: Performed By: #### C BC #### [facility] [address] [place] [address] Dr. Mita Mendoza MCV (RBC) [Entitic vol] 88.6 fL Normal 80.0-94.0 [facility] Comment on above: Performed By: #### C BC #### [facility] [address] [place] [address] Dr. Mita Mendoza MONO # 0.6 103/ul Normal 0.3-0.8 [facility] Comment on above: Performed By: #### C BC #### [facility] [address] [place] [address] Dr. Mita Mendoza Monocytes/100 WBC (Bld) 11.2 % Normal 1.7-12.0 [facility] Comment on above: Performed By: #### C BC #### [facility] [address] [address] [address] Mita Mendoza NEUT # 3.2 103/ul Normal 1.4-6.5 [facility] Comment on above: Performed By: #### C BC #### [facility] [address] [address] [address] Mita Mendoza Neutrophils/100 WBC (Bld) 57.3 % Normal 43.0-75.0 [facility] Comment on above: Performed By: #### C BC #### [facility] [address] [address] [address] Mita Mendoza Platelet mean volume (Bld) [Entitic vol] 11.1 fL Normal 9.5-13.5 [facility] Comment on above: Performed By: #### C BC #### [facility] [address] [place] [address] Dr. Mita Mendoza PLT 149 103/ul Critically low 150-450 [facility] Comment on above: Performed By: #### C BC #### [facility] [address] [place] [address] Dr. Mita Mendoza RBC 4.91 106/ul Normal 4.70-6.10 [facility] Comment on above: Performed By: #### C BC #### [facility] [address] [place] [address] Dr. Mita Mendoza WBC 5.6 103/ul Normal 4.0-11.0 [facility] Comment on above: Performed By: #### C BC #### [facility] [address] [address] [address] Mita Mendoza FREE T3on 06-18-2022 FREE T3 2.94 pg/mlL Normal 2.18-3.98 [facility] Comment on above: Performed By: #### F T3, CMP, TSH, T4, LIPID #### [facility] [address] [place] [address] Dr. Mita Mendoza GLYCOHEMOGLOBIN A1Con 2021 ADA RECOMMENDATION SEE BELOW Normal [facility] Comment on above: Result Comment: ADA RECOMMENDED LIMIT 4.0 - 6.0 ADA THERAPEUTIC TARGET < 7.0 ACTION SUGGESTED > 7.0 Performed By: #### A 1C #### [facility] [address] [address] [address] Mita Mendoza Glucose [Mass/Vol] 117 mg/dL Normal [facility] Comment on above: Performed By: #### A 1C #### [facility] [address] [address] [address] Mita Mendoza HbA1c (Bld) [Mass fraction] 5.7 % Normal 4.5-6.2 [facility] Comment on above: Performed By: #### A 1C #### [facility] [address] [address] [address] Mita Mendoza LIPID PROFILEon 06-18-2022 CHOL-HDL RATIO NORM SEE BELOW Normal [facility] Comment on above: Result Comment: 3.3 - 4.4 LOW RISK 4.4 - 7.1 AVERAGE RISK 7.1 - 11.0 MODERATE RISK >11.0 HIGH RISK Performed By: #### F T3, CMP, TSH, T4, LIPID #### [facility] [address] [address] [address] Mita Mendoza Cholesterol [Mass/Vol] 196 mg/dL Normal <=200 [facility] Comment on above: Performed By: #### F T3, CMP, TSH, T4, LIPID #### [facility] [address] [address] [address] Mita Mendoza Cholesterol in HDL [Mass/Vol] 54 mg/dL Normal 40-60 [facility] Comment on above: Performed By: #### F T3, CMP, TSH, T4, LIPID #### [facility] [address] [address] [address] Mita Mendoza Cholesterol in LDL [Mass/Vol] 121.0 mg/dL Normal [facility] Comment on above: Performed By: #### F T3, CMP, TSH, T4, LIPID #### [facility] [address] [address] [address] Mita Mendoza Cholesterol.total/C holesterol in HDL [Mass ratio] 3.6 {ratio} Normal [facility] Comment on above: Performed By: #### F T3, CMP, TSH, T4, LIPID #### [facility] [address] [address] [address] Mita Mendoza HDL NORMAL > or = 60 mg/dl - LO W CARDIOVASCULAR RISK <40 mg/dl - HIGH CARDIOVASCULAR RISK Normal [facility] Comment on above: Performed By: #### F T3, CMP, TSH, T4, LIPID #### [facility] [address] [address] [address] Mita Mendoza LDL CALC NORMAL SEE BELOW Normal [facility] Comment on above: Result Comment: <100 mg/dl OPTIMAL 100 - 129 mg/dl NEAR OR ABOVE OPTIMAL 130 - 159 mg/dl BORDERLINE HIGH 160 - 189 mg/dl HIGH >190 mg/dl VERY HIGH Performed By: #### F T3, CMP, TSH, T4, LIPID #### [facility] [address] [place] [address] Dr. Mita Mendoza Triglyceride [Mass/Vol] 105 mg/dL Normal <=150 [facility] Comment on above: Performed By: #### F T3, CMP, TSH, T4, LIPID #### [facility] [address] [address] [address] Mita Mendoza VLDL CALC 21.0 mg/dL Normal [facility] Comment on above: Performed By: #### F T3, CMP, TSH, T4, LIPID #### [facility] [address] [place] [address] Dr. Mita Mendoza PROF 14(COMP METB)on 022 Albumin [Mass/Vol] 4.2 g/dL Normal 3.4-5.0 [facility] Comment on above: Performed By: #### F T3, CMP, TSH, T4, LIPID #### [facility] [address] [place] [address] Dr. Mita Mendoza Albumin/Globulin [Mass ratio] 1.3 {ratio} Normal [facility] Comment on above: Performed By: #### F T3, CMP, TSH, T4, LIPID #### [facility] [address] [place] [address] Dr. Mita Mendoza ALP [Catalytic activity/Vol] 70 U/L Normal 46-116 [facility] Comment on above: Performed By: #### F T3, CMP, TSH, T4, LIPID #### [facility] [address] [address] [address] Mita Mendoza ALT [Catalytic activity/Vol] 39 U/L Normal 16-63 [facility] Comment on above: Performed By: #### F T3, CMP, TSH, T4, LIPID #### [facility] [address] [place] [address] Dr. Mita Mendoza Anion gap [Moles/Vol] 10.4 mmol/L Normal [facility] Comment on above: Performed By: #### F T3, CMP, TSH, T4, LIPID #### [facility] [address] [place] [address] Dr. Mita Mendoza AST [Catalytic activity/Vol] 23 U/L Normal 15-37 [facility] Comment on above: Performed By: #### F T3, CMP, TSH, T4, LIPID #### [facility] [address] [place] [address] Dr. Mita Mendoza Bilirubin [Mass/Vol] 0.7 mg/dL Normal 0.2-1.0 [facility] Comment on above: Performed By: #### F T3, CMP, TSH, T4, LIPID #### [facility] [address] [place] [address] Dr. Mita Mendoza Calcium [Mass/Vol] 9.3 mg/dL Normal 8.5-10.1 [facility] Comment on above: Performed By: #### F T3, CMP, TSH, T4, LIPID #### [facility] [address] [address] [address] Mita Mendoza Chloride [Moles/Vol] 104 mmol/L Normal 98-107 [facility] Comment on above: Performed By: #### F T3, CMP, TSH, T4, LIPID #### [facility] [address] [place] [address] Dr. Mita Mendoza CO2 [Moles/Vol] 33.1 mmol/L Critically high 21.0-32.0 [facility] Comment on above: Performed By: #### F T3, CMP, TSH, T4, LIPID #### [facility] [address] [place] [address] Dr. Mita Mendoza Creatinine [Mass/Vol] 0.96 mg/dL Normal 0.70-1.30 [facility] Comment on above: Performed By: #### F T3, CMP, TSH, T4, LIPID #### [facility] [address] [place] [address] Dr. Mita Mendoza EGFR-AF CITIZEN [place] >60 Normal >=[address] [facility] Comment on above: Performed By: #### F T3, CMP, TSH, T4, LIPID #### [facility] [address] [place] [address] Dr. Mita Mendoza EGFR-NON AF CITIZEN OF [place] >60 Normal >=60 [facility] Comment on above: Performed By: #### F T3, CMP, TSH, T4, LIPID #### [facility] [address] [place] [address] Dr. Mita Mendoza Globulin (S) [Mass/Vol] 3.2 g/dL Normal [facility] Comment on above: Performed By: #### F T3, CMP, TSH, T4, LIPID #### [facility] [address] [place] [address] Dr. Mita Mendoza Glucose [Mass/Vol] 119 mg/dL Critically high 74-106 [facility] Comment on above: Performed By: #### F T3, CMP, TSH, T4, LIPID #### [facility] [address] [place] [address] Dr. Mita Mendoza Potassium [Moles/Vol] 4.5 mmol/L Normal 3.5-5.1 [facility] Comment on above: Performed By: #### F T3, CMP, TSH, T4, LIPID #### [facility] [address] [place] [address] Dr. Mita Mendoza Protein [Mass/Vol] 7.4 g/dL Normal 6.4-8.2 [facility] Comment on above: Performed By: #### F T3, CMP, TSH, T4, LIPID #### [facility] [address] [address] [address] Mita Mendoza Sodium [Moles/Vol] 143 mmol/L Normal 136-145 [facility] Comment on above: Performed By: #### F T3, CMP, TSH, T4, LIPID #### [facility] [address] [place] [address] Dr. Mita Mendoza Urea nitrogen [Mass/Vol] 10.0 mg/dL Normal 7.0-18.0 [facility] Comment on above: Performed By: #### F T3, CMP, TSH, T4, LIPID #### [facility] [address] [place] [address] Dr. Mita Mendoza Urea nitrogen/Creatinine [Mass ratio] 10.4 mg/mg Normal [facility] Comment on above: Performed By: #### F T3, CMP, TSH, T4, LIPID #### [facility] [address] [place] [address] Dr. Mita Mendoza T4on 06-18-2022 T4 [Mass/Vol] 7.60 ug/dL Normal 4.50-12.10 [facility] Comment on above: Performed By: #### F T3, CMP, TSH, T4, LIPID #### [facility] [address] [place] [address] Dr. Mita Mendoza TSHon 06-18-2022 TSH 2.714 uIU/mL Normal 0.358-3.740 [facility] Comment on above: Performed By: #### F T3, CMP, TSH, T4, LIPID #### [facility] [address] [place] [address] Dr. Mita Mendoza PROGRESSon 02-25-2020 PROGRESS HNO ID: [id number] Author: Interface Note Service: ? Author Type: ? Type: Progress Notes Filed: 02/25/2020 10:56 AM Note Text: The surgical encounter documentation contains information performed by a different Dunia Faulkner than is indicated by the provider record. Clinical care was provided and documented by the correct provider. Normal [facility] APTTon 05-25-2018 aPTT Coag time (Bld) 23.1 s Normal 21.3-31.3 [facility] CBC with Diffon 05-25-2018 Abs. Basophil 0.00 k/uL Normal 0.0-0.2 [facility] Abs.Neutrophil (Seg) 3.80 k/uL Normal 1.8-7.7 [facility] Basophils/100 WBC Auto (Bld) 0 % Normal 0-2 [facility] Eosinophils Auto #/vol (Bld) 0.20 10*3/uL Normal 0.0-0.4 [facility] Eosinophils/100 WBC Auto (Bld) 3 % Normal 1-4 [facility] Erythrocyte distribution width Auto Ratio (RBC) 13.1 % Normal 12.5-15.4 [facility] Hematocrit Auto Volume Fraction (Bld) 46.5 % Normal 41-53 [facility] Hemoglobin mass conc (Bld) 15.7 g/dL Normal 13.5-17.5 [facility] Lymphocytes Auto #/vol (Bld) 2.40 10*3/uL Normal 1.0-4.8 [facility] Lymphocytes/100 WBC Auto (Bld) 34 % Normal 24-44 [facility] MCH Auto Entitic mass (RBC) 30.7 pg Normal 26-34 [facility] MCHC Auto mass conc (RBC) 33.8 g/dL Normal 31-37 [facility] MCV Auto Entitic volume (RBC) 90.7 fL Normal 80-100 [facility] Monocytes Auto #/vol (Bld) 0.70 10*3/uL Normal 0.1-1.2 [facility] Monocytes/100 WBC Auto (Bld) 9 % Normal 2-11 [facility] Neutrophil (Seg) 54 % Normal 36-66 [facility] Platelet mean volume Auto Entitic volume (Bld) 9.3 fL Normal 6.0-12.0 [facility] Platelets Auto #/vol (Bld) 168 10*3/uL Normal 140-450 [facility] RBC Auto #/vol (Bld) 5.12 10*6/uL Normal 4.5-5.9 [facility] WBC Auto #/vol (Bld) 7.1 10*3/uL Normal 3.5-11.0 [facility] Abs.Imm.Granulocyte NOT REPORTED Normal 0.00-0.30 [facility] Auto Diff Performed NOT REPORTED Normal [facility] Immature granulocytes #/vol (Bld) NOT REPORTED Normal 0 [facility] NRBC Automated NOT REPORTED Normal [facility] Platelets Auto #/vol (Bld) NOT REPORTED Normal [facility] RBC morphology finding Nom (Bld) NOT REPORTED Normal [facility] WBC Morphology NOT REPORTED Normal [facility] PTon 05-25-2018 INR Coag RelTime (PPP) 1.0 {INR} Normal [facility] Comment on above: Result Comment: Ther apeutic Range: Moderate Anticoagulant Intensity: INR = 2.0-3.0 High Anticoagulant Intensity: INR = 2.5-3.5 Prothrombin time (PT) Coag time (PPP) 9.9 s Normal 9.4-12.6 [facility] APTTon 04-26-2017 aPTT 25.6 s Normal 23.0-31.0 [facility] Comment on above: Result Comment: IV H eparin Therapy Range: 64.3-87.8Performed at [facility] [address] [place] [address] Performed By: #### C BC ####[facility] [place] [address] CBCon 04-26-2017 Erythrocyte distribution width Auto Ratio (RBC) 14.8 % Normal 11.5-14.9 [facility] Comment on above: Performed By: #### C BC, BMP ####[facility] [place] [address] Erythrocytes (RBC) 3.99 10*6/uL Low 4.5-5.9 [facility] Comment on above: Performed By: #### C BC, BMP ####[address] [address] Hematocrit (HCT) 35.8 % Low 41-53 [facility] Comment on above: Performed By: #### C BC, BMP ####[address] [address] Hemoglobin mass conc (Bld) 11.7 g/dL Low 13.5-17.5 [facility] Comment on above: Performed By: #### C BC, BMP ####[address] [address] MCH 29.2 pg Normal 26-34 [facility] Comment on above: Performed By: #### C BC, BMP ####[address] [address] MCHC mass conc (RBC) 32.6 g/dL Normal 31-37 [facility] Comment on above: Performed By: #### C BC, BMP ####[address] [address] MCV 89.6 fL Normal 80-100 [facility] Comment on above: Performed By: #### C BC, BMP ####[address] [address] Platelet mean volume (PMV) 8.5 fL Normal 6.0-12.0 [facility] Comment on above: Result Comment: Perf ormed at [facility] [address] [place] [address] Performed By: #### C BC, BMP ####[address] [address] Platelets 170 10*3/uL Normal 150-450 [facility] Comment on above: Performed By: #### C BC, BMP ####[facility] [facility] [place] [address] WBC (Leukocytes) 6.0 10*3/uL Normal 3.5-11.0 [facility] Comment on above: Performed By: #### C BC, BMP ####[facility] [facility] [place] [address] PTon 04-26-2017 INR Coag RelTime (PPP) 1.1 {INR} Normal [facility] Comment on above: Result Comment: Non- therapeutic Range: INR = 0.9- 1.2Therapeutic Range: Moderate Anticoagulant Intensity: INR = 2.0-3.0 High Anticoagulant Intensity: INR = 2.5-3.5Performed at [address] [address] Performed By: #### C BC ####[facility] [place] [address] Prothrombin time (PT) Coag time (PPP) 12.0 s Normal 9.7-12.0 [facility] Comment on above: Performed By: #### C BC ####[facility] [facility] [place] [address] APTTon 04-25-2017 aPTT 46.0 s High 23.0-31.0 [facility] Comment on above: Result Comment: IV H eparin Therapy Range: 64.3-87.8Performed at [facility] [address] [place] [address] Performed By: #### C BC, BMP ####[facility] [place] [address] aPTT 59.6 s High 23.0-31.0 [facility] Comment on above: Result Comment: IV H eparin Therapy Range: 64.3-87.8Performed at [address] [address] Performed By: #### C BC, BMP ####[address] [address] aPTT 65.3 s High 23.0-31.0 [facility] Comment on above: Result Comment: IV H eparin Therapy Range: 64.3-87.8Performed at [address] [address] Performed By: #### C DELGADO, BMP ####[address] [address] Basic Metabolic Profon 04-25 (cont.) Normal [facility] Comment on above: Result Comment: Aver age GFR for 50-59 years old: 93 mL/min/1.73sq mChronic Kidney Disease: <60 mL/min/1.73sq mKidney failure: <15 mL/min/1.73sq meGFR calculated using average adult body mass. Additional eGFR calculator available at:http://www.[employer].C[employer]/multiple_crcl_2012.htmPerformed at [address] [address] Performed By: #### C BC, BMP ####[address] [address] Anion gap 13 mmol/L Normal 9-17 [facility] Comment on above: Performed By: #### C BC, BMP ####[address] [address] Calcium 8.9 mg/dL Normal 8.6-10.4 [facility] Comment on above: Performed By: #### C BC, BMP ####[address] [address] Chloride 103 mmol/L Normal 98-107 [facility] Comment on above: Performed By: #### C BC, BMP ####[facility] [facility] [place] [address] CO2 23 mmol/L Normal 20-31 [facility] Comment on above: Performed By: #### C BC, BMP ####[facility] [place] [address].[place] [address] Creatinine 0.76 mg/dL Normal 0.70-1.20 [facility] Comment on above: Performed By: #### C BC, BMP ####[address] [address] eGFR (non-black) mL/min/{1.73_m2} Normal >60 [facility] Comment on above: Performed By: #### C BC, BMP ####[facility] [place] [address] Glucose mass conc 135 mg/dL High 70-99 [facility] Comment on above: Performed By: #### C BC, BMP ####[facility] [place] [address] Potassium molar conc 4.0 mmol/L Normal 3.7-5.3 [facility] Comment on above: Performed By: #### C BC, BMP ####[facility] [place] [address] Sodium 139 mmol/L Normal 135-144 [facility] Comment on above: Performed By: #### C BC, BMP ####[facility] [place] [address] Urea nitrogen 6 mg/dL Normal 6-20 [facility] Comment on above: Performed By: #### C BC, BMP ####[place] [address] [facility] [place] [address] BUN/CRE Ratio NOT REPORTED Normal 9-20 [facility] Comment on above: Performed By: #### C BC, BMP ####[facility] [place] [address] Staging: NOT REPORTED Normal [facility] Comment on above: Performed By: #### C BC, BMP ####[address] [address] CBCon 04-25-2017 Erythrocyte distribution width Auto Ratio (RBC) 14.3 % Normal 11.5-14.9 [facility] Comment on above: Performed By: #### C BC, BMP ####[address] [address] Erythrocytes (RBC) 3.77 10*6/uL Low 4.5-5.9 [facility] Comment on above: Performed By: #### C BC, BMP ####[address] [address] Hematocrit (HCT) 33.6 % Low 41-53 [facility] Comment on above: Performed By: #### C BC, BMP ####[facility] [place] [address] Hemoglobin mass conc (Bld) 11.1 g/dL Low 13.5-17.5 [facility] Comment on above: Performed By: #### C BC, BMP ####[address] [address] MCH 29.3 pg Normal 26-34 [facility] Comment on above: Performed By: #### C BC, BMP ####[address] [address] MCHC mass conc (RBC) 32.9 g/dL Normal 31-37 [facility] Comment on above: Performed By: #### C BC, BMP ####[address] [place] [address] MCV 89.1 fL Normal 80-100 [facility] Comment on above: Performed By: #### C BC, BMP ####[address] [place] [address] Platelet mean volume (PMV) 8.3 fL Normal 6.0-12.0 [facility] Comment on above: Result Comment: Perf ormed at [place] [address] [place] [address] Performed By: #### C BC, BMP ####[address] [address] Platelets 160 10*3/uL Normal 150-450 [facility] Comment on above: Performed By: #### C BC, BMP ####[address] [address] WBC (Leukocytes) 5.7 10*3/uL Normal 3.5-11.0 [facility] Comment on above: Performed By: #### C BC, BMP ####[address] [place] [address] PTon 04-25-2017 INR Coag RelTime (PPP) 3.8 {INR} Normal [facility] Comment on above: Result Comment: Non- therapeutic Range: INR = 0.9- 1.2Therapeutic Range: Moderate Anticoagulant Intensity: INR = 2.0-3.0 High Anticoagulant Intensity: INR = 2.5-3.5Performed at [place] [address] [place] [address] Performed By: #### C BC, BMP ####[address] [place] [address] Prothrombin time (PT) Coag time (PPP) 44.7 s High 9.7-12.0 [facility] Comment on above: Performed By: #### C BC, BMP ####[address] [address] Serotonin Rel Assayon 2016 DESTIN Heparin Plt Ab Negative Normal Negative [facility] Comment on above: Performed By: #### C BC, BMP ####[address] [address] DESTIN Porc High Dose 0 % Normal [facility] Comment on above: Performed By: #### C BC, BMP ####[address] [address] DESTIN Porc Interp See Note Normal [facility] Comment on above: Result Comment: (NOT [...] Additionalinformation regarding diagnosis of HIT is available [employer].com.INTERPRETIVE INFORMATION: DESTIN, Unfractionated HeparinTest developed and characteristics determined by two[employer]. See Compliance Statement B: [employer]/CSPerformed by gamesGRABR,[address] [place] [id number] fab.[employer], Robert Euceda MD, Lab. DirectorPerformed at [facility] [address] [place] [address] Performed By: #### C BC, BMP ####[address] [place] [address] DESTIN Porc Low Dose 0 % Normal [facility] Comment on above: Performed By: #### C BC, BMP ####[facility] [place] [address] APTTon 04-24-2017 aPTT 54.1 s High 23.0-31.0 [facility] Comment on above: Result Comment: IV H eparin Therapy Range: 64.3-87.8Performed at [facility] [address] [place] [address] Performed By: #### C BC, BMP ####[facility] [place] [address] aPTT 57.9 s High 23.0-31.0 [facility] Comment on above: Result Comment: IV H eparin Therapy Range: 64.3-87.8Performed at [facility] [address] [facility] [place] [address] Performed By: #### C BC, BMP ####[facility] [place] [address] [place] [address] aPTT 50.6 s High 23.0-31.0 [facility] Comment on above: Result Comment: IV H eparin Therapy Range: 64.3-87.8Performed at [facility] [address] [facility] [place] [address] Performed By: #### C BC, BMP ####[facility] [facility] [place] [address] aPTT 54.9 s High 23.0-31.0 [facility] Comment on above: Result Comment: IV H eparin Therapy Range: 64.3-87.8Performed at [address] [place] [address] Performed By: #### C BC, BMP ####[facility] [facility] [place] [address] CBCon 04-24-2017 Erythrocyte distribution width Auto Ratio (RBC) 14.7 % Normal 11.5-14.9 [facility] Comment on above: Performed By: #### C BC, BMP ####[address] [place] [address] Erythrocytes (RBC) 3.89 10*6/uL Low 4.5-5.9 [facility] Comment on above: Performed By: #### C BC, BMP ####[address] [place] [address] Hematocrit (HCT) 34.7 % Low 41-53 [facility] Comment on above: Performed By: #### C BC, BMP ####[address] [place] [address] Hemoglobin mass conc (Bld) 11.4 g/dL Low 13.5-17.5 [facility] Comment on above: Performed By: #### C BC, BMP ####[address] [place] [address] MCH 29.3 pg Normal 26-34 [facility] Comment on above: Performed By: #### C BC, BMP ####[address] [place] [address] MCHC mass conc (RBC) 32.9 g/dL Normal 31-37 [facility] Comment on above: Performed By: #### C BC, BMP ####[address] [place] [address] MCV 89.2 fL Normal 80-100 [facility] Comment on above: Performed By: #### C BC, BMP ####[address] [place] [address] Platelet mean volume (PMV) 8.8 fL Normal 6.0-12.0 [facility] Comment on above: Result Comment: Perf ormed at [facility] [address] [place] [address] Performed By: #### C BC, BMP ####[address] [address] Platelets 168 10*3/uL Normal 150-450 [facility] Comment on above: Performed By: #### C BC, BMP ####[address] [address] WBC (Leukocytes) 6.7 10*3/uL Normal 3.5-11.0 [facility] Comment on above: Performed By: #### C BC, BMP ####[address] [place] [address] PTon 04-24-2017 INR Coag RelTime (PPP) 2.5 {INR} Normal [facility] Comment on above: Result Comment: Non- therapeutic Range: INR = 0.9- 1.2Therapeutic Range: Moderate Anticoagulant Intensity: INR = 2.0-3.0 High Anticoagulant Intensity: INR = 2.5-3.5Performed at [address] [address] Performed By: #### C BC, BMP ####[address] [address] Prothrombin time (PT) Coag time (PPP) 28.9 s High 9.7-12.0 [facility] Comment on above: Performed By: #### C BC, BMP ####[address] [address] Alka 04-23-2017 Alanine aminotransferase (ALT) 64 U/L High 5-41 [facility] Comment on above: Result Comment: Perf ormed at [facility] [address] [facility] [address] Performed By: #### C BC, ALT, AST, BMP ####[facility] [place] [address] APTTon 04-23-2017 aPTT 61.5 s High 23.0-31.0 [facility] Comment on above: Result Comment: IV H eparin Therapy Range: 64.3-87.8Performed at [facility] [address] [place] [address] Performed By: #### C BC, BMP ####[facility] [place] [address] aPTT 54.1 s High 23.0-31.0 [facility] Comment on above: Result Comment: IV H eparin Therapy Range: 64.3-87.8Performed at [facility] [address] [place] [address] Performed By: #### C BC, BMP ####[facility] [place] [address] aPTT 29.0 s Normal 23.0-31.0 [facility] Comment on above: Result Comment: IV H eparin Therapy Range: 64.3-87.8Specimen ClottedDISREGARD RESULTS. SPECIMEN CLOTTED.Performed at [facility] [address] [place] [address] Performed By: #### P TT ####[facility] [place] [address] aPTT 54.8 s High 23.0-31.0 [facility] Comment on above: Result Comment: IV H eparin Therapy Range: 64.3-87.8Performed at [facility] [address] [facility] [place] [address] Performed By: #### C BC, BMP ####[address] [place] [address] aPTT 55.3 s High 23.0-31.0 [facility] Comment on above: Result Comment: IV H eparin Therapy Range: 64.3-87.8Performed at [place] [address] [place] [address] Performed By: #### P TT ####[address] [address] aPTT 57.5 s High 23.0-31.0 [facility] Comment on above: Result Comment: IV H eparin Therapy Range: 64.3-87.8Performed at [address] [address] Performed By: #### P TT ####[facility] [place] [address] Taz 04-23-2017 Aspartate aminotransferase (AST) 22 U/L Normal <40 [facility] Comment on above: Result Comment: Perf ormed at [address] [address] Performed By: #### C BC, ALT, AST, BMP ####[address] [address] Basic Metabolic Profon 04-23 (cont.) Normal [facility] Comment on above: Result Comment: Aver age GFR for 50-59 years old: 93 mL/min/1.73sq mChronic Kidney Disease: <60 mL/min/1.73sq mKidney failure: <15 mL/min/1.73sq meGFR calculated using average adult body mass. Additional eGFR calculator available at:http://www.[employer]rph.[employer]/multiple_crcl_2012.htmPerformed at [facility] [address] [place] [address] Performed By: #### C BC, ALT, AST, BMP ####[facility] [place] [address] Anion gap 14 mmol/L Normal 9-17 [facility] Comment on above: Performed By: #### C BC, ALT, AST, BMP ####[facility] [place] [address] Calcium 8.8 mg/dL Normal 8.6-10.4 [facility] Comment on above: Performed By: #### C BC, ALT, AST, BMP ####[address] [place] [address] Chloride 101 mmol/L Normal 98-107 [facility] Comment on above: Performed By: #### C BC, ALT, AST, BMP ####[address] [place] [address] CO2 25 mmol/L Normal 20-31 [facility] Comment on above: Performed By: #### C BC, ALT, AST, BMP ####[facility] [place], [place] [address] [place] [address] Creatinine 0.73 mg/dL Normal 0.70-1.20 [facility] Comment on above: Performed By: #### C BC, ALT, AST, BMP ####[address] [place] [address] eGFR (non-black) mL/min/{1.73_m2} Normal >60 [facility] Comment on above: Performed By: #### C BC, ALT, AST, BMP ####[place] [address] [place] [address] Glucose mass conc 143 mg/dL High 70-99 [facility] Comment on above: Performed By: #### C BC, ALT, AST, BMP ####[facility] [place] [address] Potassium molar conc 4.3 mmol/L Normal 3.7-5.3 [facility] Comment on above: Performed By: #### C BC, ALT, AST, BMP ####[facility] [place] [address] Sodium 140 mmol/L Normal 135-144 [facility] Comment on above: Performed By: #### C BC, ALT, AST, BMP ####[facility] [place] [address] Urea nitrogen 5 mg/dL Low 6-20 [facility] Comment on above: Performed By: #### C BC, ALT, AST, BMP ####[facility] [place], [place] [address] [place] [address] BUN/CRE Ratio NOT REPORTED Normal 9-20 [facility] Comment on above: Performed By: #### C BC, ALT, AST, BMP ####[facility] [place], [place] [address] [place] [address] Staging: NOT REPORTED Normal [facility] Comment on above: Performed By: #### C BC, ALT, AST, BMP ####[address] [place] [address] CBCon 04-23-2017 Erythrocyte distribution width Auto Ratio (RBC) 14.5 % Normal 11.5-14.9 [facility] Comment on above: Performed By: #### C BC, ALT, AST, BMP ####[facility] [place] [address] Erythrocytes (RBC) 3.65 10*6/uL Low 4.5-5.9 [facility] Comment on above: Performed By: #### C BC, ALT, AST, BMP ####[address] [address] Hematocrit (HCT) 32.4 % Low 41-53 [facility] Comment on above: Performed By: #### C BC, ALT, AST, BMP ####[address] [address] Hemoglobin mass conc (Bld) 10.6 g/dL Low 13.5-17.5 [facility] Comment on above: Performed By: #### C BC, ALT, AST, BMP ####[address] [address] MCH 29.1 pg Normal 26-34 [facility] Comment on above: Performed By: #### C BC, ALT, AST, BMP ####[address] [address] MCHC mass conc (RBC) 32.9 g/dL Normal 31-37 [facility] Comment on above: Performed By: #### C BC, ALT, AST, BMP ####[address] [address] MCV 88.6 fL Normal 80-100 [facility] Comment on above: Performed By: #### C BC, ALT, AST, BMP ####[address] [address] Platelet mean volume (PMV) 8.1 fL Normal 6.0-12.0 [facility] Comment on above: Result Comment: Perf ormed at [facility] [address] [place] [address] Performed By: #### C BC, ALT, AST, BMP ####[address] [place] [address] Platelets 160 10*3/uL Normal 150-450 [facility] Comment on above: Performed By: #### C BC, ALT, AST, BMP ####[facility] [facility] [place] [address] WBC (Leukocytes) 6.9 10*3/uL Normal 3.5-11.0 [facility] Comment on above: Performed By: #### C BC, ALT, AST, BMP ####[facility] [facility] [place] [address] CONSULTATIONon 04-23-2017 CONSULTATION [facility] [address] [place] [id number] CONSULTATIONPATIENT NAME: MIKEL SAMUELS : 1960MED REC NO: [id number] ROOM: [address] [place], [place] [address]OUNT NO: [id number] ADMISSION DATE:04/22/2017PROVIDER: Lala MitchellCONSULT DATE: 04/23/2017BED: #1.HISTORY [...] questions regarding the above.LALA NICOLASMAND: 04/23/2017 11:16:27 MILAD/Tino_OPSKU_TJob#: [id number] Doc#: [id number] Normal [facility] OPERATIVE REPORTon OPERATIVE REPORT [address] [address] OPERATIVE REPORTPATIENT NAME: MIKEL SAMUELS : 1960MED REC NO: [id number] ROOM: [address] [place] [address] NO: [id number] ADMISSION DATE:04/22/2017PROVIDER: Lala OlivaATE OF PROCEDURE: 04/23/2017BED: [...] hospital blood in stablecondition.LALA NICOLASMAND: 04/23/2017 11:20:29 GC/Tino_OPSKU_TJob#: [id number] Doc#: [id number] Normal [facility] PTon 04-23-2017 INR Coag RelTime (PPP) 2.5 {INR} Normal [facility] Comment on above: Result Comment: Non- therapeutic Range: INR = 0.9- 1.2Therapeutic Range: Moderate Anticoagulant Intensity: INR = 2.0-3.0 High Anticoagulant Intensity: INR = 2.5-3.5Performed at [address] [address] Performed By: #### C BC, BMP ####[address] [address] Prothrombin time (PT) Coag time (PPP) 28.5 s High 9.7-12.0 [facility] Comment on above: Performed By: #### C BC, BMP ####[address] [address] APTTon 04-22-2017 aPTT 55.5 s High 23.0-31.0 [facility] Comment on above: Result Comment: IV H eparin Therapy Range: 64.3-87.8Performed at [address] [address] Performed By: #### P TT ####[address] [address] aPTT 55.7 s High 23.0-31.0 [facility] Comment on above: Result Comment: IV H eparin Therapy Range: 64.3-87.8Performed at [address] [place] [address] Performed By: #### P TT ####[facility] [place] [address] aPTT 48.8 s High 23.0-31.0 [facility] Comment on above: Result Comment: IV H eparin Therapy Range: 64.3-87.8Performed at [facility] [address] [facility] [place] [address] Performed By: #### P TT ####[facility] [place] [address] aPTT 48.9 s High 23.0-31.0 [facility] Comment on above: Result Comment: IV H eparin Therapy Range: 64.3-87.8Performed at [address] [facility] [place] [address] Performed By: #### C BC, BMP ####[facility] [place] [address] aPTT 51.0 s High 23.0-31.0 [facility] Comment on above: Result Comment: IV H eparin Therapy Range: 64.3-87.8Performed at [facility] [address] [facility] [address] Performed By: #### C BC, BMP ####[facility] [place] [address] aPTT 41.8 s High 23.0-31.0 [facility] Comment on above: Result Comment: IV H eparin Therapy Range: 64.3-87.8Performed at [facility] [address] [facility] [place] [address] Performed By: #### C BC, BMP ####[facility] [place] [address] aPTT 47.1 s High 23.0-31.0 [facility] Comment on above: Result Comment: IV H eparin Therapy Range: 64.3-87.8Performed at [facility] [address] [place] [address] Performed By: #### C BC, BMP ####[facility] [place] [address] aPTT 48.0 s High 23.0-31.0 [facility] Comment on above: Result Comment: IV H eparin Therapy Range: 64.3-87.8Performed at [facility] [address] [place] [address] Performed By: #### C BC, BMP ####[address] [address] CBCon 04-22-2017 Erythrocyte distribution width Auto Ratio (RBC) 14.5 % Normal 11.5-14.9 [facility] Comment on above: Performed By: #### C BC, BMP ####[address] [address] Erythrocytes (RBC) 3.63 10*6/uL Low 4.5-5.9 [facility] Comment on above: Performed By: #### C BC, BMP ####[facility] [place] [address] Hematocrit (HCT) 32.2 % Low 41-53 [facility] Comment on above: Performed By: #### C BC, BMP ####[address] [address] Hemoglobin mass conc (Bld) 10.7 g/dL Low 13.5-17.5 [facility] Comment on above: Performed By: #### C BC, BMP ####[address] [place] [address] MCH 29.5 pg Normal 26-34 [facility] Comment on above: Performed By: #### C BC, BMP ####[facility] [place] [address] MCHC mass conc (RBC) 33.2 g/dL Normal 31-37 [facility] Comment on above: Performed By: #### C BC, BMP ####[facility] [place] [address] MCV 88.7 fL Normal 80-100 [facility] Comment on above: Performed By: #### C BC, BMP ####[address] [address] Platelet mean volume (PMV) 8.5 fL Normal 6.0-12.0 [facility] Comment on above: Result Comment: Perf ormed at [facility] [address] [place] [address] Performed By: #### C BC, BMP ####[address] [address] Platelets 158 10*3/uL Normal 150-450 [facility] Comment on above: Performed By: #### C BC, BMP ####[address] [address] WBC (Leukocytes) 7.1 10*3/uL Normal 3.5-11.0 [facility] Comment on above: Performed By: #### C BC, BMP ####[address] [address] APTTon 04-21-2017 aPTT 44.6 s High 23.0-31.0 [facility] Comment on above: Result Comment: IV H eparin Therapy Range: 64.3-87.8Performed at [address] [address] Performed By: #### C BC, BMP ####[address] [address] aPTT 24.9 s Normal 23.0-31.0 [facility] Comment on above: Result Comment: IV H eparin Therapy Range: 64.3-87.8Performed at [address] [address] Performed By: #### C BC, BMP ####[address] [address] Basic Metabolic Profon 04-21 (cont.) Normal [facility] Comment on above: Result Comment: Aver age GFR for 50-59 years old: 93 mL/min/1.73sq mChronic Kidney Disease: <60 mL/min/1.73sq mKidney failure: <15 mL/min/1.73sq meGFR calculated using average adult body mass. Additional eGFR calculator available at:http://www.[employer]/multiple_crcl_2012.htmPerformed at [address] [address] Performed By: #### C BC, BMP ####[address] [address] Anion gap 15 mmol/L Normal 9-17 [facility] Comment on above: Performed By: #### C BC, BMP ####[address] [address] Calcium 9.0 mg/dL Normal 8.6-10.4 [facility] Comment on above: Performed By: #### C BC, BMP ####[address] [address] Chloride 97 mmol/L Low 98-107 [facility] Comment on above: Performed By: #### C BC, BMP ####[address] [place] [address] CO2 25 mmol/L Normal 20-31 [facility] Comment on above: Performed By: #### C BC, BMP ####[address] [place] [address] Creatinine 0.71 mg/dL Normal 0.70-1.20 [facility] Comment on above: Performed By: #### C BC, BMP ####[address] [address] eGFR (non-black) mL/min/{1.73_m2} Normal >60 [facility] Comment on above: Performed By: #### C BC, BMP ####[address] [address] Glucose mass conc 152 mg/dL High 70-99 [facility] Comment on above: Performed By: #### C BC, BMP ####[address] [address] Potassium molar conc 3.6 mmol/L Low 3.7-5.3 [facility] Comment on above: Performed By: #### C BC, BMP ####[address] [address] Sodium 137 mmol/L Normal 135-144 [facility] Comment on above: Performed By: #### C BC, BMP ####[address] [address] Urea nitrogen 7 mg/dL Normal 6-20 [facility] Comment on above: Performed By: #### C BC, BMP ####[address] [place] [address] BUN/CRE Ratio NOT REPORTED Normal 9-20 [facility] Comment on above: Performed By: #### C BC, BMP ####[facility] [place] [address].[place] [address] Staging: NOT REPORTED Normal [facility] Comment on above: Performed By: #### C BC, BMP ####[address] [place] [address] CBCon 04-21-2017 Erythrocyte distribution width Auto Ratio (RBC) 14.3 % Normal 11.5-14.9 [facility] Comment on above: Performed By: #### C BC, BMP ####[address] [place] [address] Erythrocytes (RBC) 3.76 10*6/uL Low 4.5-5.9 [facility] Comment on above: Performed By: #### C BC, BMP ####[address] [address] Hematocrit (HCT) 32.9 % Low 41-53 [facility] Comment on above: Performed By: #### C BC, BMP ####[facility] [place] [address] Hemoglobin mass conc (Bld) 11.2 g/dL Low 13.5-17.5 [facility] Comment on above: Performed By: #### C BC, BMP ####[address] [address] MCH 29.7 pg Normal 26-34 [facility] Comment on above: Performed By: #### C BC, BMP ####[address] [address] MCHC mass conc (RBC) 33.9 g/dL Normal 31-37 [facility] Comment on above: Performed By: #### C BC, BMP ####[facility] [place] [address] MCV 87.6 fL Normal 80-100 [facility] Comment on above: Performed By: #### C BC, BMP ####[facility] [place] [address] Platelet mean volume (PMV) 8.8 fL Normal 6.0-12.0 [facility] Comment on above: Result Comment: Perf ormed at [facility] [address] [place] [address] Performed By: #### C BC, BMP ####[facility] [place] [address] Platelets 164 10*3/uL Normal 150-450 [facility] Comment on above: Performed By: #### C BC, BMP ####[facility] [place] [address] WBC (Leukocytes) 6.8 10*3/uL Normal 3.5-11.0 [facility] Comment on above: Performed By: #### C BC, BMP ####[facility] [place] [address] Heparin Platelet Abon 2016 Heparin Platelet Ab 1.393 O.D. High 0.000-0.400 [facility] Comment on above: Result Comment: O.D. Interpretation: <=0.400 Negative > 0.400 PositivePerformed at [place] [address] [place] [address] Performed By: #### C BC, BMP ####[facility] [place] [address] Liver Profileon 04-21-2017 Alanine aminotransferase (ALT) 106 U/L High 5-41 [facility] Comment on above: Performed By: #### C BC, BMP ####[address] [address] Albumin 3.8 g/dL Normal 3.5-5.2 [facility] Comment on above: Performed By: #### C BC, BMP ####[address] [address] Alkaline Phos 155 U/L High 40-129 [facility] Comment on above: Performed By: #### C BC, BMP ####[address] [address] Aspartate aminotransferase (AST) 35 U/L Normal <40 [facility] Comment on above: Performed By: #### C BC, BMP ####[address] [address] Bilirubin (direct) 0.15 mg/dL Normal <0.31 [facility] Comment on above: Performed By: #### C BC, BMP ####[address] [address] Bilirubin Ql (U) 0.43 mg/dL Normal 0.3-1.2 [facility] Comment on above: Performed By: #### C BC, BMP ####[address] [address] Bilirubin, Indirect 0.28 mg/dL Normal 0.00-1.00 [facility] Comment on above: Performed By: #### C BC, BMP ####[address] [address] Protein 7.0 g/dL Normal 6.4-8.3 [facility] Comment on above: Result Comment: Perf ormed at [place] [address] [place] [address] Performed By: #### C BC, BMP ####[facility] [facility] [place] [address] Albumin/Globulin Ratio NOT REPORTED Normal 1.0-2.5 [facility] Comment on above: Performed By: #### C BC, BMP ####[facility] [facility] [place] [address] Globulin NOT REPORTED Normal 1.5-3.8 [facility] Comment on above: Performed By: #### C BC, BMP ####[facility] [facility] [place] [address] Serotonin Rel Assayon 2016 Heparin Type Porcine Heparin Normal [facility] Comment on above: Performed By: #### C BC, BMP ####[facility] [facility] [place] [address] FL MODIFIED BARIUM SWALLOW W VIDEOon 04-20-2017 [...] Del Angeligned by:Yvon Ricks MD04/20/17Final result Normal [facility] CBCon 04-19-2017 Erythrocyte distribution width Auto Ratio (RBC) 13.8 % Normal 11.5-14.9 [facility] Comment on above: Performed By: #### C BC ####[facility] [place] [address] Erythrocytes (RBC) 3.74 10*6/uL Low 4.5-5.9 [facility] Comment on above: Performed By: #### C BC ####[facility] [place] [address] Hematocrit (HCT) 33.0 % Low 41-53 [facility] Comment on above: Performed By: #### C BC ####[facility] [place] [address] Hemoglobin mass conc (Bld) 11.0 g/dL Low 13.5-17.5 [facility] Comment on above: Performed By: #### C BC ####[facility] [place] [address] MCH 29.3 pg Normal 26-34 [facility] Comment on above: Performed By: #### C BC ####[facility] [place] [address] MCHC mass conc (RBC) 33.3 g/dL Normal 31-37 [facility] Comment on above: Performed By: #### C BC ####[facility] [place] [address] MCV 88.0 fL Normal 80-100 [facility] Comment on above: Performed By: #### C BC ####[facility] [place] [address] Platelet mean volume (PMV) 9.1 fL Normal 6.0-12.0 [facility] Comment on above: Result Comment: Perf ormed at [facility] [address] [facility] [place] [address] Performed By: #### C BC ####[facility] [facility] [place] [address] Platelets 182 10*3/uL Normal 150-450 [facility] Comment on above: Performed By: #### C BC ####[facility] [place] [address] WBC (Leukocytes) 6.3 10*3/uL Normal 3.5-11.0 [facility] Comment on above: Performed By: #### C BC ####[facility] [place] [address] CT HEAD WO CONTRASTon 2016 CT HEAD WO CONTRAST EXAMINATION:CT OF TH E HEAD WITHOUT CONTRAST 04/19/2017 10:29 amTECHNIQUE:CT of the head was performed without the administration of intravenouscontrast. Dose modulation, iterative reconstruction, and/or weight basedadjustment of the mA/kV was utilized to reduce the radiation dose to as lowas reasonably achievable.COMPARISON:Mimi mora CT from 03/25/2017 and 03/24/2017HISTORY:ORDERIN G SYSTEM [...] by:AMITA Chappelligned by:Edison Scott MD04/19/17Final result Normal [facility] Basic Metabolic Profon 04-18 (cont.) Normal [facility] Comment on above: Result Comment: Aver age GFR for 50-59 years old: 93 mL/min/1.73sq mChronic Kidney Disease: <60 mL/min/1.73sq mKidney failure: <15 mL/min/1.73sq meGFR calculated using average adult body mass. Additional eGFR calculator available at:http://www.[employer]/multiple_crcl_2011.htmPerformed at [facility] [address] [facility] [place] [address] Performed By: #### C BC, BMP ####[facility] [facility] [place] [address] Anion gap 14 mmol/L Normal - [facility] Comment on above: Performed By: #### C DELGADO, BMP ####[facility] [facility] [place] [address] Calcium 9.2 mg/dL Normal 8.6-10.4 [facility] Comment on above: Performed By: #### C BC, BMP ####[facility] [place] [address] Chloride 97 mmol/L Low 98-107 [facility] Comment on above: Performed By: #### C BC, BMP ####[address] [address] CO2 26 mmol/L Normal 20-31 [facility] Comment on above: Performed By: #### C BC, BMP ####[facility] [place] [address] Creatinine 0.76 mg/dL Normal 0.70-1.20 [facility] Comment on above: Performed By: #### C BC, BMP ####[address] [address] eGFR (non-black) mL/min/{1.73_m2} Normal >60 [facility] Comment on above: Performed By: #### C BC, BMP ####[address] [address] Glucose mass conc 119 mg/dL High 70-99 [facility] Comment on above: Performed By: #### C BC, BMP ####[address] [address] Potassium molar conc 4.2 mmol/L Normal 3.7-5.3 [facility] Comment on above: Performed By: #### C BC, BMP ####[address] [address] Sodium 137 mmol/L Normal 135-144 [facility] Comment on above: Performed By: #### C BC, BMP ####[address] [address] Urea nitrogen 8 mg/dL Normal 6-20 [facility] Comment on above: Performed By: #### C BC, BMP ####[facility] [place] [address] BUN/CRE Ratio NOT REPORTED Normal 9-20 [facility] Comment on above: Performed By: #### C BC, BMP ####[facility] [place] [address] Staging: NOT REPORTED Normal [facility] Comment on above: Performed By: #### C BC, BMP ####[facility] [place] [address] CBCon 04-18-2017 Erythrocyte distribution width Auto Ratio (RBC) 13.8 % Normal 11.5-14.9 [facility] Comment on above: Performed By: #### C BC, BMP ####[facility] [place] [address] Erythrocytes (RBC) 3.59 10*6/uL Low 4.5-5.9 [facility] Comment on above: Performed By: #### C BC, BMP ####[facility] [facility] [place] [address] Hematocrit (HCT) 31.8 % Low 41-53 [facility] Comment on above: Performed By: #### C BC, BMP ####[facility] [place] [address] Hemoglobin mass conc (Bld) 10.6 g/dL Low 13.5-17.5 [facility] Comment on above: Performed By: #### C BC, BMP ####[facility] [place] [address] MCH 29.6 pg Normal 26-34 [facility] Comment on above: Performed By: #### C BC, BMP ####[address] [address] MCHC mass conc (RBC) 33.3 g/dL Normal 31-37 [facility] Comment on above: Performed By: #### C BC, BMP ####[address] [address] MCV 88.8 fL Normal 80-100 [facility] Comment on above: Performed By: #### C BC, BMP ####[address] [address] Platelet mean volume (PMV) 9.4 fL Normal 6.0-12.0 [facility] Comment on above: Result Comment: Perf ormed at [address] [address] Performed By: #### C BC, BMP ####[address] [address] Platelets 172 10*3/uL Normal 150-450 [facility] Comment on above: Performed By: #### C BC, BMP ####[address] [address] WBC (Leukocytes) 6.8 10*3/uL Normal 3.5-11.0 [facility] Comment on above: Performed By: #### C BC, BMP ####[address] [address] CONSULTATIONon 04-15-[address] [address] CONSULTATIONPATIENT NAME: MIKEL SAMUELS : 1960MED REC NO: [id number] ROOM: 2639ACCOUNT NO: [id number] ADMISSION DATE:04/13/2017PROVIDER: Regi LordCONSULT DATE: 04/15/2017CHIEF COMPLAINT: [...] the road decannulate it.REGI LORDD: 04/15/2017 12:35:15 EFREN/Tino_ADELE_IJob#: [id number] Doc#: [id number] Normal [facility] Basic Metabolic Profon 04-14 (cont.) Normal [facility] Comment on above: Result Comment: Aver age GFR for 50-59 years old: 93 mL/min/1.73sq mChronic Kidney Disease: <60 mL/min/1.73sq mKidney failure: <15 mL/min/1.73sq meGFR calculated using average adult body mass. Additional eGFR calculator available at:http://www.[employer]/multiple_crcl_2012.htmPerformed at [facility] [address] [facility] [place], [place] [id number] ([phone] Performed By: #### C DELGADO, BMP ####[facility] [facility] [place] [address] Anion gap 13 mmol/L Normal 9-17 [facility] Comment on above: Performed By: #### C DELGADO, BMP ####[facility] [facility] [place] [address] Calcium 9.2 mg/dL Normal 8.6-10.4 [facility] Comment on above: Performed By: #### C BC, BMP ####[facility] [place] [address].[place] [address] Chloride 96 mmol/L Low 98-107 [facility] Comment on above: Performed By: #### C BC, BMP ####[facility] [place] [address] CO2 27 mmol/L Normal 20-31 [facility] Comment on above: Performed By: #### C BC, BMP ####[facility] [place] [address] Creatinine 0.86 mg/dL Normal 0.70-1.20 [facility] Comment on above: Performed By: #### C BC, BMP ####[facility] [place] [address] eGFR (non-black) mL/min/{1.73_m2} Normal >60 [facility] Comment on above: Performed By: #### C BC, BMP ####[facility] [place] [address] Glucose mass conc 148 mg/dL High 70-99 [facility] Comment on above: Performed By: #### C BC, BMP ####[facility] [place] [address] Potassium molar conc 4.5 mmol/L Normal 3.7-5.3 [facility] Comment on above: Performed By: #### C BC, BMP ####[facility] [place] [address] Sodium 136 mmol/L Normal 135-144 [facility] Comment on above: Performed By: #### C BC, BMP ####[facility] [facility] [place] [address] Urea nitrogen 9 mg/dL Normal 6-20 [facility] Comment on above: Performed By: #### C BC, BMP ####[facility] [place] [address] BUN/CRE Ratio NOT REPORTED Normal 9-20 [facility] Comment on above: Performed By: #### C BC, BMP ####[facility] [place], [place] [address] [place] [address] Staging: NOT REPORTED Normal [facility] Comment on above: Performed By: #### C BC, BMP ####[address] [place] [address] CBCon 04-14-2017 Erythrocyte distribution width Auto Ratio (RBC) 13.3 % Normal 11.5-14.9 [facility] Comment on above: Performed By: #### C BC, BMP ####[facility] [place] [address].[place] [address] Erythrocytes (RBC) 3.82 10*6/uL Low 4.5-5.9 [facility] Comment on above: Performed By: #### C BC, BMP ####[facility] [place], [place] [address] [place] [address] Hematocrit (HCT) 34.1 % Low 41-53 [facility] Comment on above: Performed By: #### C BC, BMP ####[facility] [place], [place] [address] [facility] [place] [address] Hemoglobin mass conc (Bld) 11.6 g/dL Low 13.5-17.5 [facility] Comment on above: Performed By: #### C BC, BMP ####[facility] [place] [address] MCH 30.4 pg Normal 26-34 [facility] Comment on above: Performed By: #### C BC, BMP ####[facility] [place] [address] MCHC mass conc (RBC) 34.0 g/dL Normal 31-37 [facility] Comment on above: Performed By: #### C BC, BMP ####[facility] [place] [address] MCV 89.4 fL Normal 80-100 [facility] Comment on above: Performed By: #### C BC, BMP ####[address] [address] Platelet mean volume (PMV) 8.1 fL Normal 6.0-12.0 [facility] Comment on above: Result Comment: Perf ormed at [facility] [address] [place] [address] Performed By: #### C BC, BMP ####[address] [address] Platelets 234 10*3/uL Normal 150-450 [facility] Comment on above: Performed By: #### C BC, BMP ####[facility] [place] [address] WBC (Leukocytes) 8.7 10*3/uL Normal 3.5-11.0 [facility] Comment on above: Performed By: #### C BC, BMP ####[address] [address] Vital Signs Date Time Vital Sign Value Performing Clinician Facility 12-04-2024 15:28-0400 Blood Pressure Location Shirin BETSY [facility] [place] 05-20-2025 15:28-0400 Diastolic blood pressure 90 mm[Hg] Shirin NILL [facility] [place] 12-04-2024 15:28-0400 Heart rate 80 /min Shirin NILL [facility] [place] 12-04-2024 15:28-0400 Respiratory rate 16 /min Shirin NILL [facility] [place] 12-04-2024 15:28-0400 Systolic blood pressure 128 mm[Hg] Shirin NILL [facility] [place] 09-18-2024 08:32-0500 Blood Pressure Location ELLY MCKEONRY [facility] 09-18-2024 08:32-0500 Body temperature 98.6 [degF] ELLY BRENNON [facility] 09-18-2024 08:32-0500 Diastolic blood pressure 92 mm[Hg] ELLY BRENNON [facility] 09-18-2024 08:32-0500 Heart rate 92 /min ELLY BRENNON [facility] 09-18-2024 08:32-0500 Respiratory rate 18 /min ELLY BRENNON [facility] 09-18-2024 08:32-0500 Systolic blood pressure 156 mm[Hg] ELLY BRENNON [facility] 08-10-2024 09:10-0500 Body height 177.8 cm Mth 2 [facility] 08-10-2024 09:10-0500 Body mass index (BMI) [Ratio] 41.75 kg/m2 [facility] 2 [facility] 08-10-2024 09:10-0500 Body weight 132 kg [facility] 2 [facility] 03-13-2024 14:30-0400 Diastolic blood pressure 83 mm[Hg] Salvador Leung MD Work Phone: [facility] 03-13-2024 14:30-0400 Heart rate 78 /min Salvador Leung MD Work Phone: [facility] 03-13-2024 14:30-0400 Respiratory rate 16 /min Salvador Leung MD Work Phone: [facility] 03-13-2024 14:30-0400 SaO2% (BldA) [Mass fraction] 97 % Salvador Leung MD Work Phone: [facility] 03-13-2024 14:30-0400 Systolic blood pressure 153 mm[Hg] Salvador Leung MD Work Phone: [facility] 03-13-2024 14:23-0400 Body temperature 97.81 [degF] Salvador Leung MD Work Phone: [facility] 03-13-2024 11:13-0400 Body height 177.8 cm Salvador Leung MD Work Phone: [facility] 03-13-2024 11:13-0400 Body mass index (BMI) [Ratio] 40.92 kg/m2 Salvador Leung MD Work Phone: [facility] 03-13-2024 11:13-0400 Body weight 129.37 kg Salvador Leung MD Work Phone: [facility] 11-16-2023 15:14-0400 Blood Pressure Location Shirin MEYER [facility] 11-16-2023 15:14-0400 Diastolic blood pressure 90 mm[Hg] Shirin MEYER [facility] 11-16-2023 15:14-0400 Heart rate 76 /min Shirin NILL [facility] 11-16-2023 15:14-0400 Respiratory rate 16 /min Shirin NILL [facility] 11-16-2023 15:14-0400 Systolic blood pressure 138 mm[Hg] Shirin NILL [facility] 09-13-2023 08:22-0500 Blood Pressure Location ELLY BRENNON [facility] 09-13-2023 08:22-0500 Diastolic blood pressure 89 mm[Hg] ELLY BRENNON [facility] 09-13-2023 08:22-0500 Heart rate 68 /min ELLY BRENNON [facility] 09-13-2023 08:22-0500 Respiratory rate 16 /min ELLY BRENNON [facility] 09-13-2023 08:22-0500 Systolic blood pressure 135 mm[Hg] ELLY BRENNON [facility] 09-08-2022 10:11-0500 Blood Pressure Location ELLY BRENNON [facility] 09-08-2022 10:11-0500 Diastolic blood pressure 77 mm[Hg] ELLY BRENNON [facility] 09-08-2022 10:11-0500 Heart rate 80 /min ELLY BRENNON [facility] 09-08-2022 10:11-0500 Respiratory rate 16 /min ELLY WILLETT [facility] 09-08-2022 10:11-0500 Systolic blood pressure 133 mm[Hg] ELLY WILLETT [facility] 07-13-2022 15:40-0500 Blood Pressure Location Shirin BETSY [facility] 07-13-2022 15:40-0500 Diastolic blood pressure 84 mm[Hg] Shirin NILL [facility] 07-13-2022 15:40-0500 Heart rate 80 /min Shirin NILL [facility] 07-13-2022 15:40-0500 Respiratory rate 16 /min Shirin DELONGL [facility] 07-13-2022 15:40-0500 Systolic blood pressure 128 mm[Hg] Shirin DELONGL [facility] Encounters Encounter Date Encounter Type Care Provider Facility Start: 12-04-2024 End: 12-04-2024 ambulatory Shirin MEYER Facility:[facility] Start: 12-04-2024 End: 12-04-2024 Patient encounter procedure Shirin MEYER [facility] Start: 11-15-2024 End: 11-15-2024 Bamboo flowschilo Phan MD Work Phone: [facility] Start: 11-15-2024 End: 11-15-2024 Bamsanti Phan MD Work Phone: [facility] Start: 11-15-2024 End: 11-15-2024 ambulatory SANTIAGO PHAN Not Available Start: 11-15-2024 End: 11-15-2024 Patient encounter procedure Santiago Phan MD Work Phone: [facility] Comment on above: Neoplasm of unspecif ied behavior of bone, soft tissue, and skin (Primary Dx); Surgery, elective Start: 10-08-2024 End: 10-11-2024 Orders Only Santiago Phan MD Work Phone: [facility] Unsolicited Start: 10-08-2024 End: 10-08-2024 Postop follow up visit related to original px Santiago Phan MD Work Phone: [facility] Comment on above: Encounter for postop erative wound check (Primary Dx) Start: 10-08-2024 End: 10-08-2024 ambulatory SANTIAGO PHAN Not Available Start: 10-03-2024 End: 10-03-2024 ambulatory Gary [facility] Work Phone: Start: 10-03-2024 End: 10-03-2024 Departed Referred Gary Varela MD Work Phone: [facility] [place] Work Phone: Start: 09-28-2024 End: 09-28-2024 ambulatory SANTIAGO PHAN Not Available Start: 09-19-2024 End: 09-19-2024 ambulatory Gary [facility] Work Phone: Start: 09-19-2024 End: 09-19-2024 Departed Referred Gary Varela MD Work Phone: [facility] [place] Work Phone: Start: 09-18-2024 End: 09-18-2024 ambulatory ELLY WILLETT Facility:[facility] Start: 09-18-2024 End: 09-18-2024 Patient encounter procedure ELLY WILLETT [facility] Start: 08-30-2024 End: 08-30-2024 Sudhakar Phan MD Work Phone: [facility] Start: 08-30-2024 End: 08-30-2024 Sudhakar Phan MD Work Phone: [facility] Start: 08-30-2024 End: 08-30-2024 Office outpatient visit 15 minutes Santiago Phan MD Work Phone: [facility] Comment on above: Seborrheic keratosis (Primary Dx); Actinic keratosis; Epidermal inclusion cyst; History of squamous cell carcinoma in situ (SCCIS); History of basal cell carcinoma; Neoplasm of unspecified behavior of bone, soft tissue, and skin; Lentigines Start: 08-30-2024 End: 08-30-2024 ambulatory SANTIAGO PHAN Not Available Start: 08-10-2024 End: 08-12-2024 ambulatory FISH MACIEL [facility] Start: 08-10-2024 End: 08-12-2024 Subsequent hospital visit by physician Michael Billy [address] [place] [address] Nuclear Medicine Comment on above: RUQ abdominal pain Start: 07-02-2024 End: 07-02-2024 Patient encounter procedure Santiago Phan MD Work Phone: [facility] Comment on above: Neoplasm of unspecif ied behavior of bone, soft tissue, and skin (Primary Dx); Other specified erythematous conditions; Common wart; Actinic keratosis Start: 07-02-2024 End: 07-02-2024 ambulatory SANTIAGO PHAN Not Available Start: 07-02-2024 End: 07-02-2024 Sudhakar Phan MD Work Phone: [facility] Start: 07-02-2024 End: 07-02-2024 Sudhakar Phan MD Work Phone: [facility] Start: 05-31-2024 End: 05-31-2024 ambulatory FISH MACIEL [facility] Start: 05-31-2024 End: 05-31-2024 Subsequent hospital visit by physician Fish Maciel MD Work Phone: [facility] Comment on above: Renal calculus Start: 05-21-2024 End: 05-23-2024 ambulatory [facility] Start: 05-21-2024 End: 05-23-2024 Subsequent hospital visit by physician Michael Seay Dr Room 2 [facility] Radiology Comment on above: Renal calculus Start: 03-13-2024 End: 03-13-2024 ambulatory FISH [facility] Start: 03-13-2024 End: 03-13-2024 Subsequent hospital visit by physician Salvador Leung MD Work Phone: [facility] Start: 03-08-2024 End: 03-10-2024 ambulatory FISH [facility] Start: 03-07-2024 End: 03-07-2024 Patient encounter procedure Santiago Phan MD Work Phone: [facility] Comment on above: Basal cell carcinoma (BCC) of skin of right upper extremity including shoulder (Primary Dx); Basal cell carcinoma (BCC) of skin of left upper extremity including shoulder Start: 03-07-2024 End: 03-07-2024 ambulatory SANTIAGO A PETITTI Not Available Start: 02-25-2024 End: 02-25-2024 ambulatory FISH [facility] Start: 02-15-2024 End: 02-15-2024 ambulatory SANTIAGO A PETITTI Not Available Start: 01-24-2024 End: 01-24-2024 ambulatory SANTIAGO A PETITTI Not Available Start: 12-26-2023 End: 12-28-2023 ambulatory [facility] Start: 12-14-2023 End: 12-14-2023 ambulatory Gary [facility] Work Phone: Start: 12-14-2023 End: 12-14-2023 Departed Referred MD Shirin Meyer Work Phone: [facility] [place] Work Phone: Start: 11-23-2023 End: 11-23-2023 Patient encounter procedure Shirin MEYER [facility] Start: 11-16-2023 End: 11-16-2023 [facility] Start: 11-16-2023 End: 11-16-2023 ambulatory Shirin Meyer [facility] Work Phone: Start: 11-16-2023 End: 11-16-2023 Departed Referred MD Shirin Meyer Work Phone: [facility] [place] [facility] Start: 11-15-2023 End: 11-15-2023 [facility] Start: 09-13-2023 End: 09-13-2023 Patient encounter procedure ELLY WILLETT [facility] Start: 09-08-2022 End: 09-08-2022 Patient encounter procedure ELLY WILLETT [facility] Start: 09-06-2022 End: 09-07-2022 ambulatory ELLY WILLETT Facility:[facility] Start: 08-17-2022 End: 08-17-2022 Patient encounter procedure Shirin MEYER [facility] Start: 08-04-2022 End: 08-04-[address] SHIRIN MEYER . Facility:[facility] Start: 07-31-[address] SHIRIN MEYER . Facil ity:[facility] Start: 07-13-2022 End: 07-13-2022 Patient encounter procedure Shirin MEYER General Surgery Nill/Said [place] Start: 06-24-2022 Encounter for genera l adult medical examination without abnormal findings DR FISH MACIEL . [facility] Start: 06-18-2022 End: 06-19-[address] FISH MACIEL . Facility: Start: 06-18-2022 End: 06-19-2022 Encounter for general adult medical examination without abnormal findings DR FISH MACIEL . Facility:[facility] Start: 05-25-2018 End: 05-26-2018 Patient encounter procedure IMANI FLANAGAN [facility] Start: 04-22-2017 End: 04-26-2017 Ambulatory GARY Yan CHINEDU [facility] Start: 04-13-2017 End: 04-22-2017 Evaluation and management of inpatient JAZMIN FELIX [facility] Procedures Date Procedure Procedure Detail Performing Clinician Start: 11-15-2024 SKIN / NAIL BIOPSY Zan Phan MD Work Phone: Start: 10-08-2024 Cul bact xcpt urine blood/stool aerobic isol Santiago Phan MD Work Phone: Start: 10-08-2024 RESULT Santiago brantley MD Work Phone: Start: 08-30-2024 SKIN / NAIL BIOPSY Zan Phan MD Work Phone: Start: 08-30-2024 CRYOTHERAPY SKIN LESION Santiago Phan MD Work Phone: Start: 08-10-2024 Hepatobil syst imag inc gb w/pharma intervenj Fish Maciel MD Work Phone: Start: 07-02-2024 End: 07-02-2024 CRYOTHERAPY SKIN LESION Santiago Phan MD Work Phone: Start: 07-02-2024 End: 07-02-2024 SKIN / NAIL BIOPSY Santiago Phan MD Work Phone: Start: 05-31-2024 Comprehensive metabo lic panel 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 Comment on above: Performed By: #### P SAD #### [facility] [address] [place] [address] Dr. Mita Mendoza Start: 06-18-[address] JORGE MEYER . Comment on above: Performed By: #### P SASC #### [facility] [address] [place] [address] Dr. Mita Mendoza Start: 08-18-2020 Excision of bunion Esvin green BETSY Start: 09-04-2019 Excision of malignan t neoplasm Shirin BETSY Start: 05-25-2018 PTT SHAILI LESLIE AI Start: 05-25-2018 Blood count complete auto&auto difrntl wbc [facility] Start: 05-25-2018 Prothrombin time SHAILI FLANAGAN Start: 05-25-2018 Thromboplastin time partial plasma/whole blood [facility] Start: 04-26-2017 INCENTIVE SPIROMETRY RT JAZMIN FELIX Start: 04-26-2017 INCENTIVE SPIROMETRY RT JAZMIN FELIX Start: 04-26-2017 DISCHARGE PATIENT LAURA Bridgette FELIX Start: 04-26-2017 POCT GLUCOSE JAZMIN SHA H Start: 04-26-2017 INCENTIVE SPIROMETRY RT JAZMIN FELIX Start: 04-26-2017 POC GLUCOSE FINGERSTICK JAZMIN FELIX Start: 04-26-2017 INCENTIVE SPIROMETRY RT JAZMIN FELIX Start: 04-26-2017 POCT GLUCOSE JAZMIN SHA H Start: 04-26-2017 INCENTIVE SPIROMETRY RT JAZMIN FELIX Start: 04-26-2017 INITIATE OXYGEN THER APY PROTOCOL JAZMIN FELIX Start: 04-26-2017 TRACH PLUGGING JAZMIN S HA Start: 04-26-2017 POC GLUCOSE FINGERSTICK JAZMIN FELIX Start: 04-26-2017 APTT JAZMIN MTZ H Start: 04-26-2017 CBC JAZMIN Ward Start: 04-26-2017 PROTIME-INR JAZMIN Ward Start: 04-26-2017 INCENTIVE SPIROMETRY RT JAZMIN FELIX Start: 04-26-2017 POCT GLUCOSE JAZMIN Ward Start: 04-26-2017 INCENTIVE SPIROMETRY RT JAZMINROOSEVELT FELIX Start: 04-26-2017 INCENTIVE SPIROMETRY RT JAZMINROOSEVELT FELIX Start: 04-26-2017 INCENTIVE SPIROMETRY RT JAZMIN FELIX Start: 04-26-2017 INCENTIVE SPIROMETRY RT JAZMIN FELIX Start: 04-25-2017 POC GLUCOSE FINGERSBARBARAK JAZMIN FELIX Start: 04-25-2017 POCT GLUCOSE JAZMIN Ward Start: 04-25-2017 INCENTIVE SPIROMETRY RT JAZMIN FELIX Start: 04-25-2017 APTT JAZMIN Ward Start: 04-25-2017 INCENTIVE SPIROMETRY RT JAZMNI FELIX Start: 04-25-2017 INCENTIVE SPIROMETRY RT JAZMIN FELIX Start: 04-25-2017 INCENTIVE SPIROMETRY RT JAZMIN FELIX Start: 04-25-2017 POCT GLUCOSE JAZMIN Ward Start: 04-25-2017 INCENTIVE SPIROMETRY RT JAZMIN FELIX Start: 04-25-2017 POC GLUCOSE FINGERSRADHA FELIX Start: 04-25-2017 INCENTIVE SPIROMETRY RT JAZMIN FELIX Start: 04-25-2017 POCT GLUCOSE JAZMIN Ward Start: 04-25-2017 INCENTIVE SPIROMETRY RT JAZMIN FELXI Start: 04-25-2017 INITIATE OXYGEN THER APY PROTOCOL JAZMIN FELIX Start: 04-25-2017 TRACH PLUGGING JAZMIN HULLEd Start: 04-25-2017 APTT JAZMIN MTZ H Start: 04-25-2017 BASIC METABOLIC PANEL S JAYNE FELIX Start: 04-25-2017 CBC JAZMIN MTZ H Start: 04-25-2017 PROTIME-INR JAZMIN Ward Start: 04-25-2017 POC GLUCOSE FINGERSTICK JAZMIN FELIX [...] JAZMIN FELIX Start: 04-24-2017 TRACH PLUGGING JAZMIN HULL Start: 04-24-2017 POC GLUCOSE FINGERSTICK JAZMIN FELIX Start: 04-24-2017 INCENTIVE SPIROMETRY RT JAZMIN FELIX Start: 04-24-2017 APTT JAZMIN MTZ H Start: 04-24-2017 PROTIME-INR JAZMIN MTZ H Start: 04-24-2017 POCT GLUCOSE JAZMIN MTZ H Start: 04-24-2017 INCENTIVE SPIROMETRY RT JAZMIN ELVIRA Start: 04-24-2017 INCENTIVE SPIROMETRY RT [...] Start: 04-23-2017 IP CONSULT TO HEM/ONC S JANYE FELIX Start: 04-23-2017 IP CONSULT TO PULMONOLOGY JAZMIN FELIX Start: 04-23-2017 INCENTIVE SPIROMETRY RT JAZMIN ELVIRA Start: 04-23-2017 PHARMACY TO DOSE WARFARIN JAZMINROOSEVELT FELIX Start: 04-23-2017 INCENTIVE SPIROMETRY RT JAZMIN FELIX Start: 04-23-2017 POCT GLUCOSE JAZMIN MTZ H Start: 04-23-2017 INCENTIVE SPIROMETRY RT JAZMINROOSEVELT FELIX Start: 04-23-2017 POC GLUCOSE FINGERSTICK JAZMINROOSEVELT FELIX Start: 04-23-2017 INCENTIVE SPIROMETRY RT JAZMIN FELIX Start: 04-23-2017 PATIENT STATUS (DIRECT) JAZMIN FELIX Start: 04-23-2017 POCT GLUCOSE JAZMIN SHA H Start: 04-23-2017 INCENTIVE SPIROMETRY RT JAZMIN FELIX Start: 04-23-2017 INITIATE OXYGEN THER APY PROTOCOL JAZMINROOSEVELT FELIX Start: 04-23-2017 TRACH PLUGGING JAZMIN Calderon HAH Start: 04-23-2017 POC GLUCOSE FINGERSTICK JAZMIN FELIX Start: 04-23-2017 ALT JAZMINROOSEVELT MTZ H Start: 04-23-2017 AST JAZMIN MZT H Start: 04-23-2017 BASIC METABOLIC PANEL S JAYNE FELIX Start: 04-23-2017 CBC JAZMIN MTZ H Start: 04-23-2017 INCENTIVE SPIROMETRY RT JAZMIN ELVIRA Start: 04-23-2017 POCT GLUCOSE JAZMIN MTZ H Start: 04-23-2017 INCENTIVE SPIROMETRY RT JAZMIN FELIX Start: 04-23-2017 INCENTIVE SPIROMETRY RT JAZMIN ELVIRA Start: 04-23-2017 APTT JAZMINROOSEVELT MTZ H Start: 04-23-2017 INCENTIVE SPIROMETRY RT JAZMINROOSEVELT FELIX Start: 04-23-2017 INCENTIVE SPIROMETRY RT JAZMIN FELIX Start: 04-22-2017 APTT JAZMIN SMITH H Start: 04-22-2017 POCT GLUCOSE JAZMIN MTZ H Start: 04-22-2017 ASPIRATION PRECAUTIONS JAZMIN FELIX Start: 04-22-2017 BLADDER SCAN JAZMIN MTZ H Start: 04-22-2017 CONTACT ISOLATION LAURA FELIX Start: 04-22-2017 DIET GENERAL JAZMIN MTZ H Start: 04-22-2017 ELEVATE HOB JAZMIN MTZ H Start: 04-22-2017 FULL CODE JAZMIN MTZ H Start: 04-22-2017 INCENTIVE SPIROMETRY RT JAZMIN SHAH Start: 04-22-2017 IP CONSULT TO OTOLARYNGOLOGY JAZMIN [...] ED HOSE DAILY JAZMIN FELIX Start: 04-22-2017 CONSTRUCTION EQUIPMENT MECHANIC HELPER EVAL AND TREAT NATHEN FELIX Start: 04-22-2017 TRACH CARE JAZMIN Ward Start: 04-22-2017 TRACH PLUGGING JAZMIN Yumiko JANIA Start: 04-22-2017 TUBE MAINTENANCE JAZMIN FELIX Start: [...] ALT JAZMIN Ward Start: 04-22-2017 AST JAZMIN MTZ H Start: 04-22-2017 BASIC METABOLIC PANEL S JAYNE FELIX Start: 04-22-2017 CBC JAZMIN MTZ H Start: 04-22-2017 INCENTIVE SPIROMETRY RT JAZMIN FELIX Start: 04-22-2017 APTT JAZMIN MTZ H Start: 04-22-2017 APTT JAZMIN Ward Start: 04-22-2017 [...] JAZMIN MTZ H Start: 04-22-2017 CBC JAZMIN Ward Start: 04-22-2017 [...] JAZMIN FELIX Start: 04-22-2017 PULSE OXIMETRY, CONTINUOUS AJZMIN FELIX Start: 04-22-2017 TRACH COLLAR OXYGEN ANNETTE [...] FELIX Start: 04-20-2017 PULSE OXIMETRY, CONTINUOUS JAZMIN FELXI Start: 04-20-2017 TRACH COLLAR OXYGEN ANNETTE FELIX [...] CONTINUOUS JAZMIN FELIX Start: 04-20-2017 SPEAKING VALVE JAZMINROOSEVELT DYKES Start: 04-20-2017 TRACH COLLAR OXYGEN ANNETTE FELIX [...] JAZMIN Ward Start: 04-19-2017 INCENTIVE SPIROMETRY RT AJZMIN FELIX Start: 04-19-2017 PULSE OXIMETRY, CONTINUOUS JAZMIN [...] PLUGGING JAZMIN S HAH Start: 04-19-2017 CBC JAZMINROOSEVELT MTZ H Start: 04-19-2017 INCENTIVE SPIROMETRY RT [...] JAZMIN FELIX Start: 04-18-2017 POC GLUCOSE FINGERSTICK AJZMIN FELIX Start: 04-18-2017 POCT GLUCOSE JAZMIN Ward [...] PROTOCOL JAZMIN FELIX Start: 04-18-2017 PULSE OXIMETRY, JESÚS FELIX Start: 04-18-2017 SPEAKING VALVE JAZMINROOSEVELT DYKES Start: 04-18-2017 TRACH COLLAR OXYGEN ANNETTE [...] RT JAZMIN FELIX Start: 04-17-2017 POC GLUCOSE FINGERSRADHA FELIX Start: 04-17-2017 POCT GLUCOSE JAZMIN Ward [...] JAZMIN FELIX Start: 04-17-2017 SPEAKING VALVE JAZMIN DYKES Start: 04-17-2017 TRACH COLLAR OXYGEN ANNETTE FELIX Start: 04-17-2017 TRACH PLUGGING JAZMIN S HAEd Start: 04-17-2017 POC GLUCOSE FINGERSTICK JAZMIN FELIX [...] JAZMIN FELIX Start: 04-16-2017 POCT GLUCOSE JAZMIN MTZ H Start: 04-16-2017 INCENTIVE SPIROMETRY RT JAZMIN FELIX [...] FELIX Start: 04-16-2017 TRACH PLUGGING JAZMIN S HAH Start: 04-16-2017 POC GLUCOSE FINGERSTICK JAZMIN FELIX Start: 04-16-2017 INCENTIVE SPIROMETRY RT JAZMIN FELIX Start: 04-16-2017 POCT GLUCOSE JAZMIN MTZ H Start: 04-16-2017 INCENTIVE SPIROMETRY RT JAZMIN FELIX [...] JAZMIN FELIX Start: 04-15-2017 PULSE OXIMETRY, CONTINUOUS JZAMIN FELIX Start: 04-15-2017 SPEAKING VALVE JAZMIN DYKES Start: 04-15-2017 TRACH COLLAR OXYGEN ANNETTE [...] JAZMIN FELIX Start: 04-14-2017 BLADDER SCAN JAZMIN Wrad Start: 04-14-2017 ASPIRATION PRECAUTIONS JAZMIN FELIX Start: 09-28-2017 FALL PRECAUTIONS JAZMIN FELIX Start: 04-14-2017 IP [...] OXYGEN ANNETTE FELIX Start: 04-14-2017 POC GLUCOSE FINGERSBARBARAK JAZMIN FELIX Start: 04-14-2017 INCENTIVE SPIROMETRY RT JAZMIN FELIX Start: 04-14-2017 POCT GLUCOSE JAZMIN Ward Start: 04-14-2017 INCENTIVE SPIROMETRY RT JAZMIN FELIX Start: 04-14-2017 INITIATE OXYGEN THER APY PROTOCOL JAZMIN FELIX Start: 04-14-2017 PULSE OXIMETRY, JESÚS FELIX Start: 04-14-2017 SPEAKING VALVE JAZMIN DYKES Start: 04-14-2017 TRACH COLLAR OXYGEN ANNETTE FELIX Start: 04-14-2017 TRACH PLUGGING JAZMIN S HAEd Start: 04-14-2017 POC GLUCOSE FINGERSRADHA FELIX Start: 04-14-2017 BASIC METABOLIC PANEL S [...] JAYNE FELIX Start: 04-13-2017 TURN PATIENT JAZMIN MTZ Ed Start: 04-13-2017 FOLLOW UP JAZMIN Ward Start: [...] AL VTE PROPHYLAXIS JAZMIN FELIX Start: 04-13-2017 CONSTRUCTION EQUIPMENT MECHANIC HELPER EVAL AND TREAT NATHEN FELIX Start: 04-13-2017 ENCOURAGE DEEP BREAT ROSIE AND COUGHING JAZMIN FELIX Start: 04-13-2017 IP CONSULT TO SERVICES MANAGER AL MEDICINE JAZMIN FELIX Start: 04-13-2017 FALL PRECAUTIONS JAZMIN FELIX Start: 04-13-2017 FULL CODE JAZMIN SMITH Ward Start: 04-13-2017 INCENTIVE SPIROMETRY RT JAZMIN FELIX Start: 04-13-2017 MEASURE WEIGHT JAZMIN Calderon HAH Start: 04-13-2017 NOTIFY PHYSICIAN (SPECIFY) JAZMIN FELIX Start: 04-13-2017 PATIENT STATUS (DIRECT) JAZMIN FELIX Start: 04-13-2017 REMOVE AND REPLACE T ED HOSE DAILY JAZMIN FELIX Start: 04-13-2017 POCT GLUCOSE JZAMIN Ward Start: 04-13-2017 SPEAKING VALVE JAZMIN DYKES Start: 04-13-2017 TRACH CARE JAZMIN Ward Start: 04-13-2017 TRACH COLLAR OXYGEN ANNETTE ALBERT FELIX Start: 04-13-2017 TRACH PLUGGING JAZMIN DYKES [...] NI LL Start: 07-18-2004 Cardiac catheterization Shirin DELONGL Arthroplasty of knee Shirin DELONGL Arthroplasty of knee Shirin NILL Colonoscopy Shirin DELONGL Cystoscopy Shirin DELONGL Comment on above: w/ multiple litho/ s tone extractions- Excisional biopsy Shirin NI LL Comment on above: back Hernia repair Shirin DELONGL History of operative procedure on knee Shirin NILL History of operative procedure on knee Shirin NILL Insertion of gastros ruddy tube Shirin BALJEETL Lithotripsy Shirin NILL Procedure on brain Shirin N ILL Procedure on neck Shirin NI LL Procedure on shoulder Jorge warren NILL Removal of gastrostomy tube Shirin NILL Repair of meniscus Shirin N ILL Repair of musculoten dinous cuff of shoulder Shirin NILL Vasectomy Shirin NILL Plan of Treatment Date Care Activity Detail Author Start: 09-19-2025 ambulatory Ambulatory Facility:[facility] Start: 09-12-2025 ambulatory Ambulatory Facility:[facility] Start: 03-18-2025 Influenza vaccination Influenza Vaccine (Season Ended) [facility] Start: 03-05-2025 End: 03-05-2025 Patient encounter procedure 03/05/2025 2:50 PM EDT Office Visit [facility] [address] [place] [phone] Santiago Phan MD [address] [place] [address] [facility] Start: 12-31-2024 End: 12-31-2024 Patient encounter procedure 12/31/2024 8:00 AM EDT Office Visit [facility] [address] [place] [phone] 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, 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 [address] [place] [address] [address] [place] [address] 1yr KUB [facility] Comment on above: 1yr KUB Start: 11-29-2024 End: 11-29-2024 Patient encounter procedure 11/29/2024 10:30 AM EDT Office Visit [facility] [address] [place] [phone] 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, 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 [address] [place] [address] [address] [facility] [place] [phone] 6 month KUB prior [facility] Comment on above: 6 month KUB prior Start: 10-08-2024 End: 10-08-2025 Bacteria identification, aerobic Bacteria identification, aerobic Microbiology Routine Encounter for postoperative wound check Expected: 10/08/2024 (Approximate), Expires: 10/08/2025 [facility] Work Phone: Comment on above: Expected: 10/08/2024 (Approximate), Expi res: 10/08/2025 Start: 10-08-2024 End: 10-08-2024 Patient encounter procedure 10/08/2024 8:20 AM EDT Office Visit [facility] [address] [facility] [place] [phone] Caesar Momin MD [address] [place] [address] [address] [place] [phone] Headaches [facility] Comment on above: Headaches Start: 08-30-2024 End: 08-30-2024 Patient encounter procedure [facility] Comment on above: Arrived Start: 07-02-2024 End: 07-02-2024 Patient encounter procedure 07/02/2024 3:05 PM EST Office Visit [facility] [address] [place] [address] Santiago Phan MD [address] [place] [address] Arrived [facility] Comment on above: Arrived Start: 06-04-2024 End: 06-04-2024 Patient encounter procedure 06/04/2024 11:00 AM EST Office Visit [facility] [address] [place] [address] Caesar Momin MD [address] [place] [address] [address] [place] [phone] Traumatic brain injury with loss of consciousness, sequela [facility] Part [facility] Comment on above: Traumatic brain injury with loss of cons ciousness, sequela Start: 05-31-2024 End: 05-31-2024 Patient encounter procedure 05/31/2024 9:30 AM EST Office Visit [facility] Part of [address] [place] [id number] 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, 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 [address] [place] [address] [address] [place] [id number] 6 week follow up [facility] Comment on above: 6 week follow up [facility] Start: 03-18-2024 COVID-19 Vaccine ( season) COVID-19 Vaccine ( season) [facility] Start: 03-18-2024 Influenza vaccination Influenza Vaccine (#1) [facility] Start: 03-15-2024 End: 03-15-2024 Patient encounter procedure 03/15/2024 9:30 AM EDT Office Visit [facility] Part of [address] [place] [address] 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, 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 [address] [place] [address] [address] [facility] [place] [id number] Possible Stent Pull [facility] Comment on above: Possible Stent Pull Start: 03-13-2024 End: 03-13-2024 Cysto/uretero w/lithotripsy &indwell stent insrt CYSTOSCOPY URETEROSCOPY LASER Ureteral calculus 03/13/2024 12:54 PM EDT [facility] Start: 02-16-2024 Influenza vaccination Flu vaccine (#1) [facility] Start: 03-18-2023 COVID-19 Vaccine ( season) COVID-19 Vaccine ( season) [facility] Start: 2022 Respiratory Syncytial Virus (RSV) or age 60 yrs+ (1 - 1-dose 60+ series) Respiratory Syncytial Virus (RSV) or age 60 yrs+ (1 - 1-dose 60+ series) [facility] Start: 2022 Respiratory Syncytial Virus (RSV) or age 60 yrs+ (1 - Risk 60-74 years 1-dose series) Respiratory Syncytial Virus (RSV) or age 60 yrs+ (1 - Risk 60-74 years 1-dose series) [facility] Start: 03-22-2018 Hemoglobin A1c measurement A1C test (Diabetic or Prediabetic) [facility] Start: 2012 Shingles vaccine (1 of 2) Shingles vaccine (1 of 2) [facility] Start: 2007 Screening for malignant neoplasm of colon [facility] Start: 2002 Lipid panel Lipids [facility] Start: 1981 DTaP/Tdap/Td vaccine (1 - Tdap) DTaP/Tdap/Td vaccine (1 - Tdap) [facility] Start: 1980 Hepatitis C screening Hepatitis C screen [facility] Start: 1977 HIV screening HIV screen [facility] Start: 1974 Depression Screen Depression Screen [facility] Start: 1968 Pneumococcal 0-64 years Vaccine (1 of 2 - PCV) Pneumococcal 0-64 years Vaccine (1 of 2 - PCV) [facility] Start: 1962 Screening for malignant neoplasm of colon [facility] Aerobic culture Aerobic culture Microbiology Timed Encounter for postoperative wound check Release Upon Ordering for 1 Occurrences starting 10/08/2024 [facility] Comment on above: Release Upon Ordering for 1 Occurrences starting 10/08/2024 Dermatopathology exam Dermatopat hology exam Pathology and Cytology Timed Neoplasm of unspecified behavior of bone, soft tissue, and skin Release Upon Ordering for 1 Occurrences starting 07/02/2024 [employer] Work Phone: Comment on above: Release Upon Ordering for 1 Occurrences starting 07/02/2024 Dermatopathology exam Dermatopat hology exam Pathology and Cytology Timed Neoplasm of unspecified behavior of bone, soft tissue, and skin Release Upon Ordering for 1 Occurrences starting 08/30/2024 [employer] Work Phone: Comment on above: Release Upon Ordering for 1 Occurrences starting 08/30/2024 Dermatopathology exam Dermatopat hology exam Pathology and Cytology Timed Neoplasm of unspecified behavior of bone, soft tissue, and skin Release Upon Ordering for 1 Occurrences starting 11/15/2024 [employer] Work Phone: Comment on above: Release Upon Ordering for 1 Occurrences starting 11/15/2024 End: 03-13-2024 INITIATE PACU OXYGEN THERAPY PROTOCOL Initiate PACU Oxygen Therapy Protocol Respiratory Care Routine Continuous until discontinued starting 03/13/2024 [facility] Comment on above: Continuous until discontinued starting 0 03/13/2024 Oxygen therapy [[facility] Data Set] Initiate Oxygen Therapy Protocol Respiratory Care Routine As Needed until discontinued starting 03/13/2024 [facility] [employer] Comment on above: As Needed until discontinued starting End: 05-21-2024 XR Abdomen Single view [employer] Work Phone: Comment on above: 1 Occurrences starting 05/21/2024 until 05/21/2024 Immunizations Immunization Date Immunization Notes Care Provider Fa cili 10-16-2020 SARS-CoV-2 (COVID-19 ) mRNA BNT-162b2 vax Shirin BETSY [facility] [place] 09-25-2020 SARS-CoV-2 (COVID-19 ) mRNA BNT-162b2 vax [employer] [facility] [place] 07-08-2020 influenza virus vaccine, unspecified formulation ELLY WILLETT [facility] 04-17-2005 pneumococcal conjuga te vaccine, 13 valent Shirin MEYER [facility] [place] NEGATED: Highlighted row has not occurred!07-13-2022 influenza virus vaccine, unspecified formulation Shirin MEYER [facility] [place] NEGATED: Highlighted row has not occurred!08-25-2021 influenza virus vaccine, unspecified formulation Shirin MEYER [facility] [place] NEGATED: Highlighted row has not occurred!08-28-2019 influenza virus vaccine, live, attenuated, for intranasal use Shirin MEYER [facility] [place] Payers Date Payer Category Payer Private Health Insurance [employer] [id number] 2023 Unknown [id number] 2023 Self-pay [id number] 2016 Unknown [id number] 1962 Unknown [id number] 2.16.840.1.739909.3.579.2. 175 1962 Unknown [id number] 2.16.840.1.746359.3.579.2. 593 1962 Unknown [id number] 2.16.840.1.977090.3.579.2. 593 1962 Unknown [id number] 2.16.840.1.583281.3.579.2. 593 1962 Unknown [id number] 2.16.840.1.932215.3.579.2. 593 1962 Unknown [id number] 2.16.840.1.737793.3.579.2. 173 1962 Unknown [id number] 2.16.840.1.322151.3.579.2. 173 1962 Unknown [id number] 2.16.840.1.623156.3.579.2. 173 1962 Unknown [id number] 2.16.840.1.620474.3.579.2. 173 1962 Unknown [id number] 2.16.840.1.966996.3.579.2. 173 1962 Unknown [id number] 2.16.840.1.497861.3.579.2. 173 1962 Unknown [id number] 2.16.840.1.761984.3.579.2. 173 1962 Unknown [id number] 2.16.840.1.276128.3.579.2. 173 1962 Unknown [id number] 2.16.840.1.003756.3.579.2. 173 1962 Unknown [id number] 2.16.840.1.638940.3.579.2. 173 1962 Unknown [id number] 2.16.840.1.806845.3.579.2. 1259 1962 Unknown [id number] 2.16.840.1.914603.3.579.2. 1259 1962 Unknown [id number] 2.16.840.1.937769.3.579.2. 1259 1962 Unknown [id number] 2.16.840.1.847250.3.579.2. 1259 1962 Unknown [id number] 2.16.840.1.959452.3.579.2. 1259 1962 Unknown [id number] 2.16.840.1.592093.3.579.2. 1259 1962 Unknown [id number] 2.16.840.1.801256.3.579.2. 1259 1962 Unknown [id number] 2.16.840.1.099186.3.579.2. 1259 1962 Unknown [id number] 2.16.840.1.090010.3.579.2. 727 1962 Unknown [id number] 2.16.840.1.331147.3.579.2. 727 1962 Unknown [id number] 2.16.840.1.438743.3.579.2. 727 1962 Unknown [id number] 2.16.840.1.663879.3.579.2. 727 1959 Unknown [id number] Private Health Insurance [employer] [id number] Unknown [facility] [id number] Unknown [id number] 2.16.840.1.828134.3.579.2. 531 Unknown [id number] 2.16.840.1.630922.3.579.2. 531 Unknown [id number] 2.16.840.1.374681.3.579.2. 531 Unknown [id number] 2.16.840.1.918005.3.579.2. 531 Social History Date Type Detail Facility Start: 07-13-2022 End: 12-04-2024 Tobacco smoking status Never smoked tobacco (finding) [facility] [place] Tobacco smoking status Never [facility] [place] Start: 03-15-2024 End: 11-15-2024 Sex Assigned At Male Dakota Arthurus [facility] Start: 1960 Sex Assigned At Male [facility] Start: 11-15-2023 End: 01-24-2024 Tobacco use and exposure Smokeless tobacco non-user [facility] Start: 03-15-2024 End: 07-05-2024 Alcoholic beverage intake Lifetime non-drinker (finding) [facility] Start: 03-15-2024 End: 11-15-2024 History of Social function [facility] Start: 1960 Sex assigned at Not on file [facility] Start: 07-02-2024 End: 11-15-2024 Alcoholic beverage intake [facility]er [facility] Work Phone: Start: 02-10-2019 End: 09-19-2024 Sex Male (finding) [facility] Sexual Orientation [facility] [place] Medical Equipment Procedure Code Equipment Code Equipment Origin al Text Equipment Identifier Dates Clamp Craniofix 2 Positioning T1 20mm [id number] Start: 03-20-2017 Clamp Craniofix 2 Positioning T1 20mm [id number] Start: 03-20-2017 Clamp Craniofix 2 Positioning T1 20mm [id number] Start: 03-20-2017 Niko-Graft Tiss D ura Collgn Matrx 4.0x5.0in [id number] Start: 03-20-2017 Plate Craniofaci al [id number] Start: 03-20-2017 Screw Sd 1.5x4.0 mm Must Order By 5s [id number] Start: 03-20-2017 Stent Uret 6fr L 28cm Hydr+ Pgtl Tapr Tip Grad Bldr Mrk Lo - [id number] Start: 11-15-2023 Stent Uret 6fr L 28cm Hydr+ Pgtl Tapr Tip Grad Bldr Mrk Lo - [id number] Start: 03-13-2024 Functional Status Date Assessment Result Facility 12-04-2024 Functional Status N/A [facility] [place] 09-18-2024 Functional Status N/A [facility] 11-16-2023 [facility] Functional Status N/A [facility] 09-08-2022 Functional Status N/A [facility] 07-13-2022 Functional Status N/A [facility] Clinical Notes 08-04-2022 to 12-04-2024 Santiago Phan MD - 11/15/2024 8:55 AM Jamarcus Phan MD - 10/08/2024 11:25 AM Jamarcus Phan MD - 08/30/2024 11:05 AM Beba Phan MD - 07/02/2024 3:05 PM ESTDischarge Instructions Note Date & Type Note Facility 12-04-2024 Note General Surgery Offi ce/Clinic Note Chief Complaint consultation for cyst HPI Staff 64 year old male presents on consultation from Dr. Maciel for sebaceous cyst of back. Was evaluated by PCP 11/19 and prescribed Cefdinir and Doxycycline. Follow up with PCP on 11/26 with improvement and spontaneous drainage of blood; prescribed Bactrim BID x 10 days and Cipro 500mg BID x 10 days. History of Present Illness 64 yo male with multiple medical problems, referred for infected cyst of mid back; began 2 weeks ago with swollen painful cyst, had been present for several years; treated with one course of antibiotics, had some drainage, seen by Dr Maciel and placed on second course of antibiotics; now has decreased in size, not painful, no drainage; smaller cyst above infected one; no infection, but increasing in size; no asa or NSAID use; no tobacco use. Review of Systems PHQ [...] noncontributory. Physical Exam Vitals & Measurements HR: 80(Peripheral) RR: 16 BP: 128/90 HT: 177 cm HT: 70 in WT: 136.5 kg WT: 300.931 lb BMI: 43.57 HEENT: normal conjunctiva, sclera clear, no scleral icterus, EOM intact, PERRLA, oral mucosa moist without lesions. Neck: trachea midline, no mass, symmetric, no thyromegaly or nodules, no adenopathy Respiratory: lungs CTA, respirations non labored. Cardiovascular: regular rate and rhythm, no murmur, no pedal edema or varicosities. Lymphatic: no cervical adenopathy, no axillary adenopathy, no inguinal adenopathy. Musculoskeletal: normal gait, digits and nails without infection, nodes, cyanosis, clubbing. Skin: no rashes, no lesions, no ulcers, mid back with 2 cm inflamed epidermal cyst, dilated central pore, no cellulitis or drainage, no fluctuance, nontender; upper mid back with 1.5 cm noninflamed epidermal cyst Psychiatric/Neuro: oriented to time, place, person, judgement normal, affect appropriate for age, insight intact, no focal deficits. Tests: , review of old records completed , Discussed surgical options, risks, and possible complications with patient. Assessment/Plan 1. Infected sebaceous cyst of skin (L72.3: Sebaceous cyst) infection resolving, completing second course of antibiotics; plan excisional biopsy under local anesthesia in 4 weeks, to allow inflammation to decrease; for definitive diagnosis and treatment, informed consent obtained. will also excise slightly smaller cyst above the infected one, to prevent future infection. Local infection of the skin and subcutaneous tissue, unspecified (L08.9: Local infection of the skin and subcutaneous tissue, unspecified) Follow-up No qualifying data available Problem List/Past Medical History Ongoing Abnormal US (ultrasound) of abdomen ADHD Basal cell carcinoma of back Basal cell carcinoma of left lower leg Basal cell carcinoma of parietal region of scalp Benign paroxysmal positional vertigo BMI 40.0-44.9, adult BPH without urinary obstruction Cardiomegaly Cardiomyopathy Class 3 obesity Diabetes Diastasis recti Diastolic hypertension Eczema Epidermal cyst Fibroepithelial polyp Hearing loss History of DVT (deep vein thrombosis) History of kidney stones History of subdural hematoma Impotence Infected sebaceous cyst of skin Lumbar disc disease Morbid obesity with BMI of 40.0-44.9, adult Myocarditis Neoplasm of uncertain behavior of scalp Neoplasm of uncertain behavior of skin of back Nocturia Obesity due to excess calories FREDDY (obstructive sleep apnea) Personal history of skin cancer Pilar cyst Prostate cancer screening Seasonal allergic rhinitis Historical BMI 37.0-37.9, adult Myocarditis Procedure/Surgical History Incisional biopsy (11/22/2023), Bunionectomy (08/18/2020), Excision of malignant neoplasm (09/04/2019), Craniotomy ( (more content not included)... [facility] Comment on above: Result Comment: Elec tronically Signed By: BETSY MORAN, Shirin [place]en[place]\Date and Time Signed: 12/04/24 16:19 EDT 11-15-2024 History of Present illness Narrative Images from the original note were not included. Lesions: Location: scalp Duration: unsure, recently noticed Quality: denies pain Associated symptoms: crusted, rough spot Treatments: none Established patient Lesions: Location: lower back Duration: years Quality: denies pain Associated symptoms: skin tag Treatments: desires removal All pertinent medical history, medications, and allergies were reviewed. General Exam: alert, oriented to person, place, and time, normal affect, well appearing Unaccompanied A focused exam completed based on patient reported problems, see below: Skin Exam 1. NEOPLASM OF UNSPECIFIED BEHAVIOR OF BONE, SOFT TISSUE, AND SKIN Mid Parietal Scalp Erythematous crusted papule. Lesion biopsy Type of biopsy: tangential Informed [...] A - Dermatopathology exam Differential Diagnosis: BCC vs SCC vs trauma Check Margins: No Size of lesion: 0.8 x 0.8 cm 2. SURGERY, ELECTIVE Lower back Fleshy, skin-colored sessile and pedunculated papules with surrounding erythema The patient was informed that skin tags are benign growths usually found around the neck or in the axillae. Due to symptoms/inflammation, removal performed today, see procedure note. Procedure: Skin tag removal Informed consent: Discussed risks (permanent scarring, infection, pain, bleeding, bruising, redness, and recurrence of the lesion) and benefits of the procedure, as well as the alternatives. He is aware that skin tags are benign lesions, and their removal is often not considered medically necessary. Informed consent was obtained and waiver was signed if needed. Anesthesia: 1% lidocaine with epinephrine and a 1:10 solution of 8.4% sodium bicarbonate, Quantity: 1 The area was prepared and draped in a standard fashion. Snip removal was performed. Bleeding was controlled with electrocautery A sterile dressing was applied. The patient tolerated procedure well. The patient was instructed on post-op care. Number of lesions removed: 1 Patient paid $20 cosmetic fee for this procedure today. Next Visit: has skin check scheduled documented in this encounter [facility] 10-08-2024 History of Present illness Narrative Images from the original note were not included. Follow up Diagnosis: SBCC Location: Left upper arm posterior Last visit: 09/28/2024 Symptoms: Jono felt warm to the touch. Did have yellow/brown looking drainage on his bandage this morning. Has a photo to show the provider. Would like site evaluated to rule out infection Procedure performed: ED+C All pertinent medical history, medications, and allergies were reviewed. General Exam: alert, oriented to person, place, and time, normal affect, well appearing A focused exam completed based on patient reported problems, see below: 1. Encounter for postoperative wound check Left Upper Arm Post procedural wound with honey-yellow crust over site, mild erythema surrounding site Wound check/care today. See note: Wound Care Location: Left upper arm Wound Care: Cleansed the site with Vashe wound wash and covered with a sterile bandage Wound Debridement: None Instructions: Antibiotic pending culture results. Start Mupirocin daily until culture results are received. Bacteria identification, aerobic - Left Upper Arm mupirocin (Bactroban) 2 % ointment - Left Upper Arm Apply to left arm daily for 14 days, 30 day supply Specimen 1 - Aerobic culture Account Name: Malik Tanya NPI: Santiago Phan [id number] Next Visit: pending culture results documented in this encounter [facility] 09-18-2024 Hospital Discharge instructions Patient Education 09/18/2024 10:23:32 Erectile Dysfunction Erectile Dysfunction Erectile dysfunction (ED) is the inability to get or keep an erection in order to have sexual intercourse. ED is considered a symptom of an underlying disorder and is not considered a disease. ED may include: Inability to get an erection. Lack of enough hardness of the erection to allow penetration. Loss of erection before sex is finished. What are the causes? This condition may be caused by: Physical causes, such as: ?Artery problems. This may include heart disease, high blood pressure, atherosclerosis, and diabetes. ?Hormonal problems, such as low testosterone. ?Obesity. ?Nerve problems. This may include back or pelvic injuries, multiple sclerosis, Parkinson's disease, spinal cord injury, and stroke. Certain medicines, such as: ?Pain relievers. ?Antidepressants. ?Blood pressure medicines and water pills (diuretics). ?Cancer medicines. ?Antihistamines. ?Muscle relaxants. Lifestyle factors, such as: ?Use of drugs such as marijuana, cocaine, or opioids. ?Excessive use of alcohol. ?Smoking. ?Lack of physical activity or exercise. Psychological causes, such as: ?Anxiety or stress. ?Sadness or depression. ?Exhaustion. ?Fear about sexual performance. ?Guilt. What are the signs or symptoms? Symptoms of this condition include: Inability to get an erection. Lack of enough hardness of the erection to allow penetration. Loss of the erection before sex is finished. Sometimes having normal erections, but with frequent unsatisfactory episodes. Low sexual satisfaction in either partner due to erection problems. A curved penis occurring with erection. The curve may cause pain, or the penis may be too curved to allow for intercourse. Never having nighttime or morning erections. How is this diagnosed? This condition is often diagnosed by: Performing a physical exam to find other diseases or specific problems with the penis. Asking you detailed questions about the problem. Doing tests, such as: ?Blood tests to check for diabetes mellitus or high cholesterol, or to measure hormone levels. ?Other tests to check for underlying health conditions. ?An ultrasound exam to check for scarring. ?A test to check blood flow to the penis. Doing a sleep study at home to measure nighttime erections. How is this treated? This condition may be treated by: Medicines, such as: ?Medicine taken by mouth to help you achieve an erection (oral medicine). ?Hormone replacement therapy to replace low testosterone levels. ?Medicine that is injected into the penis. Your health care provider may instruct you how to give yourself these injections at home. ?Medicine that is delivered with a short applicator tube. The tube is inserted into the opening at the tip of the penis, which is the opening of the urethra. A tiny pellet of medicine is put in the urethra. The pellet dissolves and enhances erectile function. This is also called MUSE (medicated urethral system for erections) therapy. Vacuum pump. This is a pump with a ring on it. The pump and ring are placed on the penis and used to create pressure that helps the penis become erect. Penile implant surgery. In this procedure, you may receive: ?An inflatable implant. This consists of cylinders, a pump, and a reservoir. The cylinders can be inflated with a fluid that helps to create an erection, and they can be deflated after intercourse. ?A semi-rigid implant. This consists of two silicone rubber rods. The rods provide some rigidity. They are also flexible, so the penis can both curve downward in its normal position and become straight for sexual intercourse. Blood vessel surgery to improve blood flow to the penis. During this procedure, a blood vessel from a different part of the body is placed into the penis to allow blood to flow around (bypass) damaged or blocked blood vessels. Lifestyle changes, such as exercising more, losing weight, and quitting smoking. Follow these instructions at home: Medicines Take [id number]-[id number] and prescription medicines only as told by your health care provider. Do not increase the dosage without first discussing it with your health care provider. If you are using self-injections, do injections as directed by your health care provider. Make sure you avoid any veins that are on the surface of the penis. After giving an injection, apply pressure to the injection site for 5 minutes. Talk to your health care provider about how to prevent headaches while taking ED medicines. These medicines may cause a sudden headache due to the increase in blood flow in your body. General instructions Exercise regularly, as directed by your health care provider. Work with your health care provider to lose weight, if needed. Do not use any products that contain nicotine or tobacco. These products include cigarettes, chewing tobacco, and vaping devices, such as e-cigarettes. If you need help quitting, ask your health care provider. Before using a vacuum pump, read the instructions that come with the pump and discuss any questions with your health care provider. Keep all follow-up visits. This is important. Contact a health care provider if: You feel nauseous. You are vomiting. You get sudden headaches while taking ED medicines. You have any concerns about your sexual health. Get help right away if: You are taking oral or injectable medicines and you have an erection that lasts longer than 4 hours. If your health care provider is unavailable, go to the nearest emergency room for evaluation. An erection that lasts much longer than 4 hours can result in permanent damage to your penis. You have severe pain in your groin or abdomen. You develop redness or severe swelling of your penis. You have redness spreading at your groin or lower abdomen. You are unable to urinate. You experience chest pain or a rapid heartbeat (palpitations) after taking oral medicines. These symptoms may represent a serious problem that is an emergency. Do not wait to see if the symptoms will go away. Get medical help right away. Call your local emergency services (911 in the [place] Do not drive yourself to the hospital. Summary Erectile dysfunction (ED) is the inability to get or keep an erection during sexual intercourse. This condition is diagnosed based on a physical exam, your symptoms, and tests to determine the cause. Treatment varies depending on the cause and may include medicines, hormone therapy, surgery, or a vacuum pump. You may need follow-up visits to make sure that you are using your medicines or devices correctly. Get help right away if you are taking or injecting medicines and you have an erection that lasts longer than 4 hours. This information is not intended to replace advice given to you by your health care provider. Make sure you discuss any questions you have with your health care provider. Document Revised: 09/30/2021 Document Reviewed: 09/30/2021 [employer] Patient Education 2023 [employer]. Follow Up Care 09/13/2023 08:52:24 With:BRENNON CARRILLO, ELLY Mcdonald, URL Address: [address] [place] [address] When:Within 1 Year(s) [facility] 09-18-2024 Note Patient Education Urology Erectile Dysfunction Erectile dysfunction (ED) is the inability to get or keep an erection in order to have sexual intercourse. ED is considered a symptom of an underlying disorder and is not considered a disease. ED may include: ??? Inability to get an erection. ??? Lack of enough hardness of the erection to allow penetration. ??? Loss of erection before sex is finished. What are the causes? This condition may be caused by: ??? Physical causes, such as: ? Artery problems. This may include heart disease, high blood pressure, atherosclerosis, and diabetes. ? Hormonal problems, such as low testosterone. ? Obesity. ? Nerve problems. This may include back or pelvic injuries, multiple sclerosis, Parkinson's disease, spinal cord injury, and stroke. ??? Certain medicines, such as: ? Pain relievers. ? Antidepressants. ? Blood pressure medicines and water pills (diuretics). ? Cancer medicines. ? Antihistamines. ? Muscle relaxants. ??? Lifestyle factors, such as: ? Use of drugs such as marijuana, cocaine, or opioids. ? Excessive use of alcohol. ? Smoking. ? Lack of physical activity or exercise. ??? Psychological causes, such as: ? Anxiety or stress. ? Sadness or depression. ? Exhaustion. ? Fear about sexual performance. ? Guilt. What are the signs or symptoms? Symptoms of this condition include: ??? Inability to get an erection. ??? Lack of enough hardness of the erection to allow penetration. ??? Loss of the erection before sex is finished. ??? Sometimes having normal erections, but with frequent unsatisfactory episodes. ??? Low sexual satisfaction in either partner due to erection problems. ??? A curved penis occurring with erection. The curve may cause pain, or the penis may be too curved to allow for intercourse. ??? Never having nighttime or morning erections. How is this diagnosed? This condition is often diagnosed by: ??? Performing a physical exam to find other diseases or specific problems with the penis. ??? Asking you detailed questions about the problem. ??? Doing tests, such as: ? Blood tests to check for diabetes mellitus or high cholesterol, or to measure hormone levels. ? Other tests to check for underlying health conditions. ? An ultrasound exam to check for scarring. ? A test to check blood flow to the penis. ??? Doing a sleep study at home to measure nighttime erections. How is this treated? This condition may be treated by: ??? Medicines, such as: ? Medicine taken by mouth to help you achieve an erection (oral medicine). ? Hormone replacement therapy to replace low testosterone levels. ? Medicine that is injected into the penis. Your health care provider may instruct you how to give yourself these injections at home. ? Medicine that is delivered with a short applicator tube. The tube is inserted into the opening at the tip of the penis, which is the opening of the urethra. A tiny pellet of medicine is put in the urethra. The pellet dissolves and enhances erectile function. This is also called MUSE (medicated urethral system for erections) therapy. ??? Vacuum pump. This is a pump with a ring on it. The pump and ring are placed on the penis and used to create pressure that helps the penis become erect. ??? Penile implant surgery. In this procedure, you may receive: ? An inflatable implant. This consists of cylinders, a pump, and a reservoir. The cylinders can be inflated with a fluid that helps to create an erection, and they can be deflated after intercourse. ? A semi-rigid implant. This consists of two silicone rubber rods. The rods provide some rigidity. They are also flexible, so the penis can both curve downward in its normal position and become straight for sexual intercourse. ??? Blood vessel surgery to improve blood flow to the penis. During this procedure, a blood vessel from a different part of the body is placed into the penis to allow blood to flow around (bypass) damaged or blocked blood vessels. ??? Lifestyle changes, such as exercising more, losing weight, and quitting smoking. Follow these instructions at home: Medicines ??? Take wdtk-btu-uklgsvz and prescription medicines only as told by your health care provider. Do not increase the dosage without first discussing it with your health care provider. ??? If you are using self-injections, do injections as directed by your health care provider. Make sure you avoid any veins that are on the surface of the penis. After giving an injection, apply pressure to the injection site for 5 minutes. ??? Talk to your health care provider about how to prevent headaches while taking ED medicines. These medicines may cause a sudden headache due to the increase in blood flow in your body. General instructions ??? Exercise regularly, as directed by your health care provider. Work with your health care provider to lose weight, if needed. ??? Do not u (more content not included)... [facility] 08-30-2024 History of Present illness Narrative Images from the original note were not included. Skin Check Location: Patient requests a skin examination from the waist up Dermatologic history: history of Actinic Keratosis, history of Basal Cell Carcinoma, history of Squamous Cell Carcinoma in situ Last visit: 07/02/2024 Established patient All pertinent medical history, medications, and allergies were reviewed. General Exam: alert, oriented to person, place, and time, normal affect, well appearing Unaccompanied A complete skin exam was offered, pt declined. Areas not examined despite medical recommendation: From the waist down Scalp, Examined , exam limited by hair Head, Face Examined Neck Examined Chest Examined Back Examined Abdomen Examined Right arm Examined Left arm Examined Hands Examined Digits,nails: Examined Lymphatics: Not examined 1. Seborrheic keratosis (3) Arms, Head - Anterior (Face), Trunk Stuck on verrucous, monzon-brown papules and plaques. Patient was counseled regarding these benign growths. Removal is normally not necessary, but they may be removed if they are symptomatic or for cosmetic reasons. 2. Actinic keratosis (14) Left Forearm - Posterior (2), Left Forehead, Left Hand - Posterior (3), Left Gnosticist, Left Upper Arm - Posterior, Right Elbow - Posterior, Right Forehead, Right Hand - Posterior (2), Right Nasal Sidewall, Right Zygomatic Area Erythematous scaly papules Patient was counseled regarding these sun-induced growths [...] limited to risks of scarring, darker or creative recruiter pigmentary changes, recurrence, incomplete removal and infection. Method: Liquid nitrogen was used to treat the lesion(s) with two 5-10 second freeze-thaw cycles. Eyes were shielded using cotton pad during procedure Number of lesions treated: 14 Post-procedure instructions: Instructions were given orally and in writing. The office will be contacted if the lesion fails to resolve despite treatment, or if a side effect develops such as abnormal crusting, scabbing, redness or tenderness Cryotherapy, skin lesion - Left Forearm - Posterior (2), Left Forehead, Left Hand - Posterior (3), Left Gnosticist, Left Upper Arm - Posterior, Right Elbow - Posterior, Right Forehead, Right Hand - Posterior (2), Right Nasal Sidewall, Right Zygomatic Area 3. Epidermal inclusion cyst Mid Back subcutaneous, mobile nodule with central punctum. Patient was counseled regarding cysts. Although benign, cysts often slowly enlarge and can occasionally become inflamed. Discussed the only way to definitively diagnose the lesion would be to have it removed and tested. Discussed treatment options including observation vs. excision. Patient elected for observation. Notify office if lesion is enlarging or becomes symptomatic. 4. 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 The patient was counseled that scars from excisional sites of nonmelanoma skin cancers should be monitored closely for recurrence. The patient was instructed to contact the office for any new, changing, or symptomatic moles. The patient was also instructed to contact the office for any new lesions that develop within or around the previous surgery scar. 5. History of basal cell carcinoma (5) Left Preauricular Area, Left Upper Arm - Anterior, Left Upper Back, Right Preauricular Area, Right Shoulder - Posterior No evidence of recurrence at BCC scar. The patient was counseled that scars from excisional sites of nonmelanoma skin cancers should be monitored closely for recurrence. The patient was instructed to contact the office for any new, changing, or symptomatic moles. The patient was also instructed to contact the office for any new lesions that develop within or around the previous surgery scar. 6. Neoplasm of unspecified behavior of bone, soft tissue, and skin Left Upper Arm - Posterior Pierre Part scaly plaque Lesion biopsy Type of biopsy: tangential Informed [...] Specimen A - Dermatopathology exam Differential Diagnosis: SCC vs BCC Check Margins: No Size of lesion: 1.6 x 1.3 cm 7. Lentigines Scattered monzon macules in sun-exposed areas. The patient was informed that lentigines are benign pigmented lesions that occur on sun-exposed and sun-damaged skin. No treatment is necessary. Recommended regular use of broad spectrum sunscreen SPF 30 or higher Next Visit: 6 months, skin check documented in this encounter [facility] 07-02-2024 History of Present illness Narrative Images from the original note were not included. Lesions: Location: Side burn areas (bilateral) Duration: Years Quality: Bothersome, sometimes bleed after shaving. otorhinolaryngologist suggested these be evaluated Modifying factors: Shaving [...] tissue, and skin (2) Right Preauricular Area Pierre Part pearly papule Lesion biopsy Type of biopsy: [...] 0.7 x 0.6 cm Left Preauricular Area Pierre Part pearly papule Lesion biopsy Type of biopsy: [...] limited to risks of scarring, darker or creative recruiter pigmentary changes, recurrence, incomplete removal and infection. [...] limited to risks of scarring, darker or creative recruiter pigmentary changes, recurrence, incomplete removal and infection. [...] for skin check documented in this encounter [facility] 03-13-2024 History of Present illness Narrative Discharge [...] with the patient. documented in this encounter [facility] 03-13-2024 Hospital Discharge instructions Ekta Yadav [...] flush the urinary tract.) Call Dr. Leung ([phone]) if you develop: Fever over 100 degrees [...] Call Dr. Leung office for follow-up appointment ([phone]). documented in this encounter [facility] 03-07-2024 History of Present illness Narrative Images [...] extremity including shoulder Right Shoulder - Posterior Pierre Part macule at biopsy site Destr of lesion Complexity: simple Destruction method: electrodesiccation and curettage Informed consent: discussed and consent obtained Informed consent comment: The risks of the procedure were discussed, including, but not limited to risks of scarring, darker or creative recruiter pigmentary changes, recurrence, infection, and incomplete removal [...] lidocaine used: 2.0 cc Previous accession number: [id number] Emphasized to return to clinic for any signs of recurrence prior to next visit. 2. Basal cell carcinoma (BCC) of skin of left upper extremity including shoulder Left Upper Arm - Anterior Pierre Part macule at biopsy site Destr of lesion Complexity: simple Destruction method: electrodesiccation and curettage Informed consent: discussed and consent obtained Informed consent comment: The risks of the procedure were discussed, including, but not limited to risks of scarring, darker or creative recruiter pigmentary changes, recurrence, infection, and incomplete removal [...] lidocaine used: 2.0 cc Previous accession number: [id number] Emphasized to return to clinic for any signs of recurrence prior to next visit. Next Visit: 6 months documented in this encounter [facility] 09-13-2023 Hospital Discharge instructions Patient Education 09/13/2023 [...] urethra. Follow these instructions at home: Take rwsa-eju-iikbhbs and prescription medicines only as told by [...] provider. Document Revised: 01/20/2022 Document Reviewed: 01/20/2022 [employer] Patient Education 2022 [employer]. Follow Up Care 09/08/2022 10:50:32 With:ELLY WILLETT PA-C, URL Address: [address] [place] [address] [facility] [place] [address] When: Unknown [facility] 09-08-2022 Hospital Discharge instructions Patient Education [...] urethra. Follow these instructions at home: Take khbw-yrc-euqrofz and prescription medicines only as told by [...] 07/04/2006 Document Revised: 05/29/2019 Document Reviewed: 08/08/2017 [employer] Patient Education 2020 [employer]. Follow Up Care 09/01/2021 08:53:17 With:Arvind Linda MD, Levi Warren, URO Address: [facility] [address] , [facility] [place] [address]- When: Unknown [facility] 08-04-2022 Note OPERATIVE NOTE OPERATION DATE: [...] 2.5 cm. CC: Fish Maciel M.D. [facility] Evaluation + Plan note Future Appointments Appointment Date:09/07/2022 08:00:00 AM Scheduled Provider:Levi Samuels Jr., MD Location:[facility] Appointment Type:URO Office Visit [facility] Evaluation + Plan note Future Appointments Appointment Date:09/13/2023 08:30:00 AM Scheduled Provider:ELLY WILLETT PA-C Location:[facility] Appointment Type:URO Office Visit Diagnostic Tests PendingPSA Total 09/08/22 [facility] Evaluation + Plan note Future Appointments Appointment Date:09/18/2024 08:20:00 AM Scheduled Provider:ELLY WILLETT PA-C Location:[facility] Appointment Type:URO Office Visit Diagnostic Tests PendingPSA Total 05/18/24 [facility] Evaluation + Plan note Future Appointments Appointment Date:11/23/2023 03:00:00 PM Scheduled Provider:Shirin MEYER MD Location:[facility] Appointment Type: Established 15 Appointment Date:09/18/2024 08:20:00 AM Scheduled Provider:ELLY WILLETT PA-C Location:[facility] Appointment Type:URO Office Visit [facility] Evaluation + Plan note Future Appointments Appointment Date:09/18/2024 08:20:00 AM Scheduled Provider:ELLY WILLETT PA-C Location:[facility] Appointment Type:URO Office Visit [facility] Evaluation + Plan note Future Appointments Appointment Date:09/12/2025 09:00:00 AM Scheduled Provider: Location:[facility] Appointment Type:URO Nurse Visit Appointment Date:09/19/2025 08:20:00 AM Scheduled Provider:ELLY WILLETT PA-C Location:[facility] Appointment Type:URO Office Visit [facility] Evaluation + Plan note Future Appointments Appointment Date:09/12/2025 09:00:00 AM Scheduled Provider: Location:[facility] Appointment Type:URO Nurse Visit Appointment Date:09/19/2025 08:20:00 AM Scheduled Provider:ELLY WILLETT PA-C Location:[facility] Appointment Type:URO Office Visit [facility] Evaluation note No assessment inform ation available [facility] Work Phone: Evaluation note Diagnosis Renal calculus Calculus of kidney documented in this encounter [facility] [employer]visible[employer]MEvaluation note* Diagnosis Neoplasm of unspecified behavior of bone, soft tissue, and skin- Primary Other specified erythematous conditions Common wart Other specified viral warts Actinic keratosis documented in this encounter [facility] HealthcareEvaluation note* Diagnosis Basal cell carcinoma (BCC) of skin of right upper extremity including shoulder- Primary Basal cell carcinoma (BCC) of skin of left upper extremity including shoulder documented in this encounter [facility] HealthcareEvaluation note* Diagnosis Ureteral calculus- Primary Calculus of ureter documented in this encounter [facility] [employer] note* Diagnosis RUQ abdominal pain Abdominal pain, right upper quadrant documented in this encounter [facility] InvisibleCRMEvaluation note* Diagnosis Seborrheic keratosis- Primary Actinic keratosis Epidermal inclusion cyst Sebaceous cyst History of squamous cell carcinoma in situ (SCCIS) History of basal cell carcinoma Personal history of other malignant neoplasm of skin Neoplasm of unspecified behavior of bone, soft tissue, and skin Lentigines documented in this encounter [facility] HealthcareEvaluation note* Diagnosis Encounter for postoperative wound check- Primary [facility] Neoplasm of unspecified behavior of bone, soft tissue, and skin- Primary Surgery, elective Unspecified elective surgery for purposes other than remedying health states [facility] N[facility]ative No data available for this section [facility] Discharge instructions No data available for this section [facility] note No data available for this section [facility] Summary Purpose Family History No Family History Records FoundNo Family History Records FoundNo Family History Records FoundNo Family History Records Found No data available for this section No data available for this section No data available for this section No Family History Records Found No data available for this section No Family History Records FoundNo Family History Records Found No data available for this section No Family History Records Found Advance Directives No [...] Referral Specialty Diagnoses / Procedures Referred By Beth t Referred To Contact Radiology Diagnoses RUQ abdominal pain Procedures NM HEPATOBILIARY SCAN W EJECTION FRACTION Fish Maciel MD [address] [place] [address] Referral ID Status Reason Start Date Expiration Date Visits Re quested Visits Authorized [id number] Closed 08/06/2024 08/06/2025 1 1 Chief Complaint and Reason for Visit Chief Complaint Admit Date C44.319 September 19, 2024 10:0 3am C44.219 October 03, 2024 9:0 2am Additional Source Comments (unrecognized sect ion and content) No Status Records FoundNo Status Records FoundNo Status Records FoundNo Status Records FoundNo Status Records FoundNo Status Records FoundNo Status Records FoundNo Status Records Found INFORMATION SOURCE (unrecogn ized section and content) DATE CREATED AUTHOR 01/10/2018 [facility] DATE CREATED AUTHOR AUTHOR'S ORGANIZ ATION 06/25/2018 [facility] DATE CREATED AUTHOR AUTHOR'S ORGANIZ ATION 02/25/2020 [facility] DATE CREATED AUTHOR AUTHOR'S ORGANIZ ATION 09/10/2022 [facility] DATE CREATED AUTHOR AUTHOR'S ORGANIZ ATION 08/13/2024 [facility] DATE CREATED AUTHOR AUTHOR'S ORGANIZ ATION 10/14/2024 [facility] DATE CREATED AUTHOR AUTHOR'S ORGANIZ ATION 11/20/2024 [facility] EPIC DATE CREATED AUTHOR AUTHOR'S ORGANIZ ATION 12/06/2024 [facility] Patient Care team informatio n (unrecognized section and content) Team Status: Inactive Member Role Status Dates Shirin Meyer MD [facility] Attending Provider Active Start: November 16, 2023 End: November 16, 2023 Team Status: Inactive Member Role Status Dates Gary Varela MD Attending Provider Active Start: December 14, 2023 End: December 14, 2023 Nursing Care Partner Relationship Specialty Start Date End Date Fish Maciel MD [address] [place] [address] PCP - General Family Medicine 03/23/17 Nursing Care Partner Relationship Specialty Start Date End Date Fish Maciel MD [address] [place] [address] PCP - General Family Medicine 03/23/17 Nursing Care Partner Relationship Specialty Start Date End Date Fish Maciel MD [address] [place] [address] PCP - General Family Medicine 03/23/17 Nursing Care Partner Relationship Specialty Start Date End Date Fish Maciel MD [address] [place] [address] PCP - General Family Medicine 03/23/17 Team Status: Inactive Member Role Status Dates Gary Varela MD Attending Provider Active Start: September 19, 2024 End: September 19, 2024 Team Status: Inactive Member Role Status Dates Gary Varela MD Attending Provider Active Start: October 03, 2024 End: October 03, 2024 Goals (unrecognized section and content) Goals may be documented in a n alternate section Reason for Visit (unrecogniz ed section and content) Reason Comments Follow-up Specialty Diagnoses / Procedures Referred By Contac t Referred To Contact Diagnoses Ureteral calculus Ureteral calculus [N20.1] Procedures [place] LITHOTRIPSY XTRCORP SHOCK WAVE EXTRACORPOREAL SHOCK WAVE LITHOTRIPSY Salvador Leung MD [address] [facility], [address] [place] [address] [facility] [address] [place] [address] Referral ID Status Reason Start Date Expiration Date Visits Re quested Visits Authorized [id number] 1 1 Specialty Diagnoses / Procedures Referred By Contac t Referred To Contact Radiology Diagnoses RUQ abdominal pain Procedures NM HEPATOBILIARY SCAN W EJECTION FRACTION Fish Maciel MD [address] [place] [address] Referral ID Status Reason Start Date Expiration Date Visits Re quested Visits Authorized [id number] Closed 08/06/2024 08/06/2025 1 1 Reason Comments Skin Check Reason Comments Suspicious Skin Lesion Scheduled Active and Recently Administ ered Medications [...] 100 mL IVPB (COMPLETED) 3,000 mg, IntraVENous, DICE TABLE PERSON TO O.R., 1 dose, On Tue03/13/24 at [...] ider: Linda Moreau RN)[phone] (NoRateChange - Provider: Santiago Figueroa APRN - CLAY THROWER)[id number] (Stopped - Provider: Santiago Figueroa APRN - LEMUEL)[id number] (Stopped - Provider: Ekta Yadav RN) PRN [...] BE BASED ON THE PRIMARY CLINICAL RECORDS. [facility]. provides no warranty or guarantee of the accuracy or completeness of information in this document.
== END 2024-12-20 10:07 | disposition home or self-care (01) ==
LOC: PST 10:06
PROVIDERS: PCP Family Medicine; Visit Provider Surgery
DX: Z01.818 Encounter for other preprocedural examination (principal); L72.3 Sebaceous cyst; L08.9 Local infection of the skin and subcutaneous tissue, unspecified

== ENCOUNTER 2025-01-02 09:51 | Day surgery (SDC) | payer OTHER, SELFPAY ==
--- NOTE | 2025-01-02 | OP_ITS ---
OPERATION DATE: 01/02/2025 PREOPERATIVE DIAGNOSIS: Enlarging epidermal cysts of the mid and upper back; mid back had been previously infected. POSTOPERATIVE DIAGNOSIS: Enlarging epidermal cysts of the mid and upper back; mid back had been previously infected. PROCEDURE: Excisional biopsy epidermal cysts mid and upper back. SURGEON: Naveed Conn M.D. ANESTHESIA: Local with 0.5% Marcaine plain. ESTIMATED BLOOD LOSS: Less than 7 mL. INDICATIONS AND CONSENT: Patient is a 64-year-old male with history of enlarging cysts of the upper and mid back. The mid back lesion was recently infected and had spontaneous drainage, was treated with antibiotics. The infection has now resolved. The upper back lesion has been enlarging. It has not been previously infected. Indications, risks, benefits, alternatives of proceeding with excisional biopsy under local anesthesia of these enlarging cysts were explained extensively to the patient, including the risks of bleeding, infection, scarring, pain, recurrence, need for further surgery or anesthetic complications. All of his questions were answered. Informed consent was obtained. PROCEDURE: Patient brought to the operating room, placed in the left lateral decubitus position. He was prepped and draped in the usual sterile fashion. The areas were anesthetized with 0.5% Marcaine plain. The mid back lesion was excised in elliptical fashion down to subcutaneous fat. Total length of incision 2 cm. Needle tip electrocautery was used to excise the deeper portion and to achieve hemostasis. The specimen was then sent off to pathology. There was good hemostasis. The incision was closed with 3-0 nylon mattress sutures and 4-0 nylon simple sutures with good hemostasis. The upper lesion was excised in identical fashion. Total length of the incision was 1.5 cm. It was closed in identical fashion. Both were covered with sterile dressings and Medipore tape. The patient tolerated procedure well, was sent to recovery room in good condition. Estimated blood loss less than 7 mL. CC: Fish Nolasco M.D. KAREEM
[2025-01-02 10:22] VITALS: BP 128/80; PULSE 65; TEMP 36.1; O2SAT 98
[2025-01-02 11:37] VITALS: BP 126/60; PULSE 72; O2SAT 96
[2025-01-02] MEDS: BUPIVACAINE HCL 0.5% PF 50 MG/10 ML VIAL 5 ML INJ (11:47)
[2025-01-02 11:51] VITALS: PULSE 75; O2SAT 96
[2025-01-02 11:53] VITALS: BP 144/72
== END 2025-01-02 12:14 | disposition home or self-care (01) ==
LOC: SURGOUT 09:51
PROVIDERS: PCP Family Medicine; Visit Provider Surgery
PROC: (CPT 11402; principal; 2025-01-02 10:15)
DX: L72.0 Epidermal cyst (principal); L08.9 Local infection of the skin and subcutaneous tissue, unspecified
CPT/HCPCS: 11402 ×2; 88304; J0665